=== PATIENT | female | born 1980 | race Caucasian/White ===

== ENCOUNTER 2016-11-20 08:11 | Emergency (ER) | payer SELFPAY ==
[2016-11-20 08:18] VITALS: BP 128/91
--- NOTE | 2016-11-20 09:10 | RAD ---
CLINICAL HISTORY: Flank pain COMPARISON: None TECHNIQUE: Multiple contiguous axial CT scans were obtained of the abdomen and pelvis, without intravenous contrast enhancement. Coronal and sagittal multiplanar reformations are submitted for review. Oral contrast was not administered. FINDINGS: The study is limited by the lack of intravenous contrast. This limits evaluation of the solid organs and vasculature. LUNG BASES: The lung bases are clear. LIVER: The liver is diffusely low in attenuation compared to the spleen. There are no focal hepatic parenchymal masses. The liver measures 21 cm in long axis. BILE DUCTS: There is no intrahepatic or extrahepatic biliary dilatation. GALLBLADDER: The gallbladder is normal, without pericholecystic inflammatory change. PANCREAS: The pancreas is normal, without mass or ductal dilatation. SPLEEN: Normal in size and appearance. UPPER GI TRACT: Evaluation of the gastrointestinal tract is limited by incomplete gastric distention. The upper GI tract is unremarkable. SMALL BOWEL AND MESENTERY: The small bowel is normal in contour, course, and caliber. There is no obstruction or dilatation. COLON: The colon is normal in contour, course, caliber. There is no pericolonic inflammatory change. There is a tubular, vermiform, hollow viscus that is blind ending, and originates from the cecum, consistent with a normal appendix. There is no periappendiceal inflammatory change. This is best seen on axial images 110 through 123. ADRENALS: Normal bilaterally. KIDNEYS: The kidneys are normal in shape, size, contour, and axis. There is no hydronephrosis or nephrolithiasis. BLADDER: The bladder is incompletely distended but is grossly normal. PELVIC ORGANS: The uterus and adnexa are grossly normal for technique. AORTA: The aorta is normal. IVC: Unremarkable LYMPH NODES: There is no lymphadenopathy by size criteria. ABDOMINAL WALL: There is no evidence for abdominal wall hernia. BONES AND SOFT TISSUES: Mild degenerative changes are noted OTHER: None IMPRESSION: 1. NO HYDRONEPHROSIS OR NEPHROLITHIASIS. 2. HEPATOMEGALY WITH FATTY INFILTRATION OF THE LIVER
--- NOTE | 2016-11-20 10:22 | UC ---
Amauri Page Angela, scribed for Kevin Ugarte MD on 11/20/16 at 0833 . Complaint Female HPI - HPI Summary HPI Summary: This pt is a 36 y/o female presenting to [facility] c/o bilateral flank pain with urinary frequency and mild dysuria. Pt reports her pain radiates from her back to her abdomen. Pt notes her pain is aggravated by urinating, touch and breathing. Pt states she had chills yesterday and had nausea. She denies fever, sore throat, rhinorrhea. Pt notes regular menstrual cycles. No hx of kidney stones. - History Of Current Complaint Chief Complaint: UCGU Stated Complaint: LOWER BACK PAIN Time Seen by Provider: 11/20/16 08:24 Hx Obtained From: Patient Hx Last Menstrual Period: 11/18/16 Onset/Duration: Gradual Onset Timing: Constant Pain Intensity: 4 Pain Scale Used: 0-10 Numeric Aggravating Factor(s): Urination Alleviating Factor(s): Nothing Associated Signs And Symptoms: Positive: Back Pain - flank pain, Nausea. Negative: Fever - Allergies/Home Medications Allergies/Adverse Reactions: Allergies Allergy/AdvReac Type Severity Reaction Status Date / Time No Known Allergies Allergy Verified 03/02/16 13:53 PMH/Surg Hx/FS Hx/Imm Hx Endocrine History: Diabetes - Type 2 Cardiovascular History: Hypertension - Surgical History Surgical History: Yes Surgery Procedure, Year, and Place: Csection,left foot surgery x 2. Leep procedure. cervical tear repair - Family History Known Family History: Positive: None Negative: Cardiac Disease, Hypertension, Diabetes Family History: R & n/C - Social History Alcohol Use: None Substance Use Type: None Smoking Status (MU): Current Every Day Smoker Type: Cigarettes Amount Used/How Often: 1/2 pdd Length of Time of Smoking/Using Tobacco: 15+ years Have You Smoked in the Last Year: Yes Household Exposure Type: Cigarettes - Immunization History Most Recent Influenza Vaccination: unsure Most Recent Tetanus Shot: unsure Most Recent Pneumonia Vaccination: none Review of Systems Constitutional: Negative, Chills Skin: Negative Eyes: Negative ENT: Negative Respiratory: Negative Cardiovascular: Negative Gastrointestinal: Abdominal Pain Genitourinary: Dysuria, Frequency, Urgency, Other - flank pain Musculoskeletal: Negative Neurological: Negative Psychological: Negative All Other Systems Reviewed And Are Negative: Yes Physical Exam Triage Information Reviewed: Yes Vital Signs: Initial Vital Signs Temp 97.8 F 11/20/16 08:14 Pulse 104 11/20/16 08:14 Resp 20 11/20/16 08:14 BP 128/91 11/20/16 08:14 Pulse Ox 100 11/20/16 08:14 Vital Signs Reviewed: Yes - Additional Comments The patient is well-nourished in no acute distress. The skin is warm and skin color reflects adequate perfusion. Pt is a little diaphoretic. HEENT: The head is normocephalic and atraumatic. The pupils are equal and reactive. The conjunctivae are clear and without drainage. Nares are patent and without drainage. Neck is supple with full range of motion and non-tender. Respiratory: Chest is non-tender. Lungs are clear to auscultation and breath sounds are symmetrical and equal. Cardiovascular: Hear is regular rate and rhythm. There is no murmur or rub auscultated. There is no peripheral edema and pulses are symmetrical and equal. Abdomen: The abdomen is soft and non-tender. No reproducible pain in RUQ. There are normal bowel sounds heard in all four quadrants and there is no organomegaly palpated. Musculoskeletal: There is no back pain noted. Extremities are non-tender with full range of motion. There is good capillary refill. There is bilateral CVA tenderness. Neurological: Patient is alert and oriented to person, place and time. The patient has symmetrical motor strength in all four extremities. Psychiatric: The patient has an appropriate affect and does not exhibit any anxiety or depression. Diagnostics - Radiology CT Abdomen/Pelvis Xray Interpretation: No Acute Changes - IMPRESSION: 1. No hydronephrosis or nephrolithiasis. 2. Hepatomegaly with fatty infiltration of the liver. Radiology Interpretation Completed By: Radiologist Complaint Female Dx - Course Course Of Treatment: I discussed all the results with the pt. Pt will be discharged with ibuprofen and is advised to follow up. We did a culture and if positive, we will call her back. - Differential Dx/Diagnosis Differential Diagnosis/HQI/PQRI: Renal Colic, Ureteral Stone, Urinary Tract Infection Provider Diagnoses: Flank pain. Discharge - Discharge Plan Condition: Stable Disposition: HOME Patient Education Materials: Flank Pain (ED) Referrals: Sai Patricio MD [Primary Care Provider] - Additional Instructions: Your high blood pressure was elevated at this visit. Please follow up with your primary care provider for a blood pressure reading and to assure your symptoms are improving. Take ibuprofen as instructed to alleviate your pain. The documentation as recorded by the Amauri stark Angela accurately reflects the service I personally performed and the decisions made by me, Kevin Ugarte MD.
== END 2016-11-20 10:12 | disposition home or self-care (01) ==
LOC: UCEAST 08:11
DX: N21.1 Calculus in urethra (principal); N39.0 Urinary tract infection, site not specified; F17.210 Nicotine dependence, cigarettes, uncomplicated; I10 Essential (primary) hypertension
CPT/HCPCS: 74176; 81003; 84702; 87086; 99211; G0463

== ENCOUNTER 2016-12-22 08:03 | Emergency (ER) | payer SELFPAY | END 2016-12-22 09:10 | disposition left against medical advice (07) | LOC: UCEAST 08:03 | DX: M79.9 Soft tissue disorder, unspecified (principal); Z53.21 Procedure and treatment not carried out due to patient leaving prior to being seen by health care provider ==

== ENCOUNTER 2017-05-09 01:45 | Emergency (ER) | payer SELFPAY ==
[2017-05-09] MEDS ORDERED: Ibuprofen TAB* 400 MG PO ONE (03:59)
[2017-05-09 04:56] VITALS: BP 144/85
--- NOTE | 2017-05-09 15:38 | RAD ---
INDICATION: Right shoulder pain COMPARISON: With recent comparison chest x-ray August 01, 2015 TECHNIQUE: Single AP view of the chest was obtained. FINDINGS: The heart and mediastinum exhibit normal size and contour. The lungs are grossly clear. There is no evidence of a large pleural effusion. Visualized bones are normal for the patient's age. IMPRESSION: No radiographic evidence for acute cardiopulmonary abnormality on this single AP view chest x-ray.
--- NOTE | 2017-05-09 15:39 | RAD ---
INDICATION: Right shoulder and upper arm vein COMPARISON: None. TECHNIQUE: 4 views of the right shoulder, 3 views of the right humerus and 2 views of the right elbow were obtained. FINDINGS: The adequately corticated bones are in normal alignment. Joint spaces appear maintained. No fracture, dislocation or focal bony abnormality is seen. IMPRESSION: NORMAL RADIOGRAPHIC SERIES OF THE RIGHT SHOULDER, HUMERUS AND ELBOW If the patient's symptoms persist, follow-up imaging is recommended.
--- NOTE | 2017-05-13 21:06 | ED ---
Lenny Page Tecjoon, scribed for Geovani Em MD on 05/09/17 at 0216 . Upper Extremity Pain - HPI Summary HPI Summary: This patient is a 37 year old female presenting to [facility] accompanied by son with a chief complaint of right upper extremity pain since approx.. 1 hour ago. Patient states that she rolled in bed, heard crunching, and has extreme pain from her right shoulder to her elbow. The pain is rated 9/10 in severity. Symptoms aggravated by movement, palpation. Symptoms alleviated by nothing. 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 - History of Current Complaint Chief Complaint: EDShouldJoe Stated Complaint: SHOULDER INJURY Hx Obtained From: Patient Hx Last Menstrual Period: 11/18/16 Mechanism Of Injury: Other - "rolled in bed" Onset/Duration: Started Hours Ago - 1, Still Present Timing: Constant Severity Initially: Severe Severity Currently: Severe Pain Location: Shoulder, Elbow, Wrist Aggravating Factor(s): Movement Alleviating Factor(s): Nothing Associated Signs & Symptoms: Negative: Swelling, Redness - Allergies/Home Medications Allergies/Adverse Reactions: Allergies Allergy/AdvReac Type Severity Reaction Status Date / Time No Known Allergies Allergy Verified 03/02/16 13:53 PMH/Surg Hx/FS Hx/Imm Hx Previously Healthy: No Endocrine/Hematology History: Reports: Hx Diabetes, Hx Anemia Denies: Hx Thyroid Disease Cardiovascular History: Reports: Hx Hypertension Respiratory History: Denies: Hx Asthma, Hx Chronic Obstructive Pulmonary Disease (COPD) GI History: Denies: Hx Ulcer Sensory History: Reports: Hx Contacts or Glasses - reading once in a while Opthamlomology History: Reports: Hx Contacts or Glasses - reading once in a while - Surgical History Surgery Procedure, Year, and Place: Csection,left foot surgery x 2. Leep procedure. cervical tear repair Hx Anesthesia Reactions: No - Immunization History Date of Tetanus Vaccine: unk Date of Influenza Vaccine: unk Infectious Disease History: No Infectious Disease History: Reports: Hx of Known/Suspected MRSA Denies: Hx Clostridium Difficile, Hx Hepatitis, Hx Human Immunodeficiency Virus (HIV), Hx Shingles, Hx Tuberculosis, Hx Known/Suspected VRE, Hx Known/ Suspected VRSA, History Other Infectious Disease, Traveled Outside the [place] in Last 30 Days - Family History Known Family History: Negative: Cardiac Disease, Hypertension, Diabetes - Social History Alcohol Use: None Hx Substance Use: No Substance Use Type: Reports: None Hx Tobacco Use: Yes Smoking Status (MU): Current Every Day Smoker Type: Cigarettes Amount Used/How Often: 1/2 pdd Length of Time of Smoking/Using Tobacco: 15+ years Have You Smoked in the Last Year: Yes Review of Systems Negative: Fever Positive: Other - right shoulder to right wrist pain All Other Systems Reviewed And Are Negative: Yes Physical Exam - Summary Physical Exam Summary: Appearance: Well-appearing, Well-nourished, in pain distress Skin: Warm Eyes: Normal Cardiovascular: Normal S1, S2. No murmurs. Normal distal pulses in tibial and radial bilaterally. Musculoskeletal: Tenderness throughout right shoulder to right wrist. Intact sensation, intact function of right hand. No swelling. Abd/Chest: Chest wall, no tenderness to palp to clavicle Neurological: Normal, A&Ox3 Psychiatric: Normal Triage Information Reviewed: Yes Vital Signs On Initial Exam: Initial Vitals Temp Pulse Resp BP Pulse Ox 97.4 F 117 22 141/84 98 05/09/17 01:50 05/09/17 01:50 05/09/17 01:50 05/09/17 01:50 05/09/17 01:50 Vital Signs Reviewed: Yes Diagnostics - Vital Signs Vital Signs Temp Pulse Resp BP Pulse Ox 05/09/17 01:50 97.4 F 117 22 141/84 98 - Laboratory Lab Statement: Any lab studies that have been ordered have been reviewed, and results considered in the medical decision making process. Course/Dx - Course Assessment/Plan: no acute fractures or dislocations on xr, distal nv intact, pt instructed to [facility] orthopedist. given sling for comfort, agrees to and understnads dc instructinos - Diagnoses Provider Diagnoses: Rotator cuff injury Discharge - Discharge Plan Condition: Stable Disposition: HOME Prescriptions: oxyCODONE/Acetamin 5/325 MG* [Percocet 5/325 TAB*] 1 tab PO Q6H PRN #10 tab MDD 4 tabs PRN Reason: Pain - Moderate To Severe Patient Education Materials: Rotator Cuff Injury (ED) Referrals: Mark Meyer MD [Medical Doctor] - Sai Patricio MD [Primary Care Provider] - Additional Instructions: PLEASE MAKE AN APPOINTMENT FIRST THING IN THE MORNING TO BE SEEN BY AN ORTHOPEDIST WITHIN 1 [address] NOT DRIVE WHILE TAKING PERCOCET PLEASE RETURN IMMEDIATELY TO THE ER IF YOU HAVE ANY WORSENING OR CONCERNING SYMPTOMS PLEASE MAKE AN APPOINTMENT TO BE SEEN BY YOUR PRIMARY CARE DOCTOR WITHIN 1 WEEK The documentation as recorded by the Lenny stark Tecjoon accurately reflects the service I personally performed and the decisions made by me, Geovani Em MD.
== END 2017-05-09 04:10 | disposition home or self-care (01) ==
LOC: ED 01:45
DX: S46.009A Unspecified injury of muscle(s) and tendon(s) of the rotator cuff of unspecified shoulder, initial encounter (principal); M25.531 Pain in right wrist; X50.9XXA Other and unspecified overexertion or strenuous movements or postures, initial encounter; Y92.9 Unspecified place or not applicable; F17.210 Nicotine dependence, cigarettes, uncomplicated
CPT/HCPCS: 71045; 99282; A9270-GY

== ENCOUNTER 2018-04-14 11:36 | Emergency (ER) | payer OTHER ==
[2018-04-14] MEDS ORDERED: NS 0.9% 1000 ML* 1,000 ML IV ONE ×2 (11:43→12:48)
[2018-04-14] MEDS ORDERED: Famotidine IV* 10 MG/ML 2 ML (20 mg) IV ONE (11:43)
--- NOTE | 2018-04-14 11:50 | ED ---
HPI Diabetic - HPI Summary HPI Summary: The patient is a 38 y/o F presenting to [facility] arriving by ambulance with a chief complaint of sudden onset nausea and vomiting since 0600 this morning. She felt normal last night and into this morning until after she ate a banana and coffee for breakfast, which is when her symptoms began. She has vomited multiple times, which has not been resolved; she is unable to tolerate medication PO due to current condition. The vomiting has additionally led to a burning sensation in her throat and epigastric abd pain. She has hx of Type II DM and HTN, which are usually controlled. In the ambulance, her blood sugar was greater than 300. She denies hx of GERD. Current heavy everyday smoker, occasional marijuana, and EtOH. No FHx. - History Of Current Complaint Hx Obtained From: Patient, EMS Hx Last Menstrual Period: 03/19/18 Onset/Duration: Sudden Onset, Lasting Hours - since 0600 this morning, Still Present Timing: Hours Severity Initially: Moderate Severity Currently: Moderate Character: Alert Aggravating: Nothing Alleviating: Other - unable to tolerate oral meds at this time Associated Signs & Symptoms: Abdominal Pain - epigastric secondary to vomiting, Nausea, Vomiting Related History: DM II - Allergies/Home Medications Allergies/Adverse Reactions: Allergies Allergy/AdvReac Type Severity Reaction Status Date / Time No Known Allergies Allergy Verified 12/13/17 13:07 PMH/Surg Hx/FS Hx/Imm Hx Endocrine/Hematology History: Reports: Hx Diabetes - type 2 dm, Hx Anemia Denies: Hx Thyroid Disease Cardiovascular History: Reports: Hx Hypertension Denies: Hx Hypercholesterolemia, Hx Pacemaker/ICD Respiratory History: Denies: Hx Asthma, Hx Chronic Obstructive Pulmonary Disease (COPD) GI History: Denies: Hx Gastroesophageal Reflux Disease, Hx Ulcer History: Denies: Hx Renal Disease Sensory History: Reports: Hx Contacts or Glasses - reading once in a while Denies: Hx Hearing Aid Opthamlomology History: Reports: Hx Contacts or Glasses - reading once in a while Psychiatric History: Denies: Hx Panic Disorder - Surgical History Surgery Procedure, Year, and Place: Csection Xs 2. left foot surgery x 2 - [place] [facility] [place]-TWICE. Leep procedure. Cervix tear repair Hx Anesthesia Reactions: No - Immunization History Date of Tetanus Vaccine: unk Date of Influenza Vaccine: unk Infectious Disease History: Reports: Hx of Known/Suspected MRSA Denies: Hx Clostridium Difficile, Hx Hepatitis, Hx Human Immunodeficiency Virus (HIV), Hx Shingles, Hx Tuberculosis, Hx Known/Suspected VRE, Hx Known/ Suspected VRSA, History Other Infectious Disease - Family History Known Family History: Negative: Cardiac Disease, Hypertension, Diabetes Family History: R & n/C - Social History Alcohol Use: Rare Hx Substance Use: No Substance Use Type: Reports: Marijuana Substance Use Comment - Amount & Last Used: weekly Hx Tobacco Use: Yes Smoking Status (MU): Heavy Every Day Tobacco Smoker Type: Cigarettes Amount Used/How Often: 1/2 pdd Length of Time of Smoking/Using Tobacco: 15+ years Have You Smoked in the Last Year: Yes Review of Systems Positive: Other - burning in throat secondary to vomiting Positive: Abdominal Pain - epigastric secondary to vomiting, Vomiting, Nausea All Other Systems Reviewed And Are Negative: Yes Physical Exam - Summary Physical Exam Summary: VITAL SIGNS: Reviewed. GENERAL: Patient is a well-developed and nourished female who is lying comfortable in the stretcher. Patient is not in any acute respiratory distress. HEAD AND FACE: No signs of trauma. No ecchymosis, hematomas or skull depressions. No sinus tenderness. EYES: PERRLA, EOMI x 2, No injected conjunctiva, no nystagmus. EARS: Hearing grossly intact. Ear canals and tympanic membranes are within normal limits. MOUTH: Oropharynx within normal limits. Dry oral mucosa. NECK: Supple, trachea is midline, no adenopathy, no JVD, no carotid bruit, no c- spine tenderness, neck with full ROM. CHEST: Symmetric, no tenderness at palpation LUNGS: Clear to auscultation bilaterally. No wheezing or crackles. CVS: Regular rate and rhythm, S1 and S2 present, no murmurs or gallops appreciated. ABDOMEN: Soft, mild epigastric tenderness. No signs of distention. No rebound no guarding, and no masses palpated. Bowel sounds are normal. No abdominal bruit or pulsations. EXTREMITIES: FROM in all major joints, no edema, no cyanosis or clubbing. NEURO: Alert and oriented x 3. No acute neurological deficits. Speech is normal and follows commands. SKIN: Dry and warm Triage Information Reviewed: Yes Vital Signs Reviewed: Yes Diagnostics - Laboratory Result Diagrams: 04/14/18 11:10 04/14/18 11:10 Lab Statement: Any lab studies that have been ordered have been reviewed, and results considered in the medical decision making process. - Radiology Abd XR Radiology Interpretation Completed By: Radiologist Summary of Radiographic Findings: No acute abdominal pelvic pathologic process evident. ED physician has reviewed this report. - CT Abd CT CT Interpretation Completed By: Radiologist Summary of CT Findings: Normal appendix. No other masses or fluid collections are noted although the study is limited due to lack of oral contrast. Hepatic steatosis is noted. ED physician has reviewed this report. - EKG 12:13 Cardiac Rate: Bradycardia - 50 BPM EKG Rhythm: Sinus Bradycardia Summary of EKG Findings: No ST elevations. Re-Evaluation - Re-Evaluation First Eval Re-Evaluation Time: 16:35 Change: Improved Comment: Patient states she is feeling better. We discussed results and discharge home. Diabetic Course/Dx - Course Course Of Treatment: The patient was found to have increased BP in the ED. The patient will follow up with PCP for better control of BP. Assessment/Plan: The patient is a 38 y/o F presenting to [facility] arriving by ambulance with a chief complaint of sudden onset nausea and vomiting since 0600 this morning. She felt normal last night and into this morning until after she ate a banana and coffee for breakfast, which is when her symptoms began. She has vomited multiple times, which has not been resolved; she is unable to tolerate medication PO due to current condition. The vomiting has additionally led to a burning sensation in her throat and epigastric abd pain. She has hx of Type II DM and HTN, which are usually controlled. In the ambulance, her blood sugar was greater than 300. She denies hx of GERD. Current heavy everyday smoker , occasional marijuana, and EtOH. No FHx. Blood work without any significant abnormality except for WBCs of 14.3, hemoglobin 17.7 hematocrit 52, anion gap is 14, glucose is 404, calcium is 10.6, lactic acid 3.2, an beta hCG is negative. In the ED course the patient was given IV fluids and Zofran for nausea and vomiting. She continued to have nausea therefore the patient was given Reglan. Abdominopelvic CT impression: normal appendix, no other mass or fluid collections are noted although the study is limited due to lack of oral contrast. In the ED course the patient is given another dose of Compazine and the symptoms have resolved. Patient also was given insulin for hyperglycemia and now the fingerstick is 240. Since the patient is feeling better and the patient will be discharged home with follow-up with PCP. I discussed all the findings and test results with the patient. Patient was instructed to return to the emergency room immediately if any of the symptoms return or worsens. Plan of care was discussed with the patient and understands and agrees. All questions were answered at patient satisfaction. There were no further complaints or concerns. Lung exam before discharge: CTA B/L. Good air exchange. No wheezing or crackles heard. CVS: S1 and S2 present. No murmurs appreciated. Patient is alert and oriented x 3. Patient is hemodynamically stable. Patient will be discharged home with follow up PCP in the next 2-3 days - Diagnoses Differential Dx: Gestational Diabetes, Hyperglycemia, Hypoglycemia Provider Diagnoses: Nausea and vomiting, Gastroparesis Discharge - Sign-Out/Discharge Documenting (check all that apply): Patient Departure - Patient will be discharged home. - Discharge Plan Condition: Stable Disposition: HOME Prescriptions: Metoclopramide TAB* [Reglan TAB*] 10 mg PO Q8H PRN #10 tab PRN Reason: Nausea/Vomiting Patient Education Materials: Acute Nausea and Vomiting (ED) Referrals: Abhishek Martin MD [Primary Care Provider] - 3 Days Additional Instructions: Please take medication as prescribed. FOLLOW UP WITH YOUR PRIMARY CARE PROVIDER WITHIN ONE WEEK FOR HIGH BLOOD PRESSURE NOTED TODAY. RETURN TO THE ED FOR ANY WORSENING OR NEW SYMPTOMS. - Billing Disposition and Condition Condition: STABLE Disposition: Home - Attestation Statements Document Initiated by Luther: Yes Documenting Scribe: Linn Jacob Provider For Whom Luther is Documenting (Include Credential): Dr. Abhishek Mireles MD Scribe Attestation: Linn Page scribed for Dr. Abhishek Mireles MD on 04/14/18 at 2147. Scribe Documentation Reviewed: Yes Provider Attestation: The documentation as recorded by the Linn stark accurately reflects the service I personally performed and the decisions made by me, Dr. Abhishek Mireles MD Status of Scribe Document: Viewed
[2018-04-14] MEDS: Ondansetron INJ* 2 MG/ML VIAL IV ONE ×2 (12:16)
[2018-04-14 12:20] LABS: Hematocrit 52 % (35-47); Hemoglobin 17.7 g/dl (12.0-16.0); Mean Corpuscular HGB Conc 34 g/dl (31-36); Mean Corpuscular Hemoglobin 30 pg (27-31); Mean Corpuscular Volume 87 fL (80-97); Mean Platelet Volume 9.9 fL (7.4-10.4); Platelet Count 235 10^3/ul (150-450); Red Blood Count 5.99 10^6/ul (4.00-5.40); Red Cell Distribution Width 14 % (10.5-15); White Blood Count 14.3 10^3/ul (3.5-10.8)
[2018-04-14 12:38] LABS: ALT 29 U/L (7-52); AST 31 U/L (13-39); Albumin 5.5 g/dL (3.2-5.2); Albumin/Globulin Ratio 1.8 (1-3); Alkaline Phosphatase 62 U/L (34-104); Anion Gap 14 mmol/L (2-11); BUN/Creatinine Ratio 11.8 (8-20); Blood Urea Nitrogen 11 mg/dL (6-24); C Reactive Protein 3.78 mg/L (<8.01); CO2 Carbon Dioxide 23 mmol/L (22-32); Calcium 10.6 mg/dL (8.6-10.3); Chloride 100 mmol/L (101-111); Creatine Kinase 44 U/L (10-223); EGFR Non-African American 67.5 (>60); Glucose 404 mg/dL (70-100); Potassium 4.3 mmol/L (3.5-5.0); Sodium 137 mmol/L (135-145); Total Protein 8.5 g/dL (6.4-8.9)
[2018-04-14 12:44] LABS: ABS Basophils 0.1 10^3/ul (0-0.2); ABS Eosinophils 0.1 10^3/ul (0-0.6); ABS Lymphocytes 2.3 10^3/ul (1.0-4.8); ABS Monocytes 0.4 10^3/ul (0-0.8); ABS Neutrophils 11.5 10^3/ul (1.5-7.7); ABS Nucleated RBC 0 10^3/ul; Eosinophil % 0.4 %; HCG Pregnancy < 0.60 mIU/mL; Nucleated Red Blood Cells % 0.1
[2018-04-14] MEDS ORDERED: Metoclopramide IV* 5 MG/ML 2 ML VIAL ONE (13:32)
[2018-04-14] MEDS ORDERED: Metoclopramide IV* 5 MG/ML 2 ML VIAL IV ONE (13:42)
[2018-04-14] MEDS ORDERED: Iodixanol* (CONTRAST) 320 MG/ML 100 ML SDV IV ONE (13:50)
[2018-04-14] MEDS ORDERED: Insulin REGULAR(*) 1 UNITS UNIT SUBCUT ONE (15:16)
[2018-04-14 15:47] LABS: Urine Appearance Clear; Urine Bilirubin Negative (Negative); Urine Blood Negative (Negative); Urine Color Yellow; Urine Glucose 3+(>=500 mg/dL) (Negative); Urine Ketones 2+ (Negative); Urine Nitrite Negative (Negative); Urine Protein Negative (Negative); Urine Specific Gravity 1.024 (1.010-1.030); Urine Urobilinogen Negative (Negative)
[2018-04-14] MEDS ORDERED: PROCHLORPERAZINE INJ 5 MG/ML 2 ML VIAL IV ONE (16:04)
[2018-04-14] MEDS ORDERED: Insulin REGULAR(*) 1 UNITS UNIT IV PUSH ONE (17:06)
[2018-04-14 20:10] VITALS: BP 165/72
== END 2018-04-14 20:07 | disposition home or self-care (01) ==
LOC: ED 11:36
DX: R11.2 Nausea with vomiting, unspecified (principal); K31.84 Gastroparesis; I10 Essential (primary) hypertension; F17.210 Nicotine dependence, cigarettes, uncomplicated; E11.9 Type 2 diabetes mellitus without complications
CPT/HCPCS: 36415; 74019; 74177; 80053; 81003; 82550; 83605; 83690; 83735; 83880; 84484; 84702; 85025; 86140; 93005; 96361; 96374; 96375; 99283; J0780; J2405; J2765; Q9967

== ENCOUNTER 2018-04-15 19:57 | Emergency (ER) | payer OTHER ==
[2018-04-15] MEDS ORDERED: NS 0.9% 1000 ML** 1,000 ML IV ONE ×2 (20:07→21:36)
[2018-04-15] MEDS ORDERED: PROCHLORPERAZINE INJ 5 MG/ML 2 ML VIAL IV ONE (20:07)
[2018-04-15 20:25] LABS: Hematocrit 50 % (35-47); Mean Corpuscular HGB Conc 34 g/dl (31-36); Mean Corpuscular Hemoglobin 30 pg (27-31); Mean Corpuscular Volume 86 fL (80-97); Mean Platelet Volume 9.6 fL (7.4-10.4); Platelet Count 254 10^3/ul (150-450); Red Blood Count 5.76 10^6/ul (4.00-5.40); Red Cell Distribution Width 15 % (10.5-15)
[2018-04-15] MEDS ORDERED: Pantoprazole IV* 40 MG IV ONE (20:25)
--- NOTE | 2018-04-15 20:28 | ED ---
GI/ HPI - HPI Summary HPI Summary: 38-year-old female presents with continuation nausea vomiting for the past 2 days. She was seen yesterday and diagnosed with gastroenteritis. She continued to vomit after she went home. She is not able to keep anything down. She only felt better with Compazine that was given here. States she tried Reglan home but it did not work. She denies any fevers. She admits to a dry throat. Occasional cough due to the vomiting. No diarrhea. She only has belly pain when she was vomiting. She states she has a headache when she vomits but no headache currently. She denies eating anything different. No one else is sick. She has not smoked any marijuana recently. This has never happened before. She is diabetic controlled by diet but lately her sugars have been elevated with this illness. - History of Current Complaint Chief Complaint: EDNauseaVomitDiarrh Time Seen by Provider: 04/15/18 20:01 Stated Complaint: NAUSEA Hx Last Menstrual Period: 03/19/18 Pain Intensity: 0 - Additional Pertinent History Primary Care Physician: RACHEL - Allergy/Home Medications Allergies/Adverse Reactions: Allergies Allergy/AdvReac Type Severity Reaction Status Date / Time No Known Allergies Allergy Verified 12/13/17 13:07 PMH/Surg Hx/FS Hx/Imm Hx Endocrine/Hematology History: Reports: Hx Diabetes - type 2 dm, Hx Anemia Denies: Hx Thyroid Disease Cardiovascular History: Reports: Hx Hypertension Denies: Hx Hypercholesterolemia, Hx Pacemaker/ICD Respiratory History: Denies: Hx Asthma, Hx Chronic Obstructive Pulmonary Disease (COPD) GI History: Denies: Hx Gastroesophageal Reflux Disease, Hx Ulcer History: Denies: Hx Renal Disease Sensory History: Reports: Hx Contacts or Glasses - reading once in a while Denies: Hx Hearing Aid Opthamlomology History: Reports: Hx Contacts or Glasses - reading once in a while Psychiatric History: Denies: Hx Panic Disorder - Surgical History Surgery Procedure, Year, and Place: Csection Xs 2. left foot surgery x 2 - I & D-TWICE. Leep procedure. Cervix tear repair Hx Anesthesia Reactions: No - Immunization History Date of Tetanus Vaccine: unk Date of Influenza Vaccine: unk Infectious Disease History: Yes Infectious Disease History: Reports: Hx of Known/Suspected MRSA Denies: Hx Clostridium Difficile, Hx Hepatitis, Hx Human Immunodeficiency Virus (HIV), Hx Shingles, Hx Tuberculosis, Hx Known/Suspected VRE, Hx Known/ Suspected VRSA, History Other Infectious Disease, Traveled Outside the [place] in Last 30 Days - Family History Known Family History: Negative: Cardiac Disease, Hypertension, Diabetes Family History: R & n/C - Social History Alcohol Use: Rare Hx Substance Use: No Substance Use Type: Reports: Marijuana Substance Use Comment - Amount & Last Used: weekly Hx Tobacco Use: Yes Smoking Status (MU): Heavy Every Day Tobacco Smoker Type: Cigarettes Amount Used/How Often: 1/2 pdd Length of Time of Smoking/Using Tobacco: 15+ years Have You Smoked in the Last Year: Yes Review of Systems Negative: Fever Negative: Chest Pain Negative: Shortness Of Breath Positive: Abdominal Pain, Vomiting, Nausea. Negative: Diarrhea All Other Systems Reviewed And Are Negative: Yes Physical Exam Triage Information Reviewed: Yes Vital Signs On Initial Exam: Initial Vitals Temp Pulse Resp BP Pulse Ox 98.4 F 100 16 146/97 100 04/15/18 19:58 04/15/18 19:58 04/15/18 19:58 04/15/18 19:58 04/15/18 19:58 Vital Signs Reviewed: Yes Appearance: Positive: Well-Appearing Skin: Positive: Warm, Dry Head/Face: Positive: Normal Head/Face Inspection Eyes: Positive: Normal, Conjunctiva Clear ENT: Positive: Pharynx normal Respiratory/Lung Sounds: Positive: Clear to Auscultation, Breath Sounds Present Cardiovascular: Positive: Normal, RRR Abdomen Description: Positive: Nontender, Soft Bowel Sounds: Positive: Present Musculoskeletal: Positive: Normal Neurological: Positive: Normal Psychiatric: Positive: Normal Diagnostics - Vital Signs Vital Signs Temp Pulse Resp BP Pulse Ox 04/15/18 19:58 98.4 F 100 16 146/97 100 - Laboratory Lab Results: Lab Results 04/15/18 Range/Units 20:16 WBC 25.0 H (3.5-10.8) 10^3/ul RBC 5.76 H (4.00-5.40) 10^6/ul Hgb 17.0 H (12.0-16.0) g/dl Hct 50 H (35-47) % MCV 86 (80-97) fL MCH 30 (27-31) pg MCHC 34 (31-36) g/dl RDW 15 (10.5-15) % Plt Count 254 (150-450) 10^3/ul MPV 9.6 (7.4-10.4) fL Neut % (Auto) Pending Lymph % (Auto) Pending Kendall % (Auto) Pending Eos % (Auto) Pending Baso % (Auto) Pending Absolute Neuts (auto) Pending Absolute Lymphs (auto) Pending Absolute Monos (auto) Pending Absolute Eos (auto) Pending Absolute Basos (auto) Pending Absolute Nucleated RBC Pending Nucleated RBC % Pending Result Diagrams: 04/15/18 20:16 04/15/18 20:16 Lab Statement: Any lab studies that have been ordered have been reviewed, and results considered in the medical decision making process. Re-Evaluation - Re-Evaluation First Eval Re-Evaluation Time: 20:49 Change: Improved Comment: less nauesous Second Eval Re-Evaluation Time: 21:49 Comment: no symptoms anymore, wants to try crackers Third Eval Re-Evaluation Time: 22:23 Change: Improved Comment: tolerated crackers and gingerale GIGU Course/Dx - Course Course Of Treatment: 38-year-old female presents with continuation nausea vomiting for the past 2 days. She was seen yesterday and diagnosed with gastroenteritis. She continued to vomit after she went home. She is not able to keep anything down. She only felt better with Compazine that was given here. States she tried Reglan home but it did not work. She denies any fevers. She admits to a dry throat. Occasional cough due to the vomiting. No diarrhea. She only has belly pain when she was vomiting. She states she has a headache when she vomits but no headache currently. She denies eating anything different. No one else is sick. She has not smoked any marijuana recently. This has never happened before. She is diabetic controlled by diet but lately her sugars have been elevated with this illness. On exam abdomen soft nontender. Lungs clear to auscultation. White blood cell count elevated at 25 but patient has a history of chronically elevated white blood cell count. Hemoglobin and hematocrit are elevated unclear reason at the moment. Lactic is elevated but patient has been vomiting. Has an anion gap but is likely due to vomiting. CRP is normal. had normal CT yesterday. gave compazine and fluids and feeling better. tolerated crackers in ED. will discharge with compazine. patient understand and agrees with plan. - Diagnoses Differential Diagnoses - Female: Gastroenteritis (Viral), Gastroenteritis ( Bacterial), Urinary Tract Infection Provider Diagnoses: Vomiting Discharge - Sign-Out/Discharge Documenting (check all that apply): Patient Departure - Discharge Plan Condition: Good Disposition: HOME Prescriptions: Prochlorperazine TAB* [Compazine Tab*] 5 mg PO Q6H PRN #16 tab PRN Reason: Nausea Patient Education Materials: Acute Nausea and Vomiting (ED) Referrals: Abhishek Martin MD [Primary Care Provider] - Additional Instructions: stop Reglan Take compazine every 6 hours as needed for nausea Drink small amounts of fluid as tolerated When able to eat follow BRAT diet: Bananas, rice, applesauce, toast Take ibuprofen or Tylenol for pain as needed every 6 hours Follow up with primary within 5 days Return to ED if develop any new or worsening symptoms - Billing Disposition and Condition Condition: GOOD Disposition: Home
[2018-04-15 20:44] LABS: ALT 19 U/L (7-52); AST 16 U/L (13-39); Albumin 5.3 g/dL (3.2-5.2); Albumin/Globulin Ratio 1.9 (1-3); Alkaline Phosphatase 52 U/L (34-104); Anion Gap 21 mmol/L (2-11); BUN/Creatinine Ratio 18.5 (8-20); Blood Urea Nitrogen 17 mg/dL (6-24); C Reactive Protein 7.09 mg/L (<8.01); CO2 Carbon Dioxide 22 mmol/L (22-32); Calcium 10.5 mg/dL (8.6-10.3); Chloride 93 mmol/L (101-111); EGFR African American 82.7 (>60); EGFR Non-African American 68.3 (>60); Globulin 2.8 g/dL (2-4); Glucose 323 mg/dL (70-100); Magnesium 1.9 mg/dL (1.9-2.7); Potassium 3.6 mmol/L (3.5-5.0); Sodium 136 mmol/L (135-145); Total Protein 8.1 g/dL (6.4-8.9)
[2018-04-15] MEDS ORDERED: Lidocaine 2% VISCOUS* 15 ML UDC PO ONE (20:49)
[2018-04-15] MEDS ORDERED: Al Hydrox/Mg Hydrox/Simet LIQ* 30 ML UDC PO ONE (20:49)
[2018-04-15 20:50] LABS: HCG Pregnancy < 0.60 mIU/mL
[2018-04-15] MEDS ORDERED: Insulin REGULAR(*) 1 UNITS UNIT SUBCUT ONE (20:50)
[2018-04-15 21:08] LABS: ABS Basophils 0.1 10^3/ul (0-0.2); ABS Eosinophils 0 10^3/ul (0-0.6); ABS Lymphocytes 3.3 10^3/ul (1.0-4.8); ABS Neutrophils 20.6 10^3/ul (1.5-7.7); ABS Nucleated RBC 0 10^3/ul; Eosinophil % 0 %; Lymphocyte % 13.3 %; Nucleated Red Blood Cells % 0.1
[2018-04-15 23:20] VITALS: BP 134/73
== END 2018-04-15 23:20 | disposition home or self-care (01) ==
LOC: ED 19:57 → MED 04-19 14:01 → UNDOADMOB 04-19 14:01
DX: R11.2 Nausea with vomiting, unspecified (principal); E11.9 Type 2 diabetes mellitus without complications; F17.210 Nicotine dependence, cigarettes, uncomplicated
CPT/HCPCS: 36415; 80053; 83605; 83690; 83735; 84702; 85025; 86140; 96361; 96372; 96374; 96375; 99283; A9270-GY; J0780

== ENCOUNTER 2018-04-19 09:51 | Observation (INO) | payer OTHER ==
[2018-04-19] MEDS ORDERED: Omeprazole CAP (NF) 20 MG CAP.DR PO ONE (10:08)
[2018-04-19] MEDS ORDERED: Ondansetron ODT TAB* 4 MG PO ONE (10:08)
[2018-04-19] MEDS ORDERED: NS 0.9% 1000 ML* 2,000 ML IV ONE (10:08)
[2018-04-19] MEDS ORDERED: diPHENhydraMINE PO* 50 MG PO ONE (10:11)
--- NOTE | 2018-04-19 10:20 | ED ---
GI/ HPI - HPI Summary HPI Summary: This patient is a 38 year old F brought in by EMS to [facility] c/o intermittent n/v for the last week. Today she began vomiting at 0600am and has 4 times since then. This is the patients third visit for this issue in the last week and states the medications given have not been helping her. The patient rates the pain 3/10 in severity. Patient reports constipation but is passing gas. She also c/o ABD cramping preceding vomiting. The patient has not had a colonoscopy or endoscopy in the past. She did not have any sx yesterday and she uses marijuana daily. - History of Current Complaint Chief Complaint: EDNauseaVomitDiarrh Time Seen by Provider: 04/19/18 09:56 Stated Complaint: GENERAL ILLNESS Hx Obtained From: Patient Hx Last Menstrual Period: 03/19/18 Onset/Duration: Still Present Timing: Intermittent Severity: Moderate Current Severity: Moderate Pain Intensity: 3 Location of Pain: Diffuse Pain Characteristics: Cramping Associated Signs and Symptoms: Positive: Other: - n/v - Additional Pertinent History Primary Care Physician: RACHEL - Allergy/Home Medications Allergies/Adverse Reactions: Allergies Allergy/AdvReac Type Severity Reaction Status Date / Time No Known Allergies Allergy Verified 12/13/17 13:07 Home Medications: Home Medications NK [No Home Medications Reported] 04/19/18 [History Confirmed 04/19/18] PMH/Surg Hx/FS Hx/Imm Hx Endocrine/Hematology History: Reports: Hx Diabetes - type 2 dm, Hx Anemia Denies: Hx Thyroid Disease Cardiovascular History: Reports: Hx Hypertension Denies: Hx Hypercholesterolemia, Hx Pacemaker/ICD, Hx Rheumatic Fever Respiratory History: Denies: Hx Asthma, Hx Chronic Obstructive Pulmonary Disease (COPD) GI History: Denies: Hx Gastroesophageal Reflux Disease, Hx Ulcer History: Denies: Hx Renal Disease Sensory History: Reports: Hx Contacts or Glasses - reading once in a while Denies: Hx Hearing Aid Opthamlomology History: Reports: Hx Contacts or Glasses - reading once in a while Psychiatric History: Denies: Hx Panic Disorder - Surgical History Surgery Procedure, Year, and Place: Csection Xs 2. left foot surgery x 2 - I & D-TWICE. Leep procedure. Cervix tear repair Hx Anesthesia Reactions: No - Immunization History Date of Tetanus Vaccine: unk Date of Influenza Vaccine: unk Infectious Disease History: No Infectious Disease History: Reports: Hx of Known/Suspected MRSA Denies: Hx Clostridium Difficile, Hx Hepatitis, Hx Human Immunodeficiency Virus (HIV), Hx Shingles, Hx Tuberculosis, Hx Known/Suspected VRE, Hx Known/ Suspected VRSA, History Other Infectious Disease, Traveled Outside the [place] in Last 30 Days - Family History Known Family History: Negative: Cardiac Disease, Hypertension, Diabetes - Social History Alcohol Use: Rare Hx Substance Use: Yes Substance Use Type: Reports: Marijuana Substance Use Comment - Amount & Last Used: weekly Hx Tobacco Use: Yes Smoking Status (MU): Heavy Every Day Tobacco Smoker Type: Cigarettes Amount Used/How Often: 1/2 pdd Length of Time of Smoking/Using Tobacco: 15+ years Have You Smoked in the Last Year: Yes Review of Systems Negative: Fever Gastrointestinal: Other - constipation Positive: Abdominal Pain - cramping , Vomiting, Nausea Negative: Slurred Speech All Other Systems Reviewed And Are Negative: Yes Physical Exam - Summary Physical Exam Summary: VITAL SIGNS: Reviewed. GENERAL: Patient is a well-developed and nourished female who is lying comfortable in the stretcher. Patient is not in any acute respiratory distress. HEAD AND FACE: No signs of trauma. No ecchymosis, hematomas or skull depressions. No sinus tenderness. EYES: PERRLA, EOMI x 2, No injected conjunctiva, no nystagmus. EARS: Hearing grossly intact. Ear canals and tympanic membranes are within normal limits. MOUTH: mucus membranes are dry NECK: Supple, trachea is midline, no adenopathy, no JVD, no carotid bruit, no c- spine tenderness, neck with full ROM. CHEST: Symmetric, no tenderness at palpation LUNGS: Clear to auscultation bilaterally. No wheezing or crackles. CVS: Regular rate and rhythm, S1 and S2 present, no murmurs or gallops appreciated. ABDOMEN: Soft, non-tender. No signs of distention. No rebound no guarding, and no masses palpated. Bowel sounds are normal. EXTREMITIES: FROM in all major joints, no edema, no cyanosis or clubbing. NEURO: Alert and oriented x 3. No acute neurological deficits. Speech is normal and follows commands. SKIN: Dry and warm Triage Information Reviewed: Yes Vital Signs On Initial Exam: Initial Vitals Temp Pulse Resp BP Pulse Ox 98.0 F 118 20 174/103 100 04/19/18 09:55 04/19/18 09:55 04/19/18 09:55 04/19/18 09:55 04/19/18 09:55 Vital Signs Reviewed: Yes Diagnostics - Vital Signs Vital Signs Temp Pulse Resp BP Pulse Ox 04/19/18 09:55 98.0 F 118 20 174/103 100 - Laboratory Result Diagrams: 04/19/18 10:24 04/19/18 10:22 Lab Statement: Any lab studies that have been ordered have been reviewed, and results considered in the medical decision making process. - Radiology abd xray Radiology Interpretation Completed By: Radiologist Summary of Radiographic Findings: NO EVIDENCE FOR OBSTRUCTION. ED physician has reviewed this radiology report. - EKG 1024 Cardiac Rate: NL EKG Rhythm: Sinus Rhythm - at 65 BPM EKG Comparison: Other - Different from 04-14-18 Summary of EKG Findings: P wave inversion. GIGU Course/Dx - Course Assessment/Plan: This patient is a 35 year old F brought in by EMS to [facility] c/o intermittent n/v for the last week. Today she began vomiting at 0600am and has 4 times since then. This is the patients third visit for this issue in the last week and states the medications given have not been helping her. The patient rates the pain 3/10 in severity. Patient reports constipation but is passing gas. She also c/o ABD cramping preceding vomiting. The patient has not had a colonoscopy or endoscopy in the past. She did not have any sx yesterday and she uses marijuana daily. Past medical history significant for diabetes type 2, hypertension. Test result shows a what was a count of 13, sodium 133, potassium 3.2, and carbon dioxide is 21, anion gap is 16, glucose is 417, lactic acid is 3. Troponin is 0.00. Abdomen x-ray Impression: No acute pathology. In the ED course the patient was given approximately 2 L of IV fluids, the patient seems to have a decreased carbon dioxide an increased anion gap Possibly secondary to DKA. Therefore the patient was placed in an insulin drip. Patient also was given potassium chloride for the hypokalemia. Magnesium level is 1.9. At this time I discussed my physical exam, findings and test results with Dr. Rojas from the hospital services was accepted the patient for admission. The patient is hemodynamically stable alert and oriented 3. - Diagnoses Provider Diagnoses: DKA (diabetic ketoacidoses), Intractable nausea and vomiting, Hypokalemia - Physician Notifications Discussed Care Of Patient With: Emelyn Rojas Time Discussed With Above Provider: 12:39 Instructed by Provider To: Admit As Inpatient - Critical Care Time Critical Care Time: 30-74 min Discharge - Sign-Out/Discharge Documenting (check all that apply): Patient Departure - admitted - Discharge Plan Condition: Fair Disposition: ADMITTED TO [facility] - Billing Disposition and Condition Condition: FAIR Disposition: Admitted to [facility] - Attestation Statements Document Initiated by Jesusibe: Yes Documenting Scribe: Deion Saunders Provider For Whom Scribe is Documenting (Include Credential): Abhishek Mireles MD Scribe Attestation: Deion Page scribed for Abhishek Mireles MD on 04/19/18 at 1809. Scribe Documentation Reviewed: Yes Provider Attestation: The documentation as recorded by the Deion stark accurately reflects the service I personally performed and the decisions made by Abhishek guzman MD Status of Scribe Document: Viewed
[2018-04-19 10:36] LABS: ABS Basophils 0.1 10^3/ul (0-0.2); ABS Eosinophils 0 10^3/ul (0-0.6); ABS Lymphocytes 2.5 10^3/ul (1.0-4.8); ABS Monocytes 0.5 10^3/ul (0-0.8); ABS Neutrophils 9.8 10^3/ul (1.5-7.7); ABS Nucleated RBC 0 10^3/ul; Eosinophil % 0.4 %; Hematocrit 45 % (35-47); Hemoglobin 15.9 g/dl (12.0-16.0); Lymphocyte % 19.3 %; Mean Corpuscular HGB Conc 35 g/dl (31-36); Mean Corpuscular Hemoglobin 30 pg (27-31); Mean Corpuscular Volume 85 fL (80-97); Mean Platelet Volume 9.2 fL (7.4-10.4); Nucleated Red Blood Cells % 0.1; Platelet Count 232 10^3/ul (150-450); Red Blood Count 5.33 10^6/ul (4.00-5.40); Red Cell Distribution Width 14 % (10.5-15)
[2018-04-19 10:58] LABS: ALT 22 U/L (7-52); AST 22 U/L (13-39); Albumin 4.1 g/dL (3.2-5.2); Albumin/Globulin Ratio 1.5 (1-3); Alkaline Phosphatase 45 U/L (34-104); Anion Gap 16 mmol/L (2-11); BUN/Creatinine Ratio 14.9 (8-20); Blood Urea Nitrogen 11 mg/dL (6-24); C Reactive Protein 4.27 mg/L (<8.01); CO2 Carbon Dioxide 21 mmol/L (22-32); Calcium 9.4 mg/dL (8.6-10.3); Chloride 96 mmol/L (101-111); Creatine Kinase 39 U/L (10-223); EGFR Non-African American 87.8 (>60); Globulin 2.7 g/dL (2-4); Glucose 417 mg/dL (70-100); Magnesium 1.9 mg/dL (1.9-2.7); Potassium 3.2 mmol/L (3.5-5.0); Sodium 133 mmol/L (135-145); Total Protein 6.8 g/dL (6.4-8.9)
[2018-04-19] MEDS ORDERED: Metoclopramide IV* 5 MG/ML 2 ML VIAL IV SLOW PU ONE (11:09)
[2018-04-19] MEDS: KCL 10 MEQ/50 ML IVPREMIX* 10 MEQ/50 ML BAG IV SCH ×2 (11:49→13:42)
[2018-04-19] MEDS ORDERED: PROCHLORPERAZINE INJ 5 MG/ML 2 ML VIAL IV PRN ×2 (12:29→14:15)
[2018-04-19] MEDS ORDERED: Insulin IVPB 100 units/100 ml 100 UNITS/100 ML UNIT IVPB ONE (12:36)
[2018-04-19] MEDS ORDERED: Insulin LISPRO* 1 UNITS UNIT SUBCUT ONE (12:42)
[2018-04-19] MEDS ORDERED: Dextrose 50% Syringe 50 ML* 25 GM/50 ML SYRINGE IV PUSH PRN ×2 (12:42→14:19)
[2018-04-19 13:02] LABS: Urine Appearance Cloudy; Urine Bacteria Absent (Absent); Urine Bilirubin Negative (Negative); Urine Blood 3+ (Negative); Urine Glucose 3+(>=500 mg/dL) (Negative); Urine Ketones 1+ (Negative); Urine Nitrite Negative (Negative); Urine Protein 1+(30 mg/dL) (Negative); Urine Red Blood Cell 2+(6-10/hpf) (Absent); Urine Specific Gravity 1.026 (1.010-1.030); Urine Urobilinogen Negative (Negative); Urine White Blood Cell 2+(11-20/hpf) (Absent)
[2018-04-19 13:03] LABS: Urine Color Amber
[2018-04-19] MEDS ORDERED: NS 0.9% 1000 ML* 1,000 ML IV SCH (14:15)
[2018-04-19] MEDS ORDERED: diPHENhydraMINE IV* 50 MG/ML 1 ml VIAL (BENADRYL) IV PRN (14:28)
[2018-04-19] MEDS ORDERED: Capsaicin 0.025% CREAM* 60 GM TOPICAL SCH (14:30)
[2018-04-19 14:40] LABS: HCG Pregnancy < 0.60 mIU/mL
[2018-04-19] MEDS ORDERED: KCL 20 MEQ/100 ML IVPREMIX* 20 MEQ/100 ML BAG IV ONE (15:00)
[2018-04-19] MEDS ORDERED: Insulin GLARGINE(*) 1 UNITS UNIT SUBCUT SCH ×2 (15:00→21:00)
--- NOTE | 2018-04-19 16:35 | HP ---
CC: Dr. Abhishek Martin * ADMISSION HISTORY AND PHYSICAL: DATE OF ADMISSION: 04/19/18 PRIMARY CARE PROVIDER: Dr. Abhishek Martin. ATTENDING PHYSICIAN: Dr. Emelyn Rojas * (dictated by WENDY Pagan). CHIEF COMPLAINT: Vomiting. HISTORY OF PRESENT ILLNESS: Ms. Bennett is a 38-year-old female with a past medical history of type 2 diabetes and hypertension, who presented to the ED today with complaints of vomiting intermittently since 04/14/18. She has been to the ER twice for this complaint for which she was sent home on Compazine. The patient states that the Compazine helped, but if she did not take it every 6 hours she started vomiting again. On Thursday, she states she vomited 6 to 7 times, and received Compazine from the ER. This happened again on . She states that the vomiting occurs early in the morning, sometimes in the afternoon, and is worsened with movement. This morning, she states she took Compazine 5 a.m., and at 6 she started vomiting. She states she vomited approximately 7 times and then came ER. She believes that she started vomiting , because she hadn't taken her medication every 6 hours. She admits that hot showers tend to help relieve the vomiting. She denies abdominal pain, but states that she has abdominal cramping only with vomiting. She has decreased intake of food and has been following the BRAT diet. She states that she has lost 15 pounds since Thursday when all this began. She admits to daily marijuana use. The patient has a past medical history of DMII and hypertension. She states that she has not seen her primary care physician or been treated for either condition for approximately 1 1/2 years. She was previously treated with metformin for diabetes. The patient is currently on her menses. She admits to daily marijuana usage. Pertinent positives are nausea, intermittent cough, chills, cold sweats, dysphagia, pain with swallowing that "feels like there is a lump in my throat," which she attributes to frequent vomiting. Pertinent negatives are abdominal pain, diarrhea, headache, chest pain, shortness of breath, hematuria, hematochezia, melena, fever. The patient was given 2 L of IV fluids. She was placed on an insulin drip due to increased anion gap and elevated blood sugar. It was found that the patient was not acidotic according to pH of ABG and she was removed from the insulin drip. The patient was shown to be hypokalemic for which she will receive 80 mEq of potassium chloride and then BMP will be rechecked. The hospitalist group was asked to evaluate for admission. PAST MEDICAL HISTORY: 1. Diabetes mellitus type 2. 2. Hypertension. PAST SURGICAL HISTORY: section x2, left foot surgery x2, I and D x2, LEEP procedure, cervical tear repair. HOME MEDICATIONS: None. ALLERGIES: NKDA. FAMILY HISTORY: The patient states her mother and father are healthy. Maternal grandmother had congenital heart failure. No family history of diabetes. SOCIAL HISTORY: The patient states she smokes half-a-pack per day. The patient rarely drinks, stating she drinks approximately once every couple of months. Recreational drugs include daily marijuana use with no other recreational drug use. 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 She is not . She lives with her 11-year-old son. Her daughter in February of 2006. In the event that the patient is unable to make her own medical decisions, she appoints Edie Bennett, her mother to make decisions for her. REVIEW OF SYSTEMS: A 10-point review of systems was performed and all the pertinent positives and negatives are in the HPI. All other systems are negative. PHYSICAL EXAMINATION GENERAL: Ms. Bennett is a well-developed, well-nourished woman, who is sitting up in bed, in no acute distress. She appears her stated age. VITAL SIGNS: Temperature 98.0, pulse rate 90, oxygen saturation 98% on room air , blood pressure is 134/99, respiratory rate is 20. HEENT: Visual martin grossly intact. Pupils are equally round and reactive to light and accommodation. Extraocular movements intact. Sclerae without icterus. Hearing grossly intact. External auditory canals patent, free of cerumen. TMs intact with visible landmarks. Nares patent. Oral mucous membranes moist. Pharynx clear. NECK: Full range of motion. Thyroid is nonpalpable. Trachea is at midline. No lymphadenopathy. RESPIRATORY: Symmetrical chest expansion with no use of accessory muscles. Lungs clear to auscultation bilaterally. No rhonchi, wheeze, or rales. CARDIOVASCULAR: Regular rate and rhythm. S1, S2 present. No murmurs, rubs, clicks, or gallops. ABDOMEN: Soft and nontender to palpation. Bowel sounds are hypoactive throughout. No bruits. No hepatosplenomegaly. EXTREMITIES: Skin is warm and smooth bilaterally. No edema. No clubbing or cyanosis. Pedal pulses 2+ bilaterally. NEURO: Alert and oriented x3. No acute neurological deficits. Moves all extremities. DIAGNOSTIC STUDIES/LAB DATA: WBC 13.0. ABGs were within normal limits. Sodium of 133, potassium 3.2, chloride 96, carbon dioxide 21, anion gap 16, glucose 417, lactic acid 3.0 which was redrawn 3 hours later and has come down to 1.2. Urinalysis showed 1+ protein, 1+ ketones, 3+ urine blood, 2+ urine white blood cells, 2+ urine red blood cells, urine squamous epithelial cells, and 3+ urine glucose. Abdominal x-ray, impression: No evidence for obstruction. ASSESSMENT AND PLAN: Ms. Bennett is a 38-year-old female with a past medical history of type 2 diabetes and hypertension, who presented to the ER today due to vomiting. She was found to have hypokalemia, lactic acidosis, vomiting, diabetes, and hypertension. The patient will be admitted observation for: 1. Vomiting. Start the patient on clear liquids, advance as tolerated. The patient states that the vomiting is relieved with hot showers, so there is evidence that this might be cyclic vomiting syndrome induced by marijuana use. Benadryl and capsaicin cream were ordered. Compazine was also ordered p.r.n. nausea and vomiting. 2. Hypokalemia. The patient will receive 80 mEq of potassium throughout the day. BMP will be rechecked this evening around 6 p.m. and also in the morning. 3. Diabetes. The patient was previously on metformin, but has not seen her primary care physician in approximately a year and a half and has not taken any medications in that time either. Order hemoglobin A1c. Ordered Lantus 10 units at night and sliding scale insulin before meals. Continue to monitor the patient's anion gap throughout the day. 4. Lactic acidosis. Initial labs revealed a lactic acid of 3.0. When rechecked, lactic acid was 1.2. 5. Abnormal urinalysis. Blood and urine red blood cells were present in urinalysis, although the patient is on her menses at the current time, 3+ urine glucose is explained by untreated diabetes for approximately a year and a half. Recheck UA. 6. FEN: Diet is clear liquids, advance as tolerated. 7. Code status: Full code. 8. DVT prophylaxis: ANABELL stockings and ambulate ad david. 9. Disposition: Observation. TIME SPENT: Time for this admission was 60 minutes and 35 minutes was spent with the patient discussing medications, past medical history, events leading up to her arrival today, and performing a physical exam. The case has been reviewed with the attending, Dr. Rojas, who agrees with the plan of care. WENDY BENTON [id number]/[facility] #: [id number] SHANTA
[2018-04-19] MEDS: Insulin LISPRO* 1 UNITS UNIT SUBCUT SCH (17:08)
[2018-04-19 18:24] LABS: BUN/Creatinine Ratio 14.3 (8-20); Calcium 8.3 mg/dL (8.6-10.3); EGFR Non-African American 93.6 (>60); Potassium 3.3 mmol/L (3.5-5.0)
[2018-04-19] MEDS ORDERED: Nicotine Inhaler* 10 MG AMP INH PRN (20:00)
[2018-04-19] MEDS ORDERED: KCL 20 MEQ/100 ML IVPREMIX* 20 MEQ/100 ML BAG IV SCH (20:00)
[2018-04-19] MEDS ORDERED: Mouth Piece, Nicotine* 1 EACH CARTRIDGE INH ONE (21:00)
[2018-04-20] MEDS ORDERED: Lisinopril TAB* 5 MG PO ONE (00:20)
[2018-04-20 05:55] LABS: ABS Basophils 0 10^3/ul (0-0.2); ABS Eosinophils 0.1 10^3/ul (0-0.6); ABS Lymphocytes 3.2 10^3/ul (1.0-4.8); ABS Monocytes 0.6 10^3/ul (0-0.8); ABS Neutrophils 6.8 10^3/ul (1.5-7.7); ABS Nucleated RBC 0 10^3/ul; Eosinophil % 0.9 %; Hematocrit 41 % (35-47); Hemoglobin 13.9 g/dl (12.0-16.0); Mean Corpuscular HGB Conc 34 g/dl (31-36); Mean Corpuscular Hemoglobin 30 pg (27-31); Mean Corpuscular Volume 86 fL (80-97); Mean Platelet Volume 9.6 fL (7.4-10.4); Nucleated Red Blood Cells % 0; Platelet Count 206 10^3/ul (150-450); Red Blood Count 4.71 10^6/ul (4.00-5.40); Red Cell Distribution Width 14 % (10.5-15); White Blood Count 10.7 10^3/ul (3.5-10.8)
[2018-04-20 06:12] LABS: BUN/Creatinine Ratio 9.2 (8-20); Calcium 8.8 mg/dL (8.6-10.3); Potassium 3.6 mmol/L (3.5-5.0)
[2018-04-20] MEDS ORDERED: Capsaicin 0.025% CREAM* 60 GM TOPICAL SCH ×2 (09:00)
[2018-04-20] MEDS: Insulin LISPRO* 1 UNITS UNIT SUBCUT SCH (09:04)
--- NOTE | 2018-04-20 09:45 | PN ---
Subjective Date of Service: 04/20/18 Interval History: HD #2 38 yo F with PMH NIDDM who was loss to follow up with care with PCP, daily MJ use and GERD who presented with intractable N/V. In ED AGMA and mild elevated lactate, hyperglycemia, admitted on obs. Overnight no acute events. Nausea resolved, pt toerted clear liquid diet. T Max: 98.7 HR 57-78 has been HTN BP 153-184/66-74 satting 100% on RA This morning pt reports feeling better and is eager to go home. Making good UOP , remains hyperglycemic despite initiating low dose Lantus. Otherwise labs largely improved. Objective Active Medications: Capsaicin (Zostrix 0.025% Cream*) 1 applic TOPICAL DAILY [facility] Last Admin: 04/20/18 09:05 Dose: 1 applic Dextrose (D50w Syringe 50 Ml*) 12.5 gm IV PUSH .FOR FS < 60 - SS PRN PRN Reason: FS < 60 Diphenhydramine HCl (Benadryl Iv*) 25 mg IV Q6H PRN PRN Reason: nausea/vomiting Last Admin: 04/19/18 23:25 Dose: 25 mg Insulin Glargine (Lantus(*)) 10 units SUBCUT Q24H [facility] Last Admin: 04/19/18 20:55 Dose: 10 unit Insulin Human Lispro (Humalog*) 0 - 5 units SUBCUT AC [facility]; Protocol Last Admin: 04/20/18 09:04 Dose: 4 units Nicotine (Nicotine Inhaler*) 10 mg INH Q2H PRN PRN Reason: CRAVING Last Admin: 04/19/18 20:18 Dose: 10 mg Prochlorperazine Edisylate (Compazine Inj*) 10 mg IV Q6H PRN PRN Reason: NAUSEA/VOMITING Last Admin: 04/20/18 03:04 Dose: 10 mg Vital Signs - 8 hr 04/20/18 03:46 Temperature 97.4 F Pulse Rate 57 Respiratory 18 Rate Blood Pressure 153/66 (mmHg) O2 Sat by Pulse 99 Oximetry Oxygen Devices in Use Now: None Appearance: Well appearing woman in NAD Eyes: No Scleral Icterus, PERRLA Ears/Nose/Mouth/Throat: NL Teeth, Lips, Gums, Mucous Membranes Moist Neck: NL Appearance and Movements; NL JVP Respiratory: Symmetrical Chest Expansion and Respiratory Effort, Clear to Auscultation Cardiovascular: NL Sounds; No Murmurs; No JVD, RRR Abdominal: NL Sounds; No Tenderness; No Distention Lymphatic: No Cervical Adenopathy Extremities: No Edema Skin: No Rash or Ulcers Neurological: Alert and Oriented x 3 Result Diagrams: 04/20/18 05:19 04/20/18 05:19 Additional Lab and Data: A1C: 11.2 Assess/Plan/Problems-Billing Assessment: 38 yo F with PMH NIDDM who was loss to follow up with care with PCP, daily MJ use and GERD who presented with intractable N/V. In ED AGMA and mild elevated lactate, hyperglycemia, admitted on obs. Most likely 2/2 to hyperemesis in setting of MJ use and also with symptomatic hyperglycemia w/ out e/o DKA or HHS. Hospital stay c/b HTN which is likely chronic problem - Patient Problems (1) Nausea & vomiting Current Visit: Yes Status: Acute Code(s): R11.2 - NAUSEA WITH VOMITING, UNSPECIFIED SNOMED Code(s): 65272036 Comment: As per above, most likely 2/2 to hyperemsis in setting of MJ use, no e/o DKA, UTI, no e/o obstruction on KUB -Has improved with 2LIVF -Compazine, Metoclopromide, Benadryl given -Capcasin cream to chest -May be stable for d/c if she is amenable to follow with PCP (2) Diabetes Current Visit: No Status: Chronic Code(s): E11.9 - TYPE 2 DIABETES MELLITUS WITHOUT COMPLICATIONS SNOMED Code(s): 62813127 Comment: She will need to be d/c on medications, A1C is 11.2, long discussion with patient today -Metformin 500 BID, Glipizde, needs FU with PCP for titration. I have offered for her to see me as a PCP but she is not sure she wants to drive to [place] (3) Hypertension Current Visit: No Status: Acute Code(s): I10 - ESSENTIAL (PRIMARY) HYPERTENSION SNOMED Code(s): 93318508 Comment: She reports nausea with Lisinopril in the past will Start Losartan 25mg PO q day on d/c, she has tolerated well in the past (4) DVT prophylaxis Current Visit: No Status: Acute Code(s): [id number] - SNOMED Code(s): 924564751 Comment: Ambulatory Status and Disposition: Will d/c to home
--- NOTE | 2018-04-20 10:28 | DCNOTE ---
Subjective Date of Service: 04/20/18 Interval History: Discharge Summary: Hospitalization Summary: 38 yo F with PMH NIDDM who was loss to follow up with care with PCP after loss of her child, daily MJ use for anxiety, HTN and GERD who presented with intractable N/V. In ED AGMA and mild elevated lactate, hyperglycemia to 400 without e/o DKA or HHS, KUB unremarkable. She was admitted to the medicine service on observation for one night after IVF resuscitation of 2L, compazine, metoclopramide and capcascin cream. Her sx improved drastically overnight. Her diet was advanced from clear liquid to regular. Her hospital stay was c/b HTN and she will be d/c on Losartan which she has tolerated in the past. Her sugar remained poorly controlled and A1C was found to 11.2. She is very resistant to insulin but has tolerated Metformin and Glipizide in the past and amenable for d /c on these agents while she pursues engaging in primary care. Objective Active Medications: Capsaicin (Zostrix 0.025% Cream*) 1 applic TOPICAL DAILY [facility] Last Admin: 04/20/18 09:05 Dose: 1 applic Dextrose (D50w Syringe 50 Ml*) 12.5 gm IV PUSH .FOR FS < 60 - SS PRN PRN Reason: FS < 60 Diphenhydramine HCl (Benadryl Iv*) 25 mg IV Q6H PRN PRN Reason: nausea/vomiting Last Admin: 04/19/18 23:25 Dose: 25 mg Insulin Glargine (Lantus(*)) 10 units SUBCUT Q24H [facility] Last Admin: 04/19/18 20:55 Dose: 10 unit Insulin Human Lispro (Humalog*) 0 - 5 units SUBCUT AC [facility]; Protocol Last Admin: 04/20/18 09:04 Dose: 4 units Nicotine (Nicotine Inhaler*) 10 mg INH Q2H PRN PRN Reason: CRAVING Last Admin: 04/19/18 20:18 Dose: 10 mg Prochlorperazine Edisylate (Compazine Inj*) 10 mg IV Q6H PRN PRN Reason: NAUSEA/VOMITING Last Admin: 04/20/18 03:04 Dose: 10 mg Vital Signs - 8 hr 04/20/18 03:46 Temperature 97.4 F Pulse Rate 57 Respiratory 18 Rate Blood Pressure 153/66 (mmHg) O2 Sat by Pulse 99 Oximetry Oxygen Devices in Use Now: None Appearance: Pleasant woman in NAD Eyes: No Scleral Icterus, PERRLA Ears/Nose/Mouth/Throat: NL Teeth, Lips, Gums Neck: NL Appearance and Movements; NL JVP Respiratory: Symmetrical Chest Expansion and Respiratory Effort, Clear to Auscultation Cardiovascular: NL Sounds; No Murmurs; No JVD, RRR Abdominal: NL Sounds; No Tenderness; No Distention Lymphatic: No Cervical Adenopathy Extremities: No Edema Skin: No Rash or Ulcers Neurological: Alert and Oriented x 3 Result Diagrams: 04/20/18 05:19 04/20/18 05:19 Additional Lab and Data: A1C: 11.2 Assess/Plan/Problems-Billing Assessment: 38 yo F with PMH NIDDM who was loss to follow up with care with PCP, daily MJ use and GERD who presented with intractable N/V. In ED AGMA and mild elevated lactate, hyperglycemia, admitted on obs. Most likely 2/2 to hyperemesis in setting of MJ use and also with symptomatic hyperglycemia w/ out e/o DKA or HHS. Hospital stay c/b HTN which is likely chronic problem, she will be d/c to home with instructions for PCP followup - Patient Problems (1) Nausea & vomiting Current Visit: Yes Status: Acute Code(s): R11.2 - NAUSEA WITH VOMITING, UNSPECIFIED SNOMED Code(s): [id number] Comment: As per above, most likely 2/2 to hyperemsis in setting of MJ use, no e/o DKA, UTI, no e/o obstruction on KUB -Has improved with 2LIVF -Compazine, Metoclopromide, Benadryl given -Capcasin cream to chest -Will d/c with limited supply of compazine PO -May be stable for d/c if she is amenable to follow with PCP (2) Diabetes Current Visit: Yes Status: Chronic Code(s): E11.9 - TYPE 2 DIABETES MELLITUS WITHOUT COMPLICATIONS SNOMED Code(s): 80831602 Comment: She will need to be d/c on medications, A1C is 11.2, long discussion with patient today -Metformin 500 BID, will need to advance to max dose, Glipizde 10mg ER q AM, needs FU with PCP for titration. I have offered for her to see me as a PCP but she is not sure she wants to drive to [place] (3) Hypertension Current Visit: Yes Status: Acute Code(s): I10 - ESSENTIAL (PRIMARY) HYPERTENSION SNOMED Code(s): 45547939 Comment: She reports nausea with Lisinopril in the past will Start Losartan 25mg PO q day on d/c, she has tolerated well in the past (4) DVT prophylaxis Current Visit: No Status: Acute Code(s): EPK2600 - SNOMED Code(s): 906832076 Comment: Ambulatory Status and Disposition: Will d/c to home
[2018-04-20 11:09] VITALS: BP 150/74
== END 2018-04-20 12:05 | disposition home or self-care (01) ==
LOC: ED 09:51 → MED 14:01
PROVIDERS: ADMIT Internal Medicine; ATTEND Internal Medicine
DX: E11.9 Type 2 diabetes mellitus without complications (principal); I10 Essential (primary) hypertension; E87.6 Hypokalemia; R11.2 Nausea with vomiting, unspecified; F17.210 Nicotine dependence, cigarettes, uncomplicated
CPT/HCPCS: 36415; 74019; 80048; 80053; 81003; 81015; 82140; 82550; 82803; 83036; 83605; 83690; 83735; 83880; 84484; 84702; 85025; 86140; 87086; 93005; 96361; 96372; 96374; 96375; 99284; A9270-GY; G0378; J0780; J1200; J1815; J2765; J3480

== ENCOUNTER 2018-05-20 08:01 | Emergency (ER) | payer OTHER ==
[2018-05-20] MEDS ORDERED: PROCHLORPERAZINE INJ 5 MG/ML 2 ML VIAL IV ONE (08:05)
--- OUTSIDE RECORDS SUMMARY | 2018-05-20 08:24 | XMS REPORT | Continuity of Care Document ---
:1980 External Reference #:[id number] Author Name Ivette Chand Care Team Providers Name Role Phone Abhishek Martin III, MD Primary Care Physician Unavailable Payers Type Date Identification Numbers Payment Provider Subscriber Policy Number: [id number] Karl Patricio PayID: [id number] [address] [place] [phone] Effective: 2017 Policy Number: [id number] Medicaid Dora Patricio Expires: 2017 Group Name: 1 1 [address] PayID: [id number] [place] [address] Expires: 2017 PayID: [id number] Karl Patricio [address] [place] [phone] Advance Directives Description No Information Available Problems Date Description Provider Status Onset: 06/20/2011 Tobacco user Priya Lora M.D. Active Onset: 06/20/2011 Hirsutism Priya Lora M.D. Active Onset: 04/11/2013 Diabetes mellitus Priya Lora M.D. Active Onset: 05/25/2015 Essential hypertension Sai Patricio M.D. Active Onset: 05/14/2017 Injury of shoulder region Kit Gutierrez MD Active Onset: 05/14/2017 Strain of muscle(s) and tendon(s) of Kit Gutierrez MD Active the rotator cuff of right shoulder, subsequent encounter Onset: 05/28/2017 Sprain of shoulder and upper arm Kit Gutierrez MD Active Onset: 06/04/2017 Closed fracture proximal humerus, Kit Gutierrez MD Active greater tuberosity Onset: 11/05/2017 Disorder of shoulder Kit Gutierrez MD Active Onset: 06/20/2011 Type II diabetes mellitus Priya Lora M.D. Resolved uncontrolled Resolved: 04/11/2013 Family History Description No Information Available Social History Type Date Description Comments Sex Unknown Lives With boyfriend and son Occupation [employer] 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 smoker, smokes every Been smoking for 12 day yrs. Tobacco Use Start: Unknown End: Patient is a former Pt quit 5 weeks Unknown smoker ago. Smoking Status Reviewed: 05/03/18 Patient is a former Pt quit 5 weeks smoker ago. Exercise Type/Frequency Exercises regularly Allergies, Adverse Reactions, Alerts Description No Known Drug Allergies Medications Medication Date Status Form Strength Qnty SIG Indications Ordering Provider Metformin HCL 05/03 Active Tablets 500mg 90tab take 1 E11.9 s tablet by MD Boni mouth three times a day Prochlorperazine 04/22 Active Suppository 25mg 12uni use one R11.2 ts suppositor MD Boni y every 6-8 hours as needed Lifestyle Lite 04/22 Active 100un 3 times E11.69 [facility] Lancets its daily or MD Boni as needed dx e11.65 Lifestyle Lite 04/22 Active 100un for use [facility] Test Strips its with MD Boni glucometer . test 3 times a day initially. Prochlorperazine 04/21 Active Suppository 25mg 3unit Use one R11.2 s suppositor MD Boni y every 6-8 hours as needed Blood Glucose 04/21 Active Kit W/Device 1unit use as E11.69 [facility] Monitoring System s directed MD Boni Glipizide Active Tablets 10mg 1 by mouth Unknown /0000 every day Losartan 00 Active Tablets 25mg 1 by mouth Unknown Potassium /0000 every day Prochlorperazine Active Tablets 10mg 3 times Unknown Maleate /0000 daily for nausea Sulfamethoxazole/ 04/22 Hx Tablets 800-160mg 20tab take one R11.2 [facility] Trimethoprim s tablet MD Boni - every 12 No Active 06/04 Hx Unknown Medications /2017 - 04/21 Bactrim DS 05/26 Hx Tablets 800-160mg 14tab take 1 by s mouth Matt, - twice MD 06/02 daily x days Percocet 05/14 Hx Tablets 5-325mg 14tab take 1 S46.011D s tabs as Matt, - needed for MD 04/06 pain every 12 hours. do not combine with tylenol Cephalexin 10/28 Hx Capsules 500mg 42cap take one M86.172 s capsule by D. - mouth Joycelyn, 04/06 three M.D. times a day Cephalexin 10/10 Hx Capsules 500mg 42cap take one M86.172 s capsule by D. - mouth Joycelyn, 10/25 three M.D. times a day Oxycodone HCL 08/30 Hx Capsules 5mg 40cap 1-2 tabs s by mouth Mikhail, - every 4-6 M.D. 09/19 hours needed pain Pen [place] 06/19" 08/19 Hx Misc 31G X 5 100un use with mm its lantus [place], subq M.D. everyday Lantus Solostar 07/29 Hx Solution 100Unit/M 30ml 25 units Pen-Inject L subcutaneo [place], usly daily M.D. Clindamycin HCL 07/25 Hx Capsules 300mg 21cap 1 tabs by L03.116 s mouth 3 D. - times a Joycelyn, 08/06 day M.D. Keflex 07/17 Hx Capsules 500mg 28cap 1 tab by S91.332A s mouth montserrat Elizondo, - times a M.D. Onetouch Ultra 05/30 Hx Kit W/Device 1unit use daily Maia System s to test Shailesh, - glucose M.D. 04/06 Onetouch 05/30 Hx Misc 100un use daily E11.65 Maia Ultrasoft Lanc its or as Shailesh, - directed M.D. 04/06 Onetouch Ultra 05/30 Hx Strips 100un test daily E11.65 Maia its or as Cash, - needed M.D. 04/06 E11.9 Ferrous Gluconate 05/29 Hx Tablets 324(38Fe) 60tab 1 tab by mg s mouth [place], - twice a M.D. Glyburide 05/25 Hx Tablets 5mg 1 tab oral daily [place], - M.D. 05/25 Losartan 05/25 Hx Tablets 25mg 30tab 1 tab oral Maia s daily Cash, - M.D. 08/06 Glyburide 05/25 Hx Tablets 5mg 60tab 1 tab by E11.9 Maia s mouth Shailesh, - twice a M.D. Rogaine 08/02 Hx Solution 2% 60ml Apply 1 ml 704.9 topically Guido, - to M.D. 06/03 affected area 2 times per day for loss of scalp hair Chantix Starting 04/11 Hx Tablets 0.5mg X QS take as 305.1 Priya 11 & 1 mg directed Guido, - X 42 M.D. 05/12 Bupropion HCL SR 12/31 Hx Tablets ER 150mg 60tab take one 305.1 12HR s tablet by Guido, - mouth M.D. 04/11 daily 3 days, then increase to 2 tablets daily Metronidazole 07/07 Hx Gel 0.75% 45gm apply 695.3 twice Guido, - daily M.D. 08/02 Glipizide XL 03/22 Hx Tablets ER 5mg 90tab Take 1 250.02 24HR s tablet Guido, - daily M.D. 08/02 Jessica Contour Usb 03/22 Hx Kit w/Device 1unit Please Priya Blood Glucose s check Guido, Monitoring System - fasting M.D. 05/30 blood sugar daily Nicotine 09/09 Hx Gum 2mg 100un chew 1 305.1 Priya Polacrilex its piece by Guido, - mouth for M.D. 09/09 30 minute /2011 as needed for smoking cessation Glipizide XL 08/07 Hx Tablets ER 10mg 90tab Take 1 250.02 24HR s tablet Guido, - daily M.D. 12/21 Metformin HCL 07/07 Hx Tablets 1000mg 60tab take one 250.02 Maia /2012 s tablet by Shailesh, - mouth M.D. 08/06 twice a day needs to be seen Metformin HCL ER 07/03 Hx Tablets ER 1000mg 60tab Take 2 250.02 24HR (Osm) s tablets by Guido, - every day M.D. 07/07 Glipizide XL 07/03 Hx Tablets ER 5mg 30tab Take 1 250.02 24HR s tablet Guido, - daily M.D. 08/07 Jessica Contour 06/19 Hx Strips 100un use one E11.65 Sai Blood Glucose its strip as Sheng Test Strips - needed for M.D. 05/30 testing Jessica Microlet 06/19 Hx Misc 100un please E11.65 Maia Lancets its check Shailesh, - blood M.D. 05/30 sugar fasting daily Losartan 06/19 Hx Tablets 25mg 30tab 1 by mouth 401.9 Maia s every day Shailesh, - needs to M.D. 05/25 be seen for furthur refills Blood Pressure 06/19 Hx Kit 1unit I10 Priya Kit s Guido - M.D. 05/25 Lisinopril 06/05 Hx Tablets 5mg 30tab take 1 401.9 s tablet Guido, - orally M.D. 06/19 once a day Metformin HCL 06/05 Hx Tablets 1000mg 180ta 1 po bid 250.02 bs Kathrine Lora M.DTamika 07/03 Aspirin Ec 06/[address] 81mg 90tab 1 by mouth s every day Sheng - M.D. 08/07 Cephalexin Hx Capsules 500mg 21cap take one Unknown /0000 s capsule a - day four 08/07 times a day Ibuprofen Hx Tablets 800mg 90tab po tid prn Unknown /0000 s - 08/07 Sulfamethoxazole/ 00/00 Hx Tablets 800-160mg 20tab 1 po bid Unknown Trimethoprim DS /0000 s - 08/07 Amoxicillin/Potas 00/00 Hx Tablets 875-125mg 20tab 1 po every Unknown sium Clavulanate /0000 s 12hrs - 12/21 Glimepiride 00 Hx Tablets 5mg 1 by mouth Unknown /0000 every day - 05/25 Clindamycin HCL Hx Capsules 150mg 1 capsule Unknown / by mouth - four times 07/25 a day x' 15 days Cephalexin Hx Capsules 500mg 1 po qid Unknown / - 08/14 Labetalol HCL Hx Tablets 100mg 60tab 1 tab Sai s twice [place], daily M.D. Vol-Plus Hx Tablets 27-1mg Unknown / - 04/06 Humalog Kwikpen Hx Solution 100Unit/M sliding Unknown Pen-Inject L scale Cefazolin Sodium Hx Solution 1gm 2 gm iv Unknown Rec every 8 - hours 10/09 through [facility] infusion Idosorb Hx apply to wound once per day Metformin HCL Hx Tablets 500mg 1 by mouth Unknown twice a - day 05/03 Medications Administered in Office Medication Date Status Form Strength Qnty SIG Indications Ordering Provider Triamcinolone 11/05/ Administered Injection Zaneb (Kenalog) 2017 MD Matt Immunizations Description No Information Available Vital Signs Date Vital Result Comment 05/03/2018 10:20am Height 67 inches 5'7" Weight 156.00 lb Heart Rate 100 /min BP Systolic Sitting 128 mmHg BP Diastolic Sitting 85 mmHg Body Temperature 96.8 F O2 % BldC Oximetry 98 % BMI (Body Mass Index) 24.4 kg/m2 04/22/2018 10:15am Height 67 inches 5'7" Heart Rate 128 /min BP Systolic Sitting 102 mmHg reg adult cuff left arm BP Diastolic Sitting 84 mmHg reg adult cuff left arm Respiratory Rate 20 /min O2 % BldC Oximetry 97 % at rest on room air 04/21/2018 2:36pm Height 67 inches 5'7" Weight 151.00 lb Heart Rate 114 /min BP Systolic Sitting 153 mmHg BP Diastolic Sitting 91 mmHg O2 % BldC Oximetry 99 % BMI (Body Mass Index) 23.6 kg/m2 11/05/2017 2:20pm Height 67 inches 5'7" Weight 178.00 lb BP Systolic 140 mmHg BP Diastolic 88 mmHg Respiratory Rate 18 /min Pain Level 7 BMI (Body Mass Index) 27.9 kg/m2 07/16/2017 11:37am Height 67 inches 5'7" Weight 178.00 lb BP Systolic 132 mmHg BP Diastolic 80 mmHg Respiratory Rate 18 /min Pain Level 1 BMI (Body Mass Index) 27.9 kg/m2 06/04/2017 1:36pm Height 67 inches 5'7" Weight 178.00 lb per pt Heart Rate 86 /min reg BP Systolic Sitting 150 mmHg Lue BP Diastolic Sitting 90 mmHg Lue Respiratory Rate 16 /min Pain Level 4 Rue BMI (Body Mass Index) 27.9 kg/m2 05/28/2017 11:00am Height 67 inches 5'7" Heart Rate 104 /min BP Systolic 138 mmHg BP Diastolic 90 mmHg Respiratory Rate 16 /min Body Temperature 99.0 F Pain Level 2 05/26/2017 10:56am Height 67 inches 5'7" Weight 178.00 lb BP Systolic 126 mmHg BP Diastolic 68 mmHg Respiratory Rate 20 /min Body Temperature 98.1 F Pain Level 6 BMI (Body Mass Index) 27.9 kg/m2 05/14/2017 10:41am Height 67 inches 5'7" Heart Rate 62 /min BP Systolic 142 mmHg BP Diastolic 72 mmHg Respiratory Rate 18 /min Body Temperature 98.4 F Pain Level 9 11/02/2015 3:26pm Height 67 inches 5'7" Weight 178.00 lb Heart Rate 60 /min Respiratory Rate 16 /min Pain Level 0 BMI (Body Mass Index) 27.9 kg/m2 10/29/2015 3:00pm Height 67 inches 5'7" Weight 182.00 lb Heart Rate 84 /min BP Systolic Sitting 136 mmHg BP Diastolic Sitting 80 mmHg Respiratory Rate 14 /min Body Temperature 98.7 F BMI (Body Mass Index) 28.5 kg/m2 10/19/2015 4:08pm Height 67 inches 5'7" Weight 185.00 lb Heart Rate 60 /min Respiratory Rate 16 /min Pain Level 0 BMI (Body Mass Index) 29.0 kg/m2 10/11/2015 4:09pm Height 67 inches 5'7" Weight 184.12 lb Heart Rate 88 /min BP Systolic Sitting 130 mmHg BP Diastolic Sitting 78 mmHg Respiratory Rate 14 /min Body Temperature 98.5 F BMI (Body Mass Index) 28.8 kg/m2 10/05/2015 11:49am Height 67 inches 5'7" Weight 180.00 lb Respiratory Rate 16 /min Pain Level 2 at the worst BMI (Body Mass Index) 28.2 kg/m2 09/20/2015 4:03pm Height 67 inches 5'7" Weight 180.25 lb Heart Rate 100 /min BP Systolic Sitting 164 mmHg BP Diastolic Sitting 100 mmHg Respiratory Rate 14 /min Body Temperature 98.5 F Pain Level 0 BMI (Body Mass Index) 28.2 kg/m2 09/18/2015 3:39pm Height 67 inches 5'7" Weight 175.00 lb Body Temperature 98.0 F Pain Level 1 BMI (Body Mass Index) 27.4 kg/m2 09/11/2015 4:49pm Height 67 inches 5'7" Weight 175.00 lb Body Temperature 98.1 F Pain Level 1 BMI (Body Mass Index) 27.4 kg/m2 09/06/2015 1:35pm Height 67 inches 5'7" Weight 175.00 lb Heart Rate 64 /min Respiratory Rate 16 /min Pain Level 3 BMI (Body Mass Index) 27.4 kg/m2 08/28/2015 3:05pm Height 67 inches 5'7" Weight 172.00 lb Body Temperature 98.3 F BMI (Body Mass Index) 26.9 kg/m2 08/16/2015 8:58am Height 67 inches 5'7" Weight 172.00 lb Pain Level 0 BMI (Body Mass Index) 26.9 kg/m2 08/09/2015 10:29am Height 67 inches 5'7" Weight 172.00 lb Heart Rate 88 /min BP Systolic 126 mmHg BP Diastolic 78 mmHg BMI (Body Mass Index) 26.9 kg/m2 08/08/2015 4:30pm Height 66.5 inches 5'6.50" Weight 172.00 lb Heart Rate 96 /min BP Systolic Sitting 124 mmHg BP Diastolic Sitting 80 mmHg Respiratory Rate 14 /min Body Temperature 98.7 F BMI (Body Mass Index) 27.3 kg/m2 07/27/2015 12:00pm Height 66.5 inches 5'6.50" Weight 172.00 lb BMI (Body Mass Index) 27.3 kg/m2 07/26/2015 1:23pm Height 66.5 inches 5'6.50" Weight 172.00 lb Heart Rate 100 /min BP Systolic Sitting 154 mmHg BP Diastolic Sitting 84 mmHg Respiratory Rate 16 /min Body Temperature 99.4 F BMI (Body Mass Index) 27.3 kg/m2 07/25/2015 3:00pm Height 66.5 inches 5'6.50" Weight 172.00 lb BMI (Body Mass Index) 27.3 kg/m2 07/18/2015 1:46pm Height 66.5 inches 5'6.50" Weight 172.00 lb Heart Rate 101 /min BP Systolic 153 mmHg BP Diastolic 97 mmHg BMI (Body Mass Index) 27.3 kg/m2 05/25/2015 8:06am Height 66.5 inches 5'6.50" Weight 175.50 lb Heart Rate 115 /min BP Systolic Sitting 142 mmHg BP Diastolic Sitting 91 mmHg Body Temperature 98.8 F O2 % BldC Oximetry 97 % BMI (Body Mass Index) 27.9 kg/m2 08/02/2013 8:34am Height 67 inches 5'7" Weight 189.00 lb Heart Rate 72 /min BP Systolic Sitting 128 mmHg BP Diastolic Sitting 82 mmHg Body Temperature 98.0 F BMI (Body Mass Index) 29.6 kg/m2 04/11/2013 8:41am Height 67 inches 5'7" Weight 191.00 lb Heart Rate 84 /min BP Systolic Sitting 132 mmHg BP Diastolic Sitting 80 mmHg BMI (Body Mass Index) 29.9 kg/m2 12/31/2012 8:42am Weight 185.00 lb Heart Rate 82 /min BP Systolic Sitting 122 mmHg BP Diastolic Sitting 80 mmHg 07/07/2012 9:47am Weight 194.00 lb Heart Rate 84 /min BP Systolic Sitting 120 mmHg BP Diastolic Sitting 80 mmHg 03/22/2012 8:47am Height 67 inches 5'7" Weight 195.00 lb Heart Rate 84 /min BP Systolic Sitting 126 mmHg BP Diastolic Sitting 78 mmHg BMI (Body Mass Index) 30.5 kg/m2 12/22/2011 10:53am Height 67 inches 5'7" Weight 193.00 lb Heart Rate 88 /min BP Systolic Sitting 124 mmHg BP Diastolic Sitting 72 mmHg BMI (Body Mass Index) 30.2 kg/m2 09/26/2011 10:47am Height 67 inches 5'7" Weight 190.75 lb Heart Rate 78 /min BP Systolic Sitting 120 mmHg BP Diastolic Sitting 70 mmHg Body Temperature 97.8 F BMI (Body Mass Index) 29.9 kg/m2 09/19/2011 1:40pm Height 67 inches 5'7" Weight 190.00 lb Heart Rate 120 /min BP Systolic Sitting 122 mmHg BP Diastolic Sitting 80 mmHg BMI (Body Mass Index) 29.8 kg/m2 09/17/2011 1:48pm Height 67 inches 5'7" Weight 191.00 lb Heart Rate 78 /min BP Systolic Sitting 128 mmHg BP Diastolic Sitting 76 mmHg BMI (Body Mass Index) 29.9 kg/m2 09/10/2011 11:51am Height 67 inches 5'7" Weight 192.00 lb Heart Rate 78 /min BP Systolic Sitting 128 mmHg BP Diastolic Sitting 78 mmHg BMI (Body Mass Index) 30.1 kg/m2 08/08/2011 11:02am Height 67 inches 5'7" Weight 189.50 lb Heart Rate 80 /min BP Systolic Sitting 120 mmHg BP Diastolic Sitting 70 mmHg BMI (Body Mass Index) 29.7 kg/m2 07/21/2011 10:10am Height 67 inches 5'7" Weight 191.00 lb Heart Rate 68 /min BP Systolic Sitting 112 mmHg BP Diastolic Sitting 72 mmHg Body Temperature 99.0 F BMI (Body Mass Index) 29.9 kg/m2 07/04/2011 11:28am Height 67 inches 5'7" Weight 190.00 lb Heart Rate 70 /min BP Systolic Sitting 124 mmHg BP Diastolic Sitting 76 mmHg BMI (Body Mass Index) 29.8 kg/m2 06/20/2011 10:58am Height 67 inches 5'7" Weight 193.00 lb Heart Rate 72 /min BP Systolic Sitting 124 mmHg BP Diastolic Sitting 78 mmHg BMI (Body Mass Index) 30.2 kg/m2 06/06/2011 2:34pm Height 67 inches 5'7" Weight 194.00 lb Heart Rate 72 /min BP Systolic Sitting 140 mmHg BP Diastolic Sitting 76 mmHg BMI (Body Mass Index) 30.4 kg/m2 Results Test Date Facility Test Result H/L Range Note Laboratory test 04/22/2018 [facility] Glucose 311 finding Serum Urine Culture And 04/22/2018 [facility] Urine SEE RESULT 1 , [address] [place] [address] [phone] CBC Auto Diff 04/21/2018 [facility] White Blood 15.4 High 3.5- 10.[address] Count 10^3/[place] [address] [phone] Red Blood Count 5.64 10^6/uL High 4.00-5.40 Hemoglobin 16.8 g/dL High 12.0-16.0 Hematocrit 48 % High 35-47 Mean Corpuscular Volume 86 fL N 80-97 Mean Corpuscular Hemoglobin 30 pg N 27-31 Mean Corpuscular HGB Conc 35 g/dL N 31-36 Red Cell Distribution Width 14 % N 10.5-15 Platelet Count 299 10^3/uL N 150-450 Mean Platelet Volume 9.4 fL N 7.4-10.4 Abs Neutrophils 9.5 10^3/uL High 1.5-7.7 Abs Lymphocytes 5.1 10^3/uL High 1.0-4.8 Abs Monocytes 0.7 10^3/uL N 0-0.8 Abs Eosinophils 0 10^3/uL N 0-0.6 Abs Basophils 0.1 10^3/uL N 0-0.2 Abs Nucleated RBC 0.1 10^3/uL Granulocyte % 61.8 % Lymphocyte % 33.1 % Monocyte % 4.5 % Eosinophil % 0.3 % Basophil % 0.3 % Nucleated Red Blood Cells % 0.6 Comp Metabolic Panel 04/21/2018 [facility] Sodium 137 mmol/L N 135-[address] [place] [address] [phone] Potassium 3.9 mmol/L N 3.5-5.0 Chloride 94 mmol/L Low 101-111 Co2 Carbon Dioxide 30 mmol/L N 22-32 Anion Gap 13 mmol/L High 2-11 Glucose 285 mg/dL High 70-100 Blood Urea Nitrogen 11 mg/dL N 6-24 Creatinine 0.90 mg/dL N 0.51-0.95 BUN/Creatinine Ratio 12.2 N 8-20 Calcium 10.8 mg/dL High 8.6-10.3 Total Protein 7.3 g/dL N 6.4-8.9 Albumin 5.1 g/dL N 3.2-5.2 Globulin 2.2 g/dL N 2-4 Albumin/Globulin Ratio 2.3 N 1-3 Total Bilirubin 0.80 mg/dL N 0.2-1.0 Alkaline Phosphatase 47 U/L N 34-104 Alt 27 U/L N 7-52 Ast 14 U/L N 13-39 Egfr Non- 70.1 >60 Egfr 84.8 >60 3 Laboratory test 04/21/2018 [facility] TSH (Thyroid 1.17 mcIU/mL N 0.34-5.[address] Stim Horm) [place] [address] [phone] Pathologist Review (SEE NOTE) 4 Laboratory test 04/19/2018 [facility] Point of Care 229 mg/dL High 70-100 [address] [place] [address] [phone] Laboratory test 04/19/2018 [facility] Lactic Acid 1.2 mmol/L N 0.5-2.0 [address] [place] [address] [phone] Laboratory test 04/19/2018 [facility] Point of Care 356 mg/dL High 70-100 [address] [place] [address] [phone] Urine Culture And 04/19/2018 [facility] Urine Culture SEE RESULT [address] [place] [address] [phone] Laboratory test 04/19/2018 [facility] HCG < 0.60 [address] mIU/[place] [address] [phone] Hemoglobin A1c (Glyco HGB) 11.2 % High 4.0-5.6 10 Arterial Blood Gas 04/19/2018 [facility] PH Arterial 7.45 N 7.35-7.[address] [place] [address] [phone] Pco2 Arterial 36 mmHg N 35-45 Po2 Arterial 90 mmHg N 80-100 O2 Saturation Arterial 98.8 % High 94.0-98.0 Base Excess Arterial 1.3 mmol/L N -2.0-2.0 11 Hco3 Arterial 25.9 mmol/L N 19-31 CBC Auto 04/19/2018 [facility] White Blood 13.0 10^3/uL High 3.5-10.[address] [place] [address] [phone] Red Blood Count 5.33 10^6/uL N 4.00-5.40 Hemoglobin 15.9 g/dL N 12.0-16.0 Hematocrit 45 % N 35-47 Mean Corpuscular Volume 85 fL N 80-97 Mean Corpuscular Hemoglobin 30 pg N 27-31 Mean Corpuscular HGB Conc 35 g/dL N 31-36 Red Cell Distribution Width 14 % N 10.5-15 Platelet Count 232 10^3/uL N 150-450 Mean Platelet Volume 9.2 fL N 7.4-10.4 Abs Neutrophils 9.8 10^3/uL High 1.5-7.7 Abs Lymphocytes 2.5 10^3/uL N 1.0-4.8 Abs Monocytes 0.5 10^3/uL N 0-0.8 Abs Eosinophils 0 10^3/uL N 0-0.6 Abs Basophils 0.1 10^3/uL N 0-0.2 Abs Nucleated RBC 0 10^3/uL Granulocyte % 75.7 % Lymphocyte % 19.3 % Monocyte % 4.1 % Eosinophil % 0.4 % Basophil % 0.5 % Nucleated Red Blood Cells % 0.1 Laboratory test 04/19/2018 [facility] Troponin-I 0.00 ng/mL < 0.[address] (TnI) [place] [address] [phone] Comp Metabolic 04/19/2018 [facility] Sodium 133 mmol/L Low 135 -[address] [place] [address] [phone] Potassium 3.2 mmol/L Low 3.5-5.0 Chloride 96 mmol/L Low 101-111 Co2 Carbon Dioxide 21 mmol/L Low 22-32 Anion Gap 16 mmol/L High 2-11 Glucose 417 mg/dL High 70-100 Blood Urea Nitrogen 11 mg/dL N 6-24 Creatinine 0.74 mg/dL N 0.51-0.95 BUN/Creatinine Ratio 14.9 N 8-20 Calcium 9.4 mg/dL N 8.6-10.3 Total Protein 6.8 g/dL N 6.4-8.9 Albumin 4.1 g/dL N 3.2-5.2 Globulin 2.7 g/dL N 2-4 Albumin/Globulin Ratio 1.5 N 1-3 Total Bilirubin 0.90 mg/dL N 0.2-1.0 Alkaline Phosphatase 45 U/L N 34-104 Alt 22 U/L N 7-52 Ast 22 U/L N 13-39 Egfr Non- 87.8 >60 Egfr 106.3 >60 13 Urinalysis Profile 04/19/2018 [facility] Urine Appearance Cloudy [address] [place] [address] [phone] Urine Specific Jackson 1.026 N 1.010-1.030 Urine pH 9.0 N 5-9 Urine Urobilinogen Negative Negative Urine Ketones 1+ Abnormal Negative Urine Protein 1+(30 mg/dL) Abnormal Negative Urine Leukocytes Negative Negative Urine Blood 3+ Abnormal Negative Urine Nitrite Negative Negative Urine Bilirubin Negative Negative Urine Glucose 3+(>=500 mg/dL) Abnormal Negative Urine White Blood Cell 2+(11-20/hpf) Abnormal Absent Urine Red Blood Cell 2+(6-10/hpf) Abnormal Absent Urine Bacteria Absent Absent Urine Squamous Epithelial Cell Present Abnormal Absent Urine Color Cara Laboratory test 04/19/2018 [facility] Magnesium 1.9 mg/dL N 1.9-2.7 finding [address] [place] [address] [phone] Lipase 42 U/L N 11.0-82.0 Creatine Kinase(CK) 39 U/L N 10-223 C Reactive Protein 4.27 mg/L N <8.01 Lactic Acid 3.0 mmol/L High 0.5-2.0 14 Ammonia 47 mcmol/L N 16-53 B-Type Natriuretic Peptide BNP 14 pg/mL <=100 Laboratory test 04/15/2018 [facility] Lactic Acid 0.4 mmol/L Low 0.5-2.[address] [place] [address] [phone] Laboratory test 04/15/2018 [facility] Lactic Acid 4.0 mmol/L High 0.5-2.[address] [place] [address] [phone] CBC Auto Diff 04/15/2018 [facility] White Blood 25.0 High 3.5- 10.[address] Count 10^3/[place] [address] [phone] Red Blood Count 5.76 10^6/uL High 4.00-5.40 Hemoglobin 17.0 g/dL High 12.0-16.0 Hematocrit 50 % High 35-47 Mean Corpuscular Volume 86 fL N 80-97 Mean Corpuscular Hemoglobin 30 pg N 27-31 Mean Corpuscular HGB Conc 34 g/dL N 31-36 Red Cell Distribution Width 15 % N 10.5-15 Platelet Count 254 10^3/uL N 150-450 Mean Platelet Volume 9.6 fL N 7.4-10.4 Abs Neutrophils 20.6 10^3/uL High 1.5-7.7 Abs Lymphocytes 3.3 10^3/uL N 1.0-4.8 Abs Monocytes 1.0 10^3/uL High 0-0.8 Abs Eosinophils 0 10^3/uL N 0-0.6 Abs Basophils 0.1 10^3/uL N 0-0.2 Abs Nucleated RBC 0 10^3/uL Granulocyte % 82.1 % Lymphocyte % 13.3 % Monocyte % 4.1 % Eosinophil % 0 % Basophil % 0.5 % Nucleated Red Blood Cells % 0.1 Laboratory test 04/15/2018 [facility] Magnesium 1.9 mg/dL N 1.9-2.7 finding [address] [place] [address] [phone] Lipase 42 U/L N 11.0-82.0 C Reactive Protein 7.09 mg/L N <8.01 HCG < 0.60 mIU/mL 17 Comp Metabolic Panel 04/15/2018 [facility] Sodium 136 mmol/L N 135-145 [address] [place] [address] [phone] Potassium 3.6 mmol/L N 3.5-5.0 Chloride 93 mmol/L Low 101-111 Co2 Carbon Dioxide 22 mmol/L N 22-32 Anion Gap 21 mmol/L High 2-11 Glucose 323 mg/dL High 70-100 Blood Urea Nitrogen 17 mg/dL N 6-24 Creatinine 0.92 mg/dL N 0.51-0.95 BUN/Creatinine Ratio 18.5 N 8-20 Calcium 10.5 mg/dL High 8.6-10.3 Total Protein 8.1 g/dL N 6.4-8.9 Albumin 5.3 g/dL High 3.2-5.2 Globulin 2.8 g/dL N 2-4 Albumin/Globulin Ratio 1.9 N 1-3 Total Bilirubin 1.40 mg/dL High 0.2-1.0 Alkaline Phosphatase 52 U/L N 34-104 Alt 19 U/L N 7-52 Ast 16 U/L N 13-39 Egfr Non- 68.3 >60 Egfr 82.7 >60 18 Laboratory test 04/14/2018 [facility] Point of 344 mg/dL High 70-100 [address] [place] [address] [phone] Laboratory test 04/14/2018 [facility] Point of 373 mg/dL High 70-100 [address] [place] [address] [phone] CBC Auto Diff 04/14/2018 [facility] White Blood 14.3 High 3.5- 10.[address] Count 10^3/[place] [address] [phone] Red Blood Count 5.99 10^6/uL High 4.00-5.40 Hemoglobin 17.7 g/dL High 12.0-16.0 Hematocrit 52 % High 35-47 Mean Corpuscular Volume 87 fL N 80-97 Mean Corpuscular Hemoglobin 30 pg N 27-31 Mean Corpuscular HGB Conc 34 g/dL N 31-36 Red Cell Distribution Width 14 % N 10.5-15 Platelet Count 235 10^3/uL N 150-450 Mean Platelet Volume 9.9 fL N 7.4-10.4 Abs Neutrophils 11.5 10^3/uL High 1.5-7.7 Abs Lymphocytes 2.3 10^3/uL N 1.0-4.8 Abs Monocytes 0.4 10^3/uL N 0-0.8 Abs Eosinophils 0.1 10^3/uL N 0-0.6 Abs Basophils 0.1 10^3/uL N 0-0.2 Abs Nucleated RBC 0 10^3/uL Granulocyte % 80.2 % Lymphocyte % 16.0 % Monocyte % 3.0 % Eosinophil % 0.4 % Basophil % 0.4 % Nucleated Red Blood Cells % 0.1 Laboratory test 04/14/2018 [facility] B-Type 39 pg/mL <=[address] [place] [address] Peptide BNP [phone] Troponin-I (TnI) 0.00 ng/mL <0.04 21 Comp Metabolic Panel 04/14/2018 [facility] Sodium 137 mmol/L N 135-[address] [place] [address] [phone] Potassium 4.3 mmol/L N 3.5-5.0 Chloride 100 mmol/L Low 101-111 Co2 Carbon Dioxide 23 mmol/L N 22-32 Anion Gap 14 mmol/L High 2-11 Glucose 404 mg/dL High 70-100 Blood Urea Nitrogen 11 mg/dL N 6-24 Creatinine 0.93 mg/dL N 0.51-0.95 BUN/Creatinine Ratio 11.8 N 8-20 Calcium 10.6 mg/dL High 8.6-10.3 Total Protein 8.5 g/dL N 6.4-8.9 Albumin 5.5 g/dL High 3.2-5.2 Globulin 3.0 g/dL N 2-4 Albumin/Globulin Ratio 1.8 N 1-3 Total Bilirubin 0.90 mg/dL N 0.2-1.0 Alkaline Phosphatase 62 U/L N 34-104 Alt 29 U/L N 7-52 Ast 31 U/L N 13-39 Egfr Non- 67.5 >60 Egfr 81.6 >60 22 Laboratory test 04/14/2018 [facility] Magnesium 2.0 mg/dL N 1.9-2.7 finding [address] [place] [address] [phone] Lipase 35 U/L N 11.0-82.0 Creatine Kinase(CK) 44 U/L N 10-223 C Reactive Protein 3.78 mg/L N <8.01 HCG < 0.60 mIU/mL 23 Lactic Acid 3.2 mmol/L High 0.5-2.0 24 Urinalysis Profile 04/14/2018 [facility] Urine Color Yellow [address] [place] [address] [phone] Urine Appearance Clear Urine Specific Jackson 1.024 N 1.010-1.030 Urine pH 7.0 N 5-9 Urine Urobilinogen Negative Negative Urine Ketones 2+ Abnormal Negative Urine Protein Negative Negative Urine Leukocytes Negative Negative Urine Blood Negative Negative Urine Nitrite Negative Negative Urine Bilirubin Negative Negative Urine Glucose 3+(>=500 mg/dL) Abnormal Negative Laboratory test 04/14/2018 [facility] Point of 240 mg/dL High 70-100 [address] [place] [address] [phone] Laboratory test 12/15/2017 [facility] Cytology SEE RESULT [address] [place] [address] [phone] Laboratory test 12/13/2017 [facility] Poc Negative Negative [address] , [place] [address] Urine [phone] Wound 03/02/2016 [facility] Wound/Misc SEE RESULT 28 Culture/Sensi [address] [place] [address] Stain [phone] Laboratory test 03/02/2016 [facility] MRSA/S. SEE RESULT [address] [place] [address] PCR [phone] CBC Auto Diff 03/02/2016 [facility] White Blood 15.2 10^3/uL High 3.5-10.[address] Count [place], [place] [id number] [phone] Red Blood Count 4.26 10^6/uL N 4.0-5.4 Hemoglobin 13.1 g/dL N 12.0-16.0 Hematocrit 39 % N 35-47 Mean Corpuscular Volume 92 fL N 80-97 Mean Corpuscular Hemoglobin 31 pg N 27-31 Mean Corpuscular HGB Conc 33 g/dL N 31-36 Red Cell Distribution Width 14 % N 10.5-15 Platelet Count 257 10^3/uL N 150-450 Mean Platelet Volume 8 um3 N 7.4-10.4 Abs Neutrophils 11.0 10^3/uL High 1.5-7.7 Abs Lymphocytes 3.2 10^3/uL N 1.0-4.8 Abs Monocytes 0.6 10^3/uL N 0-0.8 Abs Eosinophils 0.2 10^3/uL N 0-0.6 Abs Basophils 0.1 10^3/uL N 0-0.2 Abs Nucleated RBC 0.01 10^3/uL N Granulocyte % 72.4 % N 38-83 Lymphocyte % 21.4 % Low 25-47 Monocyte % 3.7 % N 1-9 Eosinophil % 1.6 % N 0-6 Basophil % 0.9 % N 0-2 Nucleated Red Blood Cells % 0.1 N Comp Metabolic Panel 03/02/2016 [facility] Sodium 138 mmol/L N 133-[address] [place] [address] [phone] Potassium 4.0 mmol/L N 3.5-5.0 Chloride 105 mmol/L N 101-111 Co2 Carbon Dioxide 26 mmol/L N 22-32 Anion Gap 7 mmol/L N 2-11 Glucose 101 mg/dL High 70-100 Blood Urea Nitrogen 8 mg/dL N 6-24 Creatinine 0.60 mg/dL N 0.51-0.95 BUN/Creatinine Ratio 13.3 N 8-20 Calcium 8.9 mg/dL N 8.6-10.3 Total Protein 6.2 g/dL Low 6.4-8.9 Albumin 3.0 g/dL Low 3.2-5.2 Globulin 3.2 g/dL N 2-4 Albumin/Globulin Ratio 0.9 Low 1-3 Total Bilirubin 0.20 mg/dL N 0.2-1.0 Alkaline Phosphatase 61 U/L N 34-104 Alt 8 U/L N 7-52 Ast 10 U/L Low 13-39 Egfr Non- 113.8 N >60 Egfr 146.3 N >60 30 Laboratory test 03/02/2016 [facility] C Reactive 65.08 mg/L High < 5.[address] [place] [address] [phone] Lactic Acid 1.3 mmol/L N 0.5-2.0 32 Laboratory test 10/25/2015 [facility] C Reactive 7.72 mg/L High < 5.[address] [place] [address] [phone] Comp Metabolic 10/25/2015 [facility] Sodium 134 N 133-[address] mmol/[place] [address] [phone] Potassium 4.2 mmol/L N 3.5-5.0 Chloride 103 mmol/L N 101-111 Co2 Carbon Dioxide 23 mmol/L N 22-32 Anion Gap 8 mmol/L N 2-11 Glucose 225 mg/dL High 70-100 Blood Urea Nitrogen 6 mg/dL N 6-24 Creatinine 0.61 mg/dL N 0.51-0.95 BUN/Creatinine Ratio 9.8 N 8-20 Calcium 9.2 mg/dL N 8.6-10.3 Total Protein 6.4 g/dL N 6.4-8.9 Albumin 3.7 g/dL N 3.2-5.2 Globulin 2.7 g/dL N 2-4 Albumin/Globulin Ratio 1.4 N 1-3 Total Bilirubin 0.20 mg/dL N 0.2-1.0 Alkaline Phosphatase 40 U/L N 34-104 Alt 9 U/L N 7-52 Ast 13 U/L N 13-39 Egfr Non- 111.6 N >60 Egfr 143.5 N >60 34 CBC Auto 10/25/2015 [facility] White Blood 17.0 10^3/uL High 3.5-10.[address] [place] [address] [phone] Red Blood Count 4.45 10^6/uL N 4.0-5.4 Hemoglobin 12.9 g/dL N 12.0-16.0 Hematocrit 39 % N 35-47 Mean Corpuscular Volume 88 fL N 80-97 Mean Corpuscular Hemoglobin 29 pg N 27-31 Mean Corpuscular HGB Conc 33 g/dL N 31-36 Red Cell Distribution Width 18 % High 10.5-15 Platelet Count 185 10^3/uL N 150-450 Mean Platelet Volume 10 um3 N 7.4-10.4 Abs Neutrophils 12.7 10^3/uL High 1.5-7.7 Abs Lymphocytes 3.3 10^3/uL N 1.0-4.8 Abs Monocytes 0.6 10^3/uL N 0-0.8 Abs Eosinophils 0.2 10^3/uL N 0-0.6 Abs Basophils 0.2 10^3/uL N 0-0.2 Abs Nucleated RBC 0 10^3/uL N Granulocyte % 74.9 % N 38-83 Lymphocyte % 19.5 % Low 25-47 Monocyte % 3.6 % N 1-9 Eosinophil % 1.1 % N 0-6 Basophil % 0.9 % N 0-2 Nucleated Red Blood Cells % 0 N Comp Metabolic Panel 10/10/2015 [facility] Sodium 131 mmol/L Low 133-[address] [place] [address] [phone] Potassium 3.9 mmol/L N 3.5-5.0 Chloride 100 mmol/L Low 101-111 Co2 Carbon Dioxide 23 mmol/L N 22-32 Anion Gap 8 mmol/L N 2-11 Glucose 270 mg/dL High 70-100 Blood Urea Nitrogen 10 mg/dL N 6-24 Creatinine 0.58 mg/dL N 0.51-0.95 BUN/Creatinine Ratio 17.2 N 8-20 Calcium 9.1 mg/dL N 8.6-10.3 Total Protein 6.3 g/dL Low 6.4-8.9 Albumin 3.6 g/dL N 3.2-5.2 Globulin 2.7 g/dL N 2-4 Albumin/Globulin Ratio 1.3 N 1-3 Total Bilirubin 0.30 mg/dL N 0.2-1.0 Alkaline Phosphatase 40 U/L N 34-104 Alt 7 U/L N 7-52 Ast 14 U/L N 13-39 Egfr Non- 118.3 N >60 Egfr 152.1 N >60 35 Laboratory test 10/10/2015 [facility] C Reactive 9.07 mg/L High < 5.00 [address] [place] [address] [phone] CBC Auto Diff 10/10/2015 [facility] White Blood 16.8 High 3.5- 10.[address] Count 10^3/[place] [address] [phone] Red Blood Count 4.24 10^6/uL N 4.0-5.4 Hemoglobin 12.2 g/dL N 12.0-16.0 Hematocrit 36 % N 35-47 Mean Corpuscular Volume 85 fL N 80-97 Mean Corpuscular Hemoglobin 29 pg N 27-31 Mean Corpuscular HGB Conc 34 g/dL N 31-36 Red Cell Distribution Width 20 % High 10.5-15 Platelet Count 171 10^3/uL N 150-450 Mean Platelet Volume 9 um3 N 7.4-10.4 Abs Neutrophils 13.4 10^3/uL High 1.5-7.7 Abs Lymphocytes 2.7 10^3/uL N 1.0-4.8 Abs Monocytes 0.5 10^3/uL N 0-0.8 Abs Eosinophils 0.1 10^3/uL N 0-0.6 Abs Basophils 0.1 10^3/uL N 0-0.2 Abs Nucleated RBC 0 10^3/uL N Granulocyte % 79.4 % N 38-83 Lymphocyte % 16.3 % Low 25-47 Monocyte % 2.9 % N 1-9 Eosinophil % 0.9 % N 0-6 Basophil % 0.5 % N 0-2 Nucleated Red Blood Cells % 0 N CBC Auto 10/03/2015 [facility] White Blood 16.3 10^3/uL High 3.5-10.[address] [place] [address] [phone] Red Blood Count 4.44 10^6/uL N 4.0-5.4 Hemoglobin 12.3 g/dL N 12.0-16.0 Hematocrit 38 % N 35-47 Mean Corpuscular Volume 84 fL N 80-97 Mean Corpuscular Hemoglobin 28 pg N 27-31 Mean Corpuscular HGB Conc 33 g/dL N 31-36 Red Cell Distribution Width 20 % High 10.5-15 Platelet Count 174 10^3/uL N 150-450 Mean Platelet Volume 9 um3 N 7.4-10.4 Abs Neutrophils 11.9 10^3/uL High 1.5-7.7 Abs Lymphocytes 3.7 10^3/uL N 1.0-4.8 Abs Monocytes 0.5 10^3/uL N 0-0.8 Abs Eosinophils 0.2 10^3/uL N 0-0.6 Abs Basophils 0.1 10^3/uL N 0-0.2 Abs Nucleated RBC 0 10^3/uL N Granulocyte % 72.9 % N 38-83 Lymphocyte % 22.8 % Low 25-47 Monocyte % 2.9 % N 1-9 Eosinophil % 1.0 % N 0-6 Basophil % 0.4 % N 0-2 Nucleated Red Blood Cells % 0 N Comp Metabolic Panel 10/03/2015 [facility] Sodium 134 mmol/L N 133-[address] [place] [address] [phone] Potassium 3.9 mmol/L N 3.5-5.0 Chloride 103 mmol/L N 101-111 Co2 Carbon Dioxide 23 mmol/L N 22-32 Anion Gap 8 mmol/L N 2-11 Glucose 200 mg/dL High 70-100 Blood Urea Nitrogen 7 mg/dL N 6-24 Creatinine 0.56 mg/dL N 0.51-0.95 BUN/Creatinine Ratio 12.5 N 8-20 Calcium 9.3 mg/dL N 8.6-10.3 Total Protein 6.5 g/dL N 6.4-8.9 Albumin 3.9 g/dL N 3.2-5.2 Globulin 2.6 g/dL N 2-4 Albumin/Globulin Ratio 1.5 N 1-3 Total Bilirubin 0.30 mg/dL N 0.2-1.0 Alkaline Phosphatase 41 U/L N 34-104 Alt 6 U/L Low 7-52 Ast 12 U/L Low 13-39 Egfr Non- 123.2 N >60 Egfr 158.4 N >60 37 Laboratory test 10/03/2015 [facility] C Reactive 9.21 mg/L High < 5.00 [address] [place] [address] [phone] Comp Metabolic 09/26/2015 [facility] Sodium 133 N 133-[address] mmol/[place] [address] [phone] Potassium 4.1 mmol/L N 3.5-5.0 Chloride 103 mmol/L N 101-111 Co2 Carbon Dioxide 23 mmol/L N 22-32 Anion Gap 7 mmol/L N 2-11 Glucose 206 mg/dL High 70-100 Blood Urea Nitrogen 7 mg/dL N 6-24 Creatinine 0.52 mg/dL N 0.51-0.95 BUN/Creatinine Ratio 13.5 N 8-20 Calcium 8.9 mg/dL N 8.6-10.3 Total Protein 6.5 g/dL N 6.4-8.9 Albumin 4.0 g/dL N 3.2-5.2 Globulin 2.5 g/dL N 2-4 Albumin/Globulin Ratio 1.6 N 1-3 Total Bilirubin 0.30 mg/dL N 0.2-1.0 Alkaline Phosphatase 44 U/L N 34-104 Alt 6 U/L Low 7-52 Ast 11 U/L Low 13-39 Egfr Non- 134.2 N >60 Egfr 172.6 N >60 39 Laboratory test 09/26/2015 [facility] C Reactive 7.36 mg/L High < 5.00 [address] [place] [address] [phone] CBC Auto Diff 09/26/2015 [facility] White Blood 18.2 High 3.5- 10.[address] Count 10^3/[place] [address] [phone] Red Blood Count 4.50 10^6/uL N 4.0-5.4 Hemoglobin 12.4 g/dL N 12.0-16.0 Hematocrit 38 % N 35-47 Mean Corpuscular Volume 83 fL N 80-97 Mean Corpuscular Hemoglobin 28 pg N 27-31 Mean Corpuscular HGB Conc 33 g/dL N 31-36 Red Cell Distribution Width 20 % High 10.5-15 Platelet Count 175 10^3/uL N 150-450 Mean Platelet Volume 9 um3 N 7.4-10.4 Abs Neutrophils 14.1 10^3/uL High 1.5-7.7 Abs Lymphocytes 3.3 10^3/uL N 1.0-4.8 Abs Monocytes 0.6 10^3/uL N 0-0.8 Abs Eosinophils 0.1 10^3/uL N 0-0.6 Abs Basophils 0.1 10^3/uL N 0-0.2 Abs Nucleated RBC 0.01 10^3/uL N Granulocyte % 77.5 % N 38-83 Lymphocyte % 17.9 % Low 25-47 Monocyte % 3.4 % N 1-9 Eosinophil % 0.8 % N 0-6 Basophil % 0.4 % N 0-2 Nucleated Red Blood Cells % 0.1 N Comp Metabolic Panel 09/19/2015 [facility] Sodium 133 mmol/L N 133-[address] [place] [address] [phone] Potassium 4.2 mmol/L N 3.5-5.0 Chloride 102 mmol/L N 101-111 Co2 Carbon Dioxide 23 mmol/L N 22-32 Anion Gap 8 mmol/L N 2-11 Glucose 183 mg/dL High 70-100 Blood Urea Nitrogen 8 mg/dL N 6-24 Creatinine 0.49 mg/dL Low 0.51-0.95 BUN/Creatinine Ratio 16.3 N 8-20 Calcium 9.5 mg/dL N 8.6-10.3 Total Protein 6.8 g/dL N 6.4-8.9 Albumin 4.1 g/dL N 3.2-5.2 Globulin 2.7 g/dL N 2-4 Albumin/Globulin Ratio 1.5 N 1-3 Total Bilirubin 0.50 mg/dL N 0.2-1.0 Alkaline Phosphatase 42 U/L N 34-104 Alt 8 U/L N 7-52 Ast 12 U/L Low 13-39 Egfr Non- 143.7 N >60 Egfr 184.8 N >60 41 Laboratory test 09/19/2015 [facility] C Reactive 10.04 mg/L High < 5.00 [address] [place] [address] [phone] CBC Auto Diff 09/19/2015 [facility] White Blood 18.2 High 3.5- 10.[address] Count 10^3/[place] [address] [phone] Red Blood Count 4.96 10^6/uL N 4.0-5.4 Hemoglobin 13.2 g/dL N 12.0-16.0 Hematocrit 41 % N 35-47 Mean Corpuscular Volume 82 fL N 80-97 Mean Corpuscular Hemoglobin 27 pg N 27-31 Mean Corpuscular HGB Conc 33 g/dL N 31-36 Red Cell Distribution Width 20 % High 10.5-15 Platelet Count 198 10^3/uL N 150-450 Mean Platelet Volume 9 um3 N 7.4-10.4 Abs Neutrophils 13.0 10^3/uL High 1.5-7.7 Abs Lymphocytes 4.2 10^3/uL N 1.0-4.8 Abs Monocytes 0.8 10^3/uL N 0-0.8 Abs Eosinophils 0.1 10^3/uL N 0-0.6 Abs Basophils 0.1 10^3/uL N 0-0.2 Abs Nucleated RBC 0.01 10^3/uL N Granulocyte % 71.6 % N 38-83 Lymphocyte % 23.1 % Low 25-47 Monocyte % 4.1 % N 1-9 Eosinophil % 0.8 % N 0-6 Basophil % 0.4 % N 0-2 Nucleated Red Blood Cells % 0 N CBC Auto 09/12/2015 [facility] White Blood 15.9 10^3/uL High 3.5-10.[address] [place] [address] [phone] Red Blood Count 4.71 10^6/uL N 4.0-5.4 Hemoglobin 12.6 g/dL N 12.0-16.0 Hematocrit 38 % N 35-47 Mean Corpuscular Volume 82 fL N 80-97 Mean Corpuscular Hemoglobin 27 pg N 27-31 Mean Corpuscular HGB Conc 33 g/dL N 31-36 Red Cell Distribution Width 20 % High 10.5-15 Platelet Count 216 10^3/uL N 150-450 Mean Platelet Volume 9 um3 N 7.4-10.4 Abs Neutrophils 11.3 10^3/uL High 1.5-7.7 Abs Lymphocytes 3.8 10^3/uL N 1.0-4.8 Abs Monocytes 0.5 10^3/uL N 0-0.8 Abs Eosinophils 0.2 10^3/uL N 0-0.6 Abs Basophils 0.1 10^3/uL N 0-0.2 Abs Nucleated RBC 0.02 10^3/uL N Granulocyte % 71.1 % N 38-83 Lymphocyte % 24.2 % Low 25-47 Monocyte % 3.1 % N 1-9 Eosinophil % 1.1 % N 0-6 Basophil % 0.5 % N 0-2 Nucleated Red Blood Cells % 0.1 N Comp Metabolic Panel 09/12/2015 [facility] Sodium 132 mmol/L Low 133-[address] [place] [address] [phone] Potassium 4.3 mmol/L N 3.5-5.0 Chloride 102 mmol/L N 101-111 Co2 Carbon Dioxide 23 mmol/L N 22-32 Anion Gap 7 mmol/L N 2-11 Glucose 255 mg/dL High 70-100 Blood Urea Nitrogen 6 mg/dL N 6-24 Creatinine 0.63 mg/dL N 0.51-0.95 BUN/Creatinine Ratio 9.5 N 8-20 Calcium 9.3 mg/dL N 8.6-10.3 Total Protein 6.6 g/dL N 6.4-8.9 Albumin 4.0 g/dL N 3.2-5.2 Globulin 2.6 g/dL N 2-4 Albumin/Globulin Ratio 1.5 N 1-3 Total Bilirubin 0.20 mg/dL N 0.2-1.0 Alkaline Phosphatase 46 U/L N 34-104 Alt 8 U/L N 7-52 Ast 13 U/L N 13-39 Egfr Non- 107.5 N >60 Egfr 138.3 N >60 43 Laboratory test 09/12/2015 [facility] C Reactive 6.19 mg/L High < 5.00 [address] [place] [address] [phone] Comp Metabolic 09/04/2015 [facility] Sodium 134 N 133-[address] mmol/[place] [address] [phone] Potassium 4.0 mmol/L N 3.5-5.0 Chloride 100 mmol/L Low 101-111 Co2 Carbon Dioxide 26 mmol/L N 22-32 Anion Gap 8 mmol/L N 2-11 Glucose 224 mg/dL High 70-100 Blood Urea Nitrogen 8 mg/dL N 6-24 Creatinine 0.72 mg/dL N 0.51-0.95 BUN/Creatinine Ratio 11.1 N 8-20 Calcium 9.3 mg/dL N 8.6-10.3 Total Protein 6.6 g/dL N 6.4-8.9 Albumin 3.9 g/dL N 3.2-5.2 Globulin 2.7 g/dL N 2-4 Albumin/Globulin Ratio 1.4 N 1-3 Total Bilirubin 0.20 mg/dL N 0.2-1.0 Alkaline Phosphatase 47 U/L N 34-104 Alt 11 U/L N 7-52 Ast 14 U/L N 13-39 Egfr Non- 92.2 N >60 Egfr 118.5 N >60 45 Laboratory test 09/04/2015 [facility] C Reactive 17.03 mg/L High < 5.00 [address] [place] [address] [phone] CBC Auto Diff 09/04/2015 [facility] White Blood 13.5 High 3.5- 10.[address] Count 10^3/[place] [address] [phone] Red Blood Count 4.63 10^6/uL N 4.0-5.4 Hemoglobin 12.4 g/dL N 12.0-16.0 Hematocrit 38 % N 35-47 Mean Corpuscular Volume 82 fL N 80-97 Mean Corpuscular Hemoglobin 27 pg N 27-31 Mean Corpuscular HGB Conc 33 g/dL N 31-36 Red Cell Distribution Width 19 % High 10.5-15 Platelet Count 214 10^3/uL N 150-450 Mean Platelet Volume 9 um3 N 7.4-10.4 Abs Neutrophils 9.1 10^3/uL High 1.5-7.7 Abs Lymphocytes 3.5 10^3/uL N 1.0-4.8 Abs Monocytes 0.6 10^3/uL N 0-0.8 Abs Eosinophils 0.2 10^3/uL N 0-0.6 Abs Basophils 0.1 10^3/uL N 0-0.2 Abs Nucleated RBC 0.01 10^3/uL N Granulocyte % 67.4 % N 38-83 Lymphocyte % 26.2 % N 25-47 Monocyte % 4.7 % N 1-9 Eosinophil % 1.3 % N 0-6 Basophil % 0.4 % N 0-2 Nucleated Red Blood Cells % 0.1 N Laboratory test 08/29/2015 [facility] Point of 219 mg/dL High 74-106 47 finding [address] [facility] [place] [address] [phone] Laboratory test 08/29/2015 [facility] Point of 276 mg/dL High 74-106 48 finding 101 [facility] [place] [address] [phone] Basic Metabolic 08/28/2015 [facility] Sodium 133 mmol/L N 133- 145 Panel [address] [place] [address] [phone] Potassium 3.6 mmol/L N 3.5-5.0 Chloride 103 mmol/L N 101-111 Co2 Carbon Dioxide 22 mmol/L N 22-32 Anion Gap 8 mmol/L N 2-11 Glucose 197 mg/dL High 70-100 Blood Urea Nitrogen 7 mg/dL N 6-24 Creatinine 0.65 mg/dL N 0.51-0.95 BUN/Creatinine Ratio 10.8 N 8-20 Calcium 9.3 mg/dL N 8.6-10.3 Egfr Non- 103.7 N >60 Egfr 133.4 N >60 49 Laboratory test 08/28/2015 [facility] HCG 75907.00 N [address] mIU/[place] [address] [phone] CBC Auto Diff 08/28/2015 [facility] White Blood 17.9 10^3/uL High 3.5-[address] Count 0.8 [place] [address] [phone] Red Blood Count 5.11 10^6/uL N 4.0-5.4 Hemoglobin 13.5 g/dL N 12.0-16.0 Hematocrit 43 % N 35-47 Mean Corpuscular Volume 83 fL N 80-97 Mean Corpuscular Hemoglobin 27 pg N 27-31 Mean Corpuscular HGB Conc 32 g/dL N 31-36 Red Cell Distribution Width 19 % High 10.5-15 Platelet Count 175 10^3/uL N 150-450 Mean Platelet Volume 9 um3 N 7.4-10.4 Abs Neutrophils 12.8 10^3/uL High 1.5-7.7 Abs Lymphocytes 3.9 10^3/uL N 1.0-4.8 Abs Monocytes 0.8 10^3/uL N 0-0.8 Abs Eosinophils 0.3 10^3/uL N 0-0.6 Abs Basophils 0.1 10^3/uL N 0-0.2 Abs Nucleated RBC 0.01 10^3/uL N Granulocyte % 71.6 % N 38-83 Lymphocyte % 21.9 % Low 25-47 Monocyte % 4.7 % N 1-9 Eosinophil % 1.4 % N 0-6 Basophil % 0.4 % N 0-2 Nucleated Red Blood Cells % 0 N Wound 08/27/2015 [facility] Wound/Misc SEE 51, 52 Culture/Sensi [address] [place] [address] Stain BELOW [phone] CBC Auto Diff 08/01/2015 [facility] White Blood 11.5 High 3.[address] Count 10^3/uL -10 [place] [address] .8 [phone] Red Blood Count 5.01 10^6/uL N 4.0-5.4 Hemoglobin 13.2 g/dL N 12.0-16.0 Hematocrit 41 % N 35-47 Mean Corpuscular Volume 81 fL N 80-97 Mean Corpuscular Hemoglobin 26 pg Low 27-31 Mean Corpuscular HGB Conc 33 g/dL N 31-36 Red Cell Distribution Width 16 % High 10.5-15 Platelet Count 263 10^3/uL N 150-450 Mean Platelet Volume 9 um3 N 7.4-10.4 Abs Neutrophils 6.7 10^3/uL N 1.5-7.7 Abs Lymphocytes 3.8 10^3/uL N 1.0-4.8 Abs Monocytes 0.7 10^3/uL N 0-0.8 Abs Eosinophils 0.2 10^3/uL N 0-0.6 Abs Basophils 0.1 10^3/uL N 0-0.2 Abs Nucleated RBC 0 10^3/uL N Granulocyte % 58.1 % N 38-83 Lymphocyte % 33.3 % N 25-47 Monocyte % 5.8 % N 1-9 Eosinophil % 2.0 % N 0-6 Basophil % 0.8 % N 0-2 Nucleated Red Blood Cells % 0 N Comp Metabolic Panel 08/01/2015 [facility] Sodium 134 mmol/L N 133-[address] [place] [address] [phone] Potassium 4.0 mmol/L N 3.5-5.0 Chloride 99 mmol/L Low 101-111 Co2 Carbon Dioxide 27 mmol/L N 22-32 Anion Gap 8 mmol/L N 2-11 Glucose 254 mg/dL High 70-100 Blood Urea Nitrogen 11 mg/dL N 6-24 Creatinine 0.80 mg/dL N 0.51-0.95 BUN/Creatinine Ratio 13.8 N 8-20 Calcium 10.0 mg/dL N 8.6-10.3 Total Protein 7.8 g/dL N 6.4-8.9 Albumin 4.3 g/dL N 3.2-5.2 Globulin 3.5 g/dL N 2-4 Albumin/Globulin Ratio 1.2 N 1-3 Total Bilirubin 0.20 mg/dL N 0.2-1.0 Alkaline Phosphatase 44 U/L N 34-104 Alt 15 U/L N 7-52 Ast 14 U/L N 13-39 Egfr Non- 81.6 N >60 Egfr 105.0 N >60 53 Laboratory test finding 08/01/2015 [facility] Lipase 48 U/L N 11.0-82.[address] [place] [address] [phone] C Reactive Protein 9.42 mg/L High < 5.00 54 Partial Thrombo Time PTT 32.5 seconds N 26.0-36.3 Lactic Acid 0.9 mmol/L N 0.5-2.0 55 HCG 22846.00 mIU/mL N 56 Urinalysis Profile 08/01/2015 [facility] Urine Color Straw N [address] [place] [address] [phone] Urine Appearance Clear N Urine Specific Jackson 1.006 Low 1.010-1.030 Urine pH 6.0 N 5-9 Urine Urobilinogen Negative N Negative Urine Ketones Negative N Negative Urine Protein Negative N Negative Urine Leukocytes Negative N Negative Urine Blood Negative N Negative Urine Nitrite Negative N Negative Urine Bilirubin Negative N Negative Urine Glucose 2+(150 mg/dL) Abnormal Negative CBC Auto 05/28/2015 [facility] White Blood 14.2 10^3/uL High 3.5-10.[address] [place] [address] [phone] Red Blood Count 3.32 10^6/uL Low 4.0-5.4 Hemoglobin 9.9 g/dL Low 12.0-16.0 Hematocrit 30 % Low 35-47 Mean Corpuscular Volume 91 fL N 80-97 Mean Corpuscular Hemoglobin 30 pg N 27-31 Mean Corpuscular HGB Conc 33 g/dL N 31-36 Red Cell Distribution Width 14 % N 10.5-15 Platelet Count 357 10^3/uL N 150-450 Mean Platelet Volume 9 um3 N 7.4-10.4 Abs Neutrophils 9.4 10^3/uL High 1.5-7.7 57 Abs Lymphocytes 3.9 10^3/uL N 1.0-4.8 Abs Monocytes 0.6 10^3/uL N 0-0.8 Abs Eosinophils 0.2 10^3/uL N 0-0.6 Abs Basophils 0.1 10^3/uL N 0-0.2 Abs Nucleated RBC 0.02 10^3/uL N Granulocyte % 66.3 % N 38-83 Lymphocyte % 27.5 % N 25-47 Monocyte % 3.9 % N 1-9 Eosinophil % 1.7 % N 0-6 Basophil % 0.6 % N 0-2 Nucleated Red Blood Cells % 0.2 N Iron & Iron Binding 05/28/2015 [facility] Iron 24 g/dL Low 50-212 [address] [place] [address] [phone] Unsaturated Iron Binding 347 g/dL N Total Iron Binding Capacity 371 g/dL N 250-450 % Iron Saturation 6 % Low 15-55 Laboratory test 05/28/2015 [facility] Ferritin 21.1 ng/mL N 11 -307 finding [address] [place] [address] [phone] Retic Count 05/28/2015 [facility] Retic Count 6.5 % High 0.5- 1.5 [address] [place] [address] [phone] Corrected Retic Count 4.3 % High 0.5-1.5 Maturation Factor Retic 1.5 N Retic Index 2.90 N Mean Retic Volume 108.4 N Immature Retic Fraction 0.52 N RBC Retic Count 3.32 10^6/uL Low 4.6-6.2 Hematocrit for Retic CNT 30 % Low 35-47 Basic Metabolic Panel 05/25/2015 [facility] Sodium 138 mmol/L N 133-145 [address] [place] [address] [phone] Potassium 3.9 mmol/L N 3.5-5.0 Chloride 103 mmol/L N 101-111 Co2 Carbon Dioxide 30 mmol/L N 22-32 Anion Gap 5 mmol/L N 2-11 Glucose 183 mg/dL High 70-100 Blood Urea Nitrogen 8 mg/dL N 6-24 Creatinine 0.67 mg/dL N 0.51-0.95 BUN/Creatinine Ratio 11.9 N 8-20 Calcium 9.1 mg/dL N 8.6-10.3 Egfr Non- 100.2 N >60 Egfr 128.8 N >60 58 CBC Auto 05/25/2015 [facility] White Blood 13.7 10^3/uL High 3.5-10.[address] [place] [address] [phone] Red Blood Count 3.20 10^6/uL Low 4.0-5.4 Hemoglobin 9.5 g/dL Low 12.0-16.0 Hematocrit 29 % Low 35-47 Mean Corpuscular Volume 89 fL N 80-97 Mean Corpuscular Hemoglobin 30 pg N 27-31 Mean Corpuscular HGB Conc 34 g/dL N 31-36 Red Cell Distribution Width 13 % N 10.5-15 Platelet Count 294 10^3/uL N 150-450 Mean Platelet Volume 9 um3 N 7.4-10.4 Abs Neutrophils 8.8 10^3/uL High 1.5-7.7 Abs Lymphocytes 4.1 10^3/uL N 1.0-4.8 Abs Monocytes 0.6 10^3/uL N 0-0.8 Abs Eosinophils 0.2 10^3/uL N 0-0.6 Abs Basophils 0.1 10^3/uL N 0-0.2 Abs Nucleated RBC 0.01 10^3/uL N Granulocyte % 64.2 % N 38-83 Lymphocyte % 29.5 % N 25-47 Monocyte % 4.0 % N 1-9 Eosinophil % 1.4 % N 0-6 Basophil % 0.9 % N 0-2 Nucleated Red Blood Cells % 0.1 N Urine Microalbumin 05/25/2015 [facility] Ur Microalbumin 14.0 mg /L N Random [address] (mg/L) [place] [address] [phone] Urine Creatinine 359.60 mg/dL N Urine Microalbumin/Creatinine 3.8 ug/mg N <31 Laboratory test 05/25/2015 [facility] Hemoglobin A1c 10.4 High 5-7 finding Laboratory test 08/02/2013 [facility] Hemoglobin A1c 6.5 5-7 finding Urine Microalbumin 08/02/2013 [facility] Ur Microalbumin 5.0 mg/ dL N <30 [address] (mg/L) [place], [place] [id number] [phone] Urine Creatinine 99.55 mg/dL N Urine Microalbumin/Creatinine 5.0 N Less Than 31 Laboratory test 04/11/2013 [facility] Cytology RUN DATE: [address] 04/11/ <[place] [address] NOTE> [phone] GC/Chlamydia 04/11/2013 [facility] GC/Chlamydia Rna (SEE NOTE) 61 Amplified Rna [address] [place], [place] [id number] [phone] Human Papilloma 04/11/2013 [facility] Human See Comment [address] [place] [address] Source [phone] Human Papillomavirus High Risk Negative Negative 63 Laboratory test 04/11/2013 [facility] Hemoglobin A1c 7.0 5-7 finding Laboratory test 12/31/2012 [facility] Hemoglobin A1c 6.7 5-7 finding Laboratory test 07/06/2012 [facility] Hemoglobin A1c 7.8 % High Less than [address] 6[address]0 [place] [address] [phone] Glucose 204 mg/dL High 70-100 65 Lipid Profile 07/06/2012 [facility] Triglycerides 108 mg/dL 40-200 (Trig/Chol/HDL) [address] [place] [address] [phone] Cholesterol 76 mg/dL Low Less than 200 HDL Cholesterol 29 mg/dL Low 40-60 66 Cholesterol/HDL Ratio 2.6 Average 1-4.44 LDL Cholesterol 25.4 mg/dL Less Than 100 67 Urine Microalbumin 07/06/2012 [facility] Ur Microalbumin 4.0 mg/ L [address] (Mg/L) [place] [address] [phone] Urine Creatinine 107.0 mg/dL Urine Microalbumin/Creatinine 3.7 ug/mg Less Than 31 Laboratory test 03/22/2012 [facility] Hemoglobin A1c 8.4 High 5-7 finding Laboratory test 12/22/2011 [facility] Hemoglobin A1c 6.8 5-7 finding Laboratory test 09/14/2011 [facility] Lactic Acid 1.1 mmol/L 0.5-1.[address] [place], [place] [id number] [phone] Laboratory test 09/14/2011 [facility] (HCG) NEGATIVE Negative [address] [place] [address] [phone] Comp Metabolic 09/14/2011 [facility] Sodium 132 mmol/L Low 135 -[address] [place] [address] [phone] Potassium 4.1 mmol/L 3.5-5.0 Chloride 102 mmol/L 101-111 Co2 (Carbon Dioxide) 22.0 mmol/L 22-32 Anion Gap 8.0 mmol/L 2-11 70 Glucose 190 mg/dL High 70-100 BUN 10 mg/dL 6-24 Creatinine 0.9 mg/dL 0.50-1.40 One Over Creatinine 1.11 BUN/Creatinine Ratio 11.1 8-20 Calcium 9.1 mg/dL 8.1-9.9 Total Protein 6.7 GM/DL 6.2-8.1 Albumin 3.8 GM/DL 3.6-5.4 Globulin 2.9 GM/DL 2-4 Albumin/Globulin Ratio 1.3 1-3 Bilirubin Total 0.6 mg/dL 0.4-1.5 71 Alkaline Phosphatase 34 U/L 30-110 Alt (SGPT) 21 U/L 14-54 Ast (Sgot) 20 U/L 12-42 eGFR Non- 73.0 > 60 eGFR 93.9 > 60 72 Blood Culture 09/14/2011 [facility] M [address] <SEE NOTE> [place] [address] [phone] Manual 09/14/2011 [facility] Polysegmented 72 % [address] Neutrophil -8 [place] [address] 3 [phone] Band Neutrophil 3 % 0-8 Lymphocyte 17 % Low 25-47 Monocyte 6 % 0-13 Eosinophil 2 % 0-6 RBC Morphology NORMAL CBC Auto Diff 09/14/2011 [facility] White Blood 15.1 CUMM High 4.8-10.[address] [place] [address] [phone] Red Cell Count 4.42 CUMM 4.2-5.4 Hemoglobin 13.7 g/dL 12.0-16.0 Hematocrit 40 % 35-47 Mean Corpuscular Volume 91 um3 79-97 Mean Corpuscular Hemoglob 31 pg 27-31 Mean Corpuscular HGB Cone 34 g/dL 32-36 Redcell Distribution WDTH 13 % 10.5-15 Platelet Count 182 CUMM 150-450 Mean Platelet Volume 10.0 um3 7.4-10.4 Absolute Neutrophil Count 10.3 High 1.5-7.7 74 Laboratory test 09/10/2011 [facility] Hemoglobin A1c 7.5 High 5-7 finding Testosterone Free 06/10/2011 [facility] Free Testosterone 0.4 ng /dL 0.3-1.9 75 & Total [address] [place] [address] [phone] Total Testosterone 13 ng/dL 8-60 76 Laboratory test 06/10/2011 [facility] Dhea Sulfate 136 g/dL 31-228 77 finding 101 [place] [address] [phone] Urine 06/10/2011 [facility] Microalbumin 10.0 mg/L Microalbumin [address] (MG/L) [place] [address] [phone] Urine Creatinine 135.7 mg/dL Raheem Alb/Creatinine Ratio 7.4 UG/MG Less Than 30 78 Lipid Profile 06/10/2011 [facility] Triglyceride 103 mg/dL 40 -200 (Trig/Chol/HDL) [address] [place] [address] [phone] Cholesterol 69 mg/dL Low Less Than 200 79 High Density Lipoprotein 25 mg/dL Low 40-60 80 Cholesterol/HDL Ratio 2.76 AVERAGE 1-4.44 Low Density Lipoprotein 23 mg/dL Less Than 100 81 Comp Metabolic Panel 06/10/2011 [facility] Sodium 135 mmol/L 135-145 [address] [place] [address] [phone] Potassium 4.4 mmol/L 3.5-5.0 Chloride 101 mmol/L 101-111 Co2 (Carbon Dioxide) 24.0 mmol/L 22-32 Anion Gap 10.0 mmol/L 2-11 82 Glucose 201 mg/dL High 70-100 BUN 11 mg/dL 6-24 Creatinine 0.9 mg/dL 0.50-1.40 One Over Creatinine 1.11 BUN/Creatinine Ratio 12.2 8-20 Calcium 9.6 mg/dL 8.1-9.9 Total Protein 7.5 GM/DL 6.2-8.1 Albumin 4.5 GM/DL 3.6-5.4 Globulin 3.0 GM/DL 2-4 Albumin/Globulin Ratio 1.5 1-3 Bilirubin Total 0.8 mg/dL 0.4-1.5 83 Alkaline Phosphatase 48 U/L 30-110 Alt (SGPT) 33 U/L 14-54 Ast (Sgot) 26 U/L 12-42 eGFR Non- 73.0 > 60 eGFR 93.9 > 60 84 Lipid Panel - [facility] 06/10/2011 [facility] CPK (Creatine 54 U/L 0-[address] Kinase) [place] [address] [phone] Laboratory test 06/06/2011 [facility] Hemoglobin A1c 10.7 High 5-7 finding 1 [id number] 2 SEE RESULT BELOW Name: DORA PATRICIO : [address]: Clementine Plata MD Acct: [id number] Unit: [id number] AGE: 38 Location: [facility] Re04/22/18 SEX: F Status: REG REF SPEC: [id number] FALGUNI: 04/22/18-1154 [facility] [address]: Clementine Plata MD REQ: [id number] RECD: 04/22/18 STATUS: COMP _ SOURCE: URINE [facility]: ORDERED: Urine Culture COMMENTS: [id number] Urine Source: Random Procedure Result Reported Site Urine Culture Final 04/23/18- 1609 ML No Growth (<1,000 CFU/mL) * ML - Main Lab . END OF REPORT DEPARTMENT OF PATHOLOGY, [address] [place] [address] Palmer Victoria M.D. Director [facility] # [id number] 3 Because ethnic data is not always readily available, this report includes an eGFR for both -Americans and non- Americans. The National Kidney Disease Education Program (NKDEP) does not endorse the use of the MDRD equation for patients that are not between the ages of 18 and 70, are , have extremes of body size, muscle mass, or nutritional status, or are non- or non-. According to the National Kidney Foundation, irrespective of diagnosis, the stage of the disease is based on the level of kidney function: Stage Description GFR(mL/min/1.73 m(2)) 1 Kidney damage with normal or decreased GFR 90 2 Kidney damage with mild decrease in GFR 60-89 3 Moderate decrease in GFR 30-59 4 Severe decrease in GFR 15-29 5 Kidney failure <15 (or dialysis) 4 Absolute neutrophilia and lymphocytosis, favor reactive. Reviewed by Jessica Null MD 5 Business Process Analyst: [id number] 6 [place] Severe Sepsis and Septic Shock Management Bundle Measure requires all lactic acids initially measuring >2.0 mmol/L be repeated. 7 Business Process Analyst: [id number] 8 SEE RESULT BELOW Name: DORA PATRICIO : [address]: Edie Jameson MD Acct: [id number] Unit: [id number] AGE: 38 Location: [place] [address] Re04/19/18 Dis: 04/20/18 SEX: F Status: DIS Adiel SPEC: [id number] FALGUNI: 04/19/18-1239 [facility] [address]: Abhishek Mireles MD REQ: [id number] RECD: 04/19/18 STATUS: QUENTIN GIANG DR: Abhishek Martin III, MD _ SOURCE: URINE SPDESC: ORDERED: Urine Culture Procedure Result Reported Site Urine Culture Final 04/20/18- 1249 ML No growth of clinically significant organisms * ML - Main Lab . END OF REPORT DEPARTMENT OF PATHOLOGY, [address] [place] [address] Palmer Victoria M.D. Director [facility] # [id number] 9 <5.0 Negative 5.0 - 25.0 Indeterminate (Repeat testing recommended after 72 hours) >25.0 Positive Perimenopausal women can display HCG levels of up to 20 mIU/mL 10 Therapeutic target for the treatment of diabetes mellitus patients is <7% HBA1C, and in selective patients <6.0%. Please refer to [place] [employer] diabetic care guidelines for further information. 11 Reference ranges based on room air. 12 Troponin-I testing on Plasma Separator Tubes (PST) has a known false positive rate of 0.20-0.40%. All positive troponins reflex immediate secondary confirmatory testing. 13 Because ethnic data is not always readily available, this report includes an eGFR for both -Americans and non- Americans. The National Kidney Disease Education Program (NKDEP) does not endorse the use of the MDRD equation for patients that are not between the ages of 18 and 70, are , have extremes of body size, muscle mass, or nutritional status, or are non- or non-. According to the National Kidney Foundation, irrespective of diagnosis, the stage of the disease is based on the level of kidney function: Stage Description GFR(mL/min/1.73 m(2)) 1 Kidney damage with normal or decreased GFR 90 2 Kidney damage with mild decrease in GFR 60-89 3 Moderate decrease in GFR 30-59 4 Severe decrease in GFR 15-29 5 Kidney failure <15 (or dialysis) 14 Critical Result LACT:3.0 Called to [id number] at: 10:56:58 by:[id number] Read back by:[id number] [facility] Severe Sepsis and Septic Shock Management Bundle Measure requires all lactic acids initially measuring >2.0 mmol/L be repeated. 15 [facility] Severe Sepsis and Septic Shock Management Bundle Measure requires all lactic acids initially measuring >2.0 mmol/L be repeated. 16 Critical Result LACT:4.0 Called to [id number] at: 20:41:22 by:[id number] Read back by:[id number] [facility] Severe Sepsis and Septic Shock Management Bundle Measure requires all lactic acids initially measuring >2.0 mmol/L be repeated. 17 <5.0 Negative 5.0 - 25.0 Indeterminate (Repeat testing recommended after 72 hours) >25.0 Positive Perimenopausal women can display HCG levels of up to 20 mIU/mL 18 Because ethnic data is not always readily available, this report includes an eGFR for both -Americans and non- Americans. The National Kidney Disease Education Program (NKDEP) does not endorse the use of the MDRD equation for patients that are not between the ages of 18 and 70, are , have extremes of body size, muscle mass, or nutritional status, or are non- or non-. According to the National Kidney Foundation, irrespective of diagnosis, the stage of the disease is based on the level of kidney function: Stage Description GFR(mL/min/1.73 m(2)) 1 Kidney damage with normal or decreased GFR 90 2 Kidney damage with mild decrease in GFR 60-89 3 Moderate decrease in GFR 30-59 4 Severe decrease in GFR 15-29 5 Kidney failure <15 (or dialysis) 19 Business Process Analyst: [id number] 20 Business Process Analyst: [id number] 21 Troponin-I testing on Plasma Separator Tubes (PST) has a known false positive rate of 0.20-0.40%. All positive troponins reflex immediate secondary confirmatory testing. 22 Because ethnic data is not always readily available, this report includes an eGFR for both -Americans and non- Americans. The National Kidney Disease Education Program (NKDEP) does not endorse the use of the MDRD equation for patients that are not between the ages of 18 and 70, are , have extremes of body size, muscle mass, or nutritional status, or are non- or non-. According to the National Kidney Foundation, irrespective of diagnosis, the stage of the disease is based on the level of kidney function: Stage Description GFR(mL/min/1.73 m(2)) 1 Kidney damage with normal or decreased GFR 90 2 Kidney damage with mild decrease in GFR 60-89 3 Moderate decrease in GFR 30-59 4 Severe decrease in GFR 15-29 5 Kidney failure <15 (or dialysis) 23 <5.0 Negative 5.0 - 25.0 Indeterminate (Repeat testing recommended after 72 hours) >25.0 Positive Perimenopausal women can display HCG levels of up to 20 mIU/mL 24 Critical Result LACT:3.2 Called to [id number] at: 12:34:53 by:[id number] Read back by:[id number] Severe Sepsis and Septic Shock Management Bundle Measure requires all lactic acids initially measuring >2.0 mmol/L be repeated. 25 Business Process Analyst: [id number] 26 SEE RESULT BELOW Name: DORA PATRICIO : [address]: Alba Sesay Acct: [id number] Unit: [id number] AGE: 37 Location: [facility] Re12/15/17 SEX: F Status: REG REF SPEC: [id number] FALGUNI: 12/15/[address]: Alba Sesay REQ: [id number] RECD: 12/16/17 STATUS: CARMELO GIANG DR: Abhishek Martin III, MD _ ORDERED: TP IMAGE ANALYS, GRANTS [employer] CONTRACTS ASSISTANT PHYS INTERP, HPV/Thin Prep COMMENTS: [id number] EPITHELIAL CELL ABNORMALITIES Low grade squamous intraepithelial lesion (LSIL) Date Time Test Result Flag (u) Normal Range 12/15/171440 @ HPV RNA POSITIVE An Negative @ @ The high-risk HPV types detected by the assay include: 16, @ 18, 31, 33, 35, 39, 45, 51, 52, 56, 58, 59, 66, and 68. A. Ectocervical/Endocervical Specimen Adequacy: Satisfactory of evaluation Transformation zone component identified Patient Information: HPV: High risk HPV RNA testing regardless of pap results. Actual Specimen Date: 12/15/17 Last Menstrual Date: 11/25/17 Date of Last Specimen: 08/15/15 Signed by and Reported on: Jessica Null MD 12/18/17 1707 This Pap test was evaluated with the assistance of the ThinPrep Test Imaging System. Due to cytologic findings at the hand brush filler microscope, comprehensive manual rescreening by a Shop Tailor may be required. The Pap Smear is a screening test designed to aid in the detection of premalignant and malignant conditions of the uterine cervix. It is not a diagnostic procedure and should not be used as the sole means of detecting cervical cancer. Both false- positive and false- negative reports do occur. Depending on your risk status, a Pap smear should be obtained and evaluated every 1-3 years. END OF REPORT DEPARTMENT OF PATHOLOGY, [address] [place] [address] Palmer Victoria M.D. Director [facility] # [id number] 27 Business Process Analyst: [id number] If is still suspected, please repeat test after 48 to 72 hours. 28 SEE RESULT BELOW Name: DORA PATRICIO : [address]: Lincoln Mariano MD Acct: [id number] Unit: [id number] AGE: 35 Location: ED Re03/02/16 SEX: F Status: REG ER SPEC: [id number] FALGUNI: 03/02/16 [facility] [address]: Lincoln Mariano MD REQ: [id number] RECD: 03/02/16 STATUS: RES [facility] DR: Sai Patricio MD _ SOURCE: ABDOMEN SPDESC: ORDERED: Culture Stain Procedure Result Reported Site Wound/Misc Gram Stain Final 03/02/16- 1701 ML 2+ Epithelial Cells 4+ Neutrophils 4+ Gram Positive Bacilli 3+ Gram Positive Cocci Wound/Misc Culture PENDING * ML - MAIN LAB ([facility]) . END OF REPORT * ML=Testing performed at Main Lab DEPARTMENT OF PATHOLOGY, [address] [place] [address] Palmer Victoria M.D. Director [facility] # [id number] 29 SEE RESULT BELOW Name: DORA PATRICIO : [address]: Lincoln Mariano MD Acct: [id number] Unit: [id number] AGE: 35 Location: ED Re03/02/16 SEX: F Status: DEP ER SPEC: [id number] FALGUNI: 03/02/[address]: Lincoln Mariano MD REQ: [id number] RECD: 03/02/16 STATUS: QUENTIN GIANG DR: Sai Patricio MD _ SOURCE: ABDOMEN [facility]: ORDERED: MRSA/SA SSTI, Culture Stain Procedure Result Reported Site MRSA/S. aureus SSTI PCR Final 03/02/16- 1815 ML Organism 1 MRSA NEGATIVE Organism 2 S.AUREUS NEGATIVE Wound/Misc Gram Stain Final 03/02/16- 1701 ML 2+ Epithelial Cells 4+ Neutrophils 4+ Gram Positive Bacilli 3+ Gram Positive Cocci Wound/Misc Culture Final 03/05/16- 922 ML Organism 1 ENTEROCOCCUS FAECALIS Quantity 2+ Organism 2 NORMAL TAHIR Quantity 2+ 1. ENTEROCOCCUS FAECALIS M.I.C. RX --------- ------ Ampicillin <=2 S Penicillin 2 S Ciprofloxacin <=0.5 S Erythromycin >=8 R Gentamicin High Level S Levofloxacin 1 S Linezolid 1 S Nitrofurantoin <=16 S * Quinupristin/Dalfopristin 4 R CONTINUED ON NEXT PAGE * ML=Testing performed at Main Lab DEPARTMENT OF PATHOLOGY, [address] [place] [address] Palmer Victoria M.D. Director [facility] # [id number] Patient: DORA PATRICIO [id number] (Continued) Specimen: [id number] Collected: 03/02/16 Received: 03/02/16 (Continued) Procedure Result Reported Site Wound/Misc Culture Final (continued) 03/05/16922 1. ENTEROCOCCUS FAECALIS (continued) M.I.C. RX --------- ------ * Streptomycin High Level S Tetracycline >=16 R Tigecycline <=0.12 S Vancomycin 1 S Imipenem-Deduced S * Ampicillin/Sulbactam-Deduced S * These antibiotics are not available in the [facility] Formulary Contact the Microbiology Department for any additional antibiotic reporting. * ML - MAIN LAB ([facility]) . END OF REPORT * ML=Testing performed at Main Lab DEPARTMENT OF PATHOLOGY, [address] [place] [address] Palmer Victoria M.D. Director [facility] # [id number] 30 Because ethnic data is not always readily available, this report includes an eGFR for both -Americans and non- Americans. The National Kidney Disease Education Program (NKDEP) does not endorse the use of the MDRD equation for patients that are not between the ages of 18 and 70, are , have extremes of body size, muscle mass, or nutritional status, or are non- or non-. According to the National Kidney Foundation, irrespective of diagnosis, the stage of the disease is based on the level of kidney function: Stage Description GFR(mL/min/1.73 m(2)) 1 Kidney damage with normal or decreased GFR 90 2 Kidney damage with mild decrease in GFR 60-89 3 Moderate decrease in GFR 30-59 4 Severe decrease in GFR 15-29 5 Kidney failure <15 (or dialysis) 31 Acute inflammation: >10.00 32 [facility] Severe Sepsis and Septic Shock Management Bundle Measure requires all lactic acids initially measuring >2.0 mmol/L be repeated. 33 Acute inflammation: >10.00 34 Because ethnic data is not always readily available, this report includes an eGFR for both -Americans and non- Americans. The National Kidney Disease Education Program (NKDEP) does not endorse the use of the MDRD equation for patients that are not between the ages of 18 and 70, are , have extremes of body size, muscle mass, or nutritional status, or are non- or non-. According to the National Kidney Foundation, irrespective of diagnosis, the stage of the disease is based on the level of kidney function: Stage Description GFR(mL/min/1.73 m(2)) 1 Kidney damage with normal or decreased GFR 90 2 Kidney damage with mild decrease in GFR 60-89 3 Moderate decrease in GFR 30-59 4 Severe decrease in GFR 15-29 5 Kidney failure <15 (or dialysis) 35 Because ethnic data is not always readily available, this report includes an eGFR for both -Americans and non- Americans. The National Kidney Disease Education Program (NKDEP) does not endorse the use of the MDRD equation for patients that are not between the ages of 18 and 70, are , have extremes of body size, muscle mass, or nutritional status, or are non- or non-. According to the National Kidney Foundation, irrespective of diagnosis, the stage of the disease is based on the level of kidney function: Stage Description GFR(mL/min/1.73 m(2)) 1 Kidney damage with normal or decreased GFR 90 2 Kidney damage with mild decrease in GFR 60-89 3 Moderate decrease in GFR 30-59 4 Severe decrease in GFR 15-29 5 Kidney failure <15 (or dialysis) 36 Acute inflammation: >10.00 37 Because ethnic data is not always readily available, this report includes an eGFR for both -Americans and non- Americans. The National Kidney Disease Education Program (NKDEP) does not endorse the use of the MDRD equation for patients that are not between the ages of 18 and 70, are , have extremes of body size, muscle mass, or nutritional status, or are non- or non-. According to the National Kidney Foundation, irrespective of diagnosis, the stage of the disease is based on the level of kidney function: Stage Description GFR(mL/min/1.73 m(2)) 1 Kidney damage with normal or decreased GFR 90 2 Kidney damage with mild decrease in GFR 60-89 3 Moderate decrease in GFR 30-59 4 Severe decrease in GFR 15-29 5 Kidney failure <15 (or dialysis) 38 Acute inflammation: >10.00 39 Because ethnic data is not always readily available, this report includes an eGFR for both -Americans and non- Americans. The National Kidney Disease Education Program (NKDEP) does not endorse the use of the MDRD equation for patients that are not between the ages of 18 and 70, are , have extremes of body size, muscle mass, or nutritional status, or are non- or non-. According to the National Kidney Foundation, irrespective of diagnosis, the stage of the disease is based on the level of kidney function: Stage Description GFR(mL/min/1.73 m(2)) 1 Kidney damage with normal or decreased GFR 90 2 Kidney damage with mild decrease in GFR 60-89 3 Moderate decrease in GFR 30-59 4 Severe decrease in GFR 15-29 5 Kidney failure <15 (or dialysis) 40 Acute inflammation: >10.00 41 Because ethnic data is not always readily available, this report includes an eGFR for both -Americans and non- Americans. The National Kidney Disease Education Program (NKDEP) does not endorse the use of the MDRD equation for patients that are not between the ages of 18 and 70, are , have extremes of body size, muscle mass, or nutritional status, or are non- or non-. According to the National Kidney Foundation, irrespective of diagnosis, the stage of the disease is based on the level of kidney function: Stage Description GFR(mL/min/1.73 m(2)) 1 Kidney damage with normal or decreased GFR 90 2 Kidney damage with mild decrease in GFR 60-89 3 Moderate decrease in GFR 30-59 4 Severe decrease in GFR 15-29 5 Kidney failure <15 (or dialysis) 42 Acute inflammation: >10.00 43 Because ethnic data is not always readily available, this report includes an eGFR for both -Americans and non- Americans. The National Kidney Disease Education Program (NKDEP) does not endorse the use of the MDRD equation for patients that are not between the ages of 18 and 70, are , have extremes of body size, muscle mass, or nutritional status, or are non- or non-. According to the National Kidney Foundation, irrespective of diagnosis, the stage of the disease is based on the level of kidney function: Stage Description GFR(mL/min/1.73 m(2)) 1 Kidney damage with normal or decreased GFR 90 2 Kidney damage with mild decrease in GFR 60-89 3 Moderate decrease in GFR 30-59 4 Severe decrease in GFR 15-29 5 Kidney failure <15 (or dialysis) 44 Acute inflammation: >10.00 45 Because ethnic data is not always readily available, this report includes an eGFR for both -Americans and non- Americans. The National Kidney Disease Education Program (NKDEP) does not endorse the use of the MDRD equation for patients that are not between the ages of 18 and 70, are , have extremes of body size, muscle mass, or nutritional status, or are non- or non-. According to the National Kidney Foundation, irrespective of diagnosis, the stage of the disease is based on the level of kidney function: Stage Description GFR(mL/min/1.73 m(2)) 1 Kidney damage with normal or decreased GFR 90 2 Kidney damage with mild decrease in GFR 60-89 3 Moderate decrease in GFR 30-59 4 Severe decrease in GFR 15-29 5 Kidney failure <15 (or dialysis) 46 Acute inflammation: >10.00 47 Business Process Analyst: [id number] ELI [id number] 48 Business Process Analyst: [id number] Jessica Because ethnic data is not always readily available, this report includes an eGFR for both -Americans and non- Americans. The National Kidney Disease Education Program (NKDEP) does not endorse the use of the MDRD equation for patients that are not between the ages of 18 and 70, are , have extremes of body size, muscle mass, or nutritional status, or are non- or non-. According to the National Kidney Foundation, irrespective of diagnosis, the stage of the disease is based on the level of kidney function: Stage Description GFR(mL/min/1.73 m(2)) 1 Kidney damage with normal or decreased GFR 90 2 Kidney damage with mild decrease in GFR 60-89 3 Moderate decrease in GFR 30-59 4 Severe decrease in GFR 15-29 5 Kidney failure <15 (or dialysis) 50 <5.0 Negative 5.0 - 25.0 Indeterminate (Repeat testing recommended after 72 hours) >25.0 Positive Perimenopausal women can display HCG levels of up to 20 mIU/mL 51 LEFT FOOT 52 SEE RESULT BELOW Name: DORA PATRICIO : [address]: Reina NGUYEN Acct: [id number] Unit: [id number] AGE: 35 Location: [facility] Re08/28/15 SEX: F Status: REG REF SPEC: [id number] FALGUNI: 08/27/15-[address]: Reina NGUYEN REQ: [id number] RECD: 08/28/15 STATUS: COMP _ SOURCE: MISC SOURC SPDESC: ORDERED: Culture Stain COMMENTS: LEFT FOOT Procedure Result Reported Site Wound/Misc Gram Stain Final 08/29/15- 0752 ML 2+ Neutrophils 4+ Gram Positive Cocci Wound/Misc Culture Final 08/31/15- 0918 ML Organism 1 STREP AGALACTIAE - (GROUP B) Quantity 2+ Organism 2 STAPHYLOCOCCUS AUREUS Quantity 3+ Beta Lactamase Negative 1. STREP AGALACTIAE - (GROUP B) M.I.C. RX --------- ------ Ampicillin <=0.25 S Penicillin <=0.12 S Clindamycin >=8 R Levofloxacin 1 S Linezolid 2 S * Moxifloxacin <=0.25 S * Quinupristin/Dalfopristin <=0.25 S Tetracycline >=16 R Tigecycline <=0.12 S Vancomycin <=0.5 S Imipenem-Deduced S * Ampicillin/Sulbactam-Deduced S CONTINUED ON NEXT PAGE * ML=Testing performed at Main Lab DEPARTMENT OF PATHOLOGY, [address] [place] [address] Palmer Victoria M.D. Director [facility] # [id number] Patient: DORA PATRICIO [id number] (Continued) Specimen: [id number] Collected: 08/27/15 Received: 08/28/15 (Continued) Procedure Result Reported Site Wound/Misc Culture Final (continued) 08/31/15917 1. STREP AGALACTIAE - (GROUP B) (continued) M.I.C. RX --------- ------ Cefazolin-Deduced S 2. STAPHYLOCOCCUS AUREUS M.I.C. RX --------- ------ Penicillin 0.06 S Clindamycin <=0.25 S Erythromycin <=0.25 S Gentamicin <=0.5 S Linezolid 2 S Nitrofurantoin <=16 S Oxacillin <=0.25 S * Quinupristin/Dalfopristin <=0.25 S Rifampin <=0.5 S Tetracycline <=1 S Doxycycline - Deduced S * Minocycline - Deduced S Trimethoprim/Sulfamethoxazole <=10 S Vancomycin <=0.5 S Imipenem-Deduced S * Ampicillin/Sulbactam-Deduced S Cefazolin-Deduced S * These antibiotics are not available in the [facility] Formulary Contact the Microbiology Department for any additional antibiotic reporting. * ML - MAIN LAB ([facility]) . END OF REPORT * ML=Testing performed at Main Lab DEPARTMENT OF PATHOLOGY, [address] [place] [address] Palmer Victoria M.D. Director [facility] # [id number] 53 Because ethnic data is not always readily available, this report includes an eGFR for both -Americans and non- Americans. The National Kidney Disease Education Program (NKDEP) does not endorse the use of the MDRD equation for patients that are not between the ages of 18 and 70, are , have extremes of body size, muscle mass, or nutritional status, or are non- or non-. According to the National Kidney Foundation, irrespective of diagnosis, the stage of the disease is based on the level of kidney function: Stage Description GFR(mL/min/1.73 m(2)) 1 Kidney damage with normal or decreased GFR 90 2 Kidney damage with mild decrease in GFR 60-89 3 Moderate decrease in GFR 30-59 4 Severe decrease in GFR 15-29 5 Kidney failure <15 (or dialysis) 54 Acute inflammation: >10.00 55 [facility] Severe Sepsis and Septic Shock Management Bundle Measure requires all lactic acids initially measuring >2.0 mmol/L be repeated. 56 <5.0 Negative 5.0 - 25.0 Indeterminate (Repeat testing recommended after 72 hours) >25.0 Positive Perimenopausal women can display HCG levels of up to 20 mIU/mL 57 Consistent with previous results on 05/25/15. 58 Because ethnic data is not always readily available, this report includes an eGFR for both -Americans and non- Americans. The National Kidney Disease Education Program (NKDEP) does not endorse the use of the MDRD equation for patients that are not between the ages of 18 and 70, are , have extremes of body size, muscle mass, or nutritional status, or are non- or non-. According to the National Kidney Foundation, irrespective of diagnosis, the stage of the disease is based on the level of kidney function: Stage Description GFR(mL/min/1.73 m(2)) 1 Kidney damage with normal or decreased GFR 90 2 Kidney damage with mild decrease in GFR 60-89 3 Moderate decrease in GFR 30-59 4 Severe decrease in GFR 15-29 5 Kidney failure <15 (or dialysis) 59 Microalbuminuria in a random sample is defined as: Microalbumin/Creatinine ratio of 30-299 ug/mg. 60 RUN DATE: 04/11/13 [facility] LAB LIVE PAGE 1 RUN TIME: [address] [place] [address] Specimen Inquiry Name: DORA PATRICIO : [address]: Priya Lora MD Acct: [id number] Unit: [id number] AGE: 33 Location: [facility] Re04/11/13 SEX: F Status: REG REF SPEC: [id number] FALGUNI: 04/11/13-0941 [facility] [address]: Priya Lora MD REQ: [id number] RECD: 04/11/13 STATUS: SOUT _ ORDERED: IMAGE ANALYSIS, HPV/Thin Prep, HPV 16/18 GENE FINAL DIAGNOSIS Negative for Intraepithelial lesion or Malignancy COMMENTS: Specimen sent to [facility] [employer] in [place], [place] on 04/11/13 by [id number] at 1509. Results will be reported separately. A. Ectocervical/Endocervical Specimen Adequacy: Satisfactory of evaluation Transformation zone component identified Patient Information: HPV: High risk HPV DNA testing regardless of pap results. HPV 16/18 Genotype for NILM/HPV pos Actual Specimen Date: 04/10/13 Last Menstrual Date: 03/20/13 Previous Abnormal Pap Smears?:Y If Yes, enter Diagnosis: Loop electrosurgical excision procedure. 6 yrs ago Signed (signature on file) KALPANA Kirkpatrick (ASCP) 04/11 1518 This Pap test was evaluated with the assistance of the JobvitePrep Test Imaging System. Due to cytologic findings at the hand brush filler microscope, comprehensive manual rescreening by a Shop Tailor may be required. The Pap Smear is a screening test designed to aid in the detection of premalignant and malignant conditions of the uterine cervix. It is not a diagnostic procedure and should not be used as the sole means of detecting cervical cancer. Both false- positive and false- negative reports do occur. Depending on your risk status, a Pap smear shoudl be obtained and evaluated every 1-3 years. END OF REPORT * ML=Testing performed at Main Lab DEPARTMENT OF PATHOLOGY, [facility] [employer] [place], [place] [address] Palmer Victoria M.D. Director [facility] Permit #[id number] RUN DATE: 04/12/13 [facility] LAB LIVE PAGE 1 RUN TIME: 1343 [facility] [employer] [place], [place] [address] Specimen Inquiry Name: DORA PATRICIO : [address]: Priya Lora MD Acct: [id number] Unit: [id number] AGE: 33 Location: [facility] Re04/11/13 SEX: F Status: REG REF SPEC: [id number] FALGUNI: 04/11/13 [facility] [address]: Priya Lora MD REQ: [id number] RECD: 04/11/13 STATUS: COMP _ SOURCE: THIN SPDESC: ORDERED: GC/Chlam RNA QUERIES: Medent Number [id number] Procedure Result Verified Site Chlamydia Trachomatis RNA Final 04/12/13- 1337 ML NEGATIVE for Chlamydia trachomatis rRNA GC (N. gonorrhoeae) RNA Final 04/12/13- 1343 ML NEGATIVE for Neisseria gonorrhoeae rRNA A negative result does not preclude the presence of a C. trachomatis or N. gonorrhoeae infection because results are dependent on adequate specimen collection, absence of inhibitors, and sufficient rRNA to be detected. Test results may be affected by improper specimen collection, improper storage, technical error, or specimen mixup. Limitations of the Procedure: The Aptima Combo 2 Assay is not intended for the evaluation of suspected sexual abuse or for other medico-legal indications. For those patients for whom a false positive result may have adverse psychosocial impact, the [facility] recommends retesting by a method using an alternate technology. Therapeutic failure or success cannot be determined with the Aptima Combo 2 Assay since nucleic acid may persist following appropriate antimicrobial therapy. Results from the Aptima Combo 2 Assay should be interpreted in conjunction with other laboratory and clinical data available to the clinican. CONTINUED ON NEXT PAGE * ML=Testing performed at Main Lab DEPARTMENT OF PATHOLOGY, [address] [place] [address] Palmer Victoria M.D. Director [facility] Permit #[id number] RUN DATE: 04/12/13 [facility] LAB LIVE PAGE 2 RUN TIME: [address] [place] [address] Specimen Inquiry Patient: DORA PATRICIO [id number] (Continued) Specimen: [id number] Collected: 04/11/13 Received: 04/11/13 (Continued) Procedure Result Verified Site GC (N. gonorrhoeae) RNA Final (continued) 04/12/13- 1342 Performance characteristics for detecting C. trachomatis and N. gonorrhoeae are derived from high prevalence populations. Positive results in low prevalence populations should be interpreted carefully with the understanding that the likelihood of a false positive may be higher than a true positive. END OF REPORT * ML=Testing performed at Main Lab DEPARTMENT OF PATHOLOGY, [address] [place] [address] Palmer Victoria M.D. Director [facility] Permit #[id number] RESULT: Ectocervical/Endocervical 63 For types 16, 18, 31, 33, 35, 39, 45, 51, 52, 56, 58, 59 and 68. Test Performed by: [place] [address] Marine Equipment Test Engineer: Ramon Campos III, M.D. 64 Therapeutic target for the treatment of diabetes Mellitus patients is <7% HBA1C, and in selective patients <6.0%.Please refer to [place] [employer] Diabetic care guidelines for further information. 65 PT IS FASTING 66 HDL Interpretation: Undesirable: High Risk: Less than 40 MG/DL Desirable: Low Risk: Greater than 60 MG/DL 67 LDL Interpretation: Low Risk Optimal Level: LDL Less than 100 MG/DL Near or Above Optimal: LDL 100-129 MG/DL Borderline High Risk: LDL 130-159 MG/DL High Risk: LDL 160-189 MG/DL Very High Risk: LDL Greater than 189 MG/DL 68 Microalbuminuria in a random sample is defined as: Microalbumin/Creatinine ratio of 30-299 ug/mg. 69 If is still suspected, please repeat test after 48 to 72 hours. . This test detects intact HCG only and is indicated for the early detection of . 70 Anion gap measurement may be of limited value in the presence of any alkalosis, especially in a combined acid base disorder. . 71 A metabolite of Naproxen, O-desmethylnaproxen, has been shown to interfere with the Jendrassik-Osceola method for measuring total bilirubin. Samples from patients who have taken Naproxen have shown spurious elevation in total bilirubin levels. 72 Because ethnic data is not always readily available, this report includes an eGFR for both -Americans and non- Americans. The National Kidney Disease Education Program (NKDEP) does not endorse the use of the MDRD equation for patients that are not between the ages of 18 and 70, are , have extremes of body size, muscle mass, or nutritional status, or are non- or non-. According to the National Kidney Foundation, irrespective of diagnosis, the stage of the disease is based on the level of kidney function: Stage Description GFR(mL/min/1.73 m(2)) 1 Kidney damage with normal or decreased GFR 90 2 Kidney damage with mild decrease in GFR 60-89 3 Moderate decrease in GFR 30-59 4 Severe decrease in GFR 15-29 5 Kidney failure <15 (or dialysis) 73 RUN DATE: 09/19/11 [facility] NMI LIVE PAGE 1 RUN TIME: 1835 Specimen Inquiry RUN USER: INTERFACE Name: SINTIACRISTIANEDORA M Status: DIS IN Re09/14/11 Age/Sex: 31/F Unit#: [id number] Location: [facility] : [birth year] SPEC #: [id number] FALGUNI: 09/14/11 STATUS: COMP REQ #: [id number] RECD: 09/14/[address]: Raquel MORTON, Citlalli Holcomb SOURCE: BLOOD ENTR: 09/14/11 [facility] DR: Guido MORTON,Priya [facility]: BLOOD,VENO ORDERED: BLOOD CULTURE ACT WKST: 09/15/11 #1 Procedure Result Verified Site > AEROBIC CULTURE BOTTLE Final 09/19/11- 5 ML NO GROWTH AFTER 5 DAYS > ANAEROBIC CULTURE BOTTLE Final 09/19/11- 1834 ML NO GROWTH AFTER 5 DAYS - [facility] Permit #[id number] [address] [facility] [address] DEPARTMENT OF PATHOLOGY, [address] [place] [address] [facility] Permit #[id number] Palmer Victoria M.D. Director Vicki Brown M.D. Liquor Commissioner [address] 1 75 Test Performed by: [facility] Dpt of Lab Med and Pathology [address] [place] [address] Marine Equipment Test Engineer: Ramon Campos III, M.D. 76 Test Performed by: [facility] D[facility] of [facility] Med and Pathology [address] [place] [address] Marine Equipment Test Engineer: Ramon Campos III, M.D. 77 Test Performed by: [facility] Dpt of Lab Med and Pathology [address] [place] [address] Marine Equipment Test Engineer: Ramon Campos III, M.D. 78 MICROALBUMINURIA IN A RANDOM SAMPLE IS DEFINED : MICROALBUMIN/CREATININE RATIO OF 30-299 ug/mg. . 79 CHOLESTEROL INTERPRETATION: Desirable: Less than 200 MG/DL Borderline-High Risk: 200-239 MG/DL High-Risk: 240 MG/DL and over 80 HDL INTERPRETATION: Undesirable: High Risk: Less than 40 MG/DL Desirable: Low Risk: Greater than 60 MG/DL 81 LDL INTERPRETATION: Low Risk Optimal Level: LDL Less than 100 MG/DL Near or Above Optimal: LDL 100-129 MG/DL Borderline High Risk: LDL 130-159 MG/DL High Risk: LDL 160-189 MG/DL Very High Risk: LDL Greater than 189 MG/DL 82 Anion gap measurement may be of limited value in the presence of any alkalosis, especially in a combined acid base disorder. . 83 A metabolite of Naproxen, O-desmethylnaproxen, has been shown to interfere with the Jendrassik-Osceola method for measuring total bilirubin. Samples from patients who have taken Naproxen have shown spurious elevation in total bilirubin levels. 84 Because ethnic data is not always readily available, this report includes an eGFR for both -Americans and non- Americans. The National Kidney Disease Education Program (NKDEP) does not endorse the use of the MDRD equation for patients that are not between the ages of 18 and 70, are , have extremes of body size, muscle mass, or nutritional status, or are non- or non-. According to the National Kidney Foundation, irrespective of diagnosis, the stage of the disease is based on the level of kidney function: Stage Description GFR(mL/min/1.73 m(2)) 1 Kidney damage with normal or decreased GFR 90 2 Kidney damage with mild decrease in GFR 60-89 3 Moderate decrease in GFR 30-59 4 Severe decrease in GFR 15-29 5 Kidney failure <15 (or dialysis) Procedures Date Code Description Status 03/31/2018 239594931 Diabetic Retinal Eye Exam Completed 11/05/2017 44887 Inject/Drain Joint/Bursa Major W/O US Completed 12/04/2015 68469 Debridement Skin,& sq Tissue Completed 11/13/2015 29918 Debridement Skin,& sq Tissue Completed 11/06/2015 21453 Debridement Skin,& sq Tissue Completed 10/30/2015 60703 Debridement Skin,& sq Tissue Completed 10/23/2015 95866 Debridement Skin,& sq Tissue Completed 08/29/2015 66105 Arthrotomy Metatarsophalangeal JT Completed 08/29/2015 70588 Arthrotomy Metatarsophalangeal JT Completed 07/27/2015 26130 Arthrotomy Metatarsophalangeal JT Completed 08/13/2012 509201642 Diabetic Retinal Eye Exam Completed 07/28/2011 [id number] Diabetic Foot Exam Completed 06/27/2011 [id number] Diabetic Retinal Eye Exam Completed Encounters Type Date Location Provider Dx Diagnosis Office Visit 04/22/2018 [facility] Internal Clementine Plata MD R11.2 Nausea with 10:20a Medicine - vomiting, [place] unspecified E11.9 Type 2 diabetes mellitus without complications Office Visit 04/21/2018 2:40p [facility] Internal Clementine Plata, I10 Essential ( primary) Medicine - hypertension [place] E11.65 Type 2 diabetes mellitus with hyperglycemia R11.2 Nausea with vomiting, unspecified Office Visit 11/05/2017 2:15p Orthopedic Kit Gutierrez, S42.254D Nondisp fx of Services Of MD miguel Sesay.M.A. tuberosity of r humer, 7thD M75.41 Impingement syndrome of right shoulder Office Visit 07/16/2017 11:30a Orthopedic Kit Gutierrez, S42.254D Nondisp fx of Services Of MD miguel Sesay.M.A. tuberosity of r delroy, 7thD Office Visit 06/04/2017 1:30p Orthopedic Kit Gutierrez, S42.254A Nondisp fx of Services Of MD miguel Sesay.M.A. tuberosity of right humerus, init Office Visit 05/28/2017 11:00a Orthopedic Kit Gutierrez, S46.011A Strain of Services Of MD latif/jacek the C.M.A. rotator cuff of right shoulder, init M25.521 Pain in right elbow S46.101A Unsp injury of bhavya/fasc/tend long hd bicep, right arm, init Office Visit 05/26/2017 10:45a Orthopedic Kit Gutierrez, S46.011D Strain of Services Of MD latif/jacek the C.M.A. rotator cuff of right shoulder, subs M25.521 Pain in right elbow Office Visit 05/14/2017 10:30a Orthopedic Kit Gutierrez S46.011D Strain of Services Of MD latif/jacek the C.M.A. rotator cuff of right shoulder, subs S46.101A Unsp injury of bhavya/fasc/tend long hd bicep, right arm, init S46.111A Strain of musc/fasc/tend long hd bicep, right arm, init Office Visit 02/24/2016 [facility] E11.9 Type 2 diabetes 3:54p Assoczoltan M.D. mellitus without Hospitalists complications Z79.4 long term care pharmacist (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 Office Visit 02/05/2016 8:29a Wound Care Edson Garcia M86.172 Other acute Center AT [facility] Sheri Fulton osteomyelitis, left ankle and foot E11.621 Type 2 diabetes mellitus with foot ulcer Office Visit 01/17/2016 2:21p Wound Care Edson Garcia E11.62Bala Type 2 diabetes Center AT [facility] Sheri Fulton mellitus with foot ulcer M86.172 Other acute osteomyelitis, left ankle and foot L97.521 Non-prs chronic ulcer oth prt l foot limited to brkdwn skin Office Visit 01/08/2016 11:22a Wound Care Edson Garcia [id number] Type 2 diabetes Center AT [facility] Sheri Fulton mellitus with foot ulcer M86.172 Other acute osteomyelitis, left ankle and foot L97.521 Non-prs chronic ulcer oth prt l foot limited to brkdwn skin Office Visit 12/27/2015 1:01p Wound Care Edson Garcia E11Bassem Type 2 diabetes Center AT ALEX Fulton M.D. mellitus with foot ulcer M86.172 Other acute osteomyelitis, left ankle and foot L97.521 Non-prs chronic ulcer oth prt l foot limited to brkdwn skin Office Visit 12/13/2015 9:22a Wound Care Edson Garcia E11Tomas1 Type 2 diabetes Center AT [facility] Fulton M.D. mellitus with foot ulcer M86.172 Other acute osteomyelitis, left ankle and foot Office Visit 11/29/2015 10:31a Wound Care Edson Garcia E11Bassem Type 2 diabetes Center AT [facility] Sheri Fulton mellitus with foot ulcer M86.172 Other acute osteomyelitis, left ankle and foot L97.521 Non-prs chronic ulcer oth prt l foot limited to brkdwn skin Office Visit 11/20/2015 4:44p Wound Care Edson Garcia L97.521 Non-prs chronic Center AT [facility] Fulton M.D. ulcer oth prt l foot limited to brkdwn skin E11.621 Type 2 diabetes mellitus with foot ulcer M86.172 Other acute osteomyelitis, left ankle and foot Office Visit 10/29/2015 [facility] Jani Galindo M86.172 Other acute 3:00p For Infectious Makenna Hirsch. osteomyelitis, left Diseases ankle and foot E11.621 Type 2 diabetes mellitus with foot ulcer B95.61 Methicillin suscep staph infct causing dis classd elswhr Z33.1 state, incidental Office Visit 10/23/2015 1:03p Wound Care Edson Garcia M86.172 Other acute Center AT [facility] Sheri Fulton osteomyelitis, left ankle and foot E11.621 Type 2 diabetes mellitus with foot ulcer Office Visit 10/11/2015 [facility] Jani Galindo M86.172 Other acute 4:00p For Infectious Sheri Hirsch osteomyelitis, left Diseases ankle and foot B95.1 Streptococcus, group B, causing diseases classd elswhr B95.61 Methicillin suscep staph infct causing dis classd elswhr Z33.1 state, incidental Office Visit 09/20/2015 [facility] Jani Galindo M86.172 Other acute 4:00p For Infectious Makenna Hirsch. osteomyelitis, left Diseases ankle and foot E11.621 Type 2 diabetes mellitus with foot ulcer B95.1 Streptococcus, group B, causing diseases classd elswhr B95.61 Methicillin suscep staph infct causing dis classd elswhr Z33.1 state, incidental Office Visit 08/31/2015 3:25p [facility] Emelyn Rojas, E11.621 Type 2 Asszoltan claudio M.D. diabetes Hospitalists mellitus with foot ulcer I10 Essential (primary) hypertension E11.65 Type 2 diabetes mellitus with hyperglycemia L02.612 Cutaneous abscess of left foot Office Visit 08/30/2015 [facility] Jani Galindo E11.69 Type 2 diabetes 12:04p For Infectious Sheri Hirsch mellitus with Diseases other specified complication E11.65 Type 2 diabetes mellitus with hyperglycemia E11.628 Type 2 diabetes mellitus with other skin complications I10 Essential (primary) hypertension L02.612 Cutaneous abscess of left foot L03.116 Cellulitis of left lower limb M86.172 Other acute osteomyelitis, left ankle and foot B95.1 Streptococcus, group B, causing diseases classd elswhr Z33.1 state, incidental Office Visit 08/30/2015 3:25p [facility] Sai E11.621 Type 2 Assoczoltan M.D. diabetes Hospitalists mellitus with foot ulcer I10 Essential (primary) hypertension E11.65 Type 2 diabetes mellitus with hyperglycemia L02.612 Cutaneous abscess of left foot Office Visit 08/29/2015 3:23p [place] sIadora Gibbs I10 Essential Assoczoltan M.D. (primary) Hospitalists hypertension E11.621 Type 2 diabetes mellitus with foot ulcer E11.65 Type 2 diabetes mellitus with hyperglycemia L02.612 Cutaneous abscess of left foot Office Visit 08/08/2015 4:20p [facility] Augusto Galindo L02.612 Cutaneous Infectious Macqueen M.D. abscess of left Diseases foot Z33.1 state, incidental B95.61 Methicillin suscep staph infct causing dis classd elswhr Office Visit 07/30/2015 9:25a [facility] Augusto Galindo L02.612 Cutaneous Infectious Macqueen M.D. abscess of left Diseases foot E11.40 Type 2 diabetes mellitus with diabetic neuropathy, unsp Z33.1 state, incidental B95.61 Methicillin suscep staph infct causing dis classd elswhr Office Visit 07/29/2015 1:09p [facility] Sai E11.621 Type 2 Asszoltan claudio M.D. diabetes Hospitalists mellitus with foot ulcer Z3A.01 Less than 8 weeks gestation of I10 Essential (primary) hypertension Z72.0 Tobacco use Office Visit 07/28/2015 1:09p [facility] Sai E11.621 Type 2 Assoczoltan M.D. diabetes Hospitalists mellitus with foot ulcer Z3A.01 Less than 8 weeks gestation of I10 Essential (primary) hypertension Z72.0 Tobacco use Office Visit 07/27/2015 11:20a Orthopedic Sai L03.116 Cellulitis of Services Of Sheri Elizondo left lower limb C.M.A. S91.332A Puncture wound without foreign body, left foot, init encntr Office Visit 07/27/2015 12:47p [place] Isadora Hopson E11.621 Type 2 Assoczoltan N.P. diabetes Hospitalists mellitus with foot ulcer I10 Essential (primary) hypertension Z3A.01 Less than 8 weeks gestation of Office Visit 07/26/2015 1:20p [facility] Jani Galindo L03.116 Cellulitis of For Mark Hirsch M.D. left lower limb Diseases G62.9 Polyneuropathy, unspecified S91.332A Puncture wound without foreign body, left foot, init encntr Z33.1 state, incidental Office Visit 07/25/2015 Orthopedic Sai S91.332D Puncture wound 2:50p Services Of Sheri Elizondo without foreign C.M.A. body, left foot, subs encntr Office Visit 07/18/2015 Orthopedic Sai S91.332A Puncture wound 1:35p Services Of Sheri Elizondo without foreign C.M.A. body, left foot, init encntr Office Visit 05/25/2015 [facility] Internal Sai E11.9 Type 2 diabetes 8:00a Yahaira Patricio M.D. mellitus without [place] complications I10 Essential (primary) hypertension D64.9 Anemia, unspecified F17.200 Nicotine dependence, unspecified, uncomplicated Office Visit 05/20/2015 [facility] Sai R73.9 Hyperglycemia, 10:41a Assoc,zoltan Patricio M.D. unspecified Hospitalists I10 Essential (primary) hypertension E11.9 Type 2 diabetes mellitus without complications Office Visit 08/02/2013 8:40a [facility] Priya Lora, 250.90 Diabetes W / Medicine - M.DTamika Unspec Compl Type [place] II Or Unspec Controlled 305.1 Tobacco Use Disorder 401.9 Hypertension Unspec 704.9 Hair & Hair Follicle Diseases Unspec Office Visit 04/11/2013 8:40a [facility] Priya Lora, 250.90 Diabetes W / Medicine - M.D. Unspec Compl Type [place] II Or Unspec Controlled 401.9 Hypertension Unspec 305.1 Tobacco Use Disorder V72.31 Routine Surveillance Director Examination V74.5 Screening Examination Venereal Disease V76.2 Screening Malignant Neoplasm Cervix 250.02 Diabetes Mellitus W/O Compl Type II Or Unspec Type Uncontrol Office Visit 12/31/2012 8:40a [facility] Priya Lora, 250.02 Diabetes Medicine - M.DTamika Mellitus W/O [place] Compl Type II Or Unspec Type Uncontrol 305.1 Tobacco Use Disorder Office Visit 07/07/2012 9:40a [facility] Priya Lora, 250.02 Diabetes Medicine - M.D. Mellitus W/O [place] Compl Type II Or Unspec Type Uncontrol 695.3 Rosacea 305.1 Tobacco Use Disorder Office Visit 03/22/2012 8:40a [facility] Priya Lora, 250.02 Diabetes Medicine - M.D. Mellitus W/O [place] Compl Type II Or Unspec Type Uncontrol 305.1 Tobacco Use Disorder Office Visit 12/22/2011 10:40a [facility] Priya Lora, 250.02 Diabetes Mellitus Medicine - M.D. W/O Compl Type II [place] Or Unspec Type Uncontrol Office Visit 10/03/2011 10:40a [facility] Nurse Visit A 682.6 Cellulitis & Medicine - Abscess Leg [place] Except Foot 686.8 Local Infection Skin & Subcutaneous Tissue Other Spec Office Visit 09/29/2011 10:40a [facility] Nurse Visit A 682.6 Cellulitis & Medicine - Abscess Leg Except [place] Foot 686.8 Local Infection Skin & Subcutaneous Tissue Other Spec Office Visit 09/26/2011 10:40a [facility] Priya Lora, 682.6 Cellulitis & Medicine - M.D. Abscess Leg [place] Except Foot Office Visit 09/24/2011 10:40a [facility] Nurse Visit A 682.6 Cellulitis & Medicine - Abscess Leg [place] Except Foot 686.8 Local Infection Skin & Subcutaneous Tissue Other Spec Office Visit 09/22/2011 10:40a [facility] Nurse Visit A 682.6 Cellulitis & Medicine - Abscess Leg Except [place] Foot 686.8 Local Infection Skin & Subcutaneous Tissue Other Spec Office Visit 09/19/2011 1:40p [facility] Priya Lora, 682.6 Cellulitis & Medicine - M.D. Abscess Leg [place] Except Foot 686.8 Local Infection Skin & Subcutaneous Tissue Other Spec 250.90 Diabetes W/ Unspec Compl Type II Or Unspec Controlled Office Visit 09/17/2011 1:40p [facility] Nai Thompson, 686.8 Local Infection Medicine - N.P. Skin & [place] Subcutaneous Tissue Other Spec Office Visit 09/10/2011 11:40a [facility] Priya Lora, 250.02 Diabetes Mellitus Medicine - M.D. W/O Compl Type II [place] Or Unspec Type Uncontrol 305.1 Tobacco Use Disorder Office Visit 08/08/2011 10:40a [facility] Priya Lora, 250.02 Diabetes Medicine - M.D. Mellitus W/O [place] Compl Type II Or Unspec Type Uncontrol 305.1 Tobacco Use Disorder Office Visit 07/21/2011 10:00a [facility] Nai Thompson, 566 Abscess Of Anal Medicine - N.P. & Rectal Regions [place] Office Visit 07/04/2011 11:20a [facility] Priya Lora, Belkis.02 Diabetes Medicine - M.Lillie. Mellitus W/O [place] Compl Type II Or Unspec Type Uncontrol 305.1 Tobacco Use Disorder Office Visit 06/20/2011 11:00a [facility] Belkis Nesbitt.02 Diabetes Medicine - M.Lillie. Mellitus W/O [place] Compl Type II Or Unspec Type Uncontrol 401.9 Hypertension Unspec 305.1 Tobacco Use Disorder Office Visit 06/06/2011 2:20p [facility] Priya Lora, Belkis.02 Diabetes Medicine - M.Lillie. Mellitus W/O [place] Compl Type II Or Unspec Type Uncontrol 401.9 Hypertension Unspec 704.1 Hirsutism 305.1 Tobacco Use Disorder Plan of Treatment Future Appointment(s):08/02/2018 9:40 am - Clementine Plata MD at [facility]05/03/2018 - Clementine Plata MDI10 Essential (primary) hypertensionComments:Controlled; continue same [id number] Type 2 diabetes mellitus without complicationsNew Medication:Metformin HCL 500 mg - take 1 tablet by mouth three times a dayFollow up:F/U 3 hfgttcD77.829 Elevated white blood cell count, [id number] Nonscarring hair loss, unspecifiedFollow up: Your Thyroid test was normal Ok to take vitamins Please try to take biotin supplement ( over the counter)
--- OUTSIDE RECORDS SUMMARY | 2018-05-20 08:25 | XMS REPORT | Continuity of Care Document ---
:1980 External Reference #:[id number] Author Name Clementine Cyr Care Team Providers Name Role Phone Abhishek Martin III, MD Primary Care Physician Unavailable Payers Type Date Identification Numbers Payment Provider Subscriber Policy Number: [id number] Karl Patricio PayID: [id number] [address] [place] [phone] Effective: 2017 Policy Number: [id number] Medicaid Dora Patricio Expires: 2017 Group Name: 1 1 [address] PayID: [id number] [place] [address] Expires: 2017 PayID: [id number] Karl Patricio [address] [place] [phone] Advance Directives Description No Information Available Problems Date Description Provider Status Onset: 06/20/2011 Tobacco user Priya Lora M.D. Active Onset: 06/20/2011 Hirsutism Priya Lora M.D. Active Onset: 04/11/2013 Diabetes mellitus Priya Lora M.D. Active Onset: 05/25/2015 Essential hypertension Sai Patricio M.D. Active Onset: 11/05/2017 Disorder of shoulder Kit Gutierrez MD Active Onset: 06/04/2017 Closed fracture proximal humerus, Kit Gutierrez MD Active greater tuberosity Onset: 05/28/2017 Sprain of shoulder and upper arm Kit Gutierrez MD Active Onset: 05/14/2017 Strain of muscle(s) and tendon(s) of Kit Gutierrez MD Active the rotator cuff of right shoulder, subsequent encounter Onset: 05/14/2017 Injury of shoulder region Kit Gutierrez MD Active Onset: 06/20/2011 Type II diabetes mellitus Priya Lora M.D. 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 smoker, smokes every Been smoking for 12 day yrs. Tobacco Use Start: Unknown End: Patient is a former Pt quit 5 weeks Unknown smoker ago. Smoking Status Reviewed: 04/22/18 Patient is a former Pt quit 5 weeks smoker ago. Exercise Type/Frequency Exercises regularly Allergies, Adverse Reactions, Alerts Description No Known Drug Allergies Medications Medication Date Status Form Strength Qnty SIG Indications Ordering Provider Prochlorperazine 04/22 Active Suppository 25mg 12uni use one R11.2 Clementine ts suppositor MD Boni y every 6-8 hours as needed Sulfamethoxazole/ 04/22 Active Tablets 800-160mg 20tab take one R11.2 [facility] Trimethoprim DS s tablet MD Boni every 12 hours Lifestyle Lite 04/22 Active 100un 3 times [facility] Lancets its daily or MD Boni as needed dx e11.65 Lifestyle Lite 04/22 Active 100un for use [facility] Test Strips its with MD Boni glucometer . test 3 times a day initially. Prochlorperazine 04/21 Active Suppository 25mg 3unit Use one R11.2 Clementine s suppositor MD Boni y every 6-8 hours as needed Blood Glucose 04/21 Active Kit W/Device 1unit use as E11.69 [facility] Monitoring System /2018 s directed MD Boni Glipizide Active Tablets 10mg 1 by mouth Unknown /0000 every day Losartan 00 Active Tablets 25mg 1 by mouth Unknown Potassium /0000 every day Metformin HCL Active Tablets 500mg 1 by mouth Unknown /0000 twice a day Prochlorperazine Active Tablets 10mg 3 times Unknown Maleate /0000 daily for nausea No Active 06/04 Hx Unknown Medications /2017 - 04/21 Bactrim DS 05/26 Hx Tablets 800-160mg 14tab take 1 by s mouth Matt, - twice 06/02 daily x 7 days Percocet 05/14 Hx Tablets 5-325mg 14tab take 1 S46.011D s tabs as Matt, - needed for 04/06 pain every 12 hours. do not [...] 4-6 M.D. 09/19 hours needed pain Pen [place] 06/19" 08/19 Hx Misc 31G X 5 100un use with mm its lantus [place], subq M.D. everyday Lantus Solostar 07/29 Hx Solution 100Unit/M 30ml 25 units Pen-Inject L subcrehana Kelly daily M.D. Clindamycin HCL 07/25 Hx Capsules [...] Hx Strips 100un test daily E11.65 Maia Blue its or as Shailesh, - needed M.D. 04/06 E11. Ferrous Gluconate 05/29 Hx Tablets 324(38Fe) 60tab 1 tab by mg s mouth [place], - twice a M.D. Glyburide 05/25 Hx Tablets 5mg 1 tab oral Sai daily [place], - M.D. 05/25 Losartan 05/25 Hx Tablets 25mg 30tab 1 tab oral Maia s daily Cash, - M.D. 08/06 Glyburide 05/25 Hx Tablets 5mg 60tab 1 tab by E11.9 Maia s mouth Cash, - twice a M.D. Rogaine 08/02 Hx [...] Tablets 1000mg 60tab take one 250.02 Maia s tablet by Shailesh - mouth M.D. 08/06 twice a day [...] 100un please E11.65 Maia Lancets its check Shailesh - blood M.D. 05/30 sugar fasting daily [...] 1000mg 180ta 1 po bid 250.02 bs Guido - M.D. 07/03 Aspirin Ec 06/[address] 81mg 90tab 1 by mouth s every day Kathrine Patricio M.D. 08/07 Cephalexin Hx Capsules 500mg 21cap take one Unknown /0000 s capsule a - day four 08/07 times a day Ibuprofen Hx Tablets 800mg 90tab po tid prn Unknown / s - 08/07 Sulfamethoxazole/ Hx Tablets 800-160mg 20tab 1 po bid Unknown Trimethoprim DS / s - 08/07 Amoxicillin/Potas Hx Tablets 875-125mg 20tab 1 po every Unknown sium Clavulanate /0000 s 12hrs - 12/21 Glimepiride 00 Hx Tablets 5mg 1 by mouth Unknown / every day - 05/25 Clindamycin HCL Hx Capsules 150mg 1 capsule Unknown by mouth - four times 07/25 a day 15 days Cephalexin Hx Capsules 500mg 1 po qid - 08/14 Labetalol HCL Hx Tablets 100mg 60tab 1 tab Sai s twice [place], daily M.D. Vol-Plus Hx Tablets 27-1mg - 04/06 Humalog Kwikpen Hx Solution 100Unit/M sliding Unknown Pen-Inject L scale Cefazolin Sodium Hx Solution 1gm 2 gm iv Unknown Rec every 8 - hours 10/09 through advanced residential infusion Idosorb Hx apply to Unknown wound once per day Medications Administered in Office Medication Date Status Form Strength Qnty SIG Indications Ordering Provider Triamcinolone 11/05/ Administered Injection Zaneb (Kenalog) 2017 MD Matt Immunizations Description No Information Available Vital Signs Date Vital Result Comment 04/22/2018 10:15am Height 67 inches 5'7" Heart [...] Date Facility Test Result H/L Range Note Comp Metabolic Panel 04/21/2018 [facility] Sodium 137 mmol/L N 135-145 [address] [place] [address] [phone] Potassium 3.9 mmol/L N 3.5-5.0 Chloride 94 [...] Egfr Non- 70.1 >60 Egfr 84.8 >60 1 Laboratory test 04/21/2018 [facility] TSH (Thyroid 1.17 N 0.34 -5.[address] Stim Horm) mcIU/[place] [address] [phone] Urine Culture And 04/19/2018 [facility] Urine Culture SEE RESULT [address] [place] [address] [phone] Laboratory test 04/19/2018 [facility] HCG < 0.60 [address] mIU/[place] [address] [phone] Hemoglobin A1c (Glyco HGB) 11.2 % High 4.0-5.6 4 Urinalysis Profile 04/19/2018 [facility] Urine Appearance Cloudy [address] [place] [address] [phone] Urine Specific [place] 1.026 N 1.010-1.030 Urine pH 9.0 N [...] Absent Urine Color Cara Laboratory test 04/19/2018 [facility] Magnesium 1.9 mg/dL N 1.9-2.[address] [place] [address] [phone] Lipase 42 U/L N 11.0-82.0 Creatine Kinase(CK) 39 U/L N 10-223 C Reactive Protein 4.27 mg/L N <8.01 Lactic Acid 3.0 mmol/L High 0.5-2.0 5 Ammonia 47 mcmol/L N 16-53 B-Type Natriuretic Peptide BNP 14 pg/mL <=100 Comp Metabolic Panel 04/19/2018 [facility] Sodium 133 mmol/L Low 135-[address] [place] [address] [phone] Potassium 3.2 mmol/L Low 3.5-5.0 Chloride 96 [...] Egfr Non- 87.8 >60 Egfr 106.3 >60 6 Laboratory test 04/19/2018 [facility] Troponin-I 0.00 <0.04 [address] (TnI) ng/[place] [address] [phone] CBC Auto Diff 04/19/2018 [facility] White Blood 13.0 High 3.5- 10.[address] Count 10^3/[place] [address] [phone] Red Blood Count 5.33 10^6/uL N 4.00-5.40 [...] % Nucleated Red Blood Cells % 0.1 Arterial Blood Gas 04/19/2018 [facility] PH Arterial 7.45 N 7.35-7.45 [address] [place] [address] [phone] Pco2 Arterial 36 mmHg N 35-45 Po2 Arterial 90 mmHg N 80-100 O2 Saturation Arterial 98.8 % High 94.0-98.0 Base Excess Arterial 1.3 mmol/L N -2.0-2.0 8 Hco3 Arterial 25.9 mmol/L N 19-31 Laboratory test 04/19/2018 [facility] Point of 356 mg/dL High 70-100 9 finding 101 [facility] [place] [address] [phone] Laboratory test 04/19/2018 [facility] Lactic Acid 1.2 mmol/L N 0.5-2.0 10 finding [address] [place] [address] [phone] Laboratory test 04/19/2018 [facility] Point of 229 mg/dL High 70-100 11 finding [address] [place] [address] [phone] CBC Auto Diff 04/15/2018 [facility] White Blood 25.0 High 3.5- 10.[address] Count 10^3/[place] [address] [phone] Red Blood Count 5.76 10^6/uL High 4.00-5.40 [...] Blood Cells % 0.1 Laboratory test 04/15/2018 [facility] Magnesium 1.9 mg/dL N 1.9-2.7 finding [address] [place] [address] [phone] Lipase 42 U/L N 11.0-82.0 C Reactive Protein 7.09 mg/L N <8.01 HCG < 0.60 mIU/mL 12 Comp Metabolic Panel 04/15/2018 [facility] Sodium 136 mmol/L N 135-145 [address] [place] [address] [phone] Potassium 3.6 mmol/L N 3.5-5.0 Chloride 93 [...] Egfr Non- 68.3 >60 Egfr 82.7 >60 13 Laboratory test 04/15/2018 [facility] Lactic Acid 4.0 mmol/L High 0.5-2.0 14 finding [address] [place] [address] [phone] Laboratory test 04/15/2018 [facility] Lactic Acid 0.4 mmol/L Low 0.5-2.0 15 finding [address] [place] [address] [phone] Laboratory test 04/14/2018 [facility] Point of 240 mg/dL High 70-100 16 finding 101 [facility] [place] [address] [phone] Laboratory test 04/14/2018 [facility] Point of 344 mg/dL High 70-100 17 finding 101 [facility] [place] [address] [phone] Laboratory test 04/14/2018 [facility] Point of 373 mg/dL High 70-100 18 finding 101 [facility] [place] [address] [phone] CBC Auto Diff 04/14/2018 [facility] White Blood 14.3 High 3.5- 10.[address] Count 10^3/[place] [address] [phone] Red Blood Count 5.99 10^6/uL High 4.00-5.40 [...] Blood Cells % 0.1 Laboratory test 04/14/2018 [facility] B-Type 39 pg/mL <=[address] [place] [address] Peptide BNP [phone] Troponin-I (TnI) 0.00 ng/mL <0.04 19 Comp Metabolic Panel 04/14/2018 [facility] Sodium 137 mmol/L N 135-[address] [place] [address] [phone] Potassium 4.3 mmol/L N 3.5-5.0 Chloride 100 [...] Egfr Non- 67.5 >60 Egfr 81.6 >60 20 Laboratory test 04/14/2018 [facility] Magnesium 2.0 mg/dL N 1.9-2.[address] [place] [address] [phone] Lipase 35 U/L N 11.0-82.0 Creatine Kinase(CK) 44 U/L N 10-223 C Reactive Protein 3.78 mg/L N <8.01 HCG < 0.60 mIU/mL 21 Lactic Acid 3.2 mmol/L High 0.5-2.0 22 Urinalysis Profile 04/14/2018 [facility] Urine Color Yellow [address] [place] [address] [phone] Urine Appearance Clear Urine Specific [place] 1.024 N 1.010-1.030 Urine pH 7.0 N 5-9 Urine Urobilinogen Negative Negative Urine Ketones 2+ Abnormal Negative Urine Protein Negative Negative Urine Leukocytes Negative Negative Urine Blood Negative Negative Urine Nitrite Negative Negative Urine Bilirubin Negative Negative Urine Glucose 3+(>=500 mg/dL) Abnormal Negative Laboratory test 12/15/2017 [facility] Cytology SEE RESULT [address] [place] [address] [phone] Laboratory test 12/13/2017 [facility] Poc Negative Negative [address] , [place] [address] Urine [phone] Wound 03/02/2016 [facility] Wound/Misc SEE RESULT 25 Culture/Sensi [address] [place] [address] Stain [phone] Laboratory test 03/02/2016 [facility] MRSA/S. SEE RESULT [address] [place] [address] PCR [phone] CBC Auto Diff 03/02/2016 [facility] White Blood 15.2 10^3/uL High 3.5-10.[address] [place] [address] [phone] Red Blood Count 4.26 10^6/uL N 4.0-5.4 [...] % 0.1 N Comp Metabolic Panel 03/02/2016 [facility] Sodium 138 mmol/L N 133-[address] [place] [address] [phone] Potassium 4.0 mmol/L N 3.5-5.0 Chloride 105 [...] 113.8 N >60 Egfr 146.3 N >60 27 Laboratory test 03/02/2016 [facility] C Reactive 65.08 mg/L High < 5.00 [address] [place] [address] [phone] Lactic Acid 1.3 mmol/L N 0.5-2.0 29 Laboratory test 10/25/2015 [facility] C Reactive 7.72 mg/L High < 5.00 [address] [place] [address] [phone] Comp Metabolic 10/25/2015 [facility] Sodium 134 N 133-[address] mmol/[place] [address] [phone] Potassium 4.2 mmol/L N 3.5-5.0 Chloride 103 [...] 111.6 N >60 Egfr 143.5 N >60 31 CBC Auto 10/25/2015 [facility] White Blood 17.0 10^3/uL High 3.5-10.[address] [place] [address] [phone] Red Blood Count 4.45 10^6/uL N 4.0-5.4 [...] % 0 N Comp Metabolic Panel 10/10/2015 [facility] Sodium 131 mmol/L Low 133-[address] [place] [address] [phone] Potassium 3.9 mmol/L N 3.5-5.0 Chloride 100 [...] 118.3 N >60 Egfr 152.1 N >60 32 Laboratory test 10/10/2015 [facility] C Reactive 9.07 mg/L High < 5.00 [address] [place] [address] [phone] CBC Auto Diff 10/10/2015 [facility] White Blood 16.8 High 3.5- 10.[address] Count 10^3/[place] [address] [phone] Red Blood Count 4.24 10^6/uL N 4.0-5.4 [...] Cells % 0 N CBC Auto 10/03/2015 [facility] White Blood 16.3 10^3/uL High 3.5-10.[address] [place] [address] [phone] Red Blood Count 4.44 10^6/uL N 4.0-5.4 [...] % 0 N Comp Metabolic Panel 10/03/2015 [facility] Sodium 134 mmol/L N 133-[address] [place] [address] [phone] Potassium 3.9 mmol/L N 3.5-5.0 Chloride 103 [...] 123.2 N >60 Egfr 158.4 N >60 34 Laboratory test 10/03/2015 [facility] C Reactive 9.21 mg/L High < 5.00 [address] [place] [address] [phone] Comp Metabolic 09/26/2015 [facility] Sodium 133 N 133-[address] mmol/[place] [address] [phone] Potassium 4.1 mmol/L N 3.5-5.0 Chloride 103 [...] 134.2 N >60 Egfr 172.6 N >60 36 Laboratory test 09/26/2015 [facility] C Reactive 7.36 mg/L High < 5.00 [address] [place] [address] [phone] CBC Auto Diff 09/26/2015 [facility] White Blood 18.2 High 3.5- 10.[address] Count 10^3/[place] [address] [phone] Red Blood Count 4.50 10^6/uL N 4.0-5.4 [...] % 0.1 N Comp Metabolic Panel 09/19/2015 [facility] Sodium 133 mmol/L N 133-[address] [place] [address] [phone] Potassium 4.2 mmol/L N 3.5-5.0 Chloride 102 [...] 143.7 N >60 Egfr 184.8 N >60 38 Laboratory test 09/19/2015 [facility] C Reactive 10.04 mg/L High < 5.00 [address] [place] [address] [phone] CBC Auto Diff 09/19/2015 [facility] White Blood 18.2 High 3.5- 10.[address] Count 10^3/[place] [address] [phone] Red Blood Count 4.96 10^6/uL N 4.0-5.4 [...] Cells % 0 N CBC Auto 09/12/2015 [facility] White Blood 15.9 10^3/uL High 3.5-10.[address] [place] [address] [phone] Red Blood Count 4.71 10^6/uL N 4.0-5.4 [...] % 0.1 N Comp Metabolic Panel 09/12/2015 [facility] Sodium 132 mmol/L Low 133-[address] [place] [address] [phone] Potassium 4.3 mmol/L N 3.5-5.0 Chloride 102 [...] 107.5 N >60 Egfr 138.3 N >60 40 Laboratory test 09/12/2015 [facility] C Reactive 6.19 mg/L High < 5.00 [address] [place] [address] [phone] Comp Metabolic 09/04/2015 [facility] Sodium 134 N 133-[address] mmol/[place] [address] [phone] Potassium 4.0 mmol/L N 3.5-5.0 Chloride 100 [...] 92.2 N >60 Egfr 118.5 N >60 42 Laboratory test 09/04/2015 [facility] C Reactive 17.03 mg/L High < 5.00 [address] [place] [address] [phone] CBC Auto Diff 09/04/2015 [facility] White Blood 13.5 High 3.5- 10.[address] Count 10^3/[place] [address] [phone] Red Blood Count 4.63 10^6/uL N 4.0-5.4 [...] Cells % 0.1 N Laboratory test 08/29/2015 [facility] Point of 219 mg/dL High 74-106 [address] [place] [address] [phone] Laboratory test 08/29/2015 [facility] Point of 276 mg/dL High 74-106 [address] [place] [address] [phone] Basic Metabolic 08/28/2015 [facility] Sodium 133 mmol/L N 133- 145 Panel [address] [place] [address] [phone] Potassium 3.6 mmol/L N 3.5-5.0 Chloride 103 mmol/L N 101-111 Co2 Carbon Dioxide 22 mmol/L N 22-32 Anion Gap 8 mmol/L N 2-11 Glucose 197 mg/dL High 70-100 Blood Urea Nitrogen 7 mg/dL N 6-24 Creatinine 0.65 mg/dL N 0.51-0.95 BUN/Creatinine Ratio 10.8 N 8-20 Calcium 9.3 mg/dL N 8.6-10.3 Egfr Non- 103.7 N >60 Egfr 133.4 N >60 46 Laboratory test 08/28/2015 [facility] HCG 01104.00 N [address] mIU/[place] [address] [phone] CBC Auto Diff 08/28/2015 [facility] White Blood 17.9 10^3/uL High 3.5-[address] Count 0.8 [place] [address] [phone] Red Blood Count 5.11 10^6/uL N 4.0-5.4 [...] Blood Cells % 0 N Wound 08/27/2015 [facility] Wound/Misc SEE 48, 49 Culture/Sensi [address] [place] [address] Stain BELOW [phone] CBC Auto Diff 08/01/2015 [facility] White Blood 11.5 High 3.[address] Count 10^3/uL -10 [place] [address] .8 [phone] Red Blood Count 5.01 10^6/uL N 4.0-5.4 [...] % 0 N Comp Metabolic Panel 08/01/2015 [facility] Sodium 134 mmol/L N 133-[address] [place] [address] [phone] Potassium 4.0 mmol/L N 3.5-5.0 Chloride 99 [...] 81.6 N >60 Egfr 105.0 N >60 50 Laboratory test finding 08/01/2015 [facility] Lipase 48 U/L N 11.0-82.[address] [place] [address] [phone] C Reactive Protein 9.42 mg/L High < 5.00 51 Partial Thrombo Time PTT 32.5 seconds N 26.0-36.3 Lactic Acid 0.9 mmol/L N 0.5-2.0 52 HCG 71942.00 mIU/mL N 53 Urinalysis Profile 08/01/2015 [facility] Urine Color Straw N [address] [place] [address] [phone] Urine Appearance Clear N Urine Specific [place] 1.006 Low 1.010-1.030 Urine pH 6.0 N 5-9 Urine Urobilinogen Negative N Negative Urine Ketones Negative N Negative Urine Protein Negative N Negative Urine Leukocytes Negative N Negative Urine Blood Negative N Negative Urine Nitrite Negative N Negative Urine Bilirubin Negative N Negative Urine Glucose 2+(150 mg/dL) Abnormal Negative CBC Auto 05/28/2015 [facility] White Blood 14.2 10^3/uL High 3.5-10.[address] [place] [address] [phone] Red Blood Count 3.32 10^6/uL Low 4.0-5.4 [...] 7.4-10.4 Abs Neutrophils 9.4 10^3/uL High 1.5-7.7 54 Abs Lymphocytes 3.9 10^3/uL N 1.0-4.8 Abs [...] 0.2 N Iron & Iron Binding 05/28/2015 [facility] Iron 24 g/dL Low 50-212 [address]acity [address] [place] [address] [phone] Unsaturated Iron Binding 347 g/dL N Total Iron Binding Capacity 371 g/dL N 250-450 % Iron Saturation 6 % Low 15-55 Laboratory test 05/28/2015 [facility] Ferritin 21.1 ng/mL N 11 -307 finding [address] [place] [address] [phone] Retic Count 05/28/2015 [facility] Retic Count 6.5 % High 0.5- 1.5 [address] [place] [address] [phone] Corrected Retic Count 4.3 % High 0.5-1.5 Maturation Factor Retic 1.5 N Retic Index 2.90 N Mean Retic Volume 108.4 N Immature Retic Fraction 0.52 N RBC Retic Count 3.32 10^6/uL Low 4.6-6.2 Hematocrit for Retic CNT 30 % Low 35-47 Basic Metabolic Panel 05/25/2015 [facility] Sodium 138 mmol/L N 133-145 [address] [place] [address] [phone] Potassium 3.9 mmol/L N 3.5-5.0 Chloride 103 mmol/L N 101-111 Co2 Carbon Dioxide 30 mmol/L N 22-32 Anion Gap 5 mmol/L N 2-11 Glucose 183 mg/dL High 70-100 Blood Urea Nitrogen 8 mg/dL N 6-24 Creatinine 0.67 mg/dL N 0.51-0.95 BUN/Creatinine Ratio 11.9 N 8-20 Calcium 9.1 mg/dL N 8.6-10.3 Egfr Non- 100.2 N >60 Egfr 128.8 N >60 55 Laboratory test 05/25/2015 [facility] Hemoglobin A1c 10.4 High 5-7 finding Urine Microalbumin 05/25/2015 [facility] Ur Microalbumin 14.0 mg /L N Random [address] (mg/L) [place] [address] [phone] Urine Creatinine 359.60 mg/dL N Urine Microalbumin/Creatinine 3.8 ug/mg N <31 CBC Auto 05/25/2015 [facility] White Blood 13.7 10^3/uL High 3.5-10.[address] [place] [address] [phone] Red Blood Count 3.20 10^6/uL Low 4.0-5.4 [...] Blood Cells % 0.1 N Laboratory test 08/02/2013 [facility] Hemoglobin A1c 6.5 5-7 finding Urine Microalbumin 08/02/2013 [facility] Ur Microalbumin 5.0 mg/ dL N <30 [address] (mg/L) [place] [address] [phone] Urine Creatinine 99.55 mg/dL N Urine Microalbumin/Creatinine 5.0 N Less Than 31 Human Papilloma 04/11/2013 [facility] Human Papillomavirus See Comment [address] [place] [address] [phone] Human Papillomavirus High Risk Negative Negative 58 Laboratory test 04/11/2013 [facility] Cytology RUN DATE: [address] <[place] [address] NOTE> [phone] Laboratory test 04/11/2013 [facility] Hemoglobin A1c 7.0 5-7 finding GC/Chlamydia 04/11/2013 [facility] GC/Chlamydia Rna (SEE NOTE) 60 Amplified Rna [address] [place] [address] [phone] Laboratory test 12/31/2012 [facility] Hemoglobin A1c 6.7 5-7 finding Urine Microalbumin 07/06/2012 [facility] Ur Microalbumin 4.0 mg/ L [address] (Mg/L) [place] [address] [phone] Urine Creatinine 107.0 mg/dL Urine Microalbumin/Creatinine 3.7 ug/mg Less Than 31 Lipid Profile 07/06/2012 [facility] Triglycerides 108 mg/dL 40-200 (Trig/Chol/HDL) [address] [place] [address] [phone] Cholesterol 76 mg/dL Low Less than 200 HDL Cholesterol 29 mg/dL Low 40-60 62 Cholesterol/HDL Ratio 2.6 Average 1-4.44 LDL Cholesterol 25.4 mg/dL Less Than 100 63 Laboratory test 07/06/2012 [facility] Hemoglobin A1c 7.8 % High Less than [address] 6.0 [place] [address] [phone] Glucose 204 mg/dL High 70-100 65 Laboratory test 03/22/2012 [facility] Hemoglobin A1c 8.4 High 5-7 finding Laboratory test 12/22/2011 [facility] Hemoglobin A1c 6.8 5-7 finding Manual Differential 09/14/2011 [facility] Polysegmented 72 % 38-[address] [place] [address] [phone] Band Neutrophil 3 % 0-8 Lymphocyte 17 % Low 25-47 Monocyte 6 % 0-13 Eosinophil 2 % 0-6 RBC Morphology NORMAL Blood Culture 09/14/2011 [facility] M [address] <SEE NOTE> [facility] [place] [id number] [phone] Laboratory 09/14/2011 [facility] Lactic Acid 1.1 mmol/L 0.5- 1.[address] [place] [address] [phone] Laboratory 09/14/2011 [facility] NEGATIVE Negative 67 test finding (HCG) [place] [address] [phone] Comp 09/14/2011 [facility] Sodium 132 mmol/L Low 135-[address] [place] [address] [phone] Potassium 4.1 mmol/L 3.5-5.0 Chloride 102 mmol/L 101-111 Co2 (Carbon Dioxide) 22.0 mmol/L 22-32 Anion Gap 8.0 mmol/L 2-11 68 Glucose 190 mg/dL High 70-100 BUN 10 mg/dL 6-24 Creatinine 0.9 mg/dL 0.50-1.40 One Over Creatinine 1.11 BUN/Creatinine Ratio 11.1 8-20 Calcium 9.1 mg/dL 8.1-9.9 Total Protein 6.7 GM/DL 6.2-8.1 Albumin 3.8 GM/DL 3.6-5.4 Globulin 2.9 GM/DL 2-4 Albumin/Globulin Ratio 1.3 1-3 Bilirubin Total 0.6 mg/dL 0.4-1.5 69 Alkaline Phosphatase 34 U/L 30-110 Alt (SGPT) 21 U/L 14-54 Ast (Sgot) 20 U/L 12-42 eGFR Non- 73.0 > 60 eGFR 93.9 > 60 70 CBC Auto Diff 09/14/2011 [facility] White Blood 15.1 CUMM High 4.8-10.[address] [place] [address] [phone] Red Cell Count 4.42 CUMM 4.2-5.4 Hemoglobin 13.7 g/dL 12.0-16.0 Hematocrit 40 % 35-47 Mean Corpuscular Volume 91 um3 79-97 Mean Corpuscular Hemoglob 31 pg 27-31 Mean Corpuscular HGB Cone 34 g/dL 32-36 Redcell Distribution WDTH 13 % 10.5-15 Platelet Count 182 CUMM 150-450 Mean Platelet Volume 10.0 um3 7.4-10.4 Absolute Neutrophil Count 10.3 High 1.5-7.7 71 Laboratory test 09/10/2011 [facility] Hemoglobin A1c 7.5 High 5-7 finding Lipid Panel - JFM 06/10/2011 [facility] CPK (Creatine 54 U/L 0-[address] Kinase) [place] [address] [phone] Comp Metabolic 06/10/2011 [facility] Sodium 135 mmol/L 135- [address] [place] [address] [phone] Potassium 4.4 mmol/L 3.5-5.0 Chloride 101 mmol/L 101-111 Co2 (Carbon Dioxide) 24.0 mmol/L 22-32 Anion Gap 10.0 mmol/L 2-11 72 Glucose 201 mg/dL High 70-100 BUN 11 mg/dL 6-24 Creatinine 0.9 mg/dL 0.50-1.40 One Over Creatinine 1.11 BUN/Creatinine Ratio 12.2 8-20 Calcium 9.6 mg/dL 8.1-9.9 Total Protein 7.5 GM/DL 6.2-8.1 Albumin 4.5 GM/DL 3.6-5.4 Globulin 3.0 GM/DL 2-4 Albumin/Globulin Ratio 1.5 1-3 Bilirubin Total 0.8 mg/dL 0.4-1.5 73 Alkaline Phosphatase 48 U/L 30-110 Alt (SGPT) 33 U/L 14-54 Ast (Sgot) 26 U/L 12-42 eGFR Non- 73.0 > 60 eGFR 93.9 > 60 74 Lipid Profile 06/10/2011 [facility] Triglyceride 103 mg/dL 40 -200 (Trig/Chol/HDL) [address] [place] [address] [phone] Cholesterol 69 mg/dL Low Less Than 200 75 High Density Lipoprotein 25 mg/dL Low 40-60 76 Cholesterol/HDL Ratio 2.76 AVERAGE 1-4.44 Low Density Lipoprotein 23 mg/dL Less Than 100 77 Urine Microalbumin 06/10/2011 [facility] Microalbumin 10.0 mg/L Random [address] (MG/L) [place] [address] [phone] Urine Creatinine 135.7 mg/dL Raheem Alb/Creatinine Ratio 7.4 UG/MG Less Than 30 78 Laboratory test 06/10/2011 [facility] Dhea Sulfate 136 g/dL 31-228 [address] [place] [address] [phone] Testosterone Free 06/10/2011 [facility] Free 0.4 ng/dL 0.3- 1.9 80 & Total [address] [place] [address] [phone] Total Testosterone 13 ng/dL 8-60 81 Laboratory test finding 06/06/2011 [facility] In House Hemoglobin A1c 10.7 High 5-7 1 Because ethnic data is not always readily [...] 15-29 5 Kidney failure <15 (or dialysis) 2 SEE RESULT BELOW Name: DORA PATRICIO : [address]: Edie Jameson MD Acct: [id number] Unit: [id number] AGE: 38 Location: [place] [address] Re04/19/18 Dis: 04/20/18 SEX: F Status: DIS Adiel SPEC: [id number] FALGUNI: 04/19/18 [facility] DR: Abhishek Mireles MD REQ: [id number] RECD: 04/19/18 STATUS: QUENTIN GIANG DR: Abhishek Martin III, MD _ SOURCE: URINE SPDESC: ORDERED: Urine Culture Procedure Result Reported Site Urine Culture Final 04/20/18- 0178 ML No growth of clinically significant organisms * ML - Main Lab . END OF REPORT DEPARTMENT OF PATHOLOGY, [address] [place] [address] Palmer Victoria M.D. Director [facility] # [id number] 3 <5.0 Negative 5.0 - 25.0 Indeterminate (Repeat testing recommended after 72 hours) >25.0 Positive Perimenopausal women can display HCG levels of up to 20 mIU/mL 4 Therapeutic target for the treatment of diabetes mellitus patients is <7% HBA1C, and in selective patients <6.0%. Please refer to [place] [employer] diabetic care guidelines for further information. 5 Critical Result LACT:3.0 Called to [id number] at: 10:56:58 by:[id number] Read back by:[id number] [facility] Severe Sepsis and Septic Shock Management Bundle Measure requires all lactic acids initially measuring >2.0 mmol/L be repeated. 6 Because ethnic data is not always readily [...] 15-29 5 Kidney failure <15 (or dialysis) 7 Troponin-I testing on Plasma Separator Tubes (PST) has a known false positive rate of 0.20-0.40%. All positive troponins reflex immediate secondary confirmatory testing. 8 Reference ranges based on room air. 9 Munitions Handler: [id number] 10 [facility] Severe Sepsis and Septic Shock Management Bundle Measure requires all lactic acids initially measuring >2.0 mmol/L be repeated. 11 Munitions Handler: [id number] 12 <5.0 Negative 5.0 - 25.0 Indeterminate (Repeat testing recommended after 72 hours) >25.0 Positive Perimenopausal women can display HCG levels of up to 20 mIU/mL 13 Because ethnic data is not always [...] failure <15 (or dialysis) 14 Critical Result LACT:4.0 Called to [id number] at: 20:41:22 by:[id number] Read back by:[id number] [facility] Severe Sepsis and Septic Shock Management Bundle Measure requires all lactic acids initially measuring >2.0 mmol/L be repeated. 15 [facility] Severe Sepsis and Septic Shock Management Bundle Measure requires all lactic acids initially measuring >2.0 mmol/L be repeated. 16 Munitions Handler: [id number] 17 Munitions Handler: [id number] 18 Munitions Handler: [id number] 19 Troponin-I testing on Plasma Separator Tubes (PST) has a known false positive rate of 0.20-0.40%. All positive troponins reflex immediate secondary confirmatory testing. 20 Because ethnic data is not always readily [...] 15-29 5 Kidney failure <15 (or dialysis) 21 <5.0 Negative 5.0 - 25.0 Indeterminate (Repeat testing recommended after 72 hours) >25.0 Positive Perimenopausal women can display HCG levels of up to 20 mIU/mL 22 Critical Result LACT:3.2 Called to [id number] at: 12:34:53 by:[id number] Read back by:[id number] [facility] Severe Sepsis and Septic Shock Management Bundle Measure requires all lactic acids initially measuring >2.0 mmol/L be repeated. 23 SEE RESULT BELOW Name: DORA PATRICIO : [address]: Alba DUNN C Acct: [id number] Unit: [id number] AGE: 37 Location: [facility] Re12/15/17 SEX: F Status: REG REF SPEC: [id number] FALGUNI: 12/15/17-[address]: Alba DUNN C REQ: [id number] RECD: 12/16/17-1215 STATUS: CARMELO GIANG DR: Abhishek Martin III, MD _ ORDERED: TP IMAGE ANALYS, SEALER DRY CELL PHYS INTERP, HPV/Thin Prep COMMENTS: [id number] EPITHELIAL CELL ABNORMALITIES Low grade squamous intraepithelial lesion (LSIL) Date Time Test Result Flag (u) Normal Range 12/15/17 1441 @ HPV RNA POSITIVE An Negative @ [...] and Reported on: Jessica Null MD 12/18/17 8947 This Pap test was evaluated with the assistance of the CalciMedicaPrep Test Imaging System. Due to cytologic findings at the thread cutter microscope, comprehensive manual rescreening by a Game Manager may be required. The Pap Smear is [...] years. END OF REPORT DEPARTMENT OF PATHOLOGY, [address] [place] [address] Palmer Victoria M.D. Director [facility] # [id number] 24 Munitions Handler: [id number] If is still suspected, please repeat test after 48 to 72 hours. 25 SEE RESULT BELOW Name: DORA PATRICIO : [address]: Lincoln Mariano MD Acct: [id number] Unit: [id number] AGE: 35 Location: ED Re03/02/16 SEX: F Status: REG ER SPEC: [id number] FALGUNI: 03/02/16-1614 [facility] DR: Lincoln Mariano MD REQ: [id number] RECD: 03/02/16 STATUS: RES RAHAT DR: Sai Patricio MD _ SOURCE: ABDOMEN SPDESC: ORDERED: Culture Stain Procedure Result Reported Site Wound/Misc Gram Stain Final 03/02/16- 1701 ML 2+ Epithelial Cells 4+ Neutrophils 4+ Gram Positive Bacilli 3+ Gram Positive Cocci Wound/Misc Culture PENDING * ML - MAIN LAB ([facility]) . END OF REPORT * ML=Testing performed at Main Lab DEPARTMENT OF PATHOLOGY, [address] [place] [address] Palmer Victoria M.D. Director [facility] # [id number] 26 SEE RESULT BELOW Name: DORA PATRICIO : [address]: Lincoln Mariano MD Acct: [id number] Unit: [id number] AGE: 35 Location: ED Re03/02/16 SEX: F Status: DEP ER SPEC: [id number] FALGUNI: 03/02/16 [facility] DR: Lincoln Mariano MD REQ: [id number] RECD: 03/02/16 STATUS: QUENTIN GIANG DR: Sai Patricio MD _ SOURCE: ABDOMEN SPDESC: ORDERED: MRSA/SA SSTI, Culture Stain Procedure Result Reported Site MRSA/S. aureus SSTI PCR Final 03/02/16- 1815 ML Organism 1 MRSA NEGATIVE Organism 2 S.AUREUS NEGATIVE Wound/Misc Gram Stain Final 03/02/16- 1701 ML 2+ Epithelial Cells 4+ Neutrophils 4+ Gram Positive Bacilli 3+ Gram Positive Cocci Wound/Misc Culture Final 03/05/16- 0923 ML Organism 1 ENTEROCOCCUS FAECALIS Quantity 2+ Organism 2 NORMAL TAHIR Quantity 2+ 1. ENTEROCOCCUS FAECALIS M.I.C. RX --------- ------ Ampicillin <=2 S Penicillin 2 S Ciprofloxacin <=0.5 S Erythromycin >=8 R Gentamicin High Level S Levofloxacin 1 S Linezolid 1 S Nitrofurantoin <=16 S * Quinupristin/Dalfopristin 4 R CONTINUED ON NEXT PAGE * ML=Testing performed at Main Lab DEPARTMENT OF PATHOLOGY, [address] [place] [address] Palmer Victoria M.D. Director [facility] # [id number] Patient: DORA PATRICIO [id number] (Continued) Specimen: [id number] Collected: 03/02/16 Received: 03/02/16 (Continued) Procedure Result Reported Site Wound/Misc Culture Final (continued) 03/05/16922 1. ENTEROCOCCUS FAECALIS (continued) M.I.CTamika RX --------- ------ * Streptomycin High Level S Tetracycline >=16 R Tigecycline <=0.12 S Vancomycin 1 S Imipenem-Deduced S * Ampicillin/Sulbactam-Deduced S * These antibiotics are not available in the [facility] Formulary Contact the Microbiology Department for any additional antibiotic reporting. * ML - MAIN LAB ([facility]) . END OF REPORT * ML=Testing performed at Main Lab DEPARTMENT OF PATHOLOGY, [address] [place] [address] Palmer Victoria M.D. Director [facility] # [id number] 27 Because ethnic data is not always readily [...] 15-29 5 Kidney failure <15 (or dialysis) 28 Acute inflammation: >10.00 29 [facility] Severe Sepsis and Septic Shock Management Bundle Measure requires all lactic acids initially measuring >2.0 mmol/L be repeated. 30 Acute inflammation: >10.00 31 Because ethnic data is not always readily [...] 15-29 5 Kidney failure <15 (or dialysis) 32 Because ethnic data is not always readily [...] 15-29 5 Kidney failure <15 (or dialysis) 33 Acute inflammation: >10.00 34 Because ethnic [...] 5 Kidney failure <15 (or dialysis) 35 Acute inflammation: >10.00 36 Because ethnic data is not always readily [...] 15-29 5 Kidney failure <15 (or dialysis) 37 Acute inflammation: >10.00 38 Because ethnic data is not always readily [...] 15-29 5 Kidney failure <15 (or dialysis) 39 Acute inflammation: >10.00 40 Because ethnic data is not always readily [...] 15-29 5 Kidney failure <15 (or dialysis) 41 Acute inflammation: >10.00 42 Because ethnic data is not always readily [...] 15-29 5 Kidney failure <15 (or dialysis) 43 Acute inflammation: >10.00 44 Munitions Handler: [id number] ELI COSTA 45 Munitions Handler: [id number] FAZAL MILLAN 46 Because ethnic data is not always readily [...] 15-29 5 Kidney failure <15 (or dialysis) 47 <5.0 Negative 5.0 - 25.0 Indeterminate (Repeat testing recommended after 72 hours) >25.0 Positive Perimenopausal women can display HCG levels of up to 20 mIU/mL 48 LEFT FOOT 49 SEE RESULT BELOW Name: DORA PATRICIO : [address]: Reina NGUYEN Acct: [id number] Unit: [id number] AGE: 35 Location: [facility] Re08/28/15 SEX: F Status: REG REF SPEC: [id number] FALGUNI: 08/27/15-[address]: Reina NGUYEN REQ: [id number] RECD: 08/28/15 STATUS: COMP _ SOURCE: MISC [...] performed at Main Lab DEPARTMENT OF PATHOLOGY, [address] [place] [address] Palmer Victoria M.D. Director [facility] # [id number] Patient: DORA PATRICIO [id number] (Continued) Specimen: [id number] Collected: 08/27/15 Received: 08/28/15 (Continued) Procedure Result [...] These antibiotics are not available in the [facility] Formulary Contact the Microbiology Department for any additional antibiotic reporting. * ML - MAIN LAB ([facility]) . END OF REPORT * ML=Testing performed at Main Lab DEPARTMENT OF PATHOLOGY, [address] [place] [address] Palmer Victoria M.D. Director [facility] # [id number] 50 Because ethnic data is not always readily [...] 15-29 5 Kidney failure <15 (or dialysis) 51 Acute inflammation: >10.00 52 [facility] Severe Sepsis and Septic Shock Management Bundle Measure requires all lactic acids initially measuring >2.0 mmol/L be repeated. 53 <5.0 Negative 5.0 - 25.0 Indeterminate (Repeat testing recommended after 72 hours) >25.0 Positive Perimenopausal women can display HCG levels of up to 20 mIU/mL 54 Consistent with previous results on 05/25/15. 55 Because ethnic data is not always readily [...] 15-29 5 Kidney failure <15 (or dialysis) 56 Microalbuminuria in a random sample is defined as: Microalbumin/Creatinine ratio of 30-299 ug/mg. 57 RESULT: Ectocervical/Endocervical 58 For types 16, 18, 31, 33, 35, 39, 45, 51, 52, 56, 58, 59 and 68. Test Performed by: [address] [address] Senior Materials Scientist: Ramon Campos III, M.D. 59 RUN DATE: 04/11/13 [facility] LAB LIVE PAGE 1 RUN TIME: [address] [place] [address] Specimen Inquiry Name: DORA PATRICIO : [address]: Priya Lora MD Acct: [id number] Unit: [id number] AGE: 33 Location: [facility] Re04/11/13 SEX: F Status: REG REF SPEC: [id number] FALGUNI: 04/11/13-0941 [facility] DR: Priya Lora MD REQ: [id number] RECD: 04/11/130 STATUS: SOUT _ ORDERED: IMAGE ANALYSIS, HPV/Thin Prep, HPV 16/18 GENE FINAL DIAGNOSIS Negative for Intraepithelial lesion or Malignancy COMMENTS: Specimen sent to [place] [employer] in [place], [place] on 04/11/13 by [id number] at 1509. Results will be reported separately. [...] was evaluated with the assistance of the Mobiquityp Test Imaging System. Due to cytologic findings at the thread cutter microscope, comprehensive manual rescreening by a Game Manager may be required. The Pap Smear is [...] performed at Main Lab DEPARTMENT OF PATHOLOGY, [address] [place] [address] Palmer Victoria M.D. Director [facility] Permit #[id number] RUN DATE: 04/12/13 [facility] LAB LIVE PAGE 1 RUN TIME: 0558 [address] [facility], [place], [place] [address] Specimen Inquiry Name: DORA PATRICIO : [address]: Priya Lora MD Acct: [id number] Unit: [id number] AGE: 33 Location: [facility] Re04/11/13 SEX: F Status: REG REF SPEC: [id number] FALGUNI: 04/11/13 [facility] DR: Priya Lora MD REQ: [id number] RECD: 04/11/13 STATUS: COMP _ SOURCE: THIN SPDESC: ORDERED: DAVIDSON/Cheryl RNA QUERIES: Medent Number [id number] Procedure Result Verified Site Chlamydia Trachomatis RNA [...] result may have adverse psychosocial impact, the [facility] recommends retesting by a method using an [...] performed at Main Lab DEPARTMENT OF PATHOLOGY, [facility] [employer] [place], [place] [address] Palmer Victoria M.D. Director [facility] Permit #[id number] RUN DATE: 04/12/13 [facility] LAB LIVE PAGE 2 RUN TIME: 1343 [facility] [employer] [place], [place] [address] Specimen Inquiry Patient: DORA PATRICIO [id number] (Continued) Specimen: [id number] Collected: 04/11/13 Received: 04/11/13 (Continued) Procedure Result Verified Site GC (N. gonorrhoeae) RNA Final (continued) 04/12/13- 1341 Performance characteristics for detecting C. trachomatis and N. gonorrhoeae are derived from high prevalence populations. Positive results in low prevalence populations should be interpreted carefully with the understanding that the likelihood of a false positive may be higher than a true positive. END OF REPORT * ML=Testing performed at Main Lab DEPARTMENT OF PATHOLOGY, [address] [place] [address] Palmer Victoria M.D. Director [facility] Permit #[id number] 61 Microalbuminuria in a random sample is defined as: Microalbumin/Creatinine ratio of 30-299 ug/mg. 62 HDL Interpretation: Undesirable: High Risk: Less than 40 MG/DL Desirable: Low Risk: Greater than 60 MG/DL 63 LDL Interpretation: Low Risk Optimal Level: LDL Less than 100 MG/DL Near or Above Optimal: LDL 100-129 MG/DL Borderline High Risk: LDL 130-159 MG/DL High Risk: LDL 160-189 MG/DL Very High Risk: LDL Greater than 189 MG/DL 64 Therapeutic target for the treatment of diabetes Mellitus patients is <7% HBA1C, and in selective patients <6.0%.Please refer to [place] [employer] Diabetic care guidelines for further information. 65 PT IS FASTING 66 RUN DATE: 09/19/11 [facility] NMI LIVE PAGE 1 RUN TIME: 1835 Specimen Inquiry RUN USER: INTERFACE Name: DORA PTARICIO Status: DIS IN Re09/14/11 Age/Sex: 31/F Unit#: [id number] Location: 4N : [birth year] SPEC #: [id number] FALGUNI: 09/14/11 STATUS: QUENTIN REQ #: [id number] RECD: 09/14/[address]: Raquel MORTON, Citlalli Holcomb SOURCE: BLOOD ENTR: 09/14/[address] [facility] [address]: Guido MORTON,Priya [facility]: BLOOD,VENO ORDERED: BLOOD CULTURE ACT WKST: 09/15/11 #1 Procedure Result Verified Site > AEROBIC CULTURE BOTTLE Final 09/19/11- 5 ML NO GROWTH AFTER 5 DAYS > ANAEROBIC CULTURE BOTTLE Final 09/19/11- 1834 ML NO GROWTH AFTER 5 DAYS - [facility] Permit #[id number] [facility] [address] DEPARTMENT OF PATHOLOGY, [facility] DATES [place], [place] [address] [facility] Permit #[id number] Palmer Victoria M.D. Director Vicki Brown M.D. Chemistry Manager 67 If is still suspected, please repeat test after 48 to 72 hours. . This test detects intact HCG only and is indicated for the early detection of . 68 Anion gap measurement may be of limited value in the presence of any alkalosis, especially in a combined acid base disorder. . 69 A metabolite of Naproxen, O-desmethylnaproxen, has been shown to interfere with the [place] method for measuring total bilirubin. Samples from patients who have taken Naproxen have shown spurious elevation in total bilirubin levels. 70 Because ethnic data is not always readily [...] 15-29 5 Kidney failure <15 (or dialysis) 71 Imm. NE 1 72 Anion gap measurement may be of limited value in the presence of any alkalosis, especially in a combined acid base disorder. . 73 A metabolite of Naproxen, O-desmethylnaproxen, has been shown to interfere with the Jendrassik-[place] method for measuring total bilirubin. Samples from patients who have taken Naproxen have shown spurious elevation in total bilirubin levels. 74 Because ethnic data is not always readily [...] 15-29 5 Kidney failure <15 (or dialysis) 75 CHOLESTEROL INTERPRETATION: Desirable: Less than 200 MG/DL Borderline-High Risk: 200-239 MG/DL High-Risk: 240 MG/DL and over 76 HDL INTERPRETATION: Undesirable: High Risk: Less than 40 MG/DL Desirable: Low Risk: Greater than 60 MG/DL 77 LDL INTERPRETATION: Low Risk Optimal Level: LDL Less than 100 MG/DL Near or Above Optimal: LDL 100-129 MG/DL Borderline High Risk: LDL 130-159 MG/DL High Risk: LDL 160-189 MG/DL Very High Risk: LDL Greater than 189 MG/DL 78 MICROALBUMINURIA IN A RANDOM SAMPLE IS DEFINED : MICROALBUMIN/CREATININE RATIO OF 30-299 ug/mg. . 79 Test Performed by: [facility] Dpt of Lab Med and Pathology [address] [place] [address] Senior Materials Scientist: Ramon Campos III, M.D. 80 Test Performed by: [facility] Dpt of Lab Med and Pathology [address] [place] [address] Senior Materials Scientist: Ramon Campos III, M.D. 81 Test Performed by: [facility] Dpt of Lab Med and Pathology [address] [place] [address] Senior Materials Scientist: Ramon Campos III, M.D. Procedures Date Code Description Status 03/31/2018 [id number] Diabetic Retinal Eye Exam Completed 11/05/2017 48198 Inject/Drain Joint/Bursa Major W/O US Completed 12/04/2015 18640 Debridement Skin,& sq Tissue Completed 11/13/2015 94897 Debridement Skin,& sq Tissue Completed 11/06/2015 61483 Debridement Skin,& sq Tissue Completed 10/30/2015 81251 Debridement Skin,& sq Tissue Completed 10/23/2015 62189 Debridement Skin,& sq Tissue Completed 08/29/2015 43418 Arthrotomy Metatarsophalangeal JT Completed 08/29/2015 73006 Arthrotomy Metatarsophalangeal JT Completed 07/27/2015 70616 Arthrotomy Metatarsophalangeal JT Completed 08/13/2012 [id number] Diabetic Retinal Eye Exam Completed 07/28/2011 564210321 Diabetic Foot Exam Completed 06/27/2011 [id number] Diabetic Retinal Eye Exam Completed Encounters Type Date Location Provider Dx Diagnosis Office Visit 11/05/2017 Orthopedic Kit Gutierrez MD S42.254D Nondisp fx of 2:15p Services [facility] [place] greater tuberosity of r humer, 7thD M75.41 Impingement syndrome of right shoulder Office Visit 07/16/2017 11:30a Orthopedic Pebbles Luis2.254D Nondisp fx of Services Of [facility] miguel Judd tuberosity of r humer, 7thD Office Visit 06/04/2017 1:30p Orthopedic Pebbles Luis2.254A Nondisp fx of Services Of [facility] greater C.M.A. tuberosity of right humerus, init Office Visit 05/28/2017 11:00a Orthopedic Kit Gutierrez, S46.011A Strain of Services Of MD latif/jacek the C.M.A. rotator cuff of right shoulder, init M25.521 Pain in right elbow S46.101A Unsp injury of musc/fasc/tend long hd bicep, right arm, init Office Visit 05/26/2017 10:45a Orthopedic Kit Gutierrez S46.011D Strain of Services [...] bicep, right arm, init Office Visit 02/24/2016 [facility] E11.9 Type 2 diabetes 3:54p Asszoltan claudio M.D. mellitus without Hospitalists complications Z79.4 [facility] (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 Office Visit 02/05/2016 8:29a Wound Care Edson Garcia M86.172 Other acute [facility] Sheri Fulton osteomyelitis, left ankle and foot E11.621 Type 2 diabetes mellitus with foot ulcer Office Visit 01/17/2016 2:21p Wound Care Edson Disla Type 2 diabetes Center AT [facility] Sheri Fulton mellitus with foot ulcer M86.172 Other acute osteomyelitis, left ankle and foot L97.521 Non-prs chronic ulcer oth prt l foot limited to brkdwn skin Office Visit 01/08/2016 11:22a Wound Care Edson Garcia E11Bassem Type 2 diabetes Center AT [facility] Sheri Fulton mellitus with foot ulcer M86.172 Other acute osteomyelitis, left ankle and foot L97.521 Non-prs chronic ulcer oth prt l foot limited to brkdwn skin Office Visit 12/27/2015 1:01p Wound Care Edson F. E11.621 Type 2 diabetes Center AT [facility] Sheri Fulton mellitus with foot ulcer M86.172 Other acute osteomyelitis, left ankle and foot L97.521 Non-prs chronic ulcer oth prt l foot limited to brkdwn skin Office Visit 12/13/2015 9:22a Wound Care Edson Garcia E11.621 Type 2 diabetes Center AT [facility] Sheri Fulton mellitus with foot ulcer M86.172 Other acute osteomyelitis, left ankle and foot Office Visit 11/29/2015 10:31a Wound Care Edson Garcia E11.621 Type 2 diabetes Center AT [facility] Sheri Fulton mellitus with foot ulcer M86.172 Other acute osteomyelitis, left ankle and foot L97.521 Non-prs chronic ulcer oth prt l foot limited to brkdwn skin Office Visit 11/20/2015 4:44p Wound Care Edson Garcia L97.521 Non-prs chronic Center AT [facility] Sheri Fulton ulcer oth prt l foot limited to brkdwn skin E11.621 Type 2 diabetes mellitus with foot ulcer M86.172 Other acute osteomyelitis, left ankle and foot Office Visit 10/29/2015 [facility] Jani Galindo M86.172 Other acute 3:00p For Infectious Wilfredo HirschD. osteomyelitis, left Diseases ankle and foot E11.621 Type 2 diabetes mellitus with foot ulcer B95.61 Methicillin suscep staph infct causing dis classd elswhr Z33.1 state, incidental Office Visit 10/23/2015 1:03p Wound Care Edson Garcia M86.172 Other acute Center AT [facility] Sheri Fulton osteomyelitis, left ankle and foot E11.621 Type 2 diabetes mellitus with foot ulcer Office Visit 10/11/2015 [facility] Jani Galindo M86.172 Other acute 4:00p For Infectious Wilfredo HirschD. osteomyelitis, left Diseases ankle and foot B95.1 Streptococcus, group B, causing diseases classd elswhr B95.61 Methicillin suscep staph infct causing dis classd elswhr Z33.1 state, incidental Office Visit 09/20/2015 [facility] Jani Galindo M86.172 Other acute 4:00p For Infectious Wilfredo HirschD. osteomyelitis, left Diseases ankle and foot E11.621 Type 2 diabetes mellitus with foot ulcer B95.1 Streptococcus, group B, causing diseases classd elswhr B95.61 Methicillin suscep staph infct causing dis classd elswhr Z33.1 state, incidental Office Visit 08/31/2015 3:25p [facility] Emelyn Rojas, E11.621 Type 2 Assoc,zoltan Wade diabetes Hospitalists mellitus with foot ulcer I10 Essential (primary) hypertension E11.65 Type 2 diabetes mellitus with hyperglycemia L02.612 Cutaneous abscess of left foot Office Visit 08/30/2015 [facility] Jani Galindo E11.69 Type 2 diabetes 12:04p [...] state, incidental Office Visit 08/30/2015 3:25p [facility] Sai E11.621 Type 2 Assoc,zoltan Patricio M.D. diabetes Hospitalists mellitus with foot ulcer I10 Essential (primary) hypertension E11.65 Type 2 diabetes mellitus with hyperglycemia L02.612 Cutaneous abscess of left foot Office Visit 08/29/2015 3:23p [facility] Sai I10 Essential Assoc,zoltan Patricio M.D. (primary) Hospitalists hypertension E11.621 Type 2 diabetes mellitus with foot ulcer E11.65 Type 2 diabetes mellitus with hyperglycemia L02.612 Cutaneous abscess of left foot Office Visit 08/08/2015 4:20p [facility] Augusto Galindo L02.612 Cutaneous Infectious Joycelyn MTamikaD. abscess of left Diseases foot Z33.1 state, incidental B95.61 Methicillin suscep staph infct causing dis classd elswhr Office Visit 07/30/2015 9:25a [facility] Augusto Galindo L02.612 Cutaneous Infectious Joycelyn MTamikaD. abscess of left Diseases foot E11.40 Type 2 diabetes mellitus with diabetic neuropathy, unsp Z33.1 state, incidental B95.61 Methicillin suscep staph infct causing dis classd elswhr Office Visit 07/29/2015 1:09p [facility] Sai E11.621 Type 2 Asszoltan claudio M.D. diabetes Hospitalists mellitus with foot ulcer Z3A.01 Less than 8 weeks gestation of I10 Essential (primary) hypertension Z72.0 Tobacco use Office Visit 07/28/2015 1:09p [facility] Sai E11.621 Type 2 Asszoltan claudio M.D. diabetes Hospitalists mellitus with foot ulcer Z3A.01 Less than 8 weeks gestation of I10 Essential (primary) hypertension Z72.0 Tobacco use Office Visit 07/27/2015 12:47p [facility] Mark Anthony E11.621 Type 2 Asszoltan claudio, N.PTamika diabetes Hospitalists mellitus with foot ulcer I10 Essential (primary) hypertension Z3A.01 Less than 8 weeks gestation of Office Visit 07/27/2015 11:20a Eliezer Gibbs L03.116 Cellulitis of Services Of Sheri Elizondo left lower limb C.M.A. S91.332A Puncture wound without foreign body, left foot, init encntr Office Visit 07/26/2015 1:20p [facility] Jani Galindo L03.116 Cellulitis of For Mark Hirsch M.D. left lower limb Diseases G62.9 Polyneuropathy, unspecified S91.332A Puncture wound without foreign body, left foot, init encntr Z33.1 state, incidental Office Visit 07/25/2015 Eliezer Gibbs S91.332D Puncture wound 2:50p [facility] without foreign C.M.A. body, left foot, subs encntr Office Visit 07/18/2015 Eliezer Gibbs S91.332A Puncture wound 1:35p [facility] without foreign C.M.A. body, left foot, init encntr Office Visit 05/25/2015 [facility] Internal Sai E11.9 Type 2 diabetes 8:00a Yahaira Patricio M.D. mellitus without [place] complications I10 Essential (primary) hypertension D64.9 Anemia, unspecified F17.200 Nicotine dependence, unspecified, uncomplicated Office Visit 05/20/2015 [facility] Sai R73.9 Hyperglycemia, 10:41a Assoc,zoltan [place], M.D. unspecified Hospitalists I10 Essential (primary) hypertension E11.9 Type 2 diabetes mellitus without complications Office Visit 08/02/2013 8:40a [facility] Internal Priya Lora, 250.90 Diabetes W / Medicine - M.D. 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 Mellitus W/O [place] Compl Type II Or Unspec Type Uncontrol 305.1 Tobacco Use Disorder Office Visit 07/07/2012 9:40a [facility] Samuel Lora, 250.02 Diabetes Medicine - M.D. Mellitus W/O [place] Compl Type II Or Unspec Type Uncontrol 695.3 Rosacea 305.1 Tobacco Use Disorder Office Visit 03/22/2012 8:40a [facility] Samuel Lora, 250.02 Diabetes Medicine - M.D. Mellitus W/O [place] Compl Type II Or Unspec Type Uncontrol 305.1 Tobacco Use Disorder Office Visit 12/22/2011 10:40a [facility] Samuel Lora, 250.02 Diabetes Mellitus Medicine - M.D. W/O Compl Type II [place] Or Unspec Type Uncontrol Office Visit 10/03/2011 10:40a [facility] Internal Nurse Visit A 682.6 Cellulitis & Medicine - Abscess Leg [place] Except Foot 686.8 Local Infection Skin & Subcutaneous Tissue Other Spec Office Visit 09/29/2011 10:40a [facility] Internal Nurse Visit A 682.6 Cellulitis & Medicine - Abscess Leg Except [place] Foot 686.8 Local Infection Skin & Subcutaneous Tissue Other Spec Office Visit 09/26/2011 10:40a [facility] Samuel Lora, 682.6 Cellulitis & Medicine - M.D. Abscess Leg [place] Except Foot Office Visit 09/24/2011 10:40a [facility] Internal Nurse Visit A 682.6 Cellulitis & Medicine - Abscess Leg [place] Except Foot 686.8 Local Infection Skin & Subcutaneous Tissue Other Spec Office Visit 09/22/2011 10:40a [facility] Internal Nurse Visit A 682.6 Cellulitis & Medicine - Abscess Leg Except [place] Foot 686.8 Local Infection Skin & Subcutaneous Tissue Other Spec Office Visit 09/19/2011 1:40p [facility] Internal Priya Lora, 682.6 Cellulitis & Medicine - M.D. Abscess Leg [place] Except Foot 686.8 Local Infection Skin & Subcutaneous Tissue Other Spec 250.90 Diabetes W/ Unspec Compl Type II Or Unspec Controlled Office Visit 09/17/2011 1:40p [facility] Internal Nai Thompson, 686.8 Local Infection Medicine - N.P. Skin & [place] Subcutaneous Tissue Other Spec Office Visit 09/10/2011 11:40a [facility] Internal Priya Lora, 250.02 Diabetes Mellitus Medicine - M.D. W/O Compl Type II [place] Or Unspec Type Uncontrol 305.1 Tobacco Use Disorder Office Visit 08/08/2011 10:40a [facility] Internal Priya Lora, 250.02 Diabetes Medicine - M.D. Mellitus W/O [place] Compl Type II Or Unspec Type Uncontrol 305.1 Tobacco Use Disorder Office Visit 07/21/2011 10:00a [facility] Internal Nai Thompson, 566 Abscess Of Anal Medicine - N.P. & Rectal Regions [place] Office Visit 07/04/2011 11:20a [facility] Internal Priya Lora, 250.02 Diabetes Medicine - M.D. Mellitus W/O [place] Compl Type II Or Unspec Type Uncontrol 305.1 Tobacco Use Disorder Office Visit 06/20/2011 11:00a [facility] Internal Priya Lora, 250.02 Diabetes Medicine - M.D. Mellitus W/O [place] Compl Type II Or Unspec Type Uncontrol 401.9 Hypertension Unspec 305.1 Tobacco Use Disorder Office Visit 06/06/2011 2:20p [facility] Internal Priya Lora, 250.02 Diabetes Medicine - M.D. Mellitus W/O [place] Compl Type II Or Unspec Type Uncontrol 401.9 Hypertension Unspec 704.1 Hirsutism 305.1 Tobacco Use Disorder Plan of Treatment Future Appointment(s):04/29/2018 9:40 am - Clementine Plata MD at [facility] Internal Medicine - [place]14/17/2019 - Clementine Plata, MDR11.2 Nausea with vomiting, unspecifiedNew Medication:Prochlorperazine 25 mg - use one suppository every 6- 8 hours as neededSulfamethoxazole/Trimethoprim DS 800-160 mg - take one tablet every 12 hoursComments:WBC count continues to be high. Concern for infection causing her symptoms. Most likely source is UTI. Will treat with bactrim that she has taken before without any side effects. She will continue to keep herself well hydrated . BP better today but continues to be tachycardic. Will refill the suppositories. She will be followed closely. Discussed ER precautionsFollow up:F/U next weekE11.69 Type 2 diabetes mellitus with other specified complicationNew Labs:Glucose, Ordered: 04/22/18
[2018-05-20 08:26] LABS: ABS Basophils 0.1 10^3/ul (0-0.2); ABS Eosinophils 0 10^3/ul (0-0.6); ABS Lymphocytes 2.5 10^3/ul (1.0-4.8); ABS Monocytes 0.7 10^3/ul (0-0.8); ABS Neutrophils 16.1 10^3/ul (1.5-7.7); ABS Nucleated RBC 0 10^3/ul; Eosinophil % 0.2 %; Hematocrit 47 % (35-47); Hemoglobin 15.8 g/dl (12.0-16.0); Mean Corpuscular HGB Conc 34 g/dl (31-36); Mean Corpuscular Hemoglobin 30 pg (27-31); Mean Corpuscular Volume 88 fL (80-97); Nucleated Red Blood Cells % 0.1; Platelet Count 270 10^3/ul (150-450); Red Blood Count 5.29 10^6/ul (4.00-5.40); Red Cell Distribution Width 15 % (10.5-15); White Blood Count 19.4 10^3/ul (3.5-10.8)
[2018-05-20] MEDS: NS 0.9% 1000 ML** 1,000 ML IV ONE ×2 (08:26→08:45)
--- OUTSIDE RECORDS SUMMARY | 2018-05-20 08:26 | XMS REPORT | Continuity of Care Document ---
:1980 External Reference #:[id number] Author Name Radha Castillo Care Team Providers Name Role Phone Abhishek Martin III, MD Primary Care Physician Unavailable Payers Type Date Identification Numbers Payment Provider Subscriber Policy Number: [id number] Karl Patricio PayID: [id number] [address] [place] [phone] Effective: 2017 Policy Number: [id number] Medicaid Dora Patricio Expires: 2017 Group Name: 1 1 [address] PayID: [id number] [place] [address] Expires: 2017 PayID: [id number] Karl Patricio [address] [place] [phone] Advance Directives Description No Information Available Problems [...] Unknown Lives With boyfriend and son Occupation [employer] 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 smoker, smokes every Been smoking for 12 day yrs. Tobacco Use Start: Unknown End: Patient is a former Pt quit 5 weeks Unknown smoker ago. Smoking Status Reviewed: 04/21/18 Patient is a former Pt quit 5 weeks smoker ago. Exercise Type/Frequency Exercises regularly Allergies, Adverse Reactions, Alerts Description No Known Drug Allergies Medications Medication Date Status Form Strength Qnty SIG Indications Ordering Provider Prochlorperazine 04/21 Active Suppository 25mg 3unit Use one R11.2 [facility] s suppositor MD Boni y every 6-8 hours as needed Blood Glucose 04/21 Active Kit W/Device 1unit use as E11.69 [employer] Monitoring System s directed MD Boni Glipizide [...] Hx Tablets 800-160mg 14tab take 1 by keila s mouth Matt, - twice 06/02 daily x days Percocet 05/14 Hx Tablets 5-325mg 14tab take 1 S46.011D s tabs as Matt, - needed for 04/06 pain every 12 hours. do not combine with tylenol Cephalexin 10/28 Hx Capsules 500mg 42cap take one M86.172 Jani s capsule by D. - mouth Macquehermilo, 04/06 three M.D. /2017 times a day Cephalexin 10/10 Hx Capsules 500mg 42cap take one M86.172 Jani s capsule by D. - mouth Macquehermilo, 10/25 three M.D. times a day Oxycodone HCL 08/30 Hx Capsules 5mg 40cap 1-2 tabs s by mouth Mikhail, - every 4-6 M.D. 09/19 hours needed pain Pen [place] 06/19" 08/19 Hx Misc 31G X 5 100un use with mm its lantus Sheng, subq M.D. everyday Lantus Solostar 07/29 Hx Solution 100Unit/M 30ml 25 units Pen-Inject L subcutaneo Sheng, usly daily M.D. Clindamycin HCL 07/25 Hx Capsules 300mg 21cap 1 tabs by L03.116 s mouth 3 D. - times a Macqueen, 08/06 day M.D. Keflex 07/17 Hx Capsules 500mg 28cap 1 tab by S91.332A s mouth four Mikhail, - times a M.D. Onetouch Ultra 05/30 Hx Kit W/Device 1unit use daily Maia System s to test Shailesh, - glucose M.D. 04/06 Onetouch 05/30 Hx Misc 100un use daily E11.65 Maia Ultrasoft Lanc its or as Cash, - directed M.D. 04/06 Onetouch Ultra 05/30 Hx Strips 100un test daily E11.65 Maia Blue its or as Cash, - needed M.D. 04/06 E11. Ferrous Gluconate 05/29 Hx Tablets 324(38Fe) 60tab 1 tab by mg s mouth Sheng, - twice a M.D. Glyburide 05/25 Hx Tablets 5mg 1 tab oral Sai daily Hope, - M.D. 05/25 Losartan 05/25 Hx Tablets 25mg 30tab 1 tab oral Maia Potassium s daily Shailesh, - M.D. 08/06 Glyburide 05/25 Hx Tablets 5mg 60tab 1 tab by E11.9 Maia s mouth Shailesh, - twice a M.D. 08/06 day /2016 Rogaine 08/02 Hx Solution 2% 60ml Apply 1 ml 704.9 topically Guido, - to M.D. 06/03 affected area 2 times per day for loss of scalp hair Chantix Starting 04/11 Hx Tablets 0.5mg X QS take as 305.1 Priya 11 & 1 mg directed Kathrine Lora X 42 M.D. 05/12 Bupropion HCL SR [...] 1unit Please Priya Blood Glucose s check uGido, Monitoring System - fasting M.D. 05/30 blood sugar daily Nicotine 09/09 Hx Gum 2mg 100un chew 1 305.1 Polacrilex its piece by Guido, - mouth for M.D. 09/09 30 minute as needed for smoking cessation Glipizide XL [...] E11.65 Sai Blood Glucose its strip as Hope Test Strips - needed for M.D. 05/30 testing Jessica Microlet 06/19 Hx Misc 100un please E11.65 Maia Lancets its check Shailesh - blood M.D. 05/30 sugar fasting daily Losartan 06/19 Hx Tablets 25mg 30tab 1 by mouth 401.9 Maia Potassium s every day Shailesh, - needs to M.D. 05/25 be seen /2015 for furthur refills Blood Pressure 06/19 Hx Kit 1unit I10 Priya Kit s Kathrine Lora M.D. 05/25 Lisinopril 06/05 Hx Tablets 5mg 30tab take 1 401.9 Priya s tablet Guido, - orally M.D. 06/19 once a day Metformin HCL 06/05 Hx Tablets 1000mg 180ta 1 po bid 250.02 bs Kathrine Lora M.DTamika 07/03 Aspirin Ec 06/[address] 81mg 90tab 1 by mouth s every day Sheng - M.DTamika 08/07 Cephalexin 00 Hx Capsules 500mg 21cap take one / s capsule a - day four 08/07 times day Ibuprofen Hx Tablets 800mg 90tab po tid prn Unknown / s - 08/07 Sulfamethoxazole/ Hx Tablets 800-160mg 20tab 1 po bid Unknown Trimethoprim DS /0000 s - 08/07 Amoxicillin/Potas 0000 Hx Tablets 875-125mg 20tab 1 po every Unknown sium Clavulanate /0000 s 12hrs - 12/21 Glimepiride 00/ Hx Tablets 5mg 1 by mouth Unknown /0000 every day - 05/25 Clindamycin HCL 00/00 Hx Capsules 150mg 1 capsule Unknown /0000 by mouth - four times 07/25 a day x's /2015 15 days Cephalexin 00/ Hx Capsules 500mg 1 po qid Unknown /0000 - 08/14 Labetalol HCL 00 Hx Tablets 100mg 60tab 1 tab Sai / s twice Hope, daily M.D. Vol-Plus Hx Tablets 27-1mg - 04/06 Humalog Kwikpen Hx Solution 100Unit/M sliding Pen-Inject L scale Cefazolin Sodium Hx Solution 1gm 2 gm iv Unknown Rec every 8 - hours 10/09 through advanced [facility] infusion Idosorb Hx apply to wound once per day Medications Administered in Office Medication Date Status Form Strength Qnty SIG Indications Ordering Provider Triamcinolone 11/05/ Administered Injection Zaneb (Kenalog) 2017 MD Matt Immunizations Description No Information Available Vital Signs Date Vital Result Comment 04/21/2018 2:36pm Height 67 inches 5'7" Weight [...] Date Facility Test Result H/L Range Note Urine Culture And 04/19/2018 [facility] Urine Culture SEE RESULT [address] [place] [address] [phone] Laboratory test 04/19/2018 [facility] HCG < 0.[address] mIU/[place] [address] [phone] Hemoglobin A1c (Glyco HGB) 11.2 % High 4.0-5.6 3 Urinalysis Profile 04/19/2018 [facility] Urine Appearance Cloudy [address] [place] [address] [phone] Urine Specific [place] 1.026 N 1.010-1.030 Urine pH 9.0 N [...] Absent Urine Color Cara Laboratory test 04/19/2018 [facility] Magnesium 1.9 mg/dL N 1.9-2.[address] [place] [address] [phone] Lipase 42 U/L N 11.0-82.0 Creatine Kinase(CK) 39 U/L N 10-223 C Reactive Protein 4.27 mg/L N <8.01 Lactic Acid 3.0 mmol/L High 0.5-2.0 4 Ammonia 47 mcmol/L N 16-53 B-Type Natriuretic Peptide BNP 14 pg/mL <=100 Laboratory test 04/19/2018 [facility] Point of Care 229 mg/dL High 70-100 5 finding [address] [place] [address] [phone] Laboratory test 04/19/2018 [facility] Lactic Acid 1.2 mmol/L N 0.5-2.[address] [place] [address] [phone] Laboratory test 04/19/2018 [facility] Point of Care 356 mg/dL High 70-[address] [place] [address] [phone] Comp Metabolic 04/19/2018 [facility] Sodium 133 mmol/L Low 135 -145 Panel [address] [place] [address] [phone] Potassium 3.2 mmol/L Low 3.5-5.0 Chloride 96 [...] Egfr Non- 87.8 >60 Egfr 106.3 >60 8 Laboratory test 04/19/2018 [facility] Troponin-I 0.00 ng/mL < 0.04 9 finding 101 (TnI) [place] [address] [phone] Arterial Blood 04/19/2018 [facility] PH Arterial 7.45 N 7.35- 7.45 Gas [address] [place] [address] [phone] Pco2 Arterial 36 mmHg N 35-45 Po2 Arterial 90 mmHg N 80-100 O2 Saturation Arterial 98.8 % High 94.0-98.0 Base Excess Arterial 1.3 mmol/L N -2.0-2.0 10 Hco3 Arterial 25.9 mmol/L N 19-31 CBC Auto 04/19/2018 [facility] White Blood 13.0 10^3/uL High 3.5-10.[address] [place] [address] [phone] Red Blood Count 5.33 10^6/uL N 4.00-5.40 [...] % Nucleated Red Blood Cells % 0.1 CBC Auto 04/15/2018 [facility] White Blood 25.0 10^3/uL High 3.5-10.[address] [place] [address] [phone] Red Blood Count 5.76 10^6/uL High 4.00-5.40 [...] Blood Cells % 0.1 Laboratory test 04/15/2018 [facility] Magnesium 1.9 mg/dL N 1.9-2.7 finding [address] [place] [address] [phone] Lipase 42 U/L N 11.0-82.0 C Reactive Protein 7.09 mg/L N <8.01 HCG < 0.60 mIU/mL 11 Comp Metabolic Panel 04/15/2018 [facility] Sodium 136 mmol/L N 135-145 [address] [place] [address] [phone] Potassium 3.6 mmol/L N 3.5-5.0 Chloride 93 [...] Egfr Non- 68.3 >60 Egfr 82.7 >60 12 Laboratory test 04/15/2018 [facility] Lactic Acid 4.0 mmol/L High 0.5-2.0 13 finding [address] [place] [address] [phone] Laboratory test 04/15/2018 [facility] Lactic Acid 0.4 mmol/L Low 0.5-2.0 [address] [place] [address] [phone] Laboratory test 04/14/2018 [facility] Point of 240 mg/dL High 70-100 15 finding 101 [facility] [place] [address] [phone] Laboratory test 04/14/2018 [facility] Point of 344 mg/dL High 70-100 [address] [place] [address] [place] [address] [phone] Laboratory test 04/14/2018 [facility] Point of 373 mg/dL High 70-100 [address] [place] [address] [place] [address] [phone] CBC Auto Diff 04/14/2018 [facility] White Blood 14.3 High 3.5- 10.8 [address] [facility] Count 10^3/[place] [address] [phone] Red Blood Count 5.99 10^6/uL High 4.00-5.40 [...] Blood Cells % 0.1 Laboratory test 04/14/2018 [facility] B-Type 39 pg/mL <=[address] [place] [address] Peptide BNP [phone] Troponin-I (TnI) 0.00 ng/mL <0.04 18 Comp Metabolic Panel 04/14/2018 [facility] Sodium 137 mmol/L N 135-[address] [place] [address] [phone] Potassium 4.3 mmol/L N 3.5-5.0 Chloride 100 [...] Egfr Non- 67.5 >60 Egfr 81.6 >60 19 Laboratory test 04/14/2018 [facility] Magnesium 2.0 mg/dL N 1.9-2.7 finding [address] [place] [address] [phone] Lipase 35 U/L N 11.0-82.0 Creatine Kinase(CK) 44 U/L N 10-223 C Reactive Protein 3.78 mg/L N <8.01 HCG < 0.60 mIU/mL 20 Lactic Acid 3.2 mmol/L High 0.5-2.0 21 Urinalysis Profile 04/14/2018 [facility] Urine Color Yellow [address] [place] [address] [phone] Urine Appearance Clear Urine Specific [place] 1.024 N 1.010-1.030 Urine pH 7.0 N 5-9 Urine Urobilinogen Negative Negative Urine Ketones 2+ Abnormal Negative Urine Protein Negative Negative Urine Leukocytes Negative Negative Urine Blood Negative Negative Urine Nitrite Negative Negative Urine Bilirubin Negative Negative Urine Glucose 3+(>=500 mg/dL) Abnormal Negative Laboratory test 12/15/2017 [facility] Cytology SEE RESULT [address] [place] [address] [phone] Laboratory test 12/13/2017 [facility] Poc Negative Negative [address] , [place] [address] Urine [phone] Wound 03/02/2016 [facility] Wound/Misc SEE RESULT 24 Culture/Sensi [address] [place] [address] Stain [phone] Laboratory test 03/02/2016 [facility] MRSA/S. SEE RESULT [address] [place] [address] PCR [phone] CBC Auto Diff 03/02/2016 [facility] White Blood 15.2 10^3/uL High 3.5-10.[address] [place] [address] [phone] Red Blood Count 4.26 10^6/uL N 4.0-5.4 [...] % 0.1 N Comp Metabolic Panel 03/02/2016 [facility] Sodium 138 mmol/L N 133-[address] [place] [address] [phone] Potassium 4.0 mmol/L N 3.5-5.0 Chloride 105 [...] 113.8 N >60 Egfr 146.3 N >60 26 Laboratory test 03/02/2016 [facility] C Reactive 65.08 mg/L High < 5.[address] [place] [address] [phone] Lactic Acid 1.3 mmol/L N 0.5-2.0 28 Laboratory test 10/25/2015 [facility] C Reactive 7.72 mg/L High < 5.[address] [place] [address] [phone] Comp Metabolic 10/25/2015 [facility] Sodium 134 N 133-[address] mmol/[place] [address] [phone] Potassium 4.2 mmol/L N 3.5-5.0 Chloride 103 [...] 111.6 N >60 Egfr 143.5 N >60 30 CBC Auto 10/25/2015 [facility] White Blood 17.0 10^3/uL High 3.5-10.[address] [place] [address] [phone] Red Blood Count 4.45 10^6/uL N 4.0-5.4 [...] % 0 N Comp Metabolic Panel 10/10/2015 [facility] Sodium 131 mmol/L Low 133-[address] [place] [address] [phone] Potassium 3.9 mmol/L N 3.5-5.0 Chloride 100 [...] 118.3 N >60 Egfr 152.1 N >60 31 Laboratory test 10/10/2015 [facility] C Reactive 9.07 mg/L High < 5.00 [address] [place] [address] [phone] CBC Auto Diff 10/10/2015 [facility] White Blood 16.8 High 3.5- 10.[address] Count 10^3/[place] [address] [phone] Red Blood Count 4.24 10^6/uL N 4.0-5.4 [...] Cells % 0 N CBC Auto 10/03/2015 [facility] White Blood 16.3 10^3/uL High 3.5-10.[address] [place] [address] [phone] Red Blood Count 4.44 10^6/uL N 4.0-5.4 [...] % 0 N Comp Metabolic Panel 10/03/2015 [facility] Sodium 134 mmol/L N 133-[address] [place] [address] [phone] Potassium 3.9 mmol/L N 3.5-5.0 Chloride 103 [...] 123.2 N >60 Egfr 158.4 N >60 33 Laboratory test 10/03/2015 [facility] C Reactive 9.21 mg/L High < 5.00 [address] [place] [address] [phone] Comp Metabolic 09/26/2015 [facility] Sodium 133 N 133-[address] mmol/[place] [address] [phone] Potassium 4.1 mmol/L N 3.5-5.0 Chloride 103 [...] 134.2 N >60 Egfr 172.6 N >60 35 Laboratory test 09/26/2015 [facility] C Reactive 7.36 mg/L High < 5.00 [address] [place] [address] [phone] CBC Auto Diff 09/26/2015 [facility] White Blood 18.2 High 3.5- 10.[address] Count 10^3/[place] [address] [phone] Red Blood Count 4.50 10^6/uL N 4.0-5.4 [...] % 0.1 N Comp Metabolic Panel 09/19/2015 [facility] Sodium 133 mmol/L N 133-[address] [place] [address] [phone] Potassium 4.2 mmol/L N 3.5-5.0 Chloride 102 [...] 143.7 N >60 Egfr 184.8 N >60 37 Laboratory test 09/19/2015 [facility] C Reactive 10.04 mg/L High < 5.00 [address] [place] [address] [phone] CBC Auto Diff 09/19/2015 [facility] White Blood 18.2 High 3.5- 10.[address] Count 10^3/[place] [address] [phone] Red Blood Count 4.96 10^6/uL N 4.0-5.4 [...] Cells % 0 N CBC Auto 09/12/2015 [facility] White Blood 15.9 10^3/uL High 3.5-10.[address] [place] [address] [phone] Red Blood Count 4.71 10^6/uL N 4.0-5.4 [...] % 0.1 N Comp Metabolic Panel 09/12/2015 [facility] Sodium 132 mmol/L Low 133-[address] [place] [address] [phone] Potassium 4.3 mmol/L N 3.5-5.0 Chloride 102 [...] 107.5 N >60 Egfr 138.3 N >60 39 Laboratory test 09/12/2015 [facility] C Reactive 6.19 mg/L High < 5.00 [address] [place] [address] [phone] Comp Metabolic 09/04/2015 [facility] Sodium 134 N 133-[address] mmol/[place] [address] [phone] Potassium 4.0 mmol/L N 3.5-5.0 Chloride 100 [...] 92.2 N >60 Egfr 118.5 N >60 41 Laboratory test 09/04/2015 [facility] C Reactive 17.03 mg/L High < 5.00 [address] [place] [address] [phone] CBC Auto Diff 09/04/2015 [facility] White Blood 13.5 High 3.5- 10.[address] Count 10^3/uL [place], [place] [address] [phone] Red Blood Count 4.63 10^6/uL N 4.0-5.4 [...] Cells % 0.1 N Laboratory test 08/29/2015 [facility] Point of 219 mg/dL High 74-106 43 finding [address] [facility] [place] [address] [phone] Laboratory test 08/29/2015 [facility] Point of 276 mg/dL High 74-106 44 finding [address] [facility] [place] [address] [phone] Basic Metabolic 08/28/2015 [facility] Sodium 133 mmol/L N 133- 145 Panel [address] [place] [address] [phone] Potassium 3.6 mmol/L N 3.5-5.0 Chloride 103 mmol/L N 101-111 Co2 Carbon Dioxide 22 mmol/L N 22-32 Anion Gap 8 mmol/L N 2-11 Glucose 197 mg/dL High 70-100 Blood Urea Nitrogen 7 mg/dL N 6-24 Creatinine 0.65 mg/dL N 0.51-0.95 BUN/Creatinine Ratio 10.8 N 8-20 Calcium 9.3 mg/dL N 8.6-10.3 Egfr Non- 103.7 N >60 Egfr 133.4 N >60 45 Laboratory test 08/28/2015 [facility] HCG 19071.00 N [address] mIU/[place] [address] [phone] CBC Auto Diff 08/28/2015 [facility] White Blood 17.9 10^3/uL High 3.5-[address] Count 0.8 [place] [address] [phone] Red Blood Count 5.11 10^6/uL N 4.0-5.4 [...] Blood Cells % 0 N Wound 08/27/2015 [facility] Wound/Misc SEE 47, 48 Culture/Sensi [address] [place] [address] Stain BELOW [phone] CBC Auto Diff 08/01/2015 [facility] White Blood 11.5 High 3.[address] Count 10^3/uL -10 [place] [address] .8 [phone] Red Blood Count 5.01 10^6/uL N 4.0-5.4 [...] % 0 N Comp Metabolic Panel 08/01/2015 [facility] Sodium 134 mmol/L N 133-[address] [place] [address] [phone] Potassium 4.0 mmol/L N 3.5-5.0 Chloride 99 [...] 81.6 N >60 Egfr 105.0 N >60 49 Laboratory test finding 08/01/2015 [facility] Lipase 48 U/L N 11.0-82.[address] [place] [address] [phone] C Reactive Protein 9.42 mg/L High < 5.00 50 Partial Thrombo Time PTT 32.5 seconds N 26.0-36.3 Lactic Acid 0.9 mmol/L N 0.5-2.0 51 HCG 92703.00 mIU/mL N 52 Urinalysis Profile 08/01/2015 [facility] Urine Color Straw N [address] [place] [address] [phone] Urine Appearance Clear N Urine Specific [place] 1.006 Low 1.010-1.030 Urine pH 6.0 N 5-9 Urine Urobilinogen Negative N Negative Urine Ketones Negative N Negative Urine Protein Negative N Negative Urine Leukocytes Negative N Negative Urine Blood Negative N Negative Urine Nitrite Negative N Negative Urine Bilirubin Negative N Negative Urine Glucose 2+(150 mg/dL) Abnormal Negative CBC Auto 05/28/2015 [facility] White Blood 14.2 10^3/uL High 3.5-10.[address] [place] [address] [phone] Red Blood Count 3.32 10^6/uL Low 4.0-5.4 [...] 7.4-10.4 Abs Neutrophils 9.4 10^3/uL High 1.5-7.7 53 Abs Lymphocytes 3.9 10^3/uL N 1.0-4.8 Abs [...] 0.2 N Iron & Iron Binding 05/28/2015 [facility] Iron 24 g/dL Low 50-212 Capacity [address] [place] [address] [phone] Unsaturated Iron Binding 347 g/dL N Total Iron Binding Capacity 371 g/dL N 250-450 % Iron Saturation 6 % Low 15-55 Laboratory test 05/28/2015 [facility] Ferritin 21.1 ng/mL N 11 -307 finding [address] [place] [address] [phone] Retic Count 05/28/2015 [facility] Retic Count 6.5 % High 0.5- 1.5 [address] [place] [address] [phone] Corrected Retic Count 4.3 % High 0.5-1.5 Maturation Factor Retic 1.5 N Retic Index 2.90 N Mean Retic Volume 108.4 N Immature Retic Fraction 0.52 N RBC Retic Count 3.32 10^6/uL Low 4.6-6.2 Hematocrit for Retic CNT 30 % Low 35-47 Basic Metabolic Panel 05/25/2015 [facility] Sodium 138 mmol/L N 133-145 [address] [place] [address] [phone] Potassium 3.9 mmol/L N 3.5-5.0 Chloride 103 mmol/L N 101-111 Co2 Carbon Dioxide 30 mmol/L N 22-32 Anion Gap 5 mmol/L N 2-11 Glucose 183 mg/dL High 70-100 Blood Urea Nitrogen 8 mg/dL N 6-24 Creatinine 0.67 mg/dL N 0.51-0.95 BUN/Creatinine Ratio 11.9 N 8-20 Calcium 9.1 mg/dL N 8.6-10.3 Egfr Non- 100.2 N >60 Egfr 128.8 N >60 54 CBC Auto 05/25/2015 [facility] White Blood 13.7 10^3/uL High 3.5-10.8 Diff [address] [facility] Count [place], [place] [address] [phone] Red Blood Count 3.20 10^6/uL Low 4.0-5.4 [...] Cells % 0.1 N Urine Microalbumin 05/25/2015 [facility] Ur Microalbumin 14.0 mg /L N Random [address] (mg/L) [place], [place] [address] [phone] Urine Creatinine 359.60 mg/dL N Urine Microalbumin/Creatinine 3.8 ug/mg N <31 Laboratory test 05/25/2015 [facility] Hemoglobin A1c 10.4 High 5-7 finding Laboratory test 08/02/2013 [facility] Hemoglobin A1c 6.5 5-7 finding Urine Microalbumin 08/02/2013 [facility] Ur Microalbumin 5.0 mg/ dL N <30 [address] (mg/L) [place] [address] [phone] Urine Creatinine 99.55 mg/dL N Urine Microalbumin/Creatinine 5.0 N Less Than 31 Laboratory test 04/11/2013 [facility] Cytology RUN DATE: [address] <[place] [address] NOTE> [phone] GC/Chlamydia 04/11/2013 [facility] GC/Chlamydia Rna (SEE NOTE) 57 Amplified Rna [address] [place], [place] [address] [phone] Human Papilloma 04/11/2013 [facility] Human See Comment [address] [place] [address] Source [phone] Human Papillomavirus High Risk Negative Negative 59 Laboratory test 04/11/2013 [facility] Hemoglobin A1c 7.0 5-7 finding Laboratory test 12/31/2012 [facility] Hemoglobin A1c 6.7 5-7 finding Laboratory test 07/06/2012 [facility] Hemoglobin A1c 7.8 % High Less than [address] 6.0 [place] [address] [phone] Glucose 204 mg/dL High 70-100 61 Lipid Profile 07/06/2012 [facility] Triglycerides 108 mg/dL 40-200 (Trig/Chol/HDL) [address] [place] [address] [phone] Cholesterol 76 mg/dL Low Less than 200 HDL Cholesterol 29 mg/dL Low 40-60 62 Cholesterol/HDL Ratio 2.6 Average 1-4.44 LDL Cholesterol 25.4 mg/dL Less Than 100 63 Urine Microalbumin 07/06/2012 [facility] Ur Microalbumin 4.0 mg/ L [address] (Mg/L) [place] [address] [phone] Urine Creatinine 107.0 mg/dL Urine Microalbumin/Creatinine 3.7 ug/mg Less Than 31 Laboratory test 03/22/2012 [facility] Hemoglobin A1c 8.4 High 5-7 finding Laboratory test 12/22/2011 [facility] Hemoglobin A1c 6.8 5-7 finding Blood Culture 09/14/2011 [facility] M --------- [address] ------- [place] [address] <SEE [phone] NOTE> Manual Differential 09/14/2011 [facility] Polysegmented 72 % 38-[address] [place] [address] [phone] Band Neutrophil 3 % 0-8 Lymphocyte 17 % Low 25-47 Monocyte 6 % 0-13 Eosinophil 2 % 0-6 RBC Morphology NORMAL CBC Auto Diff 09/14/2011 [facility] White Blood 15.1 CUMM High 4.8-10.[address] [place] [address] [phone] Red Cell Count 4.42 CUMM 4.2-5.4 Hemoglobin 13.7 g/dL 12.0-16.0 Hematocrit 40 % 35-47 Mean Corpuscular Volume 91 um3 79-97 Mean Corpuscular Hemoglob 31 pg 27-31 Mean Corpuscular HGB Cone 34 g/dL 32-36 Redcell Distribution WDTH 13 % 10.5-15 Platelet Count 182 CUMM 150-450 Mean Platelet Volume 10.0 um3 7.4-10.4 Absolute Neutrophil Count 10.3 High 1.5-7.7 66 Comp Metabolic Panel 09/14/2011 [facility] Sodium 132 mmol/L Low 135-[address] [place] [address] [phone] Potassium 4.1 mmol/L 3.5-5.0 Chloride 102 mmol/L 101-111 Co2 (Carbon Dioxide) 22.0 mmol/L 22-32 Anion Gap 8.0 mmol/L 2-11 67 Glucose 190 mg/dL High 70-100 BUN 10 mg/dL 6-24 Creatinine 0.9 mg/dL 0.50-1.40 One Over Creatinine 1.11 BUN/Creatinine Ratio 11.1 8-20 Calcium 9.1 mg/dL 8.1-9.9 Total Protein 6.7 GM/DL 6.2-8.1 Albumin 3.8 GM/DL 3.6-5.4 Globulin 2.9 GM/DL 2-4 Albumin/Globulin Ratio 1.3 1-3 Bilirubin Total 0.6 mg/dL 0.4-1.5 68 Alkaline Phosphatase 34 U/L 30-110 Alt (SGPT) 21 U/L 14-54 Ast (Sgot) 20 U/L 12-42 eGFR Non- 73.0 > 60 eGFR 93.9 > 60 69 Laboratory test 09/14/2011 [facility] (HCG) NEGATIVE Negative [address] [place] [address] [phone] Laboratory test 09/14/2011 [facility] Lactic Acid 1.1 mmol/L 0.5-1.[address] [place] [address] [phone] Laboratory test 09/10/2011 [facility] Hemoglobin A1c 7.5 High 5-7 finding Testosterone 06/10/2011 [facility] Free 0.4 ng/dL 0.3-1.9 71 Free & Total [address] [place] [address] [phone] Total Testosterone 13 ng/dL 8-60 72 Laboratory test 06/10/2011 [facility] Dhea Sulfate 136 g/dL 31-228 [address] [place] [address] [phone] Urine 06/10/2011 [facility] Microalbumin 10.0 mg/L Microalbumin 101 [facility] (MG/L) [place] [address] [phone] Urine Creatinine 135.7 mg/dL Raheem Alb/Creatinine Ratio 7.4 UG/MG Less Than 30 74 Lipid Profile 06/10/2011 [facility] Triglyceride 103 mg/dL 40 -200 (Trig/Chol/HDL) [address] [place] [address] [phone] Cholesterol 69 mg/dL Low Less Than 200 75 High Density Lipoprotein 25 mg/dL Low 40-60 76 Cholesterol/HDL Ratio 2.76 AVERAGE 1-4.44 Low Density Lipoprotein 23 mg/dL Less Than 100 77 Comp Metabolic Panel 06/10/2011 [facility] Sodium 135 mmol/L 135-145 [address] [place] [address] [phone] Potassium 4.4 mmol/L 3.5-5.0 Chloride 101 mmol/L 101-111 Co2 (Carbon Dioxide) 24.0 mmol/L 22-32 Anion Gap 10.0 mmol/L 2-11 78 Glucose 201 mg/dL High 70-100 BUN 11 mg/dL 6-24 Creatinine 0.9 mg/dL 0.50-1.40 One Over Creatinine 1.11 BUN/Creatinine Ratio 12.2 8-20 Calcium 9.6 mg/dL 8.1-9.9 Total Protein 7.5 GM/DL 6.2-8.1 Albumin 4.5 GM/DL 3.6-5.4 Globulin 3.0 GM/DL 2-4 Albumin/Globulin Ratio 1.5 1-3 Bilirubin Total 0.8 mg/dL 0.4-1.5 79 Alkaline Phosphatase 48 U/L 30-110 Alt (SGPT) 33 U/L 14-54 Ast (Sgot) 26 U/L 12-42 eGFR Non- 73.0 > 60 eGFR 93.9 > 60 80 Lipid Panel - JFM 06/10/2011 [facility] CPK (Creatine 54 U/L 0-[address] [employer]) [place] [address] [phone] Laboratory test 06/06/2011 [facility] In House Hemoglobin A1c 10.7 High 5-7 finding 1 SEE RESULT BELOW Name: DORA PATRICIO : [address]: Edie Jameson MD Acct: [id number] Unit: [id number] AGE: 38 Location: [place] [address]-02 Re04/19/18 Dis: 04/20/18 SEX: F Status: DIS Adiel SPEC: [id number] FALGUNI: 04/19/18-1240 [facility] DR: Abhishek Mireles MD REQ: [id number] RECD: 04/19/18-1249 STATUS: QUENTIN GIAGN DR: Abhishek Martin III, MD _ SOURCE: URINE SPDESC: ORDERED: Urine Culture Procedure Result Reported Site Urine Culture Final 04/20/18- 1249 ML No growth of clinically significant organisms * ML - Main Lab . END OF REPORT DEPARTMENT OF PATHOLOGY, [address] [place] [address] Palmer Victoria M.D. Director [facility] # [id number] 2 <5.0 Negative 5.0 - 25.0 Indeterminate (Repeat testing recommended after 72 hours) >25.0 Positive Perimenopausal women can display HCG levels of up to 20 mIU/mL 3 Therapeutic target for the treatment of diabetes mellitus patients is <7% HBA1C, and in selective patients <6.0%. Please refer to [place] [employer] diabetic care guidelines for further information. 4 Critical Result LACT:3.0 Called to [id number] at: 10:56:58 by:[id number] Read back by:RAMON [facility] Severe Sepsis and Septic Shock Management Bundle Measure requires all lactic acids initially measuring >2.0 mmol/L be repeated. 5 Answerer: [id number] 6 [place] Severe Sepsis and Septic Shock Management Bundle Measure requires all lactic acids initially measuring >2.0 mmol/L be repeated. 7 Answerer: [id number] 8 Because ethnic data is not always readily [...] 15-29 5 Kidney failure <15 (or dialysis) 9 Troponin-I testing on Plasma Separator Tubes (PST) has a known false positive rate of 0.20-0.40%. All positive troponins reflex immediate secondary confirmatory testing. 10 Reference ranges based on room air. 11 <5.0 Negative 5.0 - 25.0 Indeterminate (Repeat testing recommended after 72 hours) >25.0 Positive Perimenopausal women can display HCG levels of up to 20 mIU/mL 12 Because ethnic data is not always readily [...] 15-29 5 Kidney failure <15 (or dialysis) 13 Critical Result LACT:4.0 Called to [id number] at: 20:41:22 by:[id number] Read back by:RAMON [facility] Severe Sepsis and Septic Shock Management Bundle Measure requires all lactic acids initially measuring >2.0 mmol/L be repeated. 14 [facility] Severe Sepsis and Septic Shock Management Bundle Measure requires all lactic acids initially measuring >2.0 mmol/L be repeated. 15 Answerer: [id number] 16 Answerer: [id number] 17 Answerer: [id number] 18 Troponin-I testing on Plasma Separator Tubes (PST) has a known false positive rate of 0.20-0.40%. All positive troponins reflex immediate secondary confirmatory testing. 19 Because ethnic data is not always readily [...] 15-29 5 Kidney failure <15 (or dialysis) 20 <5.0 Negative 5.0 - 25.0 Indeterminate (Repeat testing recommended after 72 hours) >25.0 Positive Perimenopausal women can display HCG levels of up to 20 mIU/mL 21 Critical Result LACT:3.2 Called to [id number] at: 12:34:53 by:[id number] Read back by:[id number] [facility] Severe Sepsis and Septic Shock Management Bundle Measure requires all lactic acids initially measuring >2.0 mmol/L be repeated. 22 SEE RESULT BELOW Name: DORA PATRICIO : [address]: Alba DUNN C Acct: [id number] Unit: [id number] AGE: 37 Location: [facility] Re12/15/17 SEX: F Status: REG REF SPEC: [id number] FALGUNI: 12/15/[address]: Alba DUNN C REQ: [id number] RECD: 12/16/17-121 STATUS: CARMELO GIANG DR: Abhishek Martin III MD _ ORDERED: TP IMAGE ANALYS, ERADICATOR PHYS INTERP, HPV/Thin Prep COMMENTS: [id number] EPITHELIAL CELL ABNORMALITIES Low grade squamous intraepithelial [...] and Reported on: Jessica Null MD 12/18/17 1447 This Pap test was evaluated with the assistance of the [employer] System. Due to cytologic findings at the security guards dispatcher microscope, comprehensive manual rescreening by a Mechanical Cad Designer may be required. The Pap Smear is [...] years. END OF REPORT DEPARTMENT OF PATHOLOGY, [address] [place] [address] Palmer Victoria M.D. Director [facility] # [id number] 23 Answerer: [id number] If is still suspected, please repeat test after 48 to 72 hours. 24 SEE RESULT BELOW Name: DORA PATRICIO : [address]: Lincoln Mariano MD Acct: [id number] Unit: [id number] AGE: 35 Location: ED Re03/02/16 SEX: F Status: REG ER SPEC: [id number] FALGUNI: 03/02/16-[address]: Lincoln Mariano MD REQ: [id number] RECD: 03/02/16 STATUS: RES RAHAT DR: Sai Patricio MD _ SOURCE: ABDOMEN SPDESC: ORDERED: Culture Stain Procedure Result Reported Site Wound/Misc Gram Stain Final 03/02/16- 1701 ML 2+ Epithelial Cells 4+ Neutrophils 4+ Gram Positive Bacilli 3+ Gram Positive Cocci Wound/Misc Culture PENDING * ML - MAIN LAB (PSC1) . END OF REPORT * ML=Testing performed at Main Lab DEPARTMENT OF PATHOLOGY, [address] [place] [address] Palmer Victoria M.D. Director [facility] # [id number] 25 SEE RESULT BELOW Name: DORA PATRICIO Madiha : [address]: Lincoln Mariano MD Acct: [id number] Unit: [id number] AGE: 35 Location: ED Re03/02/16 SEX: F Status: DEP ER SPEC: [id number] FALGUNI: 03/02/16-1614 [facility] DR: Lincoln Mariano MD REQ: [id number] RECD: 03/02/16-1624 STATUS: QUENTIN GIANG DR: Sai Patricio MD [...] performed at Main Lab DEPARTMENT OF PATHOLOGY, [address] [place] [address] Palmer Victoria M.D. Director [facility] # [id number] Patient: DORA PATRICIO [id number] (Continued) Specimen: [id number] Collected: 03/02/16 Received: 03/02/16 (Continued) Procedure Result Reported Site Wound/Misc Culture Final (continued) 03/05/16922 1. ENTEROCOCCUS FAECALIS (continued) M.I.C. RX --------- ------ * Streptomycin High Level S Tetracycline >=16 R Tigecycline <=0.12 S Vancomycin 1 S Imipenem-Deduced S * Ampicillin/Sulbactam-Deduced S * These antibiotics are not available in the [facility] Formulary Contact the Microbiology Department for any additional antibiotic reporting. * ML - [facility] LAB [facility]) . END OF REPORT * ML=Testing performed at Main Lab DEPARTMENT OF PATHOLOGY, [address] [place] [address] Palmer Victoria M.D. Director [facility] # [id number] 26 Because ethnic data is not always readily [...] 15-29 5 Kidney failure <15 (or dialysis) 27 Acute inflammation: >10.00 28 [facility] Severe Sepsis and Septic Shock Management Bundle Measure requires all lactic acids initially measuring >2.0 mmol/L be repeated. 29 Acute inflammation: >10.00 30 Because ethnic data is not always [...] 5 Kidney failure <15 (or dialysis) 31 Because ethnic data is not always [...] 5 Kidney failure <15 (or dialysis) 32 Acute inflammation: >10.00 33 Because ethnic data is not always readily [...] 15-29 5 Kidney failure <15 (or dialysis) 34 Acute inflammation: >10.00 35 Because ethnic data is not always [...] (or dialysis) 42 Acute inflammation: >10.00 43 Answerer: [id number] ELI COSTA 44 Answerer: [id number] FAZAL MILLAN 45 Because ethnic data is not always [...] 5 Kidney failure <15 (or dialysis) 46 <5.0 Negative 5.0 - 25.0 Indeterminate (Repeat testing recommended after 72 hours) >25.0 Positive Perimenopausal women can display HCG levels of up to 20 mIU/mL 47 LEFT FOOT 48 SEE RESULT BELOW Name: DORA PATRICIO : [address]: Reina NGUYEN Acct: [id number] Unit: [id number] AGE: 35 Location: [facility] Re08/28/15 SEX: F Status: REG REF SPEC: [id number] FALGUNI: 08/27/15-[address]: Reina NGUYEN REQ: [id number] RECD: 08/28/15 STATUS: COMP _ SOURCE: MISC [...] performed at Main Lab DEPARTMENT OF PATHOLOGY, [address] [place] [address] Palmer Victoria M.D. Director [facility] # [id number] Patient: DORA PATRICIO [id number] (Continued) Specimen: [id number] Collected: 08/27/15 Received: 08/28/15 (Continued) Procedure Result Reported Site Wound/Misc Culture Final (continued) 08/31/15- 917 1. STREP AGALACTIAE - (GROUP B) (continued) [...] These antibiotics are not available in the [facility] Formulary Contact the Microbiology Department for any additional antibiotic reporting. * ML - [facility]IN LAB ([facility]) . END OF REPORT * ML=Testing performed at Main Lab DEPARTMENT OF PATHOLOGY, [address] [place] [address] Palmer Victoria M.D. Director [facility] # [id number] 49 Because ethnic data is not always readily [...] 5 Kidney failure <15 (or dialysis) 50 Acute inflammation: >10.00 51 [facility] Severe Sepsis and Septic Shock Management Bundle Measure requires all lactic acids initially measuring >2.0 mmol/L be repeated. 52 <5.0 Negative 5.0 - 25.0 Indeterminate (Repeat testing recommended after 72 hours) >25.0 Positive Perimenopausal women can display HCG levels of up to 20 mIU/mL 53 Consistent with previous results on 05/25/15. 54 Because ethnic data is not always readily [...] 15-29 5 Kidney failure <15 (or dialysis) 55 Microalbuminuria in a random sample is defined as: Microalbumin/Creatinine ratio of 30-299 ug/mg. 56 RUN DATE: 04/11/13 [facility] LAB LIVE PAGE 1 RUN TIME: [address] [place] [address] Specimen Inquiry Name: DORA PATRICIO : [address]: Priya Lora MD Acct: [id number] Unit: [id number] AGE: 33 Location: [facility] Re04/11/13 SEX: F Status: REG REF SPEC: [id number] FALGUNI: 04/11/13-0941 [facility] DR: Priya Lora MD REQ: [id number] RECD: 04/11/13 STATUS: SOUT _ ORDERED: IMAGE ANALYSIS, HPV/Thin Prep, HPV 16/18 GENE FINAL DIAGNOSIS Negative for Intraepithelial lesion or Malignancy COMMENTS: Specimen sent to [facility] in [place], [place] on 04/11/13 by [id number] at 1509. Results will be reported separately. [...] System. Due to cytologic findings at the security guards dispatcher microscope, comprehensive manual rescreening by a Mechanical Cad Designer may be required. The Pap Smear is [...] performed at Main Lab DEPARTMENT OF PATHOLOGY, [facility] [place], [place] [address] Palmer Victoria M.D. Director [facility] Permit #[id number] RUN DATE: 04/12/13 [facility] LAB LIVE PAGE 1 RUN TIME: 1343 [facility] [employer] [place], [place] [address] Specimen Inquiry Name: DORA PATRICIO : [address]: Priya Lora MD Acct: [id number] Unit: [id number] AGE: 33 Location: [facility] Re04/11/13 SEX: F Status: REG REF SPEC: [id number] FALGUNI: 04/11/[address]: Priya Lora MD REQ: [id number] RECD: 04/11/13 STATUS: COMP _ SOURCE: ARIE SPDESC: ORDERED: GC/Chlam RNA QUERIES: [employer] Number [id number] Procedure Result Verified Site Chlamydia Trachomatis RNA [...] result may have adverse psychosocial impact, the [facility] recommends retesting by a method using an [...] performed at Main Lab DEPARTMENT OF PATHOLOGY, [facility] [place], [place] [address] Palmer Victoria M.D. Director [facility] Permit #[id number] RUN DATE: 04/12/13 [facility] LAB LIVE PAGE 2 RUN TIME: 1348 [facility] [employer] [place], [place] [address] Specimen Inquiry Patient: DORA PATRICIO [id number] (Continued) Specimen: [id number] Collected: 04/11/13 Received: 04/11/13 (Continued) Procedure Result Verified Site GC (N. gonorrhoeae) RNA Final (continued) 04/12/13- 1343 Performance characteristics for detecting C. trachomatis and N. gonorrhoeae are derived from high prevalence populations. Positive results in low prevalence populations should be interpreted carefully with the understanding that the likelihood of a false positive may be higher than a true positive. END OF REPORT * ML=Testing performed at Main Lab DEPARTMENT OF PATHOLOGY, [address] [place] [address] Palmer Victoria M.D. Director [facility] Permit #[id number] RESULT: Ectocervical/Endocervical 59 For types 16, 18, 31, 33, 35, 39, 45, 51, 52, 56, 58, 59 and 68. Test Performed by: [address] [address] Environmental Field Professional: Ramon Campos III, M.D. 60 Therapeutic target for the treatment of diabetes Mellitus patients is <7% HBA1C, and in selective patients <6.0%.Please refer to [place] [employer] Diabetic care guidelines for further information. 61 PT IS FASTING 62 HDL Interpretation: Undesirable: High Risk: Less than 40 MG/DL Desirable: Low Risk: Greater than 60 MG/DL 63 LDL Interpretation: Low Risk Optimal Level: LDL Less than 100 MG/DL Near or Above Optimal: LDL 100-129 MG/DL Borderline High Risk: LDL 130-159 MG/DL High Risk: LDL 160-189 MG/DL Very High Risk: LDL Greater than 189 MG/DL 64 Microalbuminuria in a random sample is defined as: Microalbumin/Creatinine ratio of 30-299 ug/mg. 65 RUN DATE: 09/19/11 [facility] NMI LIVE PAGE 1 RUN TIME: 1834 Specimen Inquiry RUN USER: INTERFACE Name: DORA PATRICIO Status: DIS IN Re09/14/11 Age/Sex: 31/F Unit#: [id number] Location: [facility].B. : [birth year] SPEC #: [id number] FALGUNI: 09/14/11 STATUS: QUENTIN REQ #: [id number] RECD: 09/14/11-[address]: Raquel MORTON, Citlalli Holcomb SOURCE: BLOOD ENTR: 09/14/11-[address]: Priya Lora MD [facility]LOOD,VENO ORDERED: BLOOD CULTURE ACT WKST: 06/11/12 #1 Procedure Result Verified Site > AEROBIC CULTURE BOTTLE Final 09/19/11- 1835 ML NO GROWTH AFTER 5 DAYS > ANAEROBIC CULTURE BOTTLE Final 09/19/11- 1834 ML NO GROWTH AFTER 5 DAYS - [facility] Permit #[id number] [facility] [employer] [place] [address] DEPARTMENT OF PATHOLOGY, [facility] [place] [address] [facility] Permit #[id number] Palmer Victoria M.D. Director Vicki Brown M.D. Cut Off Saw Operator Metal 66 Imm. [address] 1 67 Anion gap measurement may be of limited value in the presence of any alkalosis, especially in a combined acid base disorder. . 68 A metabolite of Naproxen, O-desmethylnaproxen, has been shown to interfere with the Jendrassik-Willard method for measuring total bilirubin. Samples from patients who have taken Naproxen have shown spurious elevation in total bilirubin levels. 69 Because ethnic data is not always readily [...] 15-29 5 Kidney failure <15 (or dialysis) 70 If is still suspected, please repeat test after 48 to 72 hours. . This test detects intact HCG only and is indicated for the early detection of . 71 Test Performed by: [facility] Dpt of Lab Med and Pathology [address] [place] [address] Environmental Field Professional: Ramon Campos III, M.D. 72 Test Performed by: [facility] Dpt of Lab Med and Pathology [address] [place] [id number] Environmental Field Professional: Ramon Campos III, M.D. 73 Test Performed by: [facility] Dpt of Lab Med and Pathology [address] [place] [address] Environmental Field Professional: Ramon Campos III, M.D. 74 MICROALBUMINURIA IN A RANDOM SAMPLE IS DEFINED : MICROALBUMIN/CREATININE RATIO OF 30-299 ug/mg. . 75 CHOLESTEROL INTERPRETATION: Desirable: Less than 200 [...] Risk: LDL Greater than 189 MG/DL 78 Anion gap measurement may be of limited value in the presence of any alkalosis, especially in a combined acid base disorder. . 79 A metabolite of Naproxen, O-desmethylnaproxen, has been shown to interfere with the Jendrassik-Waverly method for measuring total bilirubin. Samples from patients who have taken Naproxen have shown spurious elevation in total bilirubin levels. 80 Because ethnic data is not always readily [...] dialysis) Procedures Date Code Description Status 03/31/2018 831383181 Diabetic Retinal Eye Exam Completed 11/05/2017 42219 Inject/Drain Joint/Bursa Major W/O US Completed 12/04/2015 14429 Debridement Skin,& sq Tissue Completed 11/13/2015 55769 Debridement Skin,& sq Tissue Completed 11/06/2015 89645 Debridement Skin,& sq Tissue Completed 10/30/2015 65750 Debridement Skin,& sq Tissue Completed 10/23/2015 65960 Debridement Skin,& sq Tissue Completed 08/29/2015 96432 Arthrotomy Metatarsophalangeal JT Completed 08/29/2015 37784 Arthrotomy Metatarsophalangeal JT Completed 07/27/2015 53905 Arthrotomy Metatarsophalangeal JT Completed 08/13/2012 [id number] Diabetic Retinal Eye Exam Completed 07/28/2011 126378267 Diabetic Foot Exam Completed 06/27/2011 139037531 Diabetic Retinal Eye Exam Completed Encounters Type Date Location Provider Dx Diagnosis Office Visit 11/05/2017 Orthopedic Kit Gutierrez MD S42.254D Nondisp fx of 2:15p [facility] greater tuberosity of r humer, 7thD M75.41 Impingement syndrome of right shoulder Office Visit 07/16/2017 11:30a Orthopedic Kit Gutierrez S42.254D Nondisp fx of Services Of MD [facility] tuberosity of r humer, 7thD Office Visit 06/04/2017 1:30p Eliezer Gutierrez S42.254A Nondisp fx of [facility] tuberosity of right humerus, init Office Visit 05/28/2017 11:00a Eliezer Gutierrez S46.011A Strain of Services Of MD latif/jacek the [facility] rotator cuff of right shoulder, init M25.521 Pain in right elbow S46.101A Unsp injury of bhavya/fasc/tend long hd bicep, right arm, init Office Visit 05/26/2017 10:45a Orthopedic Kit Gutierrez S46.011D Strain of Services Of MD latif/jacek the [facility] rotator cuff of right shoulder, subs M25.521 Pain in right elbow Office Visit 05/14/2017 10:30a Eliezer Gutierrez S46.011D Strain of Services Of MD latif/jacek the [facility] rotator cuff of right shoulder, subs S46.101A Unsp injury of bhavya/fasc/tend long hd bicep, right arm, init S46.111A Strain of musc/fasc/tend long hd bicep, right arm, init Office Visit 02/24/2016 [facility] E11.9 Type 2 diabetes 3:54p zoltan Escamilla M.D. 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 mellitus with foot ulcer M86.172 Other acute osteomyelitis, left ankle and foot L97.521 Non-prs chronic ulcer oth prt l foot limited to brkdwn skin Office Visit 01/08/2016 11:22a Wound Care Edson Disla Type 2 diabetes Center AT A[facility] Fulton M.D. mellitus with foot ulcer M86.172 Other acute osteomyelitis, left ankle and foot L97.521 Non-prs chronic ulcer oth prt l foot limited to brkdwn skin Office Visit 12/27/2015 1:01p Wound Onesimo Garcia E11Bassem Type 2 diabetes Center AT ALEX Fulton M.D. mellitus with foot ulcer M86.172 Other acute osteomyelitis, left ankle and foot L97.521 Non-prs chronic ulcer oth prt l foot limited to brkdwn skin Office Visit 12/13/2015 9:22a Wound Care Edson Garcia E11Bassem Type 2 diabetes Center AT ALEX Fult[place] M.D. mellitus with foot ulcer M86.172 Other acute osteomyelitis, left ankle and foot Office Visit 11/29/2015 10:31a Wound Care Edson Disla Type 2 diabetes Center AT A[place] Fult[place] M.D. mellitus with foot ulcer M86.172 Other acute osteomyelitis, left ankle and foot L97.521 Non-prs chronic ulcer oth prt l foot limited to brkdwn skin Office Visit 11/20/2015 4:44p Wound Care Edson Garcia L97.521 Non-prs chronic Center AT Madiha Sosa.D. ulcer oth prt l foot limited to brkdwn skin E11.621 Type 2 diabetes mellitus with foot ulcer M86.172 Other acute osteomyelitis, left ankle and foot Office Visit 10/29/2015 [facility] Jani Galindo M86.172 Other acute 3:00p For Infectious Makenna Hirsch. osteomyelitis, left Diseases ankle and foot E11.621 Type 2 diabetes mellitus with foot ulcer B95.61 Methicillin suscep staph infct causing dis classd elswhr Z33.1 state, incidental Office Visit 10/23/2015 1:03p Wound Care Edson Garcia M86.172 Other acute Center AT [facility] Sheri Fulton osteomyelitis, left ankle and foot E11.621 Type 2 diabetes mellitus with foot ulcer Office Visit 10/11/2015 [facility] Jani Galindo M86.172 Other acute 4:00p For Infectious Makenna Hirsch. osteomyelitis, left Diseases ankle and foot B95.1 Streptococcus, group B, causing diseases classd elswhr B95.61 Methicillin suscep staph infct causing dis classd elswhr Z33.1 state, incidental Office Visit 09/20/2015 [facility] Jani Galindo M86.172 Other acute 4:00p For Infectious Makenna Hirsch. osteomyelitis, left Diseases ankle and foot E11.621 Type 2 diabetes mellitus with foot ulcer B95.1 Streptococcus, group B, causing diseases classd elswhr B95.61 Methicillin suscep staph infct causing dis classd elswhr Z33.1 state, incidental Office Visit 08/31/2015 3:25p [facility] Emelyn Rojas, E11.621 Type 2 Asszoltan claudio M.D. diabetes Hospitalists mellitus with foot ulcer I10 Essential (primary) hypertension E11.65 Type 2 diabetes mellitus with hyperglycemia L02.612 Cutaneous abscess of left foot Office Visit 08/30/2015 [facility] Jani Galindo E11.69 Type 2 diabetes 12:04p [...] Z33.1 state, incidental Office Visit 08/30/2015 3:25p Violet Gibbs E11.621 Type 2 Assoczoltan M.D. diabetes Hospitalists mellitus with foot ulcer I10 Essential (primary) hypertension E11.65 Type 2 diabetes mellitus with hyperglycemia L02.612 Cutaneous abscess of left foot Office Visit 08/29/2015 3:23p Hopehossein Gibbs I10 Essential Assoczoltan M.D. (primary) Hospitalists hypertension E11.621 Type 2 diabetes mellitus with foot ulcer E11.65 Type 2 diabetes mellitus with hyperglycemia L02.612 Cutaneous abscess of left foot Office Visit 08/08/2015 4:20p [facility] Augusto Galindo L02.612 Cutaneous Infectious Macqueen, M.D. abscess of left Diseases foot Z33.1 state, incidental B95.61 Methicillin suscep staph infct causing dis classd elswhr Office Visit 07/30/2015 9:25a [facility] Augusto Galindo L02.612 Cutaneous Infectious Macqueen, M.D. abscess of left Diseases foot E11.40 Type 2 diabetes mellitus with diabetic neuropathy, unsp Z33.1 state, incidental B95.61 Methicillin suscep staph infct causing dis classd elswhr Office Visit 07/29/2015 1:09p Violet Gibbs E11.621 Type 2 Assoczoltan M.D. diabetes Hospitalists mellitus with foot ulcer Z3A.01 Less than 8 weeks gestation of I10 Essential (primary) hypertension Z72.0 Tobacco use Office Visit 07/28/2015 1:09p Violet Gibbs E11.621 Type 2 Assoczoltan M.D. diabetes Hospitalists mellitus with foot ulcer Z3A.01 Less than 8 weeks gestation of I10 Essential (primary) hypertension Z72.0 Tobacco use Office Visit 07/27/2015 12:47p Hope Isadora Dumasua E11.621 Type 2 Assoc,zoltan James, N.P. diabetes Hospitalists mellitus with foot ulcer I10 Essential (primary) hypertension Z3A.01 Less than 8 weeks gestation of Office Visit 07/27/2015 11:20a Orthopedic Sai L03.116 Cellulitis of Services Of Sheri Elizondo left lower limb C.M.A. S91.332A Puncture wound without foreign body, left foot, init encntr Office Visit 07/26/2015 1:20p [facility] Jani Mateo L03.116 Cellulitis of For Mark Hirsch M.D. [...] left foot, init encntr Office Visit 05/25/2015 [facility] Internal Sai E11.9 Type 2 diabetes 8:00a Yahaira Patricio M.D. mellitus without [place] complications I10 Essential (primary) hypertension D64.9 Anemia, unspecified F17.200 Nicotine dependence, unspecified, uncomplicated Office Visit 05/20/2015 [facility] Sai R73.9 Hyperglycemia, 10:41a Assoczoltan M.D. unspecified Hospitalists I10 Essential (primary) hypertension E11.9 Type 2 diabetes mellitus without complications Office Visit 08/02/2013 8:40a [facility] Internal Priya Lora, 250.90 Diabetes W / Medicine - M.DTamika Unspec Compl Type [place] II Or Unspec Controlled 305.1 Tobacco Use Disorder 401.9 Hypertension Unspec 704.9 Hair & Hair Follicle Diseases Unspec Office Visit 04/11/2013 8:40a [facility] Internal Priya Lora, 250.90 Diabetes W / Medicine - MTamikaDTamika Unspec Compl Type [place] II Or Unspec Controlled 401.9 Hypertension Unspec 305.1 Tobacco Use Disorder 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 Mellitus W/O [place] Compl Type II Or Unspec Type Uncontrol 305.1 Tobacco Use Disorder Office Visit 07/07/2012 9:40a [facility] Priya Lora, 250.02 Diabetes Medicine - M.D. Mellitus W/O [place] Compl Type II Or Unspec Type Uncontrol 695.3 Rosacea 305.1 Tobacco Use Disorder Office Visit 03/22/2012 8:40a [facility] Internal Priya Lora, 250.02 Diabetes Medicine - M.D. Mellitus W/O [place] Compl Type II Or Unspec Type Uncontrol 305.1 Tobacco Use Disorder Office Visit 12/22/2011 10:40a [facility] Internal Priya Lora, 250.02 Diabetes Mellitus Medicine - M.D. W/O Compl Type II [place] Or Unspec Type Uncontrol Office Visit 10/03/2011 10:40a [facility] Internal Nurse Visit A 682.6 Cellulitis & Medicine - Abscess Leg [place] Except Foot 686.8 Local Infection Skin & Subcutaneous Tissue Other Spec Office Visit 09/29/2011 10:40a [facility] Internal Nurse Visit A 682.6 Cellulitis & Medicine - Abscess Leg Except [place] Foot 686.8 Local Infection Skin & Subcutaneous Tissue Other Spec Office Visit 09/26/2011 10:40a [facility] Internal Priya Lora, 682.6 Cellulitis & Medicine - M.D. Abscess Leg [place] Except Foot Office Visit 09/24/2011 10:40a [facility] Internal Nurse Visit A 682.6 Cellulitis & Medicine - Abscess Leg [place] Except Foot 686.8 Local Infection Skin & Subcutaneous Tissue Other Spec Office Visit 09/22/2011 10:40a [facility] Internal Nurse Visit A 682.6 Cellulitis & Medicine - Abscess Leg Except [place] Foot 686.8 Local Infection Skin & Subcutaneous Tissue Other Spec Office Visit 09/19/2011 1:40p [facility] Priya Lora, 682.6 Cellulitis & Medicine - M.D. Abscess Leg [place] Except Foot 686.8 Local Infection Skin & Subcutaneous Tissue Other Spec 250.90 Diabetes W/ Unspec Compl Type II Or Unspec Controlled Office Visit 09/17/2011 1:40p [facility] Nai Thompson, 686.8 Local Infection Medicine - N.P. Skin & [place] Subcutaneous Tissue Other Spec Office Visit 09/10/2011 11:40a [facility] Priya Lora, 250.02 Diabetes Mellitus Medicine - M.D. W/O Compl Type II [place] Or Unspec Type Uncontrol 305.1 Tobacco Use Disorder Office Visit 08/08/2011 10:40a [facility] Priya Lora, 250.02 Diabetes Medicine - M.D. Mellitus W/O [place] Compl Type II Or Unspec Type Uncontrol 305.1 Tobacco Use Disorder Office Visit 07/21/2011 10:00a [facility] Nai Berriosoumar, 566 Abscess Of Anal Medicine - N.P. & Rectal Regions [place] Office Visit 07/04/2011 11:20a [facility] Priya Lora, 250.02 Diabetes Medicine - M.D. Mellitus W/O [place] Compl Type II Or Unspec Type Uncontrol 305.1 Tobacco Use Disorder Office Visit 06/20/2011 11:00a [facility] Samuel Lora, 250.02 Diabetes Medicine - M.D. Mellitus W/O [place] Compl Type II Or Unspec Type Uncontrol 401.9 Hypertension Unspec 305.1 Tobacco Use Disorder Office Visit 06/06/2011 2:20p [facility] Samuel Lora, 250.02 Diabetes Medicine - M.D. Mellitus W/O [place] Compl Type II Or Unspec Type Uncontrol 401.9 Hypertension Unspec 704.1 Hirsutism 305.1 Tobacco Use Disorder Plan of Treatment Future Appointment(s):04/22/2018 10:20 am - Clementine Plata MD at [facility] Internal Medicine Ofqpojisk27/16/2019 - Clementine Plata MDI10 Essential (primary) [id number] Type 2 diabetes mellitus with other specified complicationNew Medication:Blood Glucose Monitoring System W/Device - use as [id number] Nausea with vomiting, unspecifiedNew Medication:Prochlorperazine 25 mg - Use one suppository every 6-8 hours as neededFollow up:F/U tomorrow;
[2018-05-20 08:38] LABS: ALT 21 U/L (7-52); AST 22 U/L (13-39); Albumin 4.7 g/dL (3.2-5.2); Albumin/Globulin Ratio 1.6 (1-3); Alkaline Phosphatase 50 U/L (34-104); Anion Gap 21 mmol/L (2-11); BUN/Creatinine Ratio 17.5 (8-20); Blood Urea Nitrogen 14 mg/dL (6-24); C Reactive Protein 4.02 mg/L (<8.01); CO2 Carbon Dioxide 21 mmol/L (22-32); Calcium 10.4 mg/dL (8.6-10.3); Chloride 94 mmol/L (101-111); EGFR African American 97.1 (>60); EGFR Non-African American 80.3 (>60); Glucose 388 mg/dL (70-100); Magnesium 1.6 mg/dL (1.9-2.7); Potassium 3.1 mmol/L (3.5-5.0); Sodium 136 mmol/L (135-145); Total Protein 7.7 g/dL (6.4-8.9)
[2018-05-20 08:38] LABS: INR 0.99 (0.77-1.02)
[2018-05-20 08:44] LABS: HCG Pregnancy < 0.60 mIU/mL
[2018-05-20] MEDS ORDERED: NS 0.9% 1000 ML** 1,000 ML IV ONE (08:48)
[2018-05-20 08:49] LABS: Influenza A Molecular NEGATIVE (Negative); Influenza B Molecular NEGATIVE (Negative)
[2018-05-20] MEDS ORDERED: Insulin REGULAR(*) 1 UNITS UNIT IV PUSH ONE (08:54)
[2018-05-20] MEDS ORDERED: Famotidine IV* 10 MG/ML 2 ML (20 mg) IV SLOW PU ONE (08:55)
[2018-05-20] MEDS ORDERED: Potassium Chlor TAB* 20 MEQ TAB.ER PO ONE (09:13)
[2018-05-20] MEDS ORDERED: KCL 10 MEQ/50 ML IVPREMIX* 10 MEQ/50 ML BAG IV ONE (09:25)
[2018-05-20] MEDS ORDERED: Metoclopramide IV* 5 MG/ML 2 ML VIAL IV ONE (10:59)
[2018-05-20 11:12] LABS: Urine Appearance Cloudy; Urine Bilirubin Negative (Negative); Urine Blood Negative (Negative); Urine Color Yellow; Urine Glucose 3+(>=500 mg/dL) (Negative); Urine Ketones 2+ (Negative); Urine Nitrite Negative (Negative); Urine Protein Negative (Negative); Urine Specific Gravity 1.021 (1.010-1.030); Urine Urobilinogen Negative (Negative)
[2018-05-20 11:43] LABS: ABS Basophils 0.1 10^3/ul (0-0.2); ABS Eosinophils 0 10^3/ul (0-0.6); ABS Lymphocytes 2.2 10^3/ul (1.0-4.8); ABS Monocytes 0.5 10^3/ul (0-0.8); ABS Neutrophils 15.8 10^3/ul (1.5-7.7); ABS Nucleated RBC 0 10^3/ul; Eosinophil % 0 %; Hematocrit 43 % (35-47); Hemoglobin 14.4 g/dl (12.0-16.0); Lymphocyte % 11.7 %; Mean Corpuscular HGB Conc 34 g/dl (31-36); Mean Corpuscular Hemoglobin 30 pg (27-31); Mean Corpuscular Volume 88 fL (80-97); Mean Platelet Volume 8.7 fL (7.4-10.4); Nucleated Red Blood Cells % 0; Platelet Count 239 10^3/ul (150-450); Red Blood Count 4.86 10^6/ul (4.00-5.40); Red Cell Distribution Width 15 % (10.5-15); White Blood Count 18.6 10^3/ul (3.5-10.8)
[2018-05-20 13:19] VITALS: BP 124/68
--- NOTE | 2018-05-20 15:40 | ED ---
Nausea/Vomiting/Diarrhea HPI - HPI Summary HPI Summary: Patient is a 38-year-old female presenting to the ED with 3 days and worsening nausea, vomiting. She states shes had this before and was seen most recently last month in the ED. She has needed to be admitted for this in the past for intractable vomiting. She states in the past Compazine has helped her. She also states CT of the abdomen showed no acute findings however her lab work consistently shows elevated white counts. She had followed up with her PCP after last admission and was prescribed Bactrim. She states after she began the Bactrim, her symptoms resolved. However, there was no identifiable cause for her elevated white count or infection. She denies any fevers, sweats, chills. She states she has intermittent abdominal cramping; however this is just prior to vomiting. She has vomited 10+ times per day 3 days. She has Zofran at home which she has been using without relief. She has not had anything to eat or drink 2 days. She endorses similar symptoms to last time she was here, and continues to deny any new medications. She does admit to marijuana use, most recently a few days ago. She endorses alcohol use, however rarely. Denies any smoking. Denies any known malignancy. Patient does have diabetes, and states symptoms worsen when she is unable to keep her metformin down. She has not been taking her metformin 2 days. - History of Current Complaint Chief Complaint: EDFluSymptoms Stated Complaint: GENERAL ILLNESS Time Seen by Provider: 05/20/18 08:04 Hx Obtained From: Patient Hx Last Menstrual Period: 03/19/18 ?: No Onset/Duration: Sudden Onset Timing: Constant Severity Initially: Mild Severity Currently: Mild Pain Intensity: 0 Pain Scale Used: 0-10 Numeric Aggravating Factor(s): Nothing Alleviating Factor(s): Nothing Vomiting Frequency: Every 1-2 hours Nausea/Vomiting Duration: 24-36 hours Vomiting Characteristics: Retching Diarrhea Presence: No - Risk Factors Influenza Risk Factors: Negative - Allergies/Home Medications Allergies/Adverse Reactions: Allergies Allergy/AdvReac Type Severity Reaction Status Date / Time No Known Allergies Allergy Verified 12/13/17 13:07 Home Medications: Home Medications glipiZIDE [Glipizide ER] 10 mg PO QAM 05/20/18 [History Confirmed 05/20/18] metFORMIN* [Glucophage 500 MG TAB *] 500 mg PO BID 05/20/18 [History Confirmed 05/20/18] PMH/Surg Hx/FS Hx/Imm Hx Previously Healthy: Yes Endocrine/Hematology History: Reports: Hx Diabetes - type 2 dm, Hx Anemia Denies: Hx Thyroid Disease Cardiovascular History: Reports: Hx Hypertension Denies: Hx Hypercholesterolemia, Hx Pacemaker/ICD, Hx Rheumatic Fever Respiratory History: Denies: Hx Asthma, Hx Chronic Obstructive Pulmonary Disease (COPD) GI History: Denies: Hx Gastroesophageal Reflux Disease, Hx Ulcer History: Denies: Hx Renal Disease Sensory History: Reports: Hx Contacts or Glasses - reading once in a while Denies: Hx Hearing Aid Opthamlomology History: Reports: Hx Contacts or Glasses - reading once in a while Psychiatric History: Denies: Hx Panic Disorder - Surgical History Surgery Procedure, Year, and Place: Csection Xs 2. left foot surgery x 2 - I & D-TWICE. Leep procedure. Cervix tear repair Hx Anesthesia Reactions: No - Immunization History Date of Tetanus Vaccine: unk Date of Influenza Vaccine: unk Infectious Disease History: Yes Infectious Disease History: Reports: Hx of Known/Suspected MRSA Denies: Hx Clostridium Difficile, Hx Hepatitis, Hx Human Immunodeficiency Virus (HIV), Hx Shingles, Hx Tuberculosis, Hx Known/Suspected VRE, Hx Known/ Suspected VRSA, History Other Infectious Disease, Traveled Outside the [place] in Last 30 Days - Family History Known Family History: Negative: Cardiac Disease, Hypertension, Diabetes - Social History Occupation: Employed Full-time Lives: With Family Alcohol Use: Rare Hx Substance Use: Yes Substance Use Type: Reports: Marijuana Substance Use Comment - Amount & Last Used: weekly Hx Tobacco Use: Yes Smoking Status (MU): Heavy Every Day Tobacco Smoker Type: Cigarettes Amount Used/How Often: 1/2 pdd Length of Time of Smoking/Using Tobacco: 15+ years Have You Smoked in the Last Year: Yes Review of Systems Constitutional: Negative Negative: Fever, Chills, Fatigue, Skin Diaphoresis Negative: Palpitations, Chest Pain Negative: Shortness Of Breath, Cough Positive: Abdominal Pain, Vomiting, Nausea. Negative: Diarrhea Genitourinary: Negative Positive: no symptoms reported, see HPI Negative: Arthralgia, Myalgia Neurological: Negative All Other Systems Reviewed And Are Negative: Yes Physical Exam Triage Information Reviewed: Yes Vital Signs On Initial Exam: Initial Vitals Temp Pulse Resp BP Pulse Ox 97 F 83 18 153/90 100 05/20/18 08:09 05/20/18 08:09 05/20/18 08:09 05/20/18 08:09 05/20/18 08:09 Vital Signs Reviewed: Yes Appearance: Positive: Well-Appearing, Well-Nourished Skin: Positive: Warm, Skin Color Reflects Adequate Perfusion Head/Face: Positive: Normal Head/Face Inspection Eyes: Positive: EOMI, AZAEL, Conjunctiva Clear Neck: Positive: Supple, No Lymphadenopathy Respiratory/Lung Sounds: Positive: Clear to Auscultation, Breath Sounds Present Cardiovascular: Positive: RRR, Pulses are Symmetrical in both Upper and Lower Extremities Abdomen Description: Positive: Nontender, Soft Musculoskeletal: Positive: Normal, Strength/ROM Intact Neurological: Positive: Speech Normal Psychiatric: Positive: Normal, Affect/Mood Appropriate, Anxious AVPU Assessment: Alert Diagnostics - Vital Signs Vital Signs Temp Pulse Resp BP Pulse Ox 05/20/18 13:17 98.8 F 110 16 124/68 97 05/20/18 13:05 98 124/68 97 05/20/18 13:00 110 96 05/20/18 12:35 64 119/74 99 05/20/18 12:05 78 155/90 96 05/20/18 12:00 77 95 05/20/18 11:35 78 178/94 98 05/20/18 11:05 75 170/87 95 05/20/18 11:00 71 99 05/20/18 10:35 76 143/70 98 05/20/18 10:05 70 161/74 98 05/20/18 10:00 66 97 05/20/18 09:49 98 140/89 99 05/20/18 09:35 76 185/90 98 05/20/18 09:05 59 172/115 95 05/20/18 09:00 60 96 05/20/18 08:35 65 185/88 100 05/20/18 08:11 88 100 05/20/18 08:09 97 F 78 18 153/96 100 - Laboratory Lab Results: Lab Results 05/20/18 05/20/18 05/20/18 Range/Units 08:14 08:14 08:14 WBC 19.4 H (3.5-10.8) 10^3/ul RBC 5.29 (4.00-5.40) 10^6/ul Hgb 15.8 (12.0-16.0) g/dl Hct 47 (35-47) % MCV 88 (80-97) fL MCH 30 (27-31) pg MCHC 34 (31-36) g/dl RDW 15 (10.5-15) % Plt Count 270 (150-450) 10^3/ul MPV 9.0 (7.4-10.4) fL Neut % (Auto) 82.8 % Lymph % (Auto) 13.0 % Mora % (Auto) 3.5 % Eos % (Auto) 0.2 % Baso % (Auto) 0.5 % Absolute Neuts (auto) 16.1 H (1.5-7.7) 10^3/ul Absolute Lymphs (auto) 2.5 (1.0-4.8) 10^3/ul Absolute Monos (auto) 0.7 (0-0.8) 10^3/ul Absolute Eos (auto) 0 (0-0.6) 10^3/ul Absolute Basos (auto) 0.1 (0-0.2) 10^3/ul Absolute Nucleated RBC 0 10^3/ul Nucleated RBC % 0.1 INR (Anticoag Therapy) (0.77-1.02) Sodium 136 (135-145) mmol/L Potassium 3.1 L (3.5-5.0) mmol/L Chloride 94 L (101-111) mmol/L Carbon Dioxide 21 L (22-32) mmol/L Anion Gap 21 H (2-11) mmol/L BUN 14 (6-24) mg/dL Creatinine 0.80 (0.51-0.95) mg/dL Est GFR ( Amer) 97.1 (>60) Est GFR (Non-Af Amer) 80.3 (>60) BUN/Creatinine Ratio 17.5 (8-20) Glucose 388 H (70-100) mg/dL Lactic Acid 4.3 H* (0.5-2.0) mmol/L Calcium 10.4 H (8.6-10.3) mg/dL Magnesium 1.6 L (1.9-2.7) mg/dL Total Bilirubin 1.10 H (0.2-1.0) mg/dL AST 22 (13-39) U/L ALT 21 (7-52) U/L Alkaline Phosphatase 50 (34-104) U/L C-Reactive Protein 4.02 (<8.01) mg/L Total Protein 7.7 (6.4-8.9) g/dL Albumin 4.7 (3.2-5.2) g/dL Globulin 3.0 (2-4) g/dL Albumin/Globulin Ratio 1.6 (1-3) Lipase 47 (11.0-82.0) U/L Beta HCG, Quant < 0.60 mIU/mL Urine Color Urine Appearance Urine pH (5-9) Ur Specific Elizabeth (1.010-1.030) Urine Protein (Negative) Urine Ketones (Negative) Urine Blood (Negative) Urine Nitrate (Negative) Urine Bilirubin (Negative) Urine Urobilinogen (Negative) Ur Leukocyte Esterase (Negative) Urine Glucose (Negative) Influenza A (Rapid) (Negative) Influenza B (Rapid) (Negative) 05/20/18 05/20/18 05/20/18 Range/Units 08:18 08:36 10:55 WBC (3.5-10.8) 10^3/ul RBC (4.00-5.40) 10^6/ul Hgb (12.0-16.0) g/dl Hct (35-47) % MCV (80-97) fL MCH (27-31) pg MCHC (31-36) g/dl RDW (10.5-15) % Plt Count (150-450) 10^3/ul MPV (7.4-10.4) fL Neut % (Auto) % Lymph % (Auto) % Mora % (Auto) % Eos % (Auto) % Baso % (Auto) % Absolute Neuts (auto) (1.5-7.7) 10^3/ul Absolute Lymphs (auto) (1.0-4.8) 10^3/ul Absolute Monos (auto) (0-0.8) 10^3/ul Absolute Eos (auto) (0-0.6) 10^3/ul Absolute Basos (auto) (0-0.2) 10^3/ul Absolute Nucleated RBC 10^3/ul Nucleated RBC % INR (Anticoag Therapy) 0.99 (0.77-1.02) Sodium (135-145) mmol/L Potassium (3.5-5.0) mmol/L Chloride (101-111) mmol/L Carbon Dioxide (22-32) mmol/L Anion Gap (2-11) mmol/L BUN (6-24) mg/dL Creatinine (0.51-0.95) mg/dL Est GFR ( Amer) (>60) Est GFR (Non-Af Amer) (>60) BUN/Creatinine Ratio (8-20) Glucose (70-100) mg/dL Lactic Acid (0.5-2.0) mmol/L Calcium (8.6-10.3) mg/dL Magnesium (1.9-2.7) mg/dL Total Bilirubin (0.2-1.0) mg/dL AST (13-39) U/L ALT (7-52) U/L Alkaline Phosphatase (34-104) U/L C-Reactive Protein (<8.01) mg/L Total Protein (6.4-8.9) g/dL Albumin (3.2-5.2) g/dL Globulin (2-4) g/dL Albumin/Globulin Ratio (1-3) Lipase (11.0-82.0) U/L Beta HCG, Quant mIU/mL Urine Color Yellow Urine Appearance Cloudy Urine pH 8.0 (5-9) Ur Specific Elizabeth 1.021 (1.010-1.030) Urine Protein Negative (Negative) Urine Ketones 2+ A (Negative) Urine Blood Negative (Negative) Urine Nitrate Negative (Negative) Urine Bilirubin Negative (Negative) Urine Urobilinogen Negative (Negative) Ur Leukocyte Esterase Negative (Negative) Urine Glucose 3+(>=500 mg/dl) A (Negative) Influenza A (Rapid) Negative (Negative) Influenza B (Rapid) Negative (Negative) 05/20/18 05/20/18 Range/Units 11:33 11:33 WBC 18.6 H (3.5-10.8) 10^3/ul RBC 4.86 (4.00-5.40) 10^6/ul Hgb 14.4 (12.0-16.0) g/dl Hct 43 (35-47) % MCV 88 (80-97) fL MCH 30 (27-31) pg MCHC 34 (31-36) g/dl RDW 15 (10.5-15) % Plt Count 239 (150-450) 10^3/ul MPV 8.7 (7.4-10.4) fL Neut % (Auto) 84.9 % Lymph % (Auto) 11.7 % Mora % (Auto) 2.9 % Eos % (Auto) 0 % Baso % (Auto) 0.5 % Absolute Neuts (auto) 15.8 H (1.5-7.7) 10^3/ul Absolute Lymphs (auto) 2.2 (1.0-4.8) 10^3/ul Absolute Monos (auto) 0.5 (0-0.8) 10^3/ul Absolute Eos (auto) 0 (0-0.6) 10^3/ul Absolute Basos (auto) 0.1 (0-0.2) 10^3/ul Absolute Nucleated RBC 0 10^3/ul Nucleated RBC % 0 INR (Anticoag Therapy) (0.77-1.02) Sodium (135-145) mmol/L Potassium (3.5-5.0) mmol/L Chloride (101-111) mmol/L Carbon Dioxide (22-32) mmol/L Anion Gap (2-11) mmol/L BUN (6-24) mg/dL Creatinine (0.51-0.95) mg/dL Est GFR ( Amer) (>60) Est GFR (Non-Af Amer) (>60) BUN/Creatinine Ratio (8-20) Glucose (70-100) mg/dL Lactic Acid 1.6 (0.5-2.0) mmol/L Calcium (8.6-10.3) mg/dL Magnesium (1.9-2.7) mg/dL Total Bilirubin (0.2-1.0) mg/dL AST (13-39) U/L ALT (7-52) U/L Alkaline Phosphatase (34-104) U/L C-Reactive Protein (<8.01) mg/L Total Protein (6.4-8.9) g/dL Albumin (3.2-5.2) g/dL Globulin (2-4) g/dL Albumin/Globulin Ratio (1-3) Lipase (11.0-82.0) U/L Beta HCG, Quant mIU/mL Urine Color Urine Appearance Urine pH (5-9) Ur Specific Elizabeth (1.010-1.030) Urine Protein (Negative) Urine Ketones (Negative) Urine Blood (Negative) Urine Nitrate (Negative) Urine Bilirubin (Negative) Urine Urobilinogen (Negative) Ur Leukocyte Esterase (Negative) Urine Glucose (Negative) Influenza A (Rapid) (Negative) Influenza B (Rapid) (Negative) Result Diagrams: 05/20/18 11:33 05/20/18 08:14 Lab Statement: Any lab studies that have been ordered have been reviewed, and results considered in the medical decision making process. Naus/Vom/Diarrhea Course/Dx - Course Course Of Treatment: During the course of treatment, the patient is evaluated for nausea, vomiting. Labs obtained which show a leukocytosis at 19.4 with a left shift of 16.1. She slightly hypokalemic at 3.1. Lactic acidosis at 4.3 and glucose is found to be 388. Her magnesium is only slightly low at 1.6, likely due to renal losses. Beta hCG Quant negative. Urine negative for any nitrates, leuks, however positive for glucose 3+. Influenza negative. Patient denied any cough, congestion or chest pain. Lungs CTA, RRR. Chest x-ray not obtained. While in the ED, she is given Compazine 10 mg with good relief. She is given regular insulin 6 units as well as potassium chloride IV (patient unable to tolerate tabs.) She endorses improvement over approximately one hour and then subsequently developed more nausea without vomiting. She is given Reglan with good relief. During the course she is given 2 L fluids. Follow-up labs to assess for improvement of lactic acidosis obtained. Lactic acid decreased to 1.6. Patient is reevaluated states she feels well, denying any nausea or vomiting. Due to her high white count and previous outpatient treatment failures of by mouth nausea medications, I have offered her admission. She declines this and states she would like to attempt outpatient treatment. She states in the past Compazine suppositories have helped her the most. She also states after her last visit to the ED, her PCP placed her on Bactrim which improved her symptoms. For this reason she is given Compazine suppositories him a Bactrim as well as Zofran ODT. She understands precautions and is stable on discharge. Vital signs are stable. Patient appears well. - Differential Dx/Diagnosis Differential Diagnoses - Female: Dehydration, Other - Infection, nausea, vomiting, viral syndrome, cyclic vomiting syndrome Provider Diagnosis: Nausea & vomiting Condition At Discharge: Stable Discharge - Sign-Out/Discharge Documenting (check all that apply): Patient Departure Patient Received Moderate/Deep Sedation with Procedure: No - Discharge Plan Condition: Stable Disposition: HOME Prescriptions: Ondansetron ODT TAB* [Zofran 4 MG Odt TAB*] 4 mg PO Q6H PRN #12 tab.odt MDD 4 PRN Reason: Nausea Prochlorperazine SUPP* [Compazine Supp*] 25 mg ID Q12H PRN #20 supp PRN Reason: Nausea Sulfamethox/Trimethoprim DS* [Bactrim DS 800/160 TAB*] 1 tab PO BID #10 tab MDD 2 Patient Education Materials: Cyclic Vomiting Syndrome (ED) Referrals: Clementine Plata MD [Primary Care Provider] - Additional Instructions: As discussed, I am not diagnosing U with cyclic vomiting syndrome, however I wanted you to have information Take the Compazine suppositories every 12 hours for nausea and vomiting You may take the Zofran up to every 6 hours Drink plenty of fluids including Gatorade Continue with your diabetes medications It is very important if you're unable to keep these medications down, he need to return to the ED as this could exacerbate your vomiting symptoms Please follow-up with your PCP regarding further evaluation and medications Return to the ED if the medications given to you feel temperature symptoms Antibiotics are also given to as they have improved her symptoms the past, however there is no sign of infection otherwise and your vital signs were stable - Billing Disposition and Condition Condition: STABLE Disposition: Home
== END 2018-05-20 13:17 | disposition home or self-care (01) ==
LOC: ED 08:01
DX: R11.2 Nausea with vomiting, unspecified (principal); F17.200 Nicotine dependence, unspecified, uncomplicated; E11.8 Type 2 diabetes mellitus with unspecified complications; Z79.84 Long term (current) use of oral hypoglycemic drugs; I10 Essential (primary) hypertension
CPT/HCPCS: 36415; 80053; 81003; 83605; 83690; 83735; 84702; 85025; 85610; 86140; 96361; 96374; 99284; J0780; J2765; J3480

== ENCOUNTER 2018-05-23 10:57 | Emergency (ER) | payer OTHER ==
--- OUTSIDE RECORDS SUMMARY | 2018-05-23 11:18 | XMS REPORT | Continuity of Care Document ---
:1980 External Reference #:[id number] Author Name Fay Almazan Care Team Providers Name Role Phone Abhishek Martin III, MD Primary Care Physician Unavailable Payers Date Identification Numbers Payment Provider Subscriber Policy Number: [id number] Karl Patricio PayID: [id number] [address] [place] [phone] Effective: 2017 Policy Number: [id number] Medicaid Dora Patricio Expires: 2017 Group Name: 1 1 [address] PayID: [id number] [place] [address] Expires: 2017 PayID: [id number] Karl Patricio [address] [place] [phone] Advance Directives Description No Information Available Problems [...] Unknown 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 smoker, smokes every Been smoking for 12 day yrs. Tobacco Use Start: Unknown End: Patient is a former Pt quit 5 weeks Unknown smoker ago. Smoking Status Reviewed: 05/21/18 Patient is a former Pt quit 5 weeks smoker ago. Exercise Type/Frequency Exercises regularly Allergies, Adverse Reactions, Alerts Description No Known Drug Allergies Medications Medication Date Status Form Strength Qnty SIG Indications Ordering Provider Lantus Solostar 05/21/19 Active Solution 100Unit/M 3ml Take 14 U E11.9 Clementine 19 Pen-Inject L at night MD Boni Humulin R 05/21/19 Active Solution 100Unit/M 3ml Take 2 E11.9 Clementine 19 L units MD Boni before meals BD Pen 05/21/19 Active Misc 31G X 5 14uni use with E11.9 Clementine Needle/Mini/Ultr 19 mm ts the pen MD Boni a-Fine/31G X 5mm Metformin HCL 05/03/19 Active Tablets 500mg 90tab take 1 E11.9 Clementine 19 s tablet by MD Boni mouth three times a day Prochlorperazine 04/22/19 Active Suppositor 25mg 12uni use one R11.2 Clementine 19 y ts supposito MD Boni ry every 6-8 hours as needed Lifestyle Lite 04/22/19 Active 100un 3 times E11.69 Clementine Lancets 19 its daily or MD Boni as needed dx e11.65 Lifestyle Lite 04/22/19 Active 100un for use Clementine Test Strips 19 its with MD Boni glucomete r. test 3 times a day initially . Prochlorperazine 04/21/19 Active Suppositor 25mg 3unit Use one R11.2 Clementine 19 y s supposito MD Boni ry every 6-8 hours as needed Blood Glucose 04/21/19 Active Kit W/Device 1unit use as E11.69 Clementine Monitoring 19 s directed MD Boni System Glipizide Active Tablets 10mg 1 by Unknown 00 mouth every day Losartan Active Tablets 25mg 90tab 1 by Clementine Potassium 00 s mouth MD Boni every day Prochlorperazine Active Tablets 10mg 3 times Unknown Maleate 00 daily for nausea Zofran Active Tablets 4mg 1 every Unknown 00 12 hours as needed Bactrim DS Active Tablets 800-160mg 1 by Unknown 00 mouth twice a day for 5 days Sulfamethoxazole 04/22/19 Hx Tablets 800-160mg 20tab take one R11.2 Clemetnine /Trimethoprim DS 19 - s tablet MD Boni 05/02/19 every 12 19 hours No Active 06/05/19 Hx Unknown Medications 18 - 04/21/19 19 Bactrim DS 05/26/19 Hx Tablets 800-160mg 14tab take 1 by Kit 18 - s mouth Matt, 06/02/19 twice 18 daily x 7 days Percocet 05/14/19 Hx Tablets 5-325mg 14tab take 1 S46.011D Kit 18 - s tabs as Matt, 04/06/19 needed MD [place] for pain every 12 hours. do not combine with tylenol Cephalexin 10/29/19 Hx Capsules 500mg 42cap take one M86.172 Jani 16 - s capsule D. 04/06/19 by mouth Joycelyn, 18 three M.D. times a day Cephalexin 10/11/19 Hx Capsules 500mg 42cap take one M86.172 Jani 16 - s capsule D. 10/26/19 by mouth Joycelyn, 16 three M.D. times a day Oxycodone HCL 08/31/19 Hx Capsules 5mg 40cap 1-2 tabs Sai 16 - s by mouth Mikhail, 09/20/19 every 4-6 M.D. 16 hours as needed pain Pen Van 08/20/19 Hx Misc 31G X 5 100un use with Sai 06/19" 16 - mm its lantus [place], Unknown subq M.D. everyday Lantus Solostar 07/30/19 Hx Solution 100Unit/M 30ml 25 units Sai 16 - Pen-Inject L subcutane [place], Unknown ously M.D. daily Clindamycin HCL 07/26/19 Hx Capsules 300mg 21cap 1 tabs by L03.116 Jani 16 - s mouth 3 D. 08/07/19 times a [place], 16 day M.D. Keflex 07/18/19 Hx Capsules 500mg 28cap 1 tab by S91.332A Sai 16 - s mouth Mikhail, 07/20/19 four M.D. 16 times a day Onetouch Ultra 05/30/19 Hx Kit W/Device 1unit use daily Maia System 16 - s to test Shailesh, 04/06/19 glucose M.D. 18 Onetouch 05/30/19 Hx Misc 100un use daily E11.65 Maia Ultrasoft 16 - its or as Cookie Cash 04/06/19 directed M.D. 18 Onetouch Ultra 05/30/19 Hx Strips 100un test E11.65 Maia Blue 16 - its daily or Shailesh, 04/06/19 as needed M.D. 18 E11.9 Ferrous 05/29/19 Hx Tablets 324(38Fe) 60tab 1 tab by Sai Gluconate 16 - mg s mouth [place], 08/07/19 twice a M.D. 16 day Glyburide 05/25/19 Hx Tablets 5mg 1 tab Sai 16 - oral [place], 05/25/19 daily M.D. 16 Losartan 05/25/19 Hx Tablets 25mg 30tab 1 tab Maia Potassium 16 - s oral Cash, 08/07/19 daily M.D. 16 Glyburide 05/25/19 Hx Tablets 5mg 60tab 1 tab by E11.9 Maia 16 - s mouth Cash, 08/07/19 twice a M.D. 16 day Rogaine 08/03/19 Hx Solution 2% 60ml Apply 1 704.9 Priya 14 - ml Guido, 06/03/19 topically M.D. 14 to affected area 2 times per day for loss of scalp hair Chantix Starting 04/11/19 Hx Tablets 0.5mg X QS take as 305.1 Priya Villela David 14 - 11 & 1 mg directed Guido, 05/12/19 X 42 M.D. 14 Bupropion HCL SR 01/01/20 Hx Tablets ER 150mg 60tab take one 305.1 Priya 13 - 12HR s tablet by Guido, 04/11/19 mouth M.D. 14 daily for 3 days, then increase to 2 tablets daily Metronidazole 07/08/19 Hx Gel 0.75% 45gm apply 695.3 Priya 13 - twice Guido, 08/03/19 daily M.D. 14 Glipizide XL 03/22/20 Hx Tablets ER 5mg 90tab Take 1 250.02 Priya 12 - 24HR s tablet Guido, 08/03/19 daily M.D. 14 Jessica Contour 03/22/20 Hx Kit w/Device 1unit Please Priya Berkowitz Blood 12 - s check Guido, Glucose 05/30/19 fasting M.D. Monitoring 16 blood System sugar daily Nicotine 09/10/19 Hx Gum 2mg 100un chew 1 305.1 Priya Polacrilex 12 - its piece by Guido, 09/10/19 mouth for M.D. 12 30 minute as needed for smoking cessation Glipizide XL 08/08/19 Hx Tablets ER 10mg 90tab Take 1 250.02 Priya 12 - 24HR s tablet Guido, 12/22/19 daily M.D. 12 Metformin HCL 07/08/19 Hx Tablets 1000mg 60tab take one 250.02 Maia 12 - s tablet by Shailesh, 08/07/19 mouth M.D. 16 twice a day needs to be seen Metformin HCL ER 07/04/19 Hx Tablets ER 1000mg 60tab Take 2 250.02 Priya 12 - 24HR (Osm) s tablets Guido 07/08/19 by every M.D. 12 day Glipizide XL 07/04/19 Hx Tablets ER 5mg 30tab Take 1 250.02 Priya 12 - 24HR s tablet Guido 08/08/19 daily M.D. 12 Jessica Contour 06/20/19 Hx Strips 100un use one E11.65 Sai Blood Glucose 12 - its strip as [place], Test Strips 05/30/19 needed M.D. 16 for testing Jessica Microlet 06/20/19 Hx Misc 100un please E11.65 Maia Lancets 12 - its check Shailesh 05/30/19 blood M.D. 16 sugar fasting daily Losartan 03/16/20 Hx Tablets 25mg 30tab 1 by 401.9 Maia Potassium 12 - s mouth Cash, 05/25/19 every day M.D. 16 needs to be seen for furthur refills Blood Pressure 06/20/19 Hx Kit 1unit I10 Priya Kit Digital 12 - s Guido, 05/25/19 M.D. 16 Lisinopril 06/06/19 Hx Tablets 5mg 30tab take 1 401.9 Priya 12 - s tablet Lora, 06/20/19 orally M.D. 12 once a day Metformin HCL 06/06/19 Hx Tablets 1000mg 180ta 1 po bid 250.02 Priya 12 - bs Guido, 07/04/19 M.D. 12 Aspirin Ec 06/06/[address] 81mg 90tab 1 by Sai 12 - s mouth [place], 08/08/19 every day M.D. 16 Cephalexin Hx Capsules 500mg 21cap take one Unknown 00 - s capsule a 08/08/19 day four 12 times a day Ibuprofen Hx Tablets 800mg 90tab po tid Unknown 00 - s prn 08/08/19 12 Sulfamethoxazole Hx Tablets 800-160mg 20tab 1 po bid Unknown /Trimethoprim DS 00 - s 08/08/19 12 Amoxicillin/Pota Hx Tablets 875-125mg 20tab 1 po Unknown ssium 00 - s every Clavulanate 12/22/19 12hrs 12 Glimepiride Hx Tablets 5mg 1 by Unknown 00 - mouth 05/25/19 every day 16 Clindamycin HCL Hx Capsules 150mg 1 capsule Unknown 00 - by mouth 07/26/19 four 16 times a day x's 15 days Cephalexin Hx Capsules 500mg 1 po qid Unknown - 08/15/19 16 Labetalol HCL Hx Tablets 100mg 60tab 1 tab Sai 00 - s twice [place], Unknown daily M.D. Vol-Plus Hx Tablets 27-1mg Unknown 00 - 04/06/19 18 Humalog Kwikpen Hx Solution 100Unit/M sliding Unknown 00 - Pen-Inject L scale Unknown Cefazolin Sodium Hx Solution 1gm 2 gm iv Unknown 00 - Rec every 8 10/10/19 hours 16 through advanced snf infusion Idosorb Hx apply to Unknown 00 - wound Unknown once per day Metformin HCL Hx Tablets 500mg 1 by Unknown 00 - mouth 05/03/19 twice a 19 day Medications Administered in Office Medication Date Status Form Strength Qnty SIG Indications Ordering Provider Triamcinolone 11/05/ Administered Injection Zaneb (Kenalog) 2017 MD Matt Immunizations Description No Information Available Vital Signs Date Vital Result Comment 05/21/2018 2:18pm Height 67 inches 5'7" Weight 153.50 lb Heart Rate 96 /min BP Systolic 119 mmHg BP Diastolic 78 mmHg Body Temperature 98.9 F O2 % BldC Oximetry 95 % BMI (Body Mass Index) 24.0 kg/m2 05/03/2018 10:20am Height 67 inches 5'7" Weight [...] Date Facility Test Result H/L Range Note Urinalysis Profile 05/20/2018 [facility] Urine Color Yellow [address] [place] [address] [phone] Urine Appearance Cloudy Urine Specific [place] 1.021 N 1.010-1.030 Urine pH 8.0 N 5-9 Urine Urobilinogen Negative Negative Urine Ketones 2+ Abnormal Negative Urine Protein Negative Negative Urine Leukocytes Negative Negative Urine Blood Negative Negative Urine Nitrite Negative Negative Urine Bilirubin Negative Negative Urine Glucose 3+(>=500 mg/dL) Abnormal Negative CBC Auto 05/20/2018 [facility] White Blood 19.4 10^3/uL High 3.5-10.[address] [place] [address] [phone] Red Blood Count 5.29 10^6/uL N 4.00-5.40 Hemoglobin 15.8 g/dL N 12.0-16.0 Hematocrit 47 % N 35-47 Mean Corpuscular Volume 88 fL N 80-97 Mean Corpuscular Hemoglobin 30 pg N 27-31 Mean Corpuscular HGB Conc 34 g/dL N 31-36 Red Cell Distribution Width 15 % N 10.5-15 Platelet Count 270 10^3/uL N 150-450 Mean Platelet Volume 9.0 fL N 7.4-10.4 Abs Neutrophils 16.1 10^3/uL High 1.5-7.7 Abs Lymphocytes 2.5 10^3/uL N 1.0-4.8 Abs Monocytes 0.7 10^3/uL N 0-0.8 Abs Eosinophils 0 10^3/uL N 0-0.6 Abs Basophils 0.1 10^3/uL N 0-0.2 Abs Nucleated RBC 0 10^3/uL Granulocyte % 82.8 % Lymphocyte % 13.0 % Monocyte % 3.5 % Eosinophil % 0.2 % Basophil % 0.5 % Nucleated Red Blood Cells % 0.1 Laboratory test 05/20/2018 [facility] Lactic Acid 4.3 mmol/L High 0.5-2.0 1 finding [address] [place] [address] [phone] Inr/Protime 05/20/2018 [facility] Inr 0.99 N 0.77-1.02 [address] [place] [address] [phone] Laboratory test 05/20/2018 [facility] Magnesium 1.6 mg/dL Low 1.9-2.7 finding [address] [place] [address] [phone] Lipase 47 U/L N 11.0-82.0 C Reactive Protein 4.02 mg/L N <8.01 HCG < 0.60 mIU/mL 2 Comp Metabolic Panel 05/20/2018 [facility] Sodium 136 mmol/L N 135-145 [address] [place] [address] [phone] Potassium 3.1 mmol/L Low 3.5-5.0 Chloride 94 mmol/L Low 101-111 Co2 Carbon Dioxide 21 mmol/L Low 22-32 Anion Gap 21 mmol/L High 2-11 Glucose 388 mg/dL High 70-100 Blood Urea Nitrogen 14 mg/dL N 6-24 Creatinine 0.80 mg/dL N 0.51-0.95 BUN/Creatinine Ratio 17.5 N 8-20 Calcium 10.4 mg/dL High 8.6-10.3 Total Protein 7.7 g/dL N 6.4-8.9 Albumin 4.7 g/dL N 3.2-5.2 Globulin 3.0 g/dL N 2-4 Albumin/Globulin Ratio 1.6 N 1-3 Total Bilirubin 1.10 mg/dL High 0.2-1.0 Alkaline Phosphatase 50 U/L N 34-104 Alt 21 U/L N 7-52 Ast 22 U/L N 13-39 Egfr Non- 80.3 >60 Egfr 97.1 >60 3 Laboratory test 05/20/2018 [facility] Rapid SEE RESULT [address] [place] [address] Antigen [phone] Rapid Influenza 05/20/2018 [facility] Influenza A NEGATIVE Negative 5 A & B Molecular [address] [place] [address] [phone] Influenza B Molecular NEGATIVE Negative Laboratory test 05/20/2018 [facility] Lactic Acid 1.6 mmol/L N 0.5-2.0 [address] [place], [place] [id number] [phone] CBC Auto Diff 05/20/2018 [facility] White Blood 18.6 High 3.5- 10.[address] Count 10^3/[place] [address] [phone] Red Blood Count 4.86 10^6/uL N 4.00-5.40 Hemoglobin 14.4 g/dL N 12.0-16.0 Hematocrit 43 % N 35-47 Mean Corpuscular Volume 88 fL N 80-97 Mean Corpuscular Hemoglobin 30 pg N 27-31 Mean Corpuscular HGB Conc 34 g/dL N 31-36 Red Cell Distribution Width 15 % N 10.5-15 Platelet Count 239 10^3/uL N 150-450 Mean Platelet Volume 8.7 fL N 7.4-10.4 Abs Neutrophils 15.8 10^3/uL High 1.5-7.7 Abs Lymphocytes 2.2 10^3/uL N 1.0-4.8 Abs Monocytes 0.5 10^3/uL N 0-0.8 Abs Eosinophils 0 10^3/uL N 0-0.6 Abs Basophils 0.1 10^3/uL N 0-0.2 Abs Nucleated RBC 0 10^3/uL Granulocyte % 84.9 % Lymphocyte % 11.7 % Monocyte % 2.9 % Eosinophil % 0 % Basophil % 0.5 % Nucleated Red Blood Cells % 0 CBC Auto 05/07/2018 [facility] White Blood 13.2 10^3/uL High 3.5-10.[address] [place] [address] [phone] Red Blood Count 4.91 10^6/uL N 4.00-5.40 Hemoglobin 14.4 g/dL N 12.0-16.0 Hematocrit 44 % N 35-47 Mean Corpuscular Volume 90 fL N 80-97 Mean Corpuscular Hemoglobin 29 pg N 27-31 Mean Corpuscular HGB Conc 33 g/dL N 31-36 Red Cell Distribution Width 15 % N 10.5-15 Platelet Count 242 10^3/uL N 150-450 Mean Platelet Volume 9.0 fL N 7.4-10.4 Abs Neutrophils 8.0 10^3/uL High 1.5-7.7 Abs Lymphocytes 4.5 10^3/uL N 1.0-4.8 Abs Monocytes 0.6 10^3/uL N 0-0.8 Abs Eosinophils 0.1 10^3/uL N 0-0.6 Abs Basophils 0.1 10^3/uL N 0-0.2 Abs Nucleated RBC 0 10^3/uL Granulocyte % 60.4 % Lymphocyte % 33.8 % Monocyte % 4.5 % Eosinophil % 0.7 % Basophil % 0.6 % Nucleated Red Blood Cells % 0 Lipid Profile 05/07/2018 [facility] Triglycerides 56 mg/dL 7 (Trig/Chol/HDL) [address] [place] [address] [phone] Cholesterol 84 mg/dL 8 HDL Cholesterol 42.6 mg/dL 9 LDL Cholesterol 30 mg/dL 10 Urine Microalbumin 05/07/2018 [facility] Ur Microalbumin < 15.[address] (mg/L) [place] [address] [phone] Urine Creatinine 74.96 mg/dL Urine Microalbumin/Creatinine TNP <31 11 Comp Metabolic Panel 05/07/2018 [facility] Sodium 135 mmol/L N 135-[address] [place] [address] [phone] Potassium 4.2 mmol/L N 3.5-5.0 Chloride 100 mmol/L Low 101-111 Co2 Carbon Dioxide 29 mmol/L N 22-32 Anion Gap 6 mmol/L N 2-11 Glucose 258 mg/dL High 70-100 Blood Urea Nitrogen 6 mg/dL N 6-24 Creatinine 0.77 mg/dL N 0.51-0.95 BUN/Creatinine Ratio 7.8 Low 8-20 Calcium 9.7 mg/dL N 8.6-10.3 Total Protein 6.5 g/dL N 6.4-8.9 Albumin 4.4 g/dL N 3.2-5.2 Globulin 2.1 g/dL N 2-4 Albumin/Globulin Ratio 2.1 N 1-3 Total Bilirubin 0.40 mg/dL N 0.2-1.0 Alkaline Phosphatase 42 U/L N 34-104 Alt 29 U/L N 7-52 Ast 23 U/L N 13-39 Egfr Non- 83.9 >60 Egfr 101.5 >60 12 Laboratory test 04/22/2018 [facility] Glucose Serum 311 finding Urine Culture And 04/22/2018 [facility] Urine Culture SEE RESULT 13, [address] [place] [address] [phone] CBC Auto Diff 04/21/2018 [facility] White Blood 15.4 10^3/uL High 3.5-[address] Count 0.8 [place] [address] [phone] Red Blood Count 5.64 10^6/uL High 4.00-5.40 [...] Cells % 0.6 Comp Metabolic Panel 04/21/2018 [facility] Sodium 137 mmol/L N 135-[address] [place] [address] [phone] Potassium 3.9 mmol/L N 3.5-5.0 Chloride 94 [...] Egfr Non- 70.1 >60 Egfr 84.8 >60 15 Laboratory test 04/21/2018 [facility] TSH (Thyroid 1.17 mcIU/mL N 0.34-5.[address] Stim [place]) [place] [address] [phone] Pathologist Review (SEE NOTE) 16 Laboratory test 04/19/2018 [facility] Point of Care 229 mg/dL High 70-100 [address] [place] [address] [phone] Urine Culture And 04/19/2018 [facility] Urine Culture SEE RESULT [address] [place] [address] [phone] Laboratory test 04/19/2018 [facility] HCG < 0.60 [address] mIU/[place] [address] [phone] Hemoglobin A1c (Glyco HGB) 11.2 % High 4.0-5.6 20 Urinalysis Profile 04/19/2018 [facility] Urine Appearance Cloudy [address] [place] [address] [phone] Urine Specific [place] 1.026 N 1.010-1.030 Urine pH 9.0 N [...] Absent Urine Color Cara Laboratory test 04/19/2018 [facility] Lactic Acid 1.2 mmol/L N 0.5-2.0 [address] [place] [address] [phone] Laboratory test 04/19/2018 [facility] Point of 356 mg/dL High 70-100 [address] [place] [address] [phone] Arterial Blood 04/19/2018 [facility] PH Arterial 7.45 N 7.35- 7.[address] [place] [address] [phone] Pco2 Arterial 36 mmHg N 35-45 Po2 Arterial 90 mmHg N 80-100 O2 Saturation Arterial 98.8 % High 94.0-98.0 Base Excess Arterial 1.3 mmol/L N -2.0-2.0 23 Hco3 Arterial 25.9 mmol/L N 19-31 Laboratory test 04/19/2018 [facility] Magnesium 1.9 mg/dL N 1.9-2.7 finding [address] [place] [address] [phone] Lipase 42 U/L N 11.0-82.0 Creatine Kinase(CK) 39 U/L N 10-223 C Reactive Protein 4.27 mg/L N <8.01 Lactic Acid 3.0 mmol/L High 0.5-2.0 24 Ammonia 47 mcmol/L N 16-53 B-Type Natriuretic Peptide BNP 14 pg/mL <=100 Comp Metabolic Panel 04/19/2018 [facility] Sodium 133 mmol/L Low 135-[address] [place] [address] [phone] Potassium 3.2 mmol/L Low 3.5-5.0 Chloride 96 [...] Egfr Non- 87.8 >60 Egfr 106.3 >60 25 Laboratory test 04/19/2018 [facility] Troponin-I 0.00 <0.04 [address] (TnI) ng/[place] [address] [phone] CBC Auto Diff 04/19/2018 [facility] White Blood 13.0 High 3.5- 10.[address] Count 10^3/[place] [address] [phone] Red Blood Count 5.33 10^6/uL N 4.00-5.40 [...] Blood Cells % 0.1 Laboratory test 04/15/2018 [facility] Lactic Acid 0.4 mmol/L Low 0.5-2.0 [address] [place] [address] [phone] Laboratory test 04/15/2018 [facility] Lactic Acid 4.0 mmol/L High 0.5-2.0 [address] [place] [address] [phone] CBC Auto Diff 04/15/2018 [facility] White Blood 25.0 High 3.5- 10.[address] Count 10^3/[place] [address] [phone] Red Blood Count 5.76 10^6/uL High 4.00-5.40 [...] Blood Cells % 0.1 Laboratory test 04/15/2018 [facility] Magnesium 1.9 mg/dL N 1.9-2.7 finding [address] [place] [address] [phone] Lipase 42 U/L N 11.0-82.0 C Reactive Protein 7.09 mg/L N <8.01 HCG < 0.60 mIU/mL 29 Comp Metabolic Panel 04/15/2018 [facility] Sodium 136 mmol/L N 135-145 [address] [place] [address] [phone] Potassium 3.6 mmol/L N 3.5-5.0 Chloride 93 [...] Egfr Non- 68.3 >60 Egfr 82.7 >60 30 Laboratory test 04/14/2018 [facility] Point of 240 mg/dL High 70-100 31 finding 101 [facility] [place] [address] [phone] Laboratory test 04/14/2018 [facility] Point of 344 mg/dL High 70-100 32 finding [address] [facility] [place] [address] [phone] Laboratory test 04/14/2018 [facility] Point of 373 mg/dL High 70-100 [address] Care Glucose [place], [place] [address] [phone] CBC Auto Diff 04/14/2018 [facility] White Blood 14.3 High 3.5- 10.[address] Count 10^3/[place] [address] [phone] Red Blood Count 5.99 10^6/uL High 4.00-5.40 [...] Blood Cells % 0.1 Laboratory test 04/14/2018 [facility] B-Type 39 pg/mL <=[address] [place] [address] Peptide BNP [phone] Troponin-I (TnI) 0.00 ng/mL <0.04 34 Comp Metabolic Panel 04/14/2018 [facility] Sodium 137 mmol/L N 135-[address] [place] [address] [phone] Potassium 4.3 mmol/L N 3.5-5.0 Chloride 100 [...] Egfr Non- 67.5 >60 Egfr 81.6 >60 35 Laboratory test 04/14/2018 [facility] Magnesium 2.0 mg/dL N 1.9-2.[address] [place] [address] [phone] Lipase 35 U/L N 11.0-82.0 Creatine Kinase(CK) 44 U/L N 10-223 C Reactive Protein 3.78 mg/L N <8.01 HCG < 0.60 mIU/mL 36 Lactic Acid 3.2 mmol/L High 0.5-2.0 37 Urinalysis Profile 04/14/2018 [facility] Urine Color Yellow [address] [place] [address] [phone] Urine Appearance Clear Urine Specific [place] 1.024 N 1.010-1.030 Urine pH 7.0 N 5-9 Urine Urobilinogen Negative Negative Urine Ketones 2+ Abnormal Negative Urine Protein Negative Negative Urine Leukocytes Negative Negative Urine Blood Negative Negative Urine Nitrite Negative Negative Urine Bilirubin Negative Negative Urine Glucose 3+(>=500 mg/dL) Abnormal Negative Laboratory test 12/15/2017 [facility] Cytology SEE RESULT [address] [place] [address] [phone] Laboratory test 12/13/2017 [facility] Poc Negative Negative [address] , [place] [address] Urine [phone] Wound 03/02/2016 [facility] Wound/Misc SEE RESULT 40 Culture/Sensi [address] [place] [address] Stain [phone] Laboratory test 03/02/2016 [facility] MRSA/S. SEE RESULT [address] [place] [address] PCR [phone] CBC Auto Diff 03/02/2016 [facility] White Blood 15.2 10^3/uL High 3.5-10.[address] [place] [address] [phone] Red Blood Count 4.26 10^6/uL N 4.0-5.4 [...] % 0.1 N Comp Metabolic Panel 03/02/2016 [facility] Sodium 138 mmol/L N 133-[address] [place] [address] [phone] Potassium 4.0 mmol/L N 3.5-5.0 Chloride 105 [...] 113.8 N >60 Egfr 146.3 N >60 42 Laboratory test 03/02/2016 [facility] C Reactive 65.08 mg/L High < 5.00 [address] [place] [address] [phone] Lactic Acid 1.3 mmol/L N 0.5-2.0 44 Laboratory test 10/25/2015 [facility] C Reactive 7.72 mg/L High < 5.00 [address] [place] [address] [phone] Comp Metabolic 10/25/2015 [facility] Sodium 134 N 133-[address] mmol/[place] [address] [phone] Potassium 4.2 mmol/L N 3.5-5.0 Chloride 103 [...] 111.6 N >60 Egfr 143.5 N >60 46 CBC Auto 10/25/2015 [facility] White Blood 17.0 10^3/uL High 3.5-10.[address] [place] [address] [phone] Red Blood Count 4.45 10^6/uL N 4.0-5.4 [...] % 0 N Comp Metabolic Panel 10/10/2015 [facility] Sodium 131 mmol/L Low 133-[address] [place] [address] [phone] Potassium 3.9 mmol/L N 3.5-5.0 Chloride 100 [...] 118.3 N >60 Egfr 152.1 N >60 47 Laboratory test 10/10/2015 [facility] C Reactive 9.07 mg/L High < 5.00 [address] [place] [address] [phone] CBC Auto Diff 10/10/2015 [facility] White Blood 16.8 High 3.5- 10.[address] Count 10^3/[place] [address] [phone] Red Blood Count 4.24 10^6/uL N 4.0-5.4 [...] Cells % 0 N CBC Auto 10/03/2015 [facility] White Blood 16.3 10^3/uL High 3.5-10.[address] [place] [address] [phone] Red Blood Count 4.44 10^6/uL N 4.0-5.4 [...] % 0 N Comp Metabolic Panel 10/03/2015 [facility] Sodium 134 mmol/L N 133-145 [address] [place] [address] [phone] Potassium 3.9 mmol/L N 3.5-5.0 Chloride 103 [...] 123.2 N >60 Egfr 158.4 N >60 49 Laboratory test 10/03/2015 [facility] C Reactive 9.21 mg/L High < 5.[address] [place] [address] [phone] Comp Metabolic 09/26/2015 [facility] Sodium 133 N 133-[address] mmol/[place] [address] [phone] Potassium 4.1 mmol/L N 3.5-5.0 Chloride 103 [...] 134.2 N >60 Egfr 172.6 N >60 51 Laboratory test 09/26/2015 [facility] C Reactive 7.36 mg/L High < 5.00 [address] [place] [address] [phone] CBC Auto Diff 09/26/2015 [facility] White Blood 18.2 High 3.5- 10.[address] Count 10^3/[place] [address] [phone] Red Blood Count 4.50 10^6/uL N 4.0-5.4 [...] % 0.1 N Comp Metabolic Panel 09/19/2015 [facility] Sodium 133 mmol/L N 133-[address] [place] [address] [phone] Potassium 4.2 mmol/L N 3.5-5.0 Chloride 102 [...] 143.7 N >60 Egfr 184.8 N >60 53 Laboratory test 09/19/2015 [facility] C Reactive 10.04 mg/L High < 5.00 [address] [place] [address] [phone] CBC Auto Diff 09/19/2015 [facility] White Blood 18.2 High 3.5- 10.[address] Count 10^3/[place] [address] [phone] Red Blood Count 4.96 10^6/uL N 4.0-5.4 [...] Cells % 0 N CBC Auto 09/12/2015 [facility] White Blood 15.9 10^3/uL High 3.5-10.[address] [place] [address] [phone] Red Blood Count 4.71 10^6/uL N 4.0-5.4 [...] % 0.1 N Comp Metabolic Panel 09/12/2015 [facility] Sodium 132 mmol/L Low 133-[address] [place] [address] [phone] Potassium 4.3 mmol/L N 3.5-5.0 Chloride 102 [...] 107.5 N >60 Egfr 138.3 N >60 55 Laboratory test 09/12/2015 [facility] C Reactive 6.19 mg/L High < 5.00 [address] [place] [address] [phone] Comp Metabolic 09/04/2015 [facility] Sodium 134 N 133-[address] mmol/[place] [address] [phone] Potassium 4.0 mmol/L N 3.5-5.0 Chloride 100 [...] 92.2 N >60 Egfr 118.5 N >60 57 Laboratory test 09/04/2015 [facility] C Reactive 17.03 mg/L High < 5.00 [address] [place] [address] [phone] CBC Auto Diff 09/04/2015 [facility] White Blood 13.5 High 3.5- 10.[address] Count 10^3/[place] [address] [phone] Red Blood Count 4.63 10^6/uL N 4.0-5.4 [...] Cells % 0.1 N Laboratory test 08/29/2015 [facility] Point of 219 mg/dL High 74-106 [address] [place] [address] [phone] Laboratory test 08/29/2015 [facility] Point of 276 mg/dL High 74-106 [address] [place] [address] [phone] Basic Metabolic 08/28/2015 [facility] Sodium 133 mmol/L N 133- [address] [place] [address] [phone] Potassium 3.6 mmol/L N 3.5-5.0 Chloride 103 mmol/L N 101-111 Co2 Carbon Dioxide 22 mmol/L N 22-32 Anion Gap 8 mmol/L N 2-11 Glucose 197 mg/dL High 70-100 Blood Urea Nitrogen 7 mg/dL N 6-24 Creatinine 0.65 mg/dL N 0.51-0.95 BUN/Creatinine Ratio 10.8 N 8-20 Calcium 9.3 mg/dL N 8.6-10.3 Egfr Non- 103.7 N >60 Egfr 133.4 N >60 61 Laboratory test 08/28/2015 [facility] HCG 70864.00 N [address] mIU/[place] [address] [phone] CBC Auto Diff 08/28/2015 [facility] White Blood 17.9 10^3/uL High 3.5-[address] Count 0.8 [place] [address] [phone] Red Blood Count 5.11 10^6/uL N 4.0-5.4 [...] Blood Cells % 0 N Wound 08/27/2015 [facility] Wound/Misc SEE 63, 64 Culture/Sensi [address] [place] [address] Stain BELOW [phone] CBC Auto Diff 08/01/2015 [facility] White Blood 11.5 High 3.[address] Count 10^3/uL -10 [place] [address] .8 [phone] Red Blood Count 5.01 10^6/uL N 4.0-5.4 [...] % 0 N Comp Metabolic Panel 08/01/2015 [facility] Sodium 134 mmol/L N 133-145 [address] [place] [address] [phone] Potassium 4.0 mmol/L N 3.5-5.0 Chloride 99 [...] 81.6 N >60 Egfr 105.0 N >60 65 Laboratory test finding 08/01/2015 [facility] Lipase 48 U/L N 11.0-82.0 [address] [place] [address] [phone] C Reactive Protein 9.42 mg/L High < 5.00 66 Partial Thrombo Time PTT 32.5 seconds N 26.0-36.3 Lactic Acid 0.9 mmol/L N 0.5-2.0 67 HCG 45350.00 mIU/mL N 68 Urinalysis Profile 08/01/2015 [facility] Urine Color Straw N [address] [place] [address] [phone] Urine Appearance Clear N Urine Specific [place] 1.006 Low 1.010-1.030 Urine pH 6.0 N 5-9 Urine Urobilinogen Negative N Negative Urine Ketones Negative N Negative Urine Protein Negative N Negative Urine Leukocytes Negative N Negative Urine Blood Negative N Negative Urine Nitrite Negative N Negative Urine Bilirubin Negative N Negative Urine Glucose 2+(150 mg/dL) Abnormal Negative CBC Auto 05/28/2015 [facility] White Blood 14.2 10^3/uL High 3.5-10.[address] [place] [address] [phone] Red Blood Count 3.32 10^6/uL Low 4.0-5.4 [...] 7.4-10.4 Abs Neutrophils 9.4 10^3/uL High 1.5-7.7 69 Abs Lymphocytes 3.9 10^3/uL N 1.0-4.8 Abs [...] 0.2 N Iron & Iron Binding 05/28/2015 [facility] Iron 24 g/dL Low 50-[address] [place] [address] [phone] Unsaturated Iron Binding 347 g/dL N Total Iron Binding Capacity 371 g/dL N 250-450 % Iron Saturation 6 % Low 15-55 Laboratory test 05/28/2015 [facility] Ferritin 21.1 ng/mL N 11 -[address] [place] [address] [phone] Retic Count 05/28/2015 [facility] Retic Count 6.5 % High 0.5- 1.[address] [place] [address] [phone] Corrected Retic Count 4.3 % High 0.5-1.5 Maturation Factor Retic 1.5 N Retic Index 2.90 N Mean Retic Volume 108.4 N Immature Retic Fraction 0.52 N RBC Retic Count 3.32 10^6/uL Low 4.6-6.2 Hematocrit for Retic CNT 30 % Low 35-47 Basic Metabolic Panel 05/25/2015 [facility] Sodium 138 mmol/L N 133-[address] [place] [address] [phone] Potassium 3.9 mmol/L N 3.5-5.0 Chloride 103 mmol/L N 101-111 Co2 Carbon Dioxide 30 mmol/L N 22-32 Anion Gap 5 mmol/L N 2-11 Glucose 183 mg/dL High 70-100 Blood Urea Nitrogen 8 mg/dL N 6-24 Creatinine 0.67 mg/dL N 0.51-0.95 BUN/Creatinine Ratio 11.9 N 8-20 Calcium 9.1 mg/dL N 8.6-10.3 Egfr Non- 100.2 N >60 Egfr 128.8 N >60 70 CBC Auto 05/25/2015 [facility] White Blood 13.7 10^3/uL High 3.5-10.[address] [place] [address] [phone] Red Blood Count 3.20 10^6/uL Low 4.0-5.4 [...] Cells % 0.1 N Urine Microalbumin 05/25/2015 [facility] Ur Microalbumin 14.0 mg /L N Random [address] (mg/L) [place] [address] [phone] Urine Creatinine 359.60 mg/dL N Urine Microalbumin/Creatinine 3.8 ug/mg N <31 Laboratory test 05/25/2015 [facility] Hemoglobin A1c 10.4 High 5-7 finding Laboratory test 08/02/2013 [facility] Hemoglobin A1c 6.5 5-7 finding Urine Microalbumin 08/02/2013 [facility] Ur Microalbumin 5.0 mg/ dL N <30 [address] (mg/L) [place] [address] [phone] Urine Creatinine 99.55 mg/dL N Urine Microalbumin/Creatinine 5.0 N Less Than 31 Laboratory test 04/11/2013 [facility] Cytology RUN DATE: [address] 04/11/ <[place] [address] NOTE> [phone] GC/Chlamydia 04/11/2013 [facility] GC/Chlamydia Rna (SEE NOTE) 73 Amplified Rna [address] [place] [address] [phone] Human Papilloma 04/11/2013 [facility] Human See Comment [address] [place] [address] Source [phone] Human Papillomavirus High Risk Negative Negative 75 Laboratory test 04/11/2013 [facility] Hemoglobin A1c 7.0 5-7 finding Laboratory test 12/31/2012 [facility] Hemoglobin A1c 6.7 5-7 finding Laboratory test 07/06/2012 [facility] Hemoglobin A1c 7.8 % High Less than [address] 6.0 [place] [address] [phone] Glucose 204 mg/dL High 70-100 77 Lipid Profile 07/06/2012 [facility] Triglycerides 108 mg/dL 40-200 (Trig/Chol/HDL) [address] [place], [place] [address] [phone] Cholesterol 76 mg/dL Low Less than 200 HDL Cholesterol 29 mg/dL Low 40-60 78 Cholesterol/HDL Ratio 2.6 Average 1-4.44 LDL Cholesterol 25.4 mg/dL Less Than 100 79 Urine Microalbumin 07/06/2012 [facility] Ur Microalbumin 4.0 mg/ L [address] (Mg/L) [place] [address] [phone] Urine Creatinine 107.0 mg/dL Urine Microalbumin/Creatinine 3.7 ug/mg Less Than 31 Laboratory test 03/22/2012 [facility] Hemoglobin A1c 8.4 High 5-7 finding Laboratory test 12/22/2011 [facility] Hemoglobin A1c 6.8 5-7 finding Laboratory test 09/14/2011 [facility] Lactic Acid 1.1 mmol/L 0.5-1.[address] [place] [address] [phone] Laboratory test 09/14/2011 [facility] (HCG) NEGATIVE Negative [address] [place] [address] [phone] Blood Culture 09/14/2011 [facility] M [address] ---- <[place] [address] NOTE> [phone] Manual 09/14/2011 [facility] Polysegmented 72 % 38-83 Differential 101 [place] [address] [phone] Band Neutrophil 3 % 0-8 Lymphocyte 17 % Low 25-47 Monocyte 6 % 0-13 Eosinophil 2 % 0-6 RBC Morphology NORMAL CBC Auto Diff 09/14/2011 [facility] White Blood 15.1 CUMM High 4.8-10.[address] [place] [address] [phone] Red Cell Count 4.42 CUMM 4.2-5.4 Hemoglobin 13.7 g/dL 12.0-16.0 Hematocrit 40 % 35-47 Mean Corpuscular Volume 91 um3 79-97 Mean Corpuscular Hemoglob 31 pg 27-31 Mean Corpuscular HGB Cone 34 g/dL 32-36 Redcell Distribution WDTH 13 % 10.5-15 Platelet Count 182 CUMM 150-450 Mean Platelet Volume 10.0 um3 7.4-10.4 Absolute Neutrophil Count 10.3 High 1.5-7.7 83 Comp Metabolic Panel 09/14/2011 [facility] Sodium 132 mmol/L Low 135-[address] [place] [address] [phone] Potassium 4.1 mmol/L 3.5-5.0 Chloride 102 mmol/L 101-111 Co2 (Carbon Dioxide) 22.0 mmol/L 22-32 Anion Gap 8.0 mmol/L 2-11 84 Glucose 190 mg/dL High 70-100 BUN 10 mg/dL 6-24 Creatinine 0.9 mg/dL 0.50-1.40 One Over Creatinine 1.11 BUN/Creatinine Ratio 11.1 8-20 Calcium 9.1 mg/dL 8.1-9.9 Total Protein 6.7 GM/DL 6.2-8.1 Albumin 3.8 GM/DL 3.6-5.4 Globulin 2.9 GM/DL 2-4 Albumin/Globulin Ratio 1.3 1-3 Bilirubin Total 0.6 mg/dL 0.4-1.5 85 Alkaline Phosphatase 34 U/L 30-110 Alt (SGPT) 21 U/L 14-54 Ast (Sgot) 20 U/L 12-42 eGFR Non- 73.0 > 60 eGFR 93.9 > 60 86 Laboratory test 09/10/2011 [facility] Hemoglobin A1c 7.5 High 5-7 finding Testosterone Free 06/10/2011 [facility] Free Testosterone 0.4 ng /dL 0.3-1.9 87 & Total [address] [place] [address] [phone] Total Testosterone 13 ng/dL 8-60 88 Laboratory test 06/10/2011 [facility] Dhea Sulfate 136 g/dL 31-228 [address] [place] [address] [phone] Urine 06/10/2011 [facility] Microalbumin 10.0 mg/L Microalbumin [address] (MG/L) [place] [address] [phone] Urine Creatinine 135.7 mg/dL Raheem Alb/Creatinine Ratio 7.4 UG/MG Less Than 30 90 Lipid Profile 06/10/2011 [facility] Triglyceride 103 mg/dL 40 -200 (Trig/Chol/HDL) [address] [place] [address] [phone] Cholesterol 69 mg/dL Low Less Than 200 91 High Density Lipoprotein 25 mg/dL Low 40-60 92 Cholesterol/HDL Ratio 2.76 AVERAGE 1-4.44 Low Density Lipoprotein 23 mg/dL Less Than 100 93 Comp Metabolic Panel 06/10/2011 [facility] Sodium 135 mmol/L 135-145 [address] [place] [address] [phone] Potassium 4.4 mmol/L 3.5-5.0 Chloride 101 mmol/L 101-111 Co2 (Carbon Dioxide) 24.0 mmol/L 22-32 Anion Gap 10.0 mmol/L 2-11 94 Glucose 201 mg/dL High 70-100 BUN 11 mg/dL 6-24 Creatinine 0.9 mg/dL 0.50-1.40 One Over Creatinine 1.11 BUN/Creatinine Ratio 12.2 8-20 Calcium 9.6 mg/dL 8.1-9.9 Total Protein 7.5 GM/DL 6.2-8.1 Albumin 4.5 GM/DL 3.6-5.4 Globulin 3.0 GM/DL 2-4 Albumin/Globulin Ratio 1.5 1-3 Bilirubin Total 0.8 mg/dL 0.4-1.5 95 Alkaline Phosphatase 48 U/L 30-110 Alt (SGPT) 33 U/L 14-54 Ast (Sgot) 26 U/L 12-42 eGFR Non- 73.0 > 60 eGFR 93.9 > 60 96 Lipid Panel - JFM 06/10/2011 [facility] CPK (Creatine 54 U/L 0-[address] Kin[place]) [place] [address] [phone] Laboratory test 06/06/2011 [facility] Hemoglobin A1c 10.7 High 5-7 finding 1 Critical Result LACT:4.3 Called to [id number] at: 08:37:36 by:[id number] Read back by:ARLETTE POWELL Severe Sepsis and Septic Shock Management Bundle Measure requires all lactic acids initially measuring >2.0 mmol/L be repeated. 2 <5.0 Negative 5.0 - 25.0 Indeterminate (Repeat testing recommended after 72 hours) >25.0 Positive Perimenopausal women can display HCG levels of up to 20 mIU/mL 3 Because ethnic data is not always [...] 5 Kidney failure <15 (or dialysis) 4 SEE RESULT BELOW Name: DORA PATRICIO : [address]: Jean Claude Mancilla MD Acct: [id number] Unit: [id number] AGE: 38 Location: ED Re05/20/18 SEX: F Status: REG ER SPEC: [id number] FALGUNI: 05/20/[address]: Marlin NGUYEN REQ: [id number] RECD: 05/20/18 STATUS: QUENTIN GIANG DR: Jean Claude Plata MD _ SOURCE: NASAL SPDESC: ORDERED: Flu A B Request Procedure Result Reported Site Rapid Influenza A B Request Final 05/20/18- 08 ML Specimen received for Influenza A/B Molecular testing * ML - Main Lab . END OF REPORT DEPARTMENT OF PATHOLOGY, [address] [place] [address] Palmer Victoria M.D. Director [facility] # [id number] 5 Metalsmith Helper: [id number] [facility] Severe Sepsis and Septic Shock Management Bundle Measure requires all lactic acids initially measuring >2.0 mmol/L be repeated. 7 Desirable: <150 Borderline High: 150-199 High: 200-499 Very High: >500 8 Desirable: <200 Borderline High: 200-239 High: >239 9 Low: <40 Desirable: 40-60 High: >60 10 Desirable: <100 Near Optimal: 100-129 Borderline High: 130-159 High: 160-189 Very High: >189 11 Unable to calculate due to low microalbumin 12 Because ethnic data is not always [...] 5 Kidney failure <15 (or dialysis) 13 [id number] 14 SEE RESULT BELOW Name: SINTIADORA M : [address]: Clementine Plata MD Acct: [id number] Unit: [id number] AGE: 38 Location: [facility] Re04/22/18 SEX: F Status: REG REF SPEC: [id number] FALGUNI: 04/22/18-[address] [facility] [address]: Clemenitne Plata MD REQ: [id number] RECD: 04/22/18 STATUS: COMP _ SOURCE: URINE SPDESC: ORDERED: Urine Culture COMMENTS: [id number] Urine Source: Random Procedure Result Reported Site Urine Culture Final 04/23/18- 1609 ML No Growth (<1,000 CFU/mL) * ML - Main Lab . END OF REPORT DEPARTMENT OF PATHOLOGY, [address] [place] [address] Palmer Victoria M.D. Director [facility] # [id number] 15 Because ethnic data is not always readily [...] 15-29 5 Kidney failure <15 (or dialysis) 16 Absolute neutrophilia and lymphocytosis, favor reactive. Reviewed by Jessica Null MD 17 Metalsmith Helper: [id number] 18 SEE RESULT BELOW Name: DORA PATRICIO : [address]: Edie Jameson MD Acct: [id number] Unit: [id number] AGE: 38 Location: [place] [address]-02 Re04/19/18 Dis: 04/20/18 SEX: F Status: DIS Adiel SPEC: [id number] FALGUNI: 04/19/18-[address] [facility] [address]: Abhishek Mireles MD REQ: [id number] RECD: 04/19/181250 STATUS: QUENTIN GIANG DR: Abhishek Mratin III, MD _ SOURCE: URINE SPDESC: ORDERED: Urine Culture Procedure Result Reported Site Urine Culture Final 04/20/18- 1249 ML No growth of clinically significant organisms * ML - Main Lab . END OF REPORT DEPARTMENT OF PATHOLOGY, [address] [place] [address] Palmer Victoria M.D. Director [facility] # [id number] 19 <5.0 Negative 5.0 - 25.0 Indeterminate (Repeat testing recommended after 72 hours) >25.0 Positive Perimenopausal women can display HCG levels of up to 20 mIU/mL 20 Therapeutic target for the treatment of diabetes mellitus patients is <7% HBA1C, and in selective patients <6.0%. Please refer to [place] [employer] diabetic care guidelines for further information. 21 [facility] Severe Sepsis and Septic Shock Management Bundle Measure requires all lactic acids initially measuring >2.0 mmol/L be repeated. 22 Metalsmith Helper: [id number] 23 Reference ranges based on room air. 24 Critical Result LACT:3.0 Called to [id number] at: 10:56:58 by:[id number] Read back by:[id number] [facility] Severe Sepsis and Septic Shock Management Bundle Measure requires all lactic acids initially measuring >2.0 mmol/L be repeated. 25 Because ethnic data is not always readily [...] 15-29 5 Kidney failure <15 (or dialysis) 26 Troponin-I testing on Plasma Separator Tubes (PST) has a known false positive rate of 0.20-0.40%. All positive troponins reflex immediate secondary confirmatory testing. 27 [facility] Severe Sepsis and Septic Shock Management Bundle Measure requires all lactic acids initially measuring >2.0 mmol/L be repeated. 28 Critical Result LACT:4.0 Called to [id number] at: 20:41:22 by:[id number] Read back by:[id number] [facility] Severe Sepsis and Septic Shock Management Bundle Measure requires all lactic acids initially measuring >2.0 mmol/L be repeated. 29 <5.0 Negative 5.0 - 25.0 Indeterminate (Repeat testing recommended after 72 hours) >25.0 Positive Perimenopausal women can display HCG levels of up to 20 mIU/mL 30 Because ethnic data is not always [...] 5 Kidney failure <15 (or dialysis) 31 Metalsmith Helper: [id number] 32 Metalsmith Helper: [id number] 33 Metalsmith Helper: [id number] 34 Troponin-I testing on Plasma Separator Tubes (PST) has a known false positive rate of 0.20-0.40%. All positive troponins reflex immediate secondary confirmatory testing. 35 Because ethnic data is not always [...] 5 Kidney failure <15 (or dialysis) 36 <5.0 Negative 5.0 - 25.0 Indeterminate (Repeat testing recommended after 72 hours) >25.0 Positive Perimenopausal women can display HCG levels of up to 20 mIU/mL 37 Critical Result LACT:3.2 Called to [id number] at: 12:34:53 by:[id number] Read back by:[address] Severe Sepsis and Septic Shock Management Bundle Measure requires all lactic acids initially measuring >2.0 mmol/L be repeated. 38 SEE RESULT BELOW Name: DORA PATRICIO : [address]: Alba Sesay Acct: [id number] Unit: [id number] AGE: 37 Location: [facility] Re12/15/17 SEX: F Status: REG REF SPEC: [id number] FALGUNI: 12/15/[address]: Alba Sesay REQ: [id number] RECD: 12/16/17 STATUS: CARMELO GIANG DR: Abhishek Martin III, MD _ ORDERED: TP IMAGE ANALYS, WIG MAKER PHYS INTERP, HPV/Thin Prep COMMENTS: [id number] EPITHELIAL CELL ABNORMALITIES Low grade squamous intraepithelial [...] was evaluated with the assistance of the TherativePrep Test Imaging System. Due to cytologic findings at the drapery estimator microscope, comprehensive manual rescreening by a Veneer Jointer Operator may be required. The Pap Smear is [...] years. END OF REPORT DEPARTMENT OF PATHOLOGY, [address] [place] [address] Palmer Victoria M.D. Director [facility] # [id number] 39 Metalsmith Helper: [id number] If is still suspected, please repeat test after 48 to 72 hours. 40 SEE RESULT BELOW Name: DORA PATRICIO : [address]: Lincoln Mariano MD Acct: [id number] Unit: [id number] AGE: 35 Location: ED Re03/02/16 SEX: F Status: REG ER SPEC: [id number] FALGUNI: 03/02/[address]: Lincoln Mariano MD REQ: [id number] RECD: 03/02/16 STATUS: RES RAHAT DR: Sai Patricio MD _ [facility]: Culture Stain Procedure Result Reported Site Wound/Misc Gram Stain Final 03/02/16- 1701 ML 2+ Epithelial Cells 4+ Neutrophils 4+ Gram Positive Bacilli 3+ Gram Positive Cocci Wound/Misc Culture PENDING * ML - MAIN LAB ([facility]) . END OF REPORT * ML=Testing performed at Main Lab DEPARTMENT OF PATHOLOGY, [address] [place] [address] Palmer Victoria M.D. Director [facility] # [id number] 41 SEE RESULT BELOW Name: DORA PATRICIO : [address]: Lincoln Mariano MD Acct: [id number] Unit: [id number] AGE: 35 Location: ED Re03/02/16 SEX: F Status: DEP ER SPEC: [id number] FALGUNI: 03/02/[address] [facility] [address]: Lincoln Mariano MD REQ: [id number] RECD: 03/02/16 STATUS: QUENTIN GIANG DR: Sai [...] performed at Main Lab DEPARTMENT OF PATHOLOGY, [address] [place] [address] Palmer Victoria M.D. Director [facility] # [id number] Patient: DORA PATRICIO [id number] (Continued) Specimen: [id number] Collected: 03/02/16 Received: 03/02/16 (Continued) Procedure Result Reported Site Wound/Misc Culture Final (continued) 03/05/16922 1. ENTEROCOCCUS FAECALIS (continued) M.I.C. RX --------- ------ * Streptomycin High Level S Tetracycline >=16 R Tigecycline <=0.12 S Vancomycin 1 S Imipenem-Deduced S * Ampicillin/Sulbactam-Deduced S * These antibiotics are not available in the [facility] Formulary Contact the Microbiology Department for any additional antibiotic reporting. * ML - MAIN LAB ([facility]) . END OF REPORT * ML=Testing performed at Main Lab DEPARTMENT OF PATHOLOGY, [address] [place] [address] Palmer Victoria M.D. Director [facility] # [id number] 42 Because ethnic data is not always [...] (or dialysis) 43 Acute inflammation: >10.[address] [facility] Severe Sepsis and Septic Shock Management Bundle Measure requires all lactic acids initially measuring >2.0 mmol/L be repeated. 45 Acute inflammation: >10.00 46 Because ethnic data is not always [...] 5 Kidney failure <15 (or dialysis) 47 Because ethnic data is not always readily [...] 15-29 5 Kidney failure <15 (or dialysis) 48 Acute inflammation: >10.00 49 Because ethnic data is not always [...] (or dialysis) 50 Acute inflammation: >10.00 51 Because ethnic data is not always readily [...] 15-29 5 Kidney failure <15 (or dialysis) 52 Acute inflammation: >10.00 53 Because ethnic data is not always [...] (or dialysis) 54 Acute inflammation: >10.00 55 Because ethnic data is not always [...] 5 Kidney failure <15 (or dialysis) 56 Acute inflammation: >10.00 57 Because ethnic data is not always readily [...] 15-29 5 Kidney failure <15 (or dialysis) 58 Acute inflammation: >10.00 59 Metalsmith Helper: [id number] ELI COSTA 60 Metalsmith Helper: [id number] FAZAL MILLAN 61 Because ethnic data is not always readily [...] 15-29 5 Kidney failure <15 (or dialysis) 62 <5.0 Negative 5.0 - 25.0 Indeterminate (Repeat testing recommended after 72 hours) >25.0 Positive Perimenopausal women can display HCG levels of up to 20 mIU/mL 63 LEFT FOOT 64 SEE RESULT BELOW Name: DORA PATRICIO : [address]: Reina NGUYEN Acct: [id number] Unit: [id number] AGE: 35 Location: [facility] Re08/28/15 SEX: F Status: REG REF SPEC: [id number] FALGUNI: 08/27/15-[address] [facility] [address]: Reina NGUYEN REQ: [id number] RECD: 08/28/15 STATUS: COMP _ SOURCE: MISC SOURC SPDESC: ORDERED: Culture Stain COMMENTS: LEFT FOOT Procedure Result Reported Site Wound/Misc Gram Stain Final 08/29/15- 0752 ML 2+ Neutrophils 4+ Gram Positive Cocci Wound/Misc Culture Final 08/31/15- 18 ML Organism 1 STREP AGALACTIAE - (GROUP [...] performed at Main Lab DEPARTMENT OF PATHOLOGY, [address] [place] [address] Palmer Victoria M.D. Director [facility] # [id number] Patient: DORA PATRICIO [id number] (Continued) Specimen: [id number] Collected: 08/27/15 Received: 08/28/15 (Continued) Procedure Result [...] These antibiotics are not available in the [facility] Formulary Contact the Microbiology Department for any additional antibiotic reporting. * ML - MAIN LAB ([facility]) . END OF REPORT * ML=Testing performed at Main Lab DEPARTMENT OF PATHOLOGY, [address] [place] [address] Palmer Victoria M.D. Director [facility] # [id number] 65 Because ethnic data is not always readily [...] 15-29 5 Kidney failure <15 (or dialysis) 66 Acute inflammation: >10.[address] [facility] Severe Sepsis and Septic Shock Management Bundle Measure requires all lactic acids initially measuring >2.0 mmol/L be repeated. 68 <5.0 Negative 5.0 - 25.0 Indeterminate (Repeat testing recommended after 72 hours) >25.0 Positive Perimenopausal women can display HCG levels of up to 20 mIU/mL 69 Consistent with previous results on 05/25/15. 70 Because ethnic data is not always [...] 5 Kidney failure <15 (or dialysis) 71 Microalbuminuria in a random sample is defined as: Microalbumin/Creatinine ratio of 30-299 ug/mg. 72 RUN DATE: 04/11/13 [facility] LAB LIVE PAGE 1 RUN TIME: 9566 [address] [place], [place] [address] Specimen Inquiry Name: DORA PATRICIO : [address]: Priya Lora MD Acct: [id number] Unit: [id number] AGE: 33 Location: [facility] Re04/11/13 SEX: F Status: REG REF SPEC: [id number] FALGUNI: 04/11/13-[address]: Priya Lora MD REQ: [id number] RECD: 04/11/13 STATUS: SOUT _ ORDERED: IMAGE ANALYSIS, HPV/Thin Prep, HPV 16/18 GENE FINAL DIAGNOSIS Negative for Intraepithelial lesion or Malignancy COMMENTS: Specimen sent to [facility] in [place], [place] on 04/11/13 by [id number] at 1509. Results will be reported separately. [...] was evaluated with the assistance of the TherativePrep Test Imaging System. Due to cytologic findings at the drapery estimator microscope, comprehensive manual rescreening by a Veneer Jointer Operator may be required. The Pap Smear is [...] performed at Main Lab DEPARTMENT OF PATHOLOGY, [facility] [address] [place], [place] [address] Palmer Victoria M.D. Director [facility] Permit #[id number] RUN DATE: 04/12/13 [facility] LAB LIVE PAGE 1 RUN TIME: 1343 [facility] [employer] [place], [place] [address] Specimen Inquiry Name: DORA PATRICIO : [address]: Priya Lora MD Acct: [id number] Unit: [id number] AGE: 33 Location: [facility] Re04/11/13 SEX: F Status: REG REF SPEC: [id number] FALGUNI: 04/11/1341 ROBERTO RUSH: Priya Lora MD REQ: [id number] RECD: 04/11/13 STATUS: COMP _ SOURCE: [facility]: ORDERED: GC/Chlam RNA QUERIES: Medent Number [id number] Procedure Result Verified Site Chlamydia Trachomatis RNA [...] result may have adverse psychosocial impact, the [facility] recommends retesting by a method using an [...] performed at Main Lab DEPARTMENT OF PATHOLOGY, [facility] [address] [place], [place] [address] Palmer Victoria M.D. Director [facility] Permit #[id number] RUN DATE: 04/12/13 [facility] LAB LIVE PAGE 2 RUN TIME: 1349 [facility] [employer] [place], [place] [address] Specimen Inquiry Patient: DORA PATRICIO [id number] (Continued) Specimen: [id number] Collected: 04/11/13 Received: 04/11/13 (Continued) Procedure Result [...] performed at Main Lab DEPARTMENT OF PATHOLOGY, [address] [place] [address] Palmer Victoria M.D. Director [facility] Permit #[id number] 74 RESULT: Ectocervical/Endocervical 75 For types 16, 18, 31, 33, 35, 39, 45, 51, 52, 56, 58, 59 and 68. Test Performed by: [place] [id number] Salesperson Burial Plots: Ramon Campos III, M.D. 76 Therapeutic target for the treatment of diabetes Mellitus patients is <7% HBA1C, and in selective patients <6.0%.Please refer to [place] [employer] Diabetic care guidelines for further information. 77 PT IS FASTING 78 HDL Interpretation: Undesirable: High Risk: Less than 40 MG/DL Desirable: Low Risk: Greater than 60 MG/DL 79 LDL Interpretation: Low Risk Optimal Level: LDL Less than 100 MG/DL Near or Above Optimal: LDL 100-129 MG/DL Borderline High Risk: LDL 130-159 MG/DL High Risk: LDL 160-189 MG/DL Very High Risk: LDL Greater than 189 MG/DL 80 Microalbuminuria in a random sample is defined as: Microalbumin/Creatinine ratio of 30-299 ug/mg. 81 If is still suspected, please repeat test after 48 to 72 hours. . This test detects intact HCG only and is indicated for the early detection of . 82 RUN DATE: 09/19/11 [facility] NMI LIVE PAGE 1 RUN TIME: 1834 Specimen Inquiry RUN USER: INTERFACE Name: DORA PATRICIO Status: DIS IN Re09/14/11 Age/Sex: 31/ Unit#: [id number] Location: [address] [place] [address]. : [birth year] SPEC #: [id number] FALGUNI: 09/14/11 STATUS: QUENTIN REQ #: [id number] RECD: 09/14/11-[address]: Raquel MORTON, Citlalli Holcomb SOURCE: BLOOD ENTR: 09/14/11-[address]: Guido MORTON,[facility]riya [facility] ORDERED: BLOOD CULTURE ACT WKST: BC 09/15/11 #1 Procedure Result Verified Site > AEROBIC CULTURE BOTTLE Final 09/19/11- 1835 ML NO GROWTH AFTER 5 DAYS > ANAEROBIC CULTURE BOTTLE Final 09/19/11- 1835 ML NO GROWTH AFTER 5 DAYS - [facility] Permit #[id number] [facility] [employer] [place] [address] DEPARTMENT OF PATHOLOGY, [facility] [address] [place], [place] [address] [facility] Permit #[id number] Palmer Victoria M.D. Director Vicki Brown M.D. Hospital Medicine Director [address] 1 84 Anion gap measurement may be of limited value in the presence of any alkalosis, especially in a combined acid base disorder. . 85 A metabolite of Naproxen, O-desmethylnaproxen, has been shown to interfere with the Jendrassik-Modjeska method for measuring total bilirubin. Samples from patients who have taken Naproxen have shown spurious elevation in total bilirubin levels. 86 Because ethnic data is not always readily [...] 15-29 5 Kidney failure <15 (or dialysis) 87 Test Performed by: [facility] Dpt of Lab Med and Pathology [address] [place] [address] Salesperson Burial Plots: Ramon Campos III, M.D. 88 Test Performed by: [facility] Dpt of Lab Med and Pathology [address] [place] [address] Salesperson Burial Plots: Ramon Campos III, M.D. 89 Test Performed by: [facility] Dpt of Lab Med and Pathology [address] [place] [address] Salesperson Burial Plots: Ramon Campos III, M.D. 90 MICROALBUMINURIA IN A RANDOM SAMPLE IS DEFINED : MICROALBUMIN/CREATININE RATIO OF 30-299 ug/mg. . 91 CHOLESTEROL INTERPRETATION: Desirable: Less than 200 MG/DL Borderline-High Risk: 200-239 MG/DL High-Risk: 240 MG/DL and over 92 HDL INTERPRETATION: Undesirable: High Risk: Less than 40 MG/DL Desirable: Low Risk: Greater than 60 MG/DL 93 LDL INTERPRETATION: Low Risk Optimal Level: LDL Less than 100 MG/DL Near or Above Optimal: LDL 100-129 MG/DL Borderline High Risk: LDL 130-159 MG/DL High Risk: LDL 160-189 MG/DL Very High Risk: LDL Greater than 189 MG/DL 94 Anion gap measurement may be of limited value in the presence of any alkalosis, especially in a combined acid base disorder. . 95 A metabolite of Naproxen, O-desmethylnaproxen, has been shown to interfere with the Jendrassik-Modjeska method for measuring total bilirubin. Samples from patients who have taken Naproxen have shown spurious elevation in total bilirubin levels. 96 Because ethnic data is not always readily [...] (or dialysis) Procedures Date Code Description Status 11/05/2017 04789 Inject/Drain Joint/Bursa Major W/O US Completed 12/04/2015 30576 Debridement Skin,& sq Tissue Completed 11/13/2015 03901 Debridement Skin,& sq Tissue Completed 11/06/2015 97843 Debridement Skin,& sq Tissue Completed 10/30/2015 59160 Debridement Skin,& sq Tissue Completed 10/23/2015 73140 Debridement Skin,& sq Tissue Completed 08/29/2015 86976 Arthrotomy Metatarsophalangeal JT Completed 08/29/2015 93716 Arthrotomy Metatarsophalangeal JT Completed 07/27/2015 97410 Arthrotomy Metatarsophalangeal JT Completed 08/13/2012 378025994 Diabetic Retinal Eye Exam Completed 07/28/2011 478780074 Diabetic Foot Exam Completed 06/27/2011 076285038 Diabetic Retinal Eye Exam Completed Encounters Type Date Location Provider Dx Diagnosis Office Visit 05/03/2018 [facility] Clementine Plata MD I10 Essential ( primary) 10:20a Medicine - hypertension [place] E11.9 Type 2 diabetes mellitus without complications D72.829 Elevated white blood cell count, unspecified L65.9 Nonscarring hair loss, unspecified Office Visit 04/22/2018 10:20a [facility] Clementine Plata, R11.2 Nausea with Medicine - vomiting, [place] unspecified E11.9 Type 2 diabetes mellitus without complications Office Visit 04/21/2018 2:40p [facility] Clementine Plata, I10 Essential ( primary) Medicine - MD hypertension [place] E11.65 Type 2 diabetes mellitus with hyperglycemia R11.2 Nausea with vomiting, unspecified Office Visit 04/20/2018 10:38a [facility] Edie Dill, R11.2 Nausea with zoltan Escamilla MD vomiting, Hospitalists unspecified E11.65 Type 2 diabetes mellitus with hyperglycemia I10 Essential (primary) hypertension Office Visit 04/19/2018 [facility] Chandni R11.10 Vomiting, 10:38a zoltan Escamilla PA unspecified Hospitalists E11.69 Type 2 diabetes mellitus with other specified complication E87.6 Hypokalemia E87.2 Acidosis R82.90 Unspecified abnormal findings in urine Office Visit 11/05/2017 2:15p Orthopedic Kit Gutierrez, S42.254D Nondisp fx of Services Of Pita Wiseman C.M.A. M75.41 Impingement syndrome of right shoulder Office Visit 07/16/2017 11:30a Eliezer Gutierrez S42.254D Nondisp fx of Services Of Pita Wiseman C.M.A. Office Visit 06/04/2017 1:30p Orthopedic Kit Gutierrez, [...] right shoulder, subs S46.101A Unsp injury of musc/fasc/tend long hd bicep, right arm, init S46.111A Strain of musc/fasc/tend long hd bicep, right arm, init Office Visit 02/24/2016 [facility] E11.9 Type 2 diabetes 3:54p Assoczoltan M.D. mellitus without Hospitalists complications Z79.4 assisted (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 Office Visit 02/05/2016 8:29a Wound Care Edson Garcia M86.172 Other acute Center AT [facility] Sheri Fulton osteomyelitis, left ankle and foot E11.621 Type 2 diabetes mellitus with foot ulcer Office Visit 01/17/2016 2:21p Wound Care Edson Garcia E11.621 Type 2 diabetes Center AT [facility] Sheri Fulton mellitus with foot ulcer M86.172 Other acute osteomyelitis, left ankle and foot L97.521 Non-prs chronic ulcer oth prt l foot limited to brkdwn skin Office Visit 01/08/2016 11:22a Wound Care Edson Garcia E11.621 Type 2 diabetes Center AT [facility] Sheri Fulton mellitus with foot ulcer M86.172 Other acute osteomyelitis, left ankle and foot L97.521 Non-prs chronic ulcer oth prt l foot limited to brkdwn skin Office Visit 12/27/2015 1:01p Wound Care Edson Garcia E11.621 Type 2 diabetes Center AT [facility] Sheri Fulton mellitus with foot ulcer M86.172 Other acute osteomyelitis, left ankle and foot L97.521 Non-prs chronic ulcer oth prt l foot limited to brkdwn skin Office Visit 12/13/2015 9:22a Wound Care Edson Garcia E11.621 Type 2 diabetes Center AT [facility] Sheri Fulton mellitus with foot ulcer M86.172 Other acute osteomyelitis, left ankle and foot Office Visit 11/29/2015 10:31a Wound Care Edson Garcia E11.621 Type 2 diabetes Center AT [facility] Sheri Fulton mellitus with foot ulcer M86.172 Other acute osteomyelitis, left ankle and foot L97.521 Non-prs chronic ulcer oth prt l foot limited to brkdwn skin Office Visit 11/20/2015 4:44p Wound Care Edson Garcia L97.521 Non-prs chronic Center AT [facility] Sheri Fulton ulcer oth prt l foot limited to brkdwn skin E11.621 Type 2 diabetes mellitus with foot ulcer M86.172 Other acute osteomyelitis, left ankle and foot Office Visit 10/29/2015 [facility] Jani Galindo M86.172 Other acute 3:00p For Infectious Sheri Hirsch osteomyelitis, left Diseases ankle and foot E11.621 Type 2 diabetes mellitus with foot ulcer B95.61 Methicillin suscep staph infct causing dis classd elswhr Z33.1 state, incidental Office Visit 10/23/2015 1:03p Wound Care Edson Garcia M86.172 Other acute Center AT [facility] Sheri Fulton osteomyelitis, left ankle and foot E11.621 Type 2 diabetes mellitus with foot ulcer Office Visit 10/11/2015 [facility] Jani Galindo M86.172 Other acute 4:00p For Infectious Sheri Hirsch osteomyelitis, left Diseases ankle and foot B95.1 Streptococcus, group B, causing diseases classd elswhr B95.61 Methicillin suscep staph infct causing dis classd elswhr Z33.1 state, incidental Office Visit 09/20/2015 [facility] Jani Galindo M86.172 Other acute 4:00p For Infectious Makenna Hirsch. osteomyelitis, left Diseases ankle and foot E11.621 Type 2 diabetes mellitus with foot ulcer B95.1 Streptococcus, group B, causing diseases classd elswhr B95.61 Methicillin suscep staph infct causing dis classd elswhr Z33.1 state, incidental Office Visit 08/31/2015 3:25p [facility] Emelyn Rojas, E11.621 Type 2 Assoczoltan M.D. diabetes Hospitalists mellitus with foot ulcer I10 Essential (primary) hypertension E11.65 Type 2 diabetes mellitus with hyperglycemia L02.612 Cutaneous abscess of left foot Office Visit 08/30/2015 [facility] Jani Galindo E11.69 Type 2 diabetes 12:04p [...] Z33.1 state, incidental Office Visit 08/30/2015 3:25p [facility] Sai E11.621 Type 2 Assoczoltan M.D. diabetes Hospitalists mellitus with foot ulcer I10 Essential (primary) hypertension E11.65 Type 2 diabetes mellitus with hyperglycemia L02.612 Cutaneous abscess of left foot Office Visit 08/29/2015 3:23p [facility] Sai I10 Essential Assoczoltan M.D. (primary) Hospitalists hypertension E11.621 Type 2 diabetes mellitus with foot ulcer E11.65 Type 2 diabetes mellitus with hyperglycemia L02.612 Cutaneous abscess of left foot Office Visit 08/08/2015 4:20p [facility] Jonathan Galindo L02.612 Cutaneous Infectious Joycelyn MTamikaD. abscess of left Diseases foot Z33.1 state, incidental B95.61 Methicillin suscep staph infct causing dis classd elswhr Office Visit 07/30/2015 9:25a [facility] Augusto Galindo L02.612 Cutaneous Infectious [place]en, M.D. abscess of left Diseases foot E11.40 Type 2 diabetes mellitus with diabetic neuropathy, unsp Z33.1 state, incidental B95.61 Methicillin suscep staph infct causing dis classd elswhr Office Visit 07/29/2015 1:09p [facility] Sai E11.621 Type 2 Assoc,zoltan Patricio M.D. diabetes Hospitalists mellitus with foot ulcer Z3A.01 Less than 8 weeks gestation of I10 Essential (primary) hypertension Z72.0 Tobacco use Office Visit 07/28/2015 1:09p [facility] Sai E11.621 Type 2 Assoc,zoltan Patricio M.D. diabetes Hospitalists mellitus with foot ulcer Z3A.01 Less than 8 weeks gestation of I10 Essential (primary) hypertension Z72.0 Tobacco use Office Visit 07/27/2015 12:47p [facility] Mark Anthony E11.621 Type 2 Assoc,zoltan James, N.P. diabetes Hospitalists mellitus with foot ulcer I10 Essential (primary) hypertension Z3A.01 Less than 8 weeks gestation of Office Visit 07/27/2015 11:20a Eliezer Gibbs L03.116 Cellulitis of Services Of Sheri Elizondo left lower limb C.M.A. S91.332A Puncture wound without foreign body, left foot, init encntr Office Visit 07/26/2015 1:20p [facility] Jani Galindo L03.116 Cellulitis of For Infectious Sheri Hirsch left lower limb Diseases G62.9 Polyneuropathy, unspecified [...] left foot, init encntr Office Visit 05/25/2015 [facility] Sai E11.9 Type 2 diabetes 8:00a Medicine Sheri Patricio mellitus without [place] complications I10 Essential (primary) hypertension D64.9 Anemia, unspecified F17.200 Nicotine dependence, unspecified, uncomplicated Office Visit 05/20/2015 [facility] R73.9 Hyperglycemia, 10:41a Asszoltan claudio M.D. unspecified Hospitalists I10 Essential (primary) hypertension E11.9 Type 2 diabetes mellitus without complications Office Visit 08/02/2013 8:40a [facility] Priya Lora, 250.90 Diabetes W / Medicine - M.D. Unspec Compl Type [place] II Or Unspec Controlled 305.1 Tobacco Use Disorder 401.9 Hypertension Unspec 704.9 Hair & Hair Follicle Diseases Unspec Office Visit 04/11/2013 8:40a [facility] Priya Lora, 250.90 Diabetes W / Medicine - M.D. Unspec Compl Type [place] II Or Unspec Controlled 401.9 Hypertension Unspec 305.1 Tobacco Use Disorder V72.31 Routine Pack Changer Examination V74.5 Screening Examination Venereal Disease V76.2 Screening Malignant Neoplasm Cervix 250.02 Diabetes Mellitus W/O Compl Type II Or Unspec Type Uncontrol Office Visit 12/31/2012 8:40a [facility] Priya Lora, 250.02 Diabetes Medicine - M.D. Mellitus W/O [place] Compl Type II Or Unspec Type Uncontrol 305.1 Tobacco Use Disorder Office Visit 07/07/2012 9:40a [facility] Priya Lora, 250.02 Diabetes Medicine - M.D. Mellitus W/O [place] Compl Type II Or Unspec Type Uncontrol 695.3 Rosacea 305.1 Tobacco Use Disorder Office Visit 03/22/2012 8:40a [facility] Samuel Lora, 250.02 Diabetes Medicine - M.D. Mellitus W/O [place] Compl Type II Or Unspec Type Uncontrol 305.1 Tobacco Use Disorder Office Visit 12/22/2011 10:40a [facility] Priya Lora, 250.02 Diabetes Mellitus Medicine - M.D. W/O Compl Type II [place] Or Unspec Type Uncontrol Office Visit 10/03/2011 10:40a [facility] Nurse Visit A 682.6 Cellulitis & Medicine - Abscess Leg [place] Except Foot 686.8 Local Infection Skin & Subcutaneous Tissue Other Spec Office Visit 09/29/2011 10:40a [facility] Nurse Visit A 682.6 Cellulitis & Medicine - Abscess Leg Except [place] Foot 686.8 Local Infection Skin & Subcutaneous Tissue Other Spec Office Visit 09/26/2011 10:40a [facility] Priya Lora, 682.6 Cellulitis & Medicine - M.D. Abscess Leg [place] Except Foot Office Visit 09/24/2011 10:40a [facility] Nurse Visit A 682.6 Cellulitis & Medicine - Abscess Leg [place] Except Foot 686.8 Local Infection Skin & Subcutaneous Tissue Other Spec Office Visit 09/22/2011 10:40a [facility] Nurse Visit A 682.6 Cellulitis & Medicine - Abscess Leg Except [place] Foot 686.8 Local Infection Skin & Subcutaneous Tissue Other Spec Office Visit 09/19/2011 1:40p [facility] Priya Lora, 682.6 Cellulitis & Medicine - M.D. Abscess Leg [place] Except Foot 686.8 Local Infection Skin & Subcutaneous Tissue Other Spec 250.90 Diabetes W/ Unspec Compl Type II Or Unspec Controlled Office Visit 09/17/2011 1:40p [facility] Nai Thompson, 686.8 Local Infection Medicine - N.P. Skin & [place] Subcutaneous Tissue Other Spec Office Visit 09/10/2011 11:40a [facility] Priya Lora, 250.02 Diabetes Mellitus Medicine - M.D. W/O Compl Type II [place] Or Unspec Type Uncontrol 305.1 Tobacco Use Disorder Office Visit 08/08/2011 10:40a [facility] Priya Lora, 250.02 Diabetes Medicine - M.D. Mellitus W/O [place] Compl Type II Or Unspec Type Uncontrol 305.1 Tobacco Use Disorder Office Visit 07/21/2011 10:00a [facility] Nai Thompson, 566 Abscess Of Anal Medicine - N.P. & Rectal Regions [place] Office Visit 07/04/2011 11:20a [facility] Priya Lora, 250.02 Diabetes Medicine - M.D. Mellitus W/O [place] Compl Type II Or Unspec Type Uncontrol 305.1 Tobacco Use Disorder Office Visit 06/20/2011 11:00a [facility] Priya Lora, 250.02 Diabetes Medicine - M.D. Mellitus W/O [place] Compl Type II Or Unspec Type Uncontrol 401.9 Hypertension Unspec 305.1 Tobacco Use Disorder Office Visit 06/06/2011 2:20p [facility] Samuel Lora, 250.02 Diabetes Medicine - M.D. Mellitus W/O [place] Compl Type II Or Unspec Type Uncontrol 401.9 Hypertension Unspec 704.1 Hirsutism 305.1 Tobacco Use Disorder Plan of Treatment Future Appointment(s):06/04/2018 2:00 pm - Clementine Plata MD at [facility] Medicine - Ahuxrjiqn88/29/2019 9:40 am - Clementine Plata MD at [facility] - Ohykgdyvq99/15/2019 - Clementine Plata, MDD72.829 Elevated white blood cell count, unspecifiedReferral:Coco Monreal M.D., Hematology & OncologyFollow up:Repeat labs next weekR11.2 Nausea with vomiting, unspecifiedReferral:Sebastien Potter MD, EgnxxuqqybtwgyonO15.9 Type 2 diabetes mellitus without complicationsNew Medication:Lantus Solostar 100 Unit/ML - Take 14 U at nightHumulin R 100 Unit/ML - Take 2 units before mealsBD Pen Needle/Mini /Ultra-Fine/31G X 5mm 31 G X 5 mm - use with the penComments:Stop metforminStop glipizideStart lantus; keep record of blood sugarsFollow up:2 grmsiS85 Essential (primary) hypertensionComments:Losartan was refilled
[2018-05-23] MEDS ORDERED: Metoclopramide IV* 5 MG/ML 2 ML VIAL IV ONE (11:31)
[2018-05-23] MEDS ORDERED: NS 0.9% 1000 ML** 1,000 ML IV ONE ×2 (11:31→12:30)
--- NOTE | 2018-05-23 11:56 | ED ---
GI/ HPI - HPI Summary HPI Summary: This patient is a 38 year old female presenting to [facility] with a CC of persistent vomiting that began 5 days ago. She had a similar episode a month ago. The patient has been vomiting for the last 5 days and now feels shaky and dizzy. She states she is unable to tolerate any PO intake. Pt also c/o pf nausea and epigastric cramping. She rates the pain 7/10 in severity. Pt also has chills w/o fever. She has hx of DM and usually has BG of 140-180. Pt was seen by PCP 4 days ago and referred to GI and hematology, she has not made an appointment with them. She has chronic elevated WBC and was given Zofran and Compazine by PCP. No hx of gastroparesis. Pt smokes marijuana around BID and states they informed her this could be causing her vomiting when she was seen one month ago. She states that she does not believe this is the case as she stopped for about one day and did not feel better. - History of Current Complaint Chief Complaint: EDAbdPain Time Seen by Provider: 05/23/18 11:28 Stated Complaint: VOMITING/DIZZY Hx Obtained From: Patient Hx Last Menstrual Period: 03/19/18 Onset/Duration: Started Days Ago, Still Present Timing: Constant Severity: Moderate Current Severity: Moderate Pain Intensity: 7 Location of Pain: Epigastric Pain Characteristics: Cramping Associated Signs and Symptoms: Positive: Nausea, Vomiting - Additional Pertinent History Primary Care Physician: RACHEL - Allergy/Home Medications Allergies/Adverse Reactions: Allergies Allergy/AdvReac Type Severity Reaction Status Date / Time No Known Allergies Allergy Verified 05/23/18 11:05 PMH/Surg Hx/FS Hx/Imm Hx Endocrine/Hematology History: Reports: Hx Diabetes - type 2 dm, Hx Anemia Denies: Hx Thyroid Disease Cardiovascular History: Reports: Hx Hypertension Denies: Hx Hypercholesterolemia, Hx Pacemaker/ICD, Hx Rheumatic Fever Respiratory History: Denies: Hx Asthma, Hx Chronic Obstructive Pulmonary Disease (COPD) GI History: Denies: Hx Gastroesophageal Reflux Disease, Hx Ulcer History: Denies: Hx Renal Disease Sensory History: Reports: Hx Contacts or Glasses - reading once in a while Denies: Hx Hearing Aid Opthamlomology History: Reports: Hx Contacts or Glasses - reading once in a while Psychiatric History: Denies: Hx Panic Disorder - Surgical History Surgery Procedure, Year, and Place: Csection Xs 2. left foot surgery x 2 - I & D-TWICE. Leep procedure. Cervix tear repair Hx Anesthesia Reactions: No - Immunization History Date of Tetanus Vaccine: unk Date of Influenza Vaccine: unk Infectious Disease History: No Infectious Disease History: Reports: Hx of Known/Suspected MRSA Denies: Hx Clostridium Difficile, Hx Hepatitis, Hx Human Immunodeficiency Virus (HIV), Hx Shingles, Hx Tuberculosis, Hx Known/Suspected VRE, Hx Known/ Suspected VRSA, History Other Infectious Disease, Traveled Outside the [place] in Last 30 Days - Family History Known Family History: Negative: Cardiac Disease, Hypertension, Diabetes - Social History Alcohol Use: Rare Hx Substance Use: Yes Substance Use Type: Reports: Marijuana Substance Use Comment - Amount & Last Used: weekly Hx Tobacco Use: Yes Smoking Status (MU): Heavy Every Day Tobacco Smoker Type: Cigarettes Amount Used/How Often: 1/2 pdd Length of Time of Smoking/Using Tobacco: 15+ years Have You Smoked in the Last Year: Yes Review of Systems Positive: Chills. Negative: Fever Positive: Abdominal Pain, Vomiting, Nausea All Other Systems Reviewed And Are Negative: Yes Physical Exam - Summary Physical Exam Summary: GENERAL: Patient is a well-developed and nourished F who is lying comfortable in the stretcher. Patient is not in any acute respiratory distress. HEAD AND FACE: Normocephalic EYES: PERRLA, EOMI x 2. EARS: Hearing grossly intact. MOUTH: Oropharynx within normal limits. NECK: Supple, trachea is midline, no adenopathy, no JVD, no carotid bruit. CHEST: Symmetric, no tenderness at palpation LUNGS: Clear to auscultation bilaterally. No wheezing or crackles. CVS: Regular rate and rhythm, S1 and S2 present, no murmurs or gallops appreciated. ABDOMEN: Soft, non-tender. Bowel sounds are normal. No abdominal abnormal pulsations. EXTREMITIES: Full ROM in all major joints, no edema, no cyanosis or clubbing. NEURO: Alert and oriented x 3. No acute neurological deficits. Speech is normal and follows commands. SKIN: Dry and warm Triage Information Reviewed: Yes Vital Signs On Initial Exam: Initial Vitals Temp Pulse Resp BP Pulse Ox 98.3 F 107 18 171/103 100 05/23/18 11:01 05/23/18 11:01 05/23/18 11:01 05/23/18 11:01 05/23/18 11:01 Vital Signs Reviewed: Yes Diagnostics - Vital Signs Vital Signs Temp Pulse Resp BP Pulse Ox 05/23/18 11:01 98.3 F 107 18 171/103 100 - Laboratory Lab Results: Lab Results 05/23/18 Range/Units 11:32 POC Glucose (mg/dL) 362 H (70-100) mg/dL Result Diagrams: 05/23/18 11:48 05/23/18 11:48 Lab Statement: Any lab studies that have been ordered have been reviewed, and results considered in the medical decision making process. Re-Evaluation - Re-Evaluation First Eval Re-Evaluation Time: 15:00 Change: Improved Comment: The patient is tolerating PO intake and is feeling better. Her accu- chek BG is 232. GIGU Course/Dx - Course Assessment/Plan: This patient is a 38 year old female presenting to [facility] with a CC of persistent vomiting that began 5 days ago. She had a similar episode a month ago. In the ED course the patient was given Reglan, potassium, and IV fluids. Labs did show an elevated WBC and nuets, which is chronic. Blood gas obtained. Chemistry showed potassium of 2.9, chloride of 94, glucose of 341, lipase of 205, and lactic acid of 3.3. She was negative for flu and mono. UA was negative for uti. She also was positive for cannabinoids. The patient did improve with medications. After IV fluids the patient had a lactic acid of 1.7. I discussed results with patient and she reports feeling better. She is hemodynamically stable and safe for discharge. Strict return precautions given and she will otherwise follow up with her PCP. - Diagnoses Provider Diagnoses: Nausea and vomiting Discharge - Sign-Out/Discharge Documenting (check all that apply): Patient Departure Patient Received Moderate/Deep Sedation with Procedure: No - Discharge Plan Condition: Stable Disposition: HOME Patient Education Materials: Acute Nausea and Vomiting (ED) Referrals: Clementine Plata MD [Primary Care Provider] - Additional Instructions: Follow up with your primary care physician in 1-3 days. RETURN TO THE EMERGENCY DEPARTMENT FOR CHANGING OR WORSENING SYMPTOMS. - Billing Disposition and Condition Condition: STABLE Disposition: Home - Attestation Statements Document Initiated by Scribe: Yes Documenting Scribe: Deion Saunders Provider For Whom Jesusibe is Documenting (Include Credential): Mayra Patterson MD Scribe Attestation: I, Deion Saunders , scribed for Mayra Patterson MD on 05/24/18 at 1727. Scribe Documentation Reviewed: Yes Provider Attestation: The documentation as recorded by the scribeDeion accurately reflects the service I personally performed and the decisions made by me, Mayra Patterson MD Status of Scribe Document: Viewed
[2018-05-23 11:59] LABS: ABS Basophils 0.1 10^3/ul (0-0.2); ABS Eosinophils 0 10^3/ul (0-0.6); ABS Lymphocytes 2.7 10^3/ul (1.0-4.8); ABS Monocytes 0.6 10^3/ul (0-0.8); ABS Neutrophils 9.9 10^3/ul (1.5-7.7); ABS Nucleated RBC 0 10^3/ul; Eosinophil % 0.3 %; Hematocrit 46 % (35-47); Hemoglobin 15.5 g/dl (12.0-16.0); Lymphocyte % 20.2 %; Mean Corpuscular HGB Conc 34 g/dl (31-36); Mean Corpuscular Hemoglobin 30 pg (27-31); Mean Corpuscular Volume 87 fL (80-97); Mean Platelet Volume 8.6 fL (7.4-10.4); Nucleated Red Blood Cells % 0; Platelet Count 267 10^3/ul (150-450); Red Blood Count 5.23 10^6/ul (4.00-5.40); Red Cell Distribution Width 15 % (10.5-15); White Blood Count 13.3 10^3/ul (3.5-10.8)
[2018-05-23 12:16] LABS: ALT 21 U/L (7-52); AST 16 U/L (13-39); Albumin 4.5 g/dL (3.2-5.2); Albumin/Globulin Ratio 1.6 (1-3); Alkaline Phosphatase 47 U/L (34-104); Amylase 100 U/L (29-103); Anion Gap 15 mmol/L (2-11); BUN/Creatinine Ratio 11.7 (8-20); Blood Urea Nitrogen 9 mg/dL (6-24); C Reactive Protein 3.37 mg/L (<8.01); CO2 Carbon Dioxide 26 mmol/L (22-32); Calcium 9.6 mg/dL (8.6-10.3); Chloride 94 mmol/L (101-111); EGFR African American 101.5 (>60); EGFR Non-African American 83.9 (>60); Globulin 2.8 g/dL (2-4); Glucose 341 mg/dL (70-100); Potassium 2.9 mmol/L (3.5-5.0); Sodium 135 mmol/L (135-145); Total Protein 7.3 g/dL (6.4-8.9)
[2018-05-23 12:23] LABS: HCG Pregnancy < 0.60 mIU/mL
[2018-05-23] MEDS ORDERED: Potassium Chlor TAB* 20 MEQ TAB.ER PO ONE (12:30)
[2018-05-23] MEDS ORDERED: KCL 10 MEQ/50 ML IVPREMIX* 10 MEQ/50 ML BAG IV ONE (12:32)
[2018-05-23 12:36] LABS: Influenza A Molecular NEGATIVE (Negative); Influenza B Molecular NEGATIVE (Negative)
[2018-05-23 13:49] LABS: Urine Appearance Cloudy; Urine Bacteria Absent (Absent); Urine Bilirubin Negative (Negative); Urine Blood 3+ (Negative); Urine Color Yellow; Urine Glucose 3+(>=500 mg/dL) (Negative); Urine Ketones 1+ (Negative); Urine Nitrite Negative (Negative); Urine Protein 1+(30 mg/dL) (Negative); Urine Red Blood Cell 3+(>10/hpf) (Absent); Urine Specific Gravity 1.017 (1.010-1.030); Urine Squamous Epithelial Cell Present (Absent); Urine Urobilinogen Negative (Negative); Urine White Blood Cell Trace(0-5/hpf) (Absent)
[2018-05-23 13:59] LABS: Barbiturates Urine Screen None Detected (None Detect); Benzodiazepine Urine Screen None Detected (None Detect); Urine Cannabinoids Screen Presumptive Positive (None Detect)
[2018-05-23 16:44] VITALS: BP 151/90
== END 2018-05-23 16:44 | disposition home or self-care (01) ==
LOC: ED 10:57
DX: R11.2 Nausea with vomiting, unspecified (principal); F17.210 Nicotine dependence, cigarettes, uncomplicated; E11.9 Type 2 diabetes mellitus without complications; D64.9 Anemia, unspecified; I10 Essential (primary) hypertension
CPT/HCPCS: 36415; 80053; 80307; 81003; 81015; 82140; 82150; 82803; 83605; 83690; 84702; 85025; 86140; 86308; 87086; 96361; 96374; 96375; 99283; A9270-GY; J2765; J3480

== ENCOUNTER 2018-05-25 10:30 | Observation (INO) | payer OTHER ==
[2018-05-25] MEDS ORDERED: Haloperidol INJ IV/IM* 5 MG/ML AMP IV SLOW PU ONE (10:53)
[2018-05-25] MEDS ORDERED: NS 0.9% 1000 ML** 1,000 ML IV ONE (10:53)
[2018-05-25] MEDS ORDERED: DiMENhydriNATE IV* 50 MG/ML VIAL IV PUSH ONE (10:53)
[2018-05-25] MEDS ORDERED: Pantoprazole IV* 40 MG IV ONE (11:06)
[2018-05-25] MEDS ORDERED: Famotidine TAB* 20 MG PO ONE (11:06)
--- NOTE | 2018-05-25 11:09 | ED ---
GI/ HPI - HPI Summary HPI Summary: Pt is a 38 y/o female who presents to the ED c/o N/V. Her symptoms acute began 1 week ago, but she has had intermittent issues with N/V over the past month. She has been here twice within the past week for the same sx. Pt c/o worsening N /V and cramping epigastric abdominal pain, as she is unable to tolerate PO intake. Today she had a syncopal episode. Pt also notes that she has lost 45 lbs within the past 6 months. She denies any urinary symptoms. The pain is currently rated a 9/10 in severity. Pt has taken Zofran and Compazine suppository without relief. She tried to follow up with GI, but was not able to get an appointment until two weeks from now. Pt smokes marijuana daily, but hasn t in the past week due to her illness. She states her sx are better when taking hot showers. PSHx . LNMP currently. FHx diverticulitis. - History of Current Complaint Chief Complaint: EDNauseaVomitDiarrh Time Seen by Provider: 05/25/18 10:54 Stated Complaint: VOMITING/SYNCOPE Hx Obtained From: Patient Hx Last Menstrual Period: 03/19/18 Onset/Duration: Started Weeks Ago - 1, Worse Since Timing: Constant Current Severity: Severe Pain Intensity: 9 Location of Pain: Epigastric Pain Characteristics: Cramping Associated Signs and Symptoms: Positive: Syncope, Nausea, Vomiting Aggravating Factor(s): Nothing - Additional Pertinent History Primary Care Physician: RACHEL - Allergy/Home Medications Allergies/Adverse Reactions: Allergies Allergy/AdvReac Type Severity Reaction Status Date / Time No Known Allergies Allergy Verified 05/25/18 10:37 PMH/Surg Hx/FS Hx/Imm Hx Endocrine/Hematology History: Reports: Hx Diabetes - type 2 dm, Hx Anemia Denies: Hx Thyroid Disease Cardiovascular History: Reports: Hx Hypertension Denies: Hx Hypercholesterolemia, Hx Pacemaker/ICD, Hx Rheumatic Fever Respiratory History: Denies: Hx Asthma, Hx Chronic Obstructive Pulmonary Disease (COPD) GI History: Denies: Hx Gastroesophageal Reflux Disease, Hx Ulcer History: Denies: Hx Renal Disease Sensory History: Reports: Hx Contacts or Glasses - reading once in a while Denies: Hx Hearing Aid Opthamlomology History: Reports: Hx Contacts or Glasses - reading once in a while Psychiatric History: Denies: Hx Panic Disorder - Surgical History Surgery Procedure, Year, and Place: Csection Xs 2. left foot surgery x 2 - I & D-TWICE. Leep procedure. Cervix tear repair Hx Anesthesia Reactions: No - Immunization History Date of Tetanus Vaccine: unk Date of Influenza Vaccine: unk Infectious Disease History: Yes Infectious Disease History: Reports: Hx of Known/Suspected MRSA Denies: Hx Clostridium Difficile, Hx Hepatitis, Hx Human Immunodeficiency Virus (HIV), Hx Shingles, Hx Tuberculosis, Hx Known/Suspected VRE, Hx Known/ Suspected VRSA, History Other Infectious Disease, Traveled Outside the [place] in Last 30 Days - Family History Known Family History: Positive: Other - diverticulitis Negative: Cardiac Disease, Hypertension, Diabetes - Social History Alcohol Use: Rare Hx Substance Use: Yes Substance Use Type: Reports: Marijuana Substance Use Comment - Amount & Last Used: weekly Hx Tobacco Use: Yes Smoking Status (MU): Heavy Every Day Tobacco Smoker Type: Cigarettes Amount Used/How Often: 1/2 pdd Length of Time of Smoking/Using Tobacco: 15+ years Have You Smoked in the Last Year: Yes Review of Systems Positive: Other - Weight loss Positive: Abdominal Pain, Vomiting, Nausea Genitourinary: Negative Positive: Syncope All Other Systems Reviewed And Are Negative: Yes Physical Exam - Summary Physical Exam Summary: Appearance: Well appearing, no pain distress Skin: warm, dry, reflects adequate perfusion Head/face: normal Eyes: EOMI, AZAEL ENT: mucous membranes moist Neck: supple, non-tender Respiratory: CTA, breath sounds present Cardiovascular: tachycardic but regular rhythm, pulses symmetrical Abdomen: soft, mild epigastric and RUQ tenderness Bowel Sounds: present Musculoskeletal: normal, strength/ROM intact Neuro: normal, sensory motor intact, A&Ox3 Triage Information Reviewed: Yes Vital Signs On Initial Exam: Initial Vitals Temp Pulse Resp BP Pulse Ox 97.5 F 99 18 172/107 100 05/25/18 10:33 05/25/18 10:33 05/25/18 10:33 05/25/18 10:33 05/25/18 10:33 Vital Signs Reviewed: Yes Diagnostics - Vital Signs Vital Signs Temp Pulse Resp BP Pulse Ox 05/25/18 10:33 97.5 F 99 18 172/107 100 - Laboratory Result Diagrams: 05/25/18 11:12 05/25/18 11:12 Lab Statement: Any lab studies that have been ordered have been reviewed, and results considered in the medical decision making process. - Ultrasound No standard instances Ultrasound Interpretation Completed By: Radiologist Summary of Ultrasound Findings: Gallbladder US: Hepatosteatosis. Negative for gallbladder pathology. ED physician reviewed radiology report. GIGU Course/Dx - Course Course Of Treatment: Nurse's notes reviewed. Patient with recurring nausea vomiting and history of diabetes. She also smokes marijuana daily which could be contributing. Never had a GI workup done. Gallbladder ultrasound is negative. She is alkalotic and hyperglycemic. Improving with Haldol, Dramamine and fluids. Admit to hospitalist service for further at the request of her primary care physician. - Diagnoses Differential Diagnoses - Female: Other - GI motility issue including gastroparesis or tenderness-induced hyperemesis syndrome, gallbladder disease, pancreatitis Provider Diagnoses: Hyperglycemia due to type 2 diabetes mellitus, Intractable nausea and vomiting - Physician Notifications Discussed Care Of Patient With: Clementine Plata Time Discussed With Above Provider: 11:05 Instructed by Provider To: Other - Spoke to the pt's PCP, who requests admission for the pt. At 11:27 Dr. Patricio accepts for admission. Discharge - Sign-Out/Discharge Documenting (check all that apply): Patient Departure - Admit Patient Received Moderate/Deep Sedation with Procedure: No - Discharge Plan Condition: Fair Disposition: ADMITTED TO [facility] Referrals: Clementine Plata MD [Primary Care Provider] - - Billing Disposition and Condition Condition: FAIR Disposition: Admitted to [facility] - Attestation Statements Document Initiated by Luther: Yes Documenting Scribe: Rhea Aguilar Provider For Whom Luther is Documenting (Include Credential): Donato Alba MD Scribe Attestation: Rhea Page, scribed for Donato Alba MD on 05/25/18 at 1254. Scribe Documentation Reviewed: Yes Provider Attestation: The documentation as recorded by the Rhea stark accurately reflects the service I personally performed and the decisions made by me, Donato Alba MD Status of Scribe Document: Viewed
[2018-05-25 11:20] LABS: ABS Basophils 0.1 10^3/ul (0-0.2); ABS Eosinophils 0 10^3/ul (0-0.6); ABS Monocytes 0.6 10^3/ul (0-0.8); ABS Neutrophils 11.5 10^3/ul (1.5-7.7); ABS Nucleated RBC 0 10^3/ul; Eosinophil % 0.2 %; Hematocrit 46 % (35-47); Hemoglobin 15.6 g/dl (12.0-16.0); Lymphocyte % 19.7 %; Mean Corpuscular HGB Conc 34 g/dl (31-36); Mean Corpuscular Hemoglobin 30 pg (27-31); Mean Corpuscular Volume 88 fL (80-97); Mean Platelet Volume 8.7 fL (7.4-10.4); Nucleated Red Blood Cells % 0.1; Platelet Count 296 10^3/ul (150-450); Red Blood Count 5.24 10^6/ul (4.00-5.40); Red Cell Distribution Width 15 % (10.5-15); White Blood Count 15.1 10^3/ul (3.5-10.8)
[2018-05-25 11:41] LABS: Albumin 4.8 g/dL (3.2-5.2); Albumin/Globulin Ratio 1.8 (1-3); BUN/Creatinine Ratio 12.8 (8-20); Calcium 9.5 mg/dL (8.6-10.3); EGFR Non-African American 82.7 (>60); Globulin 2.7 g/dL (2-4); Potassium 3.4 mmol/L (3.5-5.0); Total Bilirubin 0.9 mg/dL (0.2-1.0); Total Protein 7.5 g/dL (6.4-8.9)
[2018-05-25] MEDS ORDERED: Famotidine TAB* 20 MG ONE (11:59)
[2018-05-25] MEDS ORDERED: Ondansetron INJ* 2 MG/ML VIAL IV PRN (12:45)
[2018-05-25] MEDS ORDERED: Acetaminophen TAB* 325 MG PO PRN (12:45)
[2018-05-25] MEDS ORDERED: Dextrose 50% Syringe 50 ML* 25 GM/50 ML SYRINGE IV PUSH PRN (12:45)
--- NOTE | 2018-05-25 15:02 | HP ---
ADMISSION HISTORY AND PHYSICAL: DATE OF ADMISSION: 05/25/18 PRIMARY CARE PROVIDER: Dr. Plata. HEALTH CARE PROXY: Her mother. CODE STATUS: Full. SOURCE OF INFORMATION: History obtained from interview with patient and review of past medical records. RELIABILITY: Good. CHIEF COMPLAINT: Nausea and vomiting. HISTORY OF PRESENT ILLNESS: This is a 38-year-old female who has fairly uncontrolled diabetes, had been in her usual state of health in April until she developed sudden onset of nausea and vomiting which persisted for about a week before she was hospitalized overnight at [facility], treated with capsaicin cream to her chest, Compazine, fluids, metoclopramide, and Benadryl with rapid improvement and was tolerating regular diet upon discharge. Since that time, for the last month, she has been well, feeling herself. No nausea or vomiting, tolerating regular fluid. No fevers, chills, night sweats. 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 However, approximately 1 week prior to presentation on last Thursday, she woke up and developed nausea and vomiting associated with cold sweats. She felt the nausea and vomiting increased in crescendo from Thursday to , became worse. She presented to the emergency room, where she was noted to have hypokalemia at 2.9, received fluid as well as electrolyte replacement and discharged home. She continued to have nausea, vomiting up to 5 or 6 times per day, for which she returned to the emergency room. She notes the emesis is triggered by eating either solids or liquids, usually has emesis several minutes after ingesting any of the food. She notes no other triggers and has rare emesis without food. She has some epigastric pain, "like twisting a knife," after emesis or after eating food. She notes that taking a hot shower helps her nausea. She also notes that the emesis and nausea tend to be worse between the hours of 3:00 a.m. and 3:00 p.m. She has been a lifelong daily marijuana smoker, approximately 2 joints per day, as well as half a pack per day of tobacco for the last 20 years. She drinks rarely, approximately 2 drinks per month. She notes approximately 25- pound weight loss over the last month and approximately 40-pound weight loss over the last year. In the emergency room, she felt well. She has not had emesis for the last hour , is drinking water, and tolerating it well. Last bowel movement was 2 days prior and has regular flatus. No bright red blood per rectum or melena. PAST MEDICAL HISTORY: Includes anxiety, GERD, type 2 diabetes diagnosed at age 13, hypertension, history of two C-sections, left foot surgery x2, I and D x2, LEEP procedure, cervical tear repair. MEDICATIONS: 1. Metformin 1000 mg 3 times a day. 2. Glipizide 10 mg in the morning, recently switched to insulin while she was not tolerating p.o. 3. Losartan 25 mg daily. ALLERGIES: No known drug allergies. FAMILY HISTORY: Diverticulitis and CAD in her maternal grandmother. SOCIAL HISTORY: Daily marijuana for 20 years of approximately 2 joints per day , kpl-nlpq-webs-per-day tobacco for 20 years, 2 drinks of alcohol per month. 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 REVIEW OF SYSTEMS: As per HPI; otherwise, all other systems negative. PHYSICAL EXAMINATION GENERAL: Sitting up in bed, drinking cold water, in no apparent distress. VITAL SIGNS: In the emergency room, 151/92, heart rate 65, respiratory rate is 19, 98% on room air, 97.5 T-max. HEENT: Oropharynx is clear. She has moist mucous membranes. Sclerae are anicteric. LUNGS: Clear. HEART: Regular rate and rhythm. ABDOMEN: Soft, nondistended. Mild tenderness in the epigastrium. No rebound or guarding. EXTREMITIES: Warm and well perfused. No clubbing, cyanosis, or edema. NEUROLOGIC: She is alert and oriented x3. PSYCHIATRIC: No apparent anxiety, agitation, or depression. DIAGNOSTIC STUDIES/LAB DATA: Labs reviewed, notable for white blood cell count of 15.1, potassium 3.4, glucose 365, creatinine 0.78. Data: Gallbladder ultrasound, hepatosteatosis. Negative for gallbladder pathology. ASSESSMENT AND PLAN: This is a 38-year-old female with past medical history of longstanding type 2 diabetes, hypertension, 2 episodes now of intractable nausea and vomiting after eating. 1. Intractable nausea and vomiting. There has been concern for cyclic vomiting syndrome in the past given her daily marijuana and symptom improvement with shower. At this time, I would pursue a gastric emptying study given its proximity to food as well as recurrent nature and late onset in her life. I will also consult gastroenterology for further assistance. Clear liquid diet, n.p.o. after midnight for gastric emptying study. Start with Zofran, can increase to include metoclopramide as well as Benadryl and capsaicin cream, which worked well in previous hospital stay. 2. Hypertension, continue losartan. 3. Diabetes, metformin 1000 mg twice daily, insulin sliding scale with meals. 4. Leukocytosis has been present in the past, in the setting of weight loss over the last year is concerning. Would recommend followup with hematology as an outpatient for further evaluation. 5. DVT prophylaxis, low risk, ambulate 4 times daily. [id number]/[facility] #: [id number] [facility]
[2018-05-25] MEDS: metFORMIN* 1,000 MG TAB PO SCH (17:17)
[2018-05-25] MEDS: Insulin LISPRO* 1 UNITS UNIT SUBCUT SCH ×2 (17:18→20:51)
[2018-05-26 05:28] LABS: Hematocrit 42 % (35-47); Hemoglobin 14.5 g/dl (12.0-16.0); Mean Corpuscular HGB Conc 34 g/dl (31-36); Mean Corpuscular Hemoglobin 30 pg (27-31); Mean Corpuscular Volume 88 fL (80-97); Mean Platelet Volume 8.4 fL (7.4-10.4); Platelet Count 255 10^3/ul (150-450); Red Blood Count 4.81 10^6/ul (4.00-5.40); Red Cell Distribution Width 15 % (10.5-15); White Blood Count 15.9 10^3/ul (3.5-10.8)
[2018-05-26 05:34] LABS: ABS Basophils 0.1 10^3/ul (0-0.2); ABS Eosinophils 0.1 10^3/ul (0-0.6); ABS Lymphocytes 4.6 10^3/ul (1.0-4.8); ABS Monocytes 0.6 10^3/ul (0-0.8); ABS Neutrophils 10.3 10^3/ul (1.5-7.7); ABS Nucleated RBC 0 10^3/ul; Eosinophil % 0.4 %; Lymphocyte % 29.6 %; Nucleated Red Blood Cells % 0.2
[2018-05-26 05:44] LABS: BUN/Creatinine Ratio 10.2 (8-20); Calcium 8.9 mg/dL (8.6-10.3); EGFR Non-African American 114.1 (>60); Potassium 3.4 mmol/L (3.5-5.0)
[2018-05-26] MEDS ORDERED: Potassium Chlor TAB* 20 MEQ TAB.ER PO ONE (07:14)
[2018-05-26] MEDS ORDERED: Losartan TAB* 25 MG PO SCH (09:00)
[2018-05-26] MEDS: Insulin LISPRO* 1 UNITS UNIT SUBCUT SCH ×2 (09:50→11:46)
[2018-05-26] MEDS: metFORMIN* 1,000 MG TAB PO SCH (09:50)
[2018-05-26 11:54] VITALS: BP 155/84
--- NOTE | 2018-05-26 16:08 | DS ---
CC: Dr. Plata; Che OrtegabrookTAMIKA, [facility] * DISCHARGE SUMMARY: DATE OF ADMISSION: 05/25/18 DATE OF DISCHARGE: 05/26/18 PRIMARY CARE PROVIDER: [facility]. PRIMARY DIAGNOSES: Include: 1. Gastroparesis. 2. Uncontrolled type 2 diabetes. 3. Current tobacco abuse. 4. Anxiety. 5. Hypertension. MEDICATIONS AT DISCHARGE: Include: 1. Glipizide 10 mg daily. 2. Metformin 1000 mg twice daily. 3. Zofran 4 mg every 6 hours as needed for nausea. 4. Nicotine gum 4 mg every 6 hours as needed. 5. Compazine suppository 25 mg twice daily as needed. 6. Losartan 25 mg daily. PERTINENT PROCEDURES AND IMAGING: Gastric emptying study, impression: Gastric emptying time is equal to 126 minutes, normal is less than 90 minutes. Impression is gastroparesis. PERTINENT LABORATORY DATA: Hemoglobin A1c is 9.1%. White blood cell count is 15.9 on discharge. She has 65% neutrophils, 29% lymphocytes, 3.7% monos, 0.4% eosinophils, and 0.6% basophils. HISTORY OF PRESENT ILLNESS AND HOSPITAL COURSE: A 38-year-old female with past medical history as outlined in the history of present illness who on the day of admission is presenting with a second presentation for uncontrolled nausea, vomiting since April. She previously was given the diagnosis of cyclic vomiting syndrome in the setting of daily marijuana use. However, she has not used marijuana in over a week in the setting of her persistent nausea and vomiting. She was admitted to the hospital, given normal saline as well as Zofran, kept n.p.o., and her nausea improved. She was hydrated. She was gradually started on a clear liquid diet, advanced to full liquid and finally low-fat diet with mechanical ground texture prior to discharge, she was tolerating well with no additional nausea or vomiting. Gastric emptying study with results as indicated above with gastroparesis, which is consistent with uncontrolled diabetes. The patient has been lost to care for some time, recently reestablished with Dr. Plata. She was transitioned to insulin last week while she was unable to tolerate p.o. medications. I have put her back on metformin and glipizide and asked her to discuss further with Dr. Plata. I have also referred her to [facility] for further discussion about optimal diet in the setting of her diabetes as well as gastroparesis. We did discuss at length frequent low-fat meals, chewing thoroughly and consistencies that will inhibit gastric transit. She understands that if this is unsuccessful, she may benefit from medication intervention in the future. The patient additionally expressed interest in smoking cessation, not currently ready to start Chantix, but is open to further discussion with Dr. Plata. No complications during the course of this hospital stay. While we have not ruled out cyclic vomiting syndrome, it does seem more likely her nausea and vomiting is in the setting of gastroparesis previously untreated. At followup, please: 1. Evaluate for followup with [facility]. 2. Evaluate diabetic control as I am sure you will. 3. Consider trial of Chantix for smoking cessation. The patient has tried 3 times in the past for smoking cessation, which is below the average, never needed to succeed. 4. The patient was encouraged to maintain her hematology followup as an outpatient for her persistent leukocytosis. Reasons to return to the hospital included, but not limited to, recurrent or worsening symptoms including uncontrolled nausea, vomiting, lightheadedness, loss of consciousness, bleeding from any source, chest pain, shortness of breath , inability to obtain or tolerate medications were discussed with the patient and she acknowledged understanding. TIME SPENT: Greater than 60 minutes was spent on the discharge of this patient , greater than half was spent [id number] with the patient. [id number]/[facility] #: [id number] [facility]
== END 2018-05-26 14:25 | disposition home or self-care (01) ==
LOC: ED 10:30 → MEDTELE 12:45
PROVIDERS: ADMIT Internal Medicine; ATTEND Internal Medicine
DX: K31.84 Gastroparesis (principal); E11.65 Type 2 diabetes mellitus with hyperglycemia; F17.210 Nicotine dependence, cigarettes, uncomplicated; I10 Essential (primary) hypertension; F41.9 Anxiety disorder, unspecified; R55 Syncope and collapse; R11.2 Nausea with vomiting, unspecified
CPT/HCPCS: 36415; 76705; 78264; 80048; 80053; 82803; 83036; 83690; 85025; 87641; 96374; 96375; 99284; A9270-GY; A9541; G0378; J1240; J1630; J2405

== ENCOUNTER 2019-02-02 13:16 | Emergency (ER) | payer OTHER ==
[2019-02-02] MEDS ORDERED: NS 0.9% 1000 ML** 1,000 ML IV ONE ×2 (13:35→14:30)
--- NOTE | 2019-02-02 14:10 | ED ---
Abdominal Pain/Female - HPI Summary HPI Summary: Patient is a 38 y/o F presenting to the ED via EMS for a chief complaint of nausea and vomiting that began at 23:00 on 02/01/19. At that time, patient took a dose of Droperidol without relief. Pt took a second dose at 11am. Pt has a h/ o gastroparesis and has frequent vomiting. Patient was given Zofran by EMS without relief and vomited after being given the Zofran. Patient also admits non -radiating diffuse abdominal pain States this pain in typical for her. . Patient denies fever, myalgia, or headache. Patient denies any aggravating or alleviating factors. Patient states that she typically has relief when taking Domperidone for a history of diabetic gastroparesis. Patient was prescribed Domperidone in October 2018. Patient last had similar symptoms in June 2018 and patient had a prior admission to [facility] in the past. Patient sees WENDY Mark at [facility]. Patient reports that her glucose level was 304 on 02/02/19, but was within normal limits on 02/01/19. Allergies noted. Patients medications reviewed this visit. Pt followed by GI - History of Current Complaint Chief Complaint: EDNauseaVomitDiarrh Stated Complaint: VOMITING PER EMS Time Seen by Provider: 02/02/19 13:34 Hx Obtained From: Patient Hx Last Menstrual Period: 03/19/18 ?: No Onset/Duration: Sudden Onset, Lasting Hours - Since 23:00 on 02/01/19, Still Present Timing: Hours - Since 23:00 on 02/01/19 Severity Initially: Moderate Severity Currently: Moderate Pain Intensity: 6 Pain Scale Used: 0-10 Numeric Location: Diffuse Radiates: No Aggravating Factor(s): Nothing Alleviating Factor(s): Nothing Associated Signs and Symptoms: Positive: Nausea, Vomiting Allergies/Adverse Reactions: Allergies Allergy/AdvReac Type Severity Reaction Status Date / Time No Known Allergies Allergy Verified 05/25/18 10:37 PMH/Surg Hx/FS Hx/Imm Hx Previously Healthy: Yes Endocrine/Hematology History: Reports: Hx Diabetes - type 2 dm, Hx Anemia Denies: Hx Thyroid Disease Cardiovascular History: Reports: Hx Hypertension Denies: Hx Hypercholesterolemia, Hx Pacemaker/ICD, Hx Rheumatic Fever Respiratory History: Denies: Hx Asthma, Hx Chronic Obstructive Pulmonary Disease (COPD) GI History: Denies: Hx Gastroesophageal Reflux Disease, Hx Ulcer History: Reports: Other Problems/Disorders - gastroparesis Denies: Hx Renal Disease Sensory History: Denies: Hx Contacts or Glasses, Hx Legally Blind, Hx Deafness, Hx Hearing Aid Opthamlomology History: Denies: Hx Contacts or Glasses, Hx Legally Blind EENT History: Denies: Hx Deafness Psychiatric History: Denies: Hx Panic Disorder - Surgical History Surgical History: Yes Surgery Procedure, Year, and Place: Csection Xs 2. left foot surgery x 2 - I & D-TWICE. Leep procedure. Cervix tear repair Hx Anesthesia Reactions: No - Immunization History Date of Tetanus Vaccine: unk Date of Influenza Vaccine: unk Immunizations Up to Date: Yes Infectious Disease History: No Infectious Disease History: Reports: Hx of Known/Suspected MRSA Denies: Hx Clostridium Difficile, Hx Hepatitis, Hx Human Immunodeficiency Virus (HIV), Hx Shingles, Hx Tuberculosis, Hx Known/Suspected VRE, Hx Known/ Suspected VRSA, History Other Infectious Disease, Traveled Outside the [place] in Last 30 Days - Family History Known Family History: Positive: Other - diverticulitis, Non-Contributory Negative: Cardiac Disease, Hypertension, Diabetes - Social History Occupation: Unemployed Lives: With Family Alcohol Use: Rare Hx Substance Use: Yes Substance Use Type: Reports: Marijuana Substance Use Comment - Amount & Last Used: weekly Hx Tobacco Use: Yes Smoking Status (MU): Light Every Day Tobacco Smoker Type: Cigarettes Amount Used/How Often: 1/2 pdd Length of Time of Smoking/Using Tobacco: 15+ years Have You Smoked in the Last Year: Yes Review of Systems Negative: Fever Positive: Abdominal Pain - Diffuse and non-radiating, Vomiting, Nausea Negative: Myalgia Negative: Headache All Other Systems Reviewed And Are Negative: Yes Physical Exam - Summary Physical Exam Summary: Vital Signs Reviewed: Yes A+Ox3, vomiting, tired appearing Eyes: Conjunctiva Clear, AZAEL. 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 Skin: Positive: no rash, no ecchymosis Triage Information Reviewed: Yes Vital Signs On Initial Exam: Initial Vitals Temp Pulse Resp BP Pulse Ox 97.1 F 100 22 178/105 100 02/02/19 13:24 02/02/19 13:24 02/02/19 13:24 02/02/19 13:24 02/02/19 13:24 Vital Signs Reviewed: Yes Procedures - Sedation Patient Received Moderate/Deep Sedation with Procedure: No Diagnostics - Vital Signs Vital Signs Temp Pulse Resp BP Pulse Ox 02/02/19 13:24 97.1 F 100 22 178/105 100 - Laboratory Result Diagrams: 02/02/19 14:04 02/02/19 14:04 Lab Statement: Any lab studies that have been ordered have been reviewed, and results considered in the medical decision making process. - EKG 14:11 Cardiac Rate: NL - 78 BPM EKG Rhythm: Sinus Rhythm ST Segment: Normal Ectopy: None Summary of EKG Findings: EKG at 14:11 reveals 78 BPM with normal sinus rhythm, no STEMI, long QTC. Reviewed and interpreted by ED physician. Re-Evaluation - Re-Evaluation First Re-Evaluation Time: 14:38 Change: Unchanged Comment: At 14:38, patient updated and will do Benadryl, Toradol, and magnesium , no antiemetics. Patient was told she might feel drowsy, patient was agreeable. Second Re-Evaluation Time: 15:33 Change: Unchanged Comment: At 15:33, patient is sleeping. no further vomiting,vss Third Re-Evaluation Time: 16:41 Change: Improved Comment: At 16:41, patient had an ice popsicle. Pt is feeling much better. Pt will urinate and then be discharged. Abdominal Pain Fem Course/Dx - Course Course Of Treatment: Pt present with recurrent vomiting- history of gastroparesis, no improvement with home droperidol. Pt with diffuse abd pain. no fever, chills. VSS. Pt with active vomiting, appears uncomfortable, mm dry. abd diffusely tender, no guarding. spoke with pharmacy - Qtc 490. Pt given zofran by EMS. after dsicussion and review with pharmacist - will give benadryl (sedation), toradol and Magnesium. d/w pt i comfort and agreement - aware will be drowsy - Diagnoses Provider Diagnoses: Nausea and vomiting, Dehydration Discharge ED - Sign-Out/Discharge Documenting (check all that apply): Patient Departure - Discharge - Discharge Plan Condition: Stable Disposition: HOME Patient Education Materials: Acute Nausea and Vomiting (ED) Referrals: Clementine Plata MD [Primary Care Provider] - Additional Instructions: - - Stay well hydrated - frequent sips of fluids are important - water, juice, gatorade, pedialyte, popsicle - Avoid excess caffeine and all alcohol until you are feeling better - Eat small, frequent amounts of bland food (crackers, dry toast, scrambled eggs , applesauce) - avoid spicy foods, acidic foods, tomato based foods, citric foods, fried foods, fatty foods - Contact your doctor to arrange a follow-up appointment later this week. Contact your doctor or return with questions or concerns - Billing Disposition and Condition Condition: STABLE Disposition: Home - Attestation Statements Document Initiated by Jesusibe: Yes Documenting Scribe: Belen Edouard Provider For Whom Jesusibe is Documenting (Include Credential): Korin Vazquez MD Scribe Attestation: IBelen, scribed for Korin Vazquez MD on 02/03/19 at 2009. Scribe Documentation Reviewed: Yes Provider Attestation: The documentation as recorded by the Belen stark accurately reflects the service I personally performed and the decisions made by me, Korin Vazquez MD Status of Scribe Document: Viewed
[2019-02-02 14:17] LABS: ABS Basophils 0.1 10^3/ul (0-0.2); ABS Lymphocytes 3.3 10^3/ul (1.0-4.8); ABS Monocytes 0.6 10^3/ul (0-0.8); ABS Neutrophils 8.1 10^3/ul (1.5-7.7); Eosinophil % 0.4 %; Hematocrit 48 % (35-47); Hemoglobin 16.2 g/dL (12.0-16.0); Lymphocyte % 27.4 %; Mean Corpuscular HGB Conc 34 g/dL (31-36); Mean Corpuscular Hemoglobin 29 pg (27-31); Mean Corpuscular Volume 85 fL (80-97); Mean Platelet Volume 8.7 fL (7.4-10.4); Nucleated Red Blood Cells % 0.1; Platelet Count 222 10^3/uL (150-450); Red Blood Count 5.59 10^6 /uL (3.70-4.87); Red Cell Distribution Width 15 % (10-15); White Blood Count 12.1 10^3/uL (3.5-10.8)
[2019-02-02 14:38] LABS: ALT 11 U/L (7-52); AST 13 U/L (13-39); Albumin 4.7 g/dL (3.2-5.2); Albumin/Globulin Ratio 1.5 (1-3); Alkaline Phosphatase 44 U/L (34-104); Anion Gap 15 mmol/L (2-11); BUN/Creatinine Ratio 14.1 (8-20); Blood Urea Nitrogen 11 mg/dL (6-24); CO2 Carbon Dioxide 24 mmol/L (22-32); Calcium 10.2 mg/dL (8.6-10.3); Chloride 101 mmol/L (101-111); Creatine Kinase 26 U/L (10-223); EGFR Non-African American 82.7 (>60); Globulin 3.1 g/dL (2-4); Glucose 235 mg/dL (70-100); Magnesium 1.6 mg/dL (1.9-2.7); Potassium 3.4 mmol/L (3.5-5.0); Sodium 140 mmol/L (135-145); Total Protein 7.8 g/dL (6.4-8.9)
[2019-02-02] MEDS ORDERED: Magnesium Sulfate 2 GM IV* 2 GM/50 ML BAG IVPB ONE (14:40)
[2019-02-02] MEDS ORDERED: Ketorolac INJ* 30 MG/ML 1 ML VIAL IV PUSH ONE (14:40)
[2019-02-02] MEDS ORDERED: diPHENhydraMINE IV* 50 MG/ML 1 ml VIAL (BENADRYL) IV ONE (14:40)
[2019-02-02 14:41] LABS: HCG Pregnancy < 0.60 mIU/mL
--- OUTSIDE RECORDS SUMMARY | 2019-02-02 14:45 | XMS REPORT | Continuity of Care Document ---
:1980 External Reference #:[id number] Author Name Josey Guajardo, ADMISSIONS EVALUATOR-Cde (transmitted by agent of provider Makenna Barnett) Address [address] [place] [address] Care Team Providers Name Role Phone Wing Ritchie MD - Ophthalmology Care Team Information Produce Inspector Maia Cash MD - Internal Care Team Information Produce Inspector Medicine Clementine Plata MD - Internal Medicine Care Team Information Produce Inspector Problems Active Problems Provider Date Tobacco user Priya Lora M.D. Onset: 06/20/2011 Hirsutism Priya Lora M.D. Onset: 06/20/2011 Diabetes mellitus Priya Lora M.D. Onset: 04/11/2013 Essential hypertension Sai Patricio M.D. Onset: 05/25/2015 Injury of shoulder region Kit Gutierrez MD Onset: 05/14/2017 Strain of muscle(s) and tendon(s) of the Kit Gutierrez MD Onset: 05/14/2017 rotator cuff of right shoulder, subsequent encounter Sprain of shoulder and upper arm Kit Gutierrez MD Onset: 05/28/2017 Closed fracture proximal humerus, greater iKt Gutierrez MD Onset: 06/04/2017 tuberosity Disorder of shoulder Kit Gutierrez MD Onset: 11/05/2017 Social History Type Date Description Comments Sex Unknown 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 smoker, smokes every day Been smoking for 12 yrs. Tobacco Use Start: Unknown End: Patient is a former Pt quit 5 weeks Unknown smoker ago. Smoking Status Reviewed: 11/08/18 Patient is a former Pt quit 5 weeks smoker ago. Exercise Exercises regularly Type/Frequency Allergies, Adverse Reactions, Alerts Description No Known Drug Allergies Medications Active Medications SIG Qnty Indications Ordering Date Provider Metformin HCL 1 by mouth in the 90tabs E11.9 Josey Guajardo, 01/11/2019 500mg morning, 2 by ADMISSIONS EVALUATOR-Cde Tablets mouth every pm Steglatro 1 by mouth every 30tabs E11.9 Epi Mclaughiln MD 11/02/2018 5mg Tablets day in the morning Pioglitazone HCL take 15mg once 30tabs E11.9 Epi Mclaughlin MD 11/02/2018 15mg daily Tablets Freestyle Use To Test Blood 100units Clementine Plata MD 07/29/2018 STRP Test Glucose AT [facility] STRP Three Times A Day Initially BD Insulin Syringe use 3 times a day 100units Clementine Plata MD 06/04/2018 Ultra-Fine/0.3ML/31G and as needed dx X 8mm e11.9 ov 06-04-2018 31G X 5/16" 0.3 ML Misc BD Pen use with the pen 100units E11.9 Clementine Plata MD 05/21/2018 Needle/Mini/Ultra-Fi ne/31G X 5mm 31G X 5 mm Misc Basaglar Kwikpen take 20 units at 15ml Epi Mclaughlin MD 05/21/2018 night or as 100Unit/ML Solution directed, MDD 50 Pen-Inject Lifestyle Lite 3 times daily or 100units E11.69 Clementine Plata MD 04/22/2018 Lancets as needed dx e11.65 Lifestyle Lite Test for use with 100unchadd Plata MD 04/22/2018 Strips glucometer. test 3 times a day initially. Blood Glucose use as directed 1units E11.69 Clementine Plata MD 04/21/2018 Monitoring System W/Device Kit Losartan Potassium 1 by mouth every 90tabs Clementien Plata MD day 25mg Tablets Domperidone 10 MG 1 tablet 3 times Unknown daily 30 minutes prior to meals History Medications Metformin HCL ER 2 tablets by 60tabs E11.9 Epi Mclaughlin MD 11/02/2018 - mouth every day 01/11/2019 750mg Tablets ER at bedtime 24HR Medications Administered in Office Medication SIG Qnty Indications Ordering Provider Date Records Fee Sai Elizondo M.D. 12/31/2018 Injection Triamcinolone (Kenalog) Kit Gutierrez MD 11/05/2017 Injection Immunizations Description No Information Available Vital Signs Date Vital Result Comment 01/11/2019 9:32am Height 67 inches 5'7" Weight 147.00 lb BP Systolic 137 mmHg BP Diastolic 85 mmHg BMI (Body Mass Index) 23.0 kg/m2 11/02/2018 11:03am Height 67 inches 5'7" Weight 145.00 lb w/ shoes Heart Rate 97 /min BP Systolic Sitting 135 mmHg BP Diastolic Sitting 95 mmHg BMI (Body Mass Index) 22.7 kg/m2 Results Test Date Facility Test Result H/L Range Note Laboratory test 11/02/2018 [facility] [facility] Hemoglobin A1c 10.6 % High 4.0-5.[address] (Glyco HGB) [place] [address] [phone] C-Peptide 2.1 ng/mL 1.1 - 4.4 2 Glucose 175 mg/dL High 70-100 Laboratory test 08/31/2018 [facility] Clotest SEE RESULT [address] [place] [address] [phone] Laboratory test 08/31/2018 [facility] Surgical SEE RESULT [address] [place] [address] [phone] Laboratory test 08/02/2018 [facility] House Hemoglobin A1c 9.4 High 5-7 finding 1 Therapeutic target for the treatment of diabetes mellitus patients is <7% HBA1C, and in selective patients <6.0%. Please refer to [place] [employer] diabetic care guidelines for further information. 2 Test Performed by: [facility] - [address], [place] [address] 3 SEE RESULT BELOW Name: DORA PATRICIO : [address]: Aravind Infante DO Acct: [id number] Unit: [id number] AGE: 38 Location: ENDOCEC Re08/31/18 SEX: F Status: DEP REF SPEC: [id number] FALGUNI: 08/31/[address] [facility] [address]: Aravind Infante DO REQ: [id number] RECD: 08/31/18 STATUS: COMP OTHR DR: Clementine Plata MD _ SOURCE: GAS ANTRUM SPDESC: ORDERED: Clotest Procedure Result Reported Site Clotest Final 09/01/18- 0755 ML Clotest Negative * - Main Lab . END OF REPORT DEPARTMENT OF PATHOLOGY, [address] [place] [address] Palmer Victoria M.D. Director [facility] # [id number] 4 SEE RESULT BELOW Name: DORA PATRICIO : [address]: Aravind Infante DO Acct: [id number] Unit: [id number] AGE: 38 Location: ENDOCEC Re08/31/18 SEX: F Status: DEP REF SPEC: [id number] FALGUNI: 08/31/[address] [facility] [address]: Aravind Infante DO REQ: [id number] RECD: 08/31/181220 STATUS: CARMELO GIANG DR: Clementine Plata MD _ ORDERED: LEVEL 4/3 FINAL DIAGNOSIS 1. Small intestine, biopsy: -- Benign small intestinal mucosa with no significant pathologic abnormalities. -- No evidence of villous blunting or increased intraepithelial lymphocytes. 2. Stomach, antrum, biopsy: -- Antral and body-type gastric mucosa with mild chronic gastritis. -- No evidence of Helicobacter organisms. 3. Esophagus, distal, biopsy: -- Benign squamous and columnar-type mucosa with chronic inflammation. -- Intestinal metaplasia is absent. -- Dysplasia is absent. CLINICAL HISTORY Nausea POST-OPERATIVE DIAGNOSIS Colonoscopy: esophagus - mild reflux esophagitis, biopsy; gastric - cavernous retained scab; gastritis with erosions antrum biopsy; duodenum - mild duodenitis biopsy; no outlet obstruction CONTINUED ON NEXT PAGE DEPARTMENT OF PATHOLOGY, [address] [place] [address] Palmer Victoria M.D. Director MAE # [id number] RUN DATE: 09/01/18 [facility] LAB LIVE PAGE 2 Patient: SINTIADORA Cleary [id number] (Continued) GROSS DESCRIPTION (Continued) GROSS DESCRIPTION 1. The specimen is received in formalin labeled, Small Bowel Biopsy, and consists of a 0.3 x 0.3 x 0.2 cm chapin-pink irregular soft tissue fragment which is submitted entirely in one cassette. 2. The specimen is received in formalin labeled, Gastritis Antrum Biopsy, and consists of two chapin irregular soft tissue fragments measuring 0.3 x 0.2 x 0.1 cm and 0.5 x 0.3 x 0.1 cm which are submitted entirely in one cassette. 3. The specimen is received in formalin labeled, Distal Esophagus Biopsy, and consists of a 0.5 x 0.2 by up to 0.2 cm chapin-white to pink irregular soft tissue fragment which is submitted entirely in one cassette. Signed by and Reported on: Jessica Null MD 09/01/18 1322 END OF REPORT DEPARTMENT OF PATHOLOGY, [address] [place] [address] Palmer Victoria M.D. Director [facility] # [id number] Procedures Date Code Description Status 10/05/2018 45480 EKG Tracing & Interpretation Completed 07/12/2018 255921360 Diabetic Retinal Eye Exam Completed 08/13/2012 [id number] Diabetic Retinal Eye Exam Completed 07/28/2011 760632789 Diabetic Foot Exam Completed 06/27/2011 [id number] Diabetic Retinal Eye Exam Completed Medical Devices Description No Information Available Encounters Type Date Location Provider Dx Diagnosis Office Visit 11/02/2018 [facility] Mclaughlin MD E11.65 Type 2 diabetes 11:00a [facility] mellitus with hyperglycemia E11.40 Type 2 diabetes mellitus with diabetic neuropathy, unsp Z79.4 long term (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 E11.43 Type 2 diabetes w diabetic autonomic (poly)neuropathy Office Visit 10/05/2018 4:00p [facility] Samuel Plata MD K31.84 [facility] Type 2 diabetes mellitus without complications R00.0 Tachycardia, unspecified Office Visit 09/14/2018 5:00p [facility] Samuel Plata K31.84 Gastroparesis Medicine - [facility] Office Visit 08/02/2018 1:00p [facility] Internal Clementine Plata, I10 Essential ( primary) Medicine - [facility] Type 2 diabetes mellitus without complications K31.84 Gastroparesis Assessments Date Code Description Provider 01/11/2019 E11.65 Type 2 diabetes mellitus with hyperglycemia Regina Garcia 01/11/2019 E11.43 Type 2 diabetes mellitus with diabetic AUGUSTIN Garcia autonomic (poly)neuropathy 01/11/2019 Z79.4 halfway (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 Regina Garcia 12/31/2018 I10 Essential (primary) hypertension Sai Elizondo M.D. 12/31/2018 Z72.0 Tobacco use Sai Elizondo M.D. 11/02/2018 E11.65 Type 2 diabetes mellitus with hyperglycemia Epi Mclaughlin MD 11/02/2018 E11.40 Type 2 diabetes mellitus with yanet Mclaughlin MD neuropathy, unspecified 11/02/2018 Z79.4 long term (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 Epi Mclaughlin MD 11/02/2018 E11.43 Type 2 diabetes mellitus with diabetic Epi Mclaughlin MD autonomic (poly)neuropathy 10/05/2018 K31.84 Gastroparesis Clementine Plata MD 10/05/2018 E11.9 Type 2 diabetes mellitus without Clementine Plata MD complications 10/05/2018 R00.0 Tachycardia, unspecified Clementine Plata MD 09/14/2018 K31.84 Gastroparesis Clementine Plata MD 08/02/2018 I10 Essential (primary) hypertension Clementine Plata MD 08/02/2018 E11.9 Type 2 diabetes mellitus without Clementine Plata MD complications 08/02/2018 K31.84 Gastroparesis Clementine Plata MD Plan of Treatment Future Appointment(s):02/02/2019 9:20 am - Epi Mclaughlin MD at [facility]01[facility]11[facility] Type 2 diabetes mellitus with ogxhluctznceyZ59.43 Type 2 diabetes w diabetic autonomic (poly)ssdihwiwirI38.4 halfway (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Comments:1. Discontinue Meformin 750 mg extended release. 2. Restart the Metformin 500 mg. Take 1 in the morning and 2 at night 3. Get your HgbA1C measured prior to your appointment with Dr Mclaughlin Functional Status Description No Information Available Mental Status Description No Information Available Referrals Refer to Reason for Referral Status Appt Date Epi Mclaughlin MD Patient Notified 11/02/[address] [place] [address] [phone]
--- OUTSIDE RECORDS SUMMARY | 2019-02-02 14:45 | XMS REPORT | Continuity of Care Document ---
:1980 External Reference #:[id number] Author Name Marla Arriola PA-C Address [address] [place] [address] Care Team Providers Name Role Phone Clementine Plata M.D. Care Team Information Bankruptcy Law Specialist [phone] Problems Active Problems Provider Date Essential hypertension Marla Arriola PA-C Onset: 06/13/2018 Flatulence, eructation and gas pain Marla Arriola PA-C Onset: 2018 Gastroparesis syndrome Marla Arriola PA-C Onset: 06/04/2018 Social History Type Date Description Comments Sex Unknown Tobacco Use Start: Unknown Light tobacco smoker (10 or fewer cigarettes/day) Smoking Status Reviewed: 01/03/19 Light tobacco smoker (10 or fewer cigarettes/day) Allergies, Adverse Reactions, Alerts Description No Known Drug Allergies Medications Active Medications SIG Qnty Indications Ordering Provider Date Domperidone 10MG 1 tab po tid 90units Aravind Infante DO 08/05/2018 Tablets Basaglar Kwikpen take 14 units at 15units Clementine Plata M.D. 05/21/2018 night 100Unit/ML Solution Pen-Inject Metformin HCL take 1 tablet by 90tabs E11.9 Clementine Plata M.D. 05/03/2018 500mg mouth three Tablets times a day Losartan Potassium 1 by mouth every 90tabs Clementine Plata M.D. 25mg day Tablets History Medications Omeprazole 1 tablet by mouth 30caps Aravind Infante DO 08/31/2018 - 40mg daily in Am 30 01/03/[address] mins before meals. Immunizations Description No Information Available Vital Signs Date Vital Result Comment 01/03/2019 9:40am Height 67 inches 5'7" Weight 148.00 lb BP Systolic 139 mmHg BP Diastolic 83 mmHg Heart Rate 97 /min BMI (Body Mass Index) 23.2 kg/m2 11/01/2018 10:18am Height 67 inches 5'7" BP Systolic 114 mmHg BP Diastolic 74 mmHg Heart Rate 102 /min Results Test Date Facility Test Result H/L Range Note Laboratory test 08/31/2018 [facility] [place] SEE RESULT 1 finding BELOW Laboratory test 08/31/2018 [facility] [place] Surgical SEE RESULT 2 finding Interface Order BELOW 1 SEE RESULT BELOW Name: DORA PATRICIO : [address]: Aravind Infante DO Acct: [id number] Unit: [id number] AGE: 38 Location: [facility] Re08/31/18 SEX: F Status: DEP REF SPEC: [id number] FALGUNI: 08/31/[address] [facility] [address]: Aravind Infante DO REQ: [id number] RECD: 08/31/181 STATUS: QUENTIN GIANG DR: Clementine Plata MD _ SOURCE: [facility]: ORDERED: Clotest Procedure Result Reported Site Clotest Final 09/01/18- 0755 ML Clotest Negative * ML - Main Lab . END OF REPORT DEPARTMENT OF PATHOLOGY, [address] [place] [address] Palmer Victoria M.D. Director [facility] # [id number] SEE RESULT BELOW Name: DORA PATRICIO : [address]: Aravind Infante DO Acct: [id number] Unit: [id number] AGE: 38 Location: [facility] Re08/31/18 SEX: F Status: DEP REF SPEC: [id number] FALGUNI: 08/31/[address] [facility] [address]: Aravind Infante DO REQ: [id number] RECD: 08/31/18 STATUS: QUENTIN GIANG DR: Celmentine Plata MD _ SOURCE: [facility]: ORDERED: Clotest Procedure Result Reported Site Clotest Final 09/01/18- 3952 ML Clotest Negative * ML - Main Lab . END OF REPORT DEPARTMENT OF PATHOLOGY, [address] [place] [address] Palmer Victoria M.D. Director [facility] # [id number] SEE RESULT BELOW Name: DORA PATRICIO : [address]: Aravind Infante DO Acct: [id number] Unit: [id number] AGE: 38 Location: [facility] Re08/31/18 SEX: F Status: DEP REF SPEC: [id number] FALGUNI: 08/31/[address]: Aravind Infante DO REQ: [id number] RECD: 08/31/18 STATUS: CARMELO GIANG DR: Clementine Plata MD [...] CONTINUED ON NEXT PAGE DEPARTMENT OF PATHOLOGY, [address] [place] [address] Palmer Victoria M.D. Director [facility] # [id number] RUN DATE: 09/01/18 [facility] LAB LIVE PAGE 2 Patient: DORA PATRICIO [id number] (Continued) GROSS DESCRIPTION (Continued) GROSS DESCRIPTION 1. [...] and Reported on: Jessica Null MD 09/01/18 2976 END OF REPORT DEPARTMENT OF PATHOLOGY, [address] [place] [address] Palmer Victoria M.D. Director [facility] # [id number] SEE RESULT BELOW Name: DORA PATRICIO : [address]: Aravind Infante DO Acct: [id number] Unit: [id number] AGE: 38 Location: [facility] Re08/31/18 SEX: F Status: DEP REF SPEC: [id number] FALGUNI: 08/31/[address]: Aravind Infante DO REQ: [id number] RECD: 08/31/18 STATUS: CARMELO GIANG DR: Clementine Plata MD [...] CONTINUED ON NEXT PAGE DEPARTMENT OF PATHOLOGY, [address] [place] [address] Palmer Victoria M.D. Director [facility] # [id number] RUN DATE: 09/01/18 [facility] LAB LIVE PAGE 2 Patient: DORA PATRICIO Madiha [id number] (Continued) GROSS DESCRIPTION (Continued) GROSS DESCRIPTION 1. [...] 1322 END OF REPORT DEPARTMENT OF PATHOLOGY, [address] [place] [address] Palmer Victoria M.D. Director [facility] # [id number] Procedures Date Code Description Status 08/31/2018 22653 Moderate Sedation Services; Same Phys Intl 15 Mins; PT >= Completed 5 Years 08/31/2018 31650 EGD+Biopsy Single Or Multiple Completed Medical Devices Description No Information Available Encounters Type Date Location Provider Dx Diagnosis Office Visit 11/01/2018 [facility]1.84 Gastroparesis 10:30a Tushar Arriola PA-C Office Visit 09/21/2018 [facility] Flores1.84 Gastroparesis 11:00a Tushar Arriola PA-C Office Visit 08/05/2018 [facility]ita Gastroparesis 2:00p Tushar Arriola PA-C Assessments Date Code Description Provider 01/03/2019 K31.84 Gastroparesis Marla Arriloa PA-C 01/03/2019 R14.2 Eructation Marla Arriola PA-C 11/01/2018 K31.84 Gastroparesis Marla Arriola PA-C 09/21/2018 K31.84 Gastroparesis Marla Arriola PA-C 08/31/2018 K31.84 Gastroparesis Aravind Infante, DO 08/31/2018 K21.0 Gastro-esophageal reflux disease with Aravind Burgessrdan, DO esophagitis 08/05/2018 K31.84 Gastroparesis Marla Arriola PA-C Plan of Treatment Future Appointment(s):04/04/2019 9:00 am - Marla Arriola PA-C at [facility]01/03/2019 - SHIRLEY Medina CK31.84 [id number] Eructation Functional Status Description No Information Available Mental Status Description No Information Available Referrals Description No Information Available
[2019-02-02 17:19] LABS: Urine Appearance Cloudy; Urine Bacteria Absent (Absent); Urine Bilirubin Negative (Negative); Urine Blood Negative (Negative); Urine Color Yellow; Urine Glucose 2+(150 mg/dL) (Negative); Urine Ketones 2+ (Negative); Urine Nitrite Negative (Negative); Urine Protein 2+(100 mg/dL) (Negative); Urine Red Blood Cell Trace(0-2/hpf) (Absent); Urine Specific Gravity 1.024 (1.010-1.030); Urine Squamous Epithelial Cell Present (Absent); Urine Urobilinogen Negative (Negative); Urine White Blood Cell Trace(0-5/hpf) (Absent)
[2019-02-02 17:52] VITALS: BP 122/67
== END 2019-02-02 17:50 | disposition home or self-care (01) ==
LOC: ED 13:16
DX: R11.2 Nausea with vomiting, unspecified (principal); E11.9 Type 2 diabetes mellitus without complications; D64.9 Anemia, unspecified; I10 Essential (primary) hypertension; F17.210 Nicotine dependence, cigarettes, uncomplicated
CPT/HCPCS: 36415; 80053; 81003; 81015; 82550; 83605; 83735; 84702; 85025; 87086; 93005; 96361; 96374; 96375; 99283; J1200; J1885; J3475

== ENCOUNTER 2019-03-14 07:08 | Day surgery (SDC) | payer OTHER ==
[~2019-03-14 07:08] MED LIST: Acetaminophen TAB* 325 MG PO ONE; Buffered Lidocaine 1% SYRIN* 1 ML/SYRINGE INTRADERM ONE; Famotidine IV* 10 MG/ML 2 ML (20 mg) IV ONE; Lactated Ringers 1000 ML Bag* 1,000 ML IV SCH
[2019-03-14] MEDS ORDERED: Acetaminophen TAB* 325 MG ONE (08:02)
[2019-03-14] MEDS ORDERED: Buffered Lidocaine 1% SYRIN* 1 ML/SYRINGE INTRADERM ONE (08:03)
[2019-03-14] MEDS ORDERED: Famotidine IV* 10 MG/ML 2 ML (20 mg) ONE (08:03)
[2019-03-14] MEDS ORDERED: ceFAZolin 2 GM PREMIX in ORs 2 GM/50 ML BAG ONE (08:03)
[2019-03-14] MEDS ORDERED: Midazolam* 1 MG/ML 2 ML VIAL (2 MG) ONE (08:44)
[2019-03-14] MEDS ORDERED: Insulin LISPRO* 1 UNITS UNIT SUBCUT ONE (08:44)
[2019-03-14] MEDS ORDERED: Bupivacaine 0.5% W/EPI SDV* 30 ML VIAL ONE (09:16)
[2019-03-14] MEDS ORDERED: oxyCODONE TAB* 5 MG TAB PO PRN (09:19)
[2019-03-14] MEDS ORDERED: Naloxone* 0.4 MG/ML 1 ML VIAL IV PRN (09:19)
[2019-03-14] MEDS ORDERED: Ondansetron INJ* 2 MG/ML VIAL IV PRN (09:19)
[2019-03-14] MEDS ORDERED: PROCHLORPERAZINE INJ 5 MG/ML 2 ML VIAL IV PRN (09:19)
[2019-03-14] MEDS ORDERED: HYDROmorphone INJ1* 1 MG/ML SYRINGE IV PRN (09:19)
[2019-03-14] MEDS ORDERED: diPHENhydraMINE IV* 50 MG/ML 1 ml VIAL (BENADRYL) IV PRN (09:19)
[2019-03-14] MEDS ORDERED: Bupivacaine 0.5%* 50 ML MDV VIAL ONE (09:42)
[2019-03-14] MEDS ORDERED: Lidocaine 2% PF* 10 ML AMP ONE (10:04)
[2019-03-14] MEDS ORDERED: fentaNYL* 50 MCG/ML 2 ML VIAL (100 MCG VIAL) ONE ×2 (10:10→12:10)
[2019-03-14] MEDS ORDERED: Propofol* 500 MG/50 ML BTL ONE (11:36)
[2019-03-14 12:03] VITALS: BP 138/67
--- NOTE | 2019-03-14 20:40 | OP ---
DATE OF OPERATION: 03/14/[address] [facility] DATE OF : [birth year] ATTENDING SURGEON: Sai Elizondo MD. EDGER MACHINE HELPER: Reina Palmer PA-C. PRE-OP DIAGNOSES: Severe hallux valgus, extensor contracture, and extensor hallucis longus contracture. POST-OP DIAGNOSES: Severe hallux valgus, extensor contracture, and extensor hallucis longus contracture. OPERATIVE PROCEDURE: First metatarsophalangeal joint fusion, left foot with extensor hallucis longus rerouting distally to the medial metatarsal shaft. DESCRIPTION OF PROCEDURE: The patient was taken to the operating room. We opened up longitudinally along the medial previous incision. Full-thickness flap was raised dorsally. The EHL tendon was exposed. It was quite attenuated , but a Z- lengthening was attempted. At the end of the Z-lengthening, it appeared that the distal half was more robust than the proximal half. We created an end-to-end anastomosis with some 2-0 Vicryl. We then used the ball and cup reamers of the Arthrex kit with 60 mm diameter. We then opposed the joint in interposition and pinned this obliquely with a 34- mm, 3.5 cancellous screw. The left first MTP joint fusion plate was placed over the dorsum and fixed with a combination of cortical nonlocking and locking screws. We then reexamined the anastomosis of the EHL tendon before closure and realized that this had disrupted. Rather than attempting a secondary repair , I transferred the distal stump to the medial metatarsal shaft, thus holding the IP joint in neutral position. I placed a small drill hole through the medial cortex, passed a 2-0 Vicryl suture and tacked the tendon down to this area. We then irrigated, closing with 2-0 Monocryl and nylon for the skin and a compression dressing applied. [id number]/[facility] #: [id number] [facility] CENTERLillie
== END 2019-03-14 12:07 | disposition home or self-care (01) ==
LOC: OR 07:08
PROVIDERS: ATTEND Orthopaedic Surgery
DX: M20.12 Hallux valgus (acquired), left foot (principal); M62.472 Contracture of muscle, left ankle and foot; F17.210 Nicotine dependence, cigarettes, uncomplicated; I10 Essential (primary) hypertension; E11.43 Type 2 diabetes mellitus with diabetic autonomic (poly)neuropathy; K31.84 Gastroparesis; Z79.84 Long term (current) use of oral hypoglycemic drugs
CPT/HCPCS: 76000; 81025; A9270-GY; C1713; J0690; J1815; J2001; J2250; J2704; J3010; J3490

== ENCOUNTER 2019-03-23 11:15 | Emergency (ER) | payer OTHER ==
[2019-03-23] MEDS ORDERED: NS 0.9% 1000 ML** 1,000 ML IV ONE ×2 (11:19→12:21)
[2019-03-23 12:02] LABS: ABS Basophils 0.1 10^3/ul (0-0.2); ABS Monocytes 0.3 10^3/ul (0-0.8); ABS Neutrophils 10.5 10^3/ul (1.5-7.7); Eosinophil % 0.1 %; Hematocrit 45 % (35-47); Hemoglobin 15.8 g/dL (12.0-16.0); Lymphocyte % 21.5 %; Mean Corpuscular HGB Conc 35 g/dL (31-36); Mean Corpuscular Hemoglobin 30 pg (27-31); Mean Corpuscular Volume 86 fL (80-97); Mean Platelet Volume 8.9 fL (7.4-10.4); Platelet Count 319 10^3/uL (150-450); Red Cell Distribution Width 14 % (10-15); White Blood Count 13.8 10^3/uL (3.5-10.8)
[2019-03-23] MEDS ORDERED: Magnesium Sulfate 2 GM IV* 2 GM/50 ML BAG IVPB ONE (12:17)
[2019-03-23] MEDS ORDERED: Ketorolac INJ* 30 MG/ML 1 ML VIAL IV PUSH ONE (12:17)
[2019-03-23 12:18] LABS: ALT 12 U/L (7-52); AST 14 U/L (13-39); Albumin 4.5 g/dL (3.2-5.2); Albumin/Globulin Ratio 1.3 (1-3); Alkaline Phosphatase 52 U/L (34-104); Anion Gap 17 mmol/L (2-11); BUN/Creatinine Ratio 20.2 (8-20); Blood Urea Nitrogen 17 mg/dL (6-24); CO2 Carbon Dioxide 21 mmol/L (22-32); Calcium 10.2 mg/dL (8.6-10.3); Chloride 99 mmol/L (101-111); EGFR African American 91.8 (>60); EGFR Non-African American 75.9 (>60); Globulin 3.6 g/dL (2-4); Glucose 264 mg/dL (70-100); Magnesium 1.8 mg/dL (1.9-2.7); Potassium 3.8 mmol/L (3.5-5.0); Sodium 137 mmol/L (135-145); Total Protein 8.1 g/dL (6.4-8.9)
[2019-03-23 12:24] LABS: HCG Pregnancy < 0.60 mIU/mL
[2019-03-23] MEDS ORDERED: diPHENhydraMINE IV* 50 MG/ML 1 ml VIAL (BENADRYL) IV ONE (12:40)
--- NOTE | 2019-03-23 12:41 | ED ---
GI/ HPI - HPI Summary HPI Summary: Pt is a 38 y/o F presenting to the ED brought in by EMS for GI issues. Pt has hx of cycling vomiting syndrome. She has her current typical symptoms, including nausea and vomiting onset around 0230 this date as well as abd pain across the epigastric region. She took Domperidone twice today, the last time at 0930. She denies fever. No diarrhea. States her sx are typical - feels she is getting dehydrated She is diabetic, and uses Vaglar pen at night. She smokes tobacco a few times a week, and smokes weed a few times a day. No sick contact. Medications reviewed this visit - History of Current Complaint Chief Complaint: EDNauseaVomitDiarrh Time Seen by Provider: 03/23/19 11:18 Stated Complaint: VOMITING Hx Obtained From: Patient Hx Last Menstrual Period: 03/19/18 Onset/Duration: Started Hours Ago, Still Present Timing: Constant, Lasting Hours Severity: Moderate Current Severity: Moderate Pain Intensity: 7 Location of Pain: Epigastric Associated Signs and Symptoms: Positive: Nausea, Vomiting, Abdominal Pain. Negative: Fever Aggravating Factor(s): Nothing Alleviating Factor(s): Nothing - Additional Pertinent History Primary Care Physician: [id number] - Allergy/Home Medications Allergies/Adverse Reactions: Allergies Allergy/AdvReac Type Severity Reaction Status Date / Time No Known Allergies Allergy Verified 03/14/19 08:15 Home Medications: Home Medications metFORMIN* [Glucophage 500 MG TAB *] 1,000 mg PO QPM 03/23/19 [History Confirmed 03/23/19] metFORMIN* [Glucophage 500 MG TAB *] 500 mg PO QAM 03/23/19 [History Confirmed 03/23/19] oxyCODONE TAB* [Roxycodone TAB 5 mg*] 5 mg PO .Q4-6H PRN 03/23/19 [History Confirmed 03/23/19] PMH/Surg Hx/FS Hx/Imm Hx Previously Healthy: Yes Endocrine/Hematology History: Reports: Hx Diabetes - type 2 dm FS TID Denies: Hx Thyroid Disease, Hx Anemia Cardiovascular History: Reports: Hx Hypertension Denies: Hx Hypercholesterolemia, Hx Pacemaker/ICD, Hx Rheumatic Fever Respiratory History: Denies: Hx Asthma, Hx Chronic Obstructive Pulmonary Disease (COPD) GI History: Reports: Hx Gastroesophageal Reflux Disease - GASTROPARESIS Denies: Hx Ulcer History: Denies: Hx Renal Disease, Other Problems/Disorders Musculoskeletal History: Reports: Other Musculoskeletal History - LEFT GREAT TOE Sensory History: Denies: Hx Contacts or Glasses, Hx Legally Blind, Hx Deafness, Hx Hearing Aid Opthamlomology History: Denies: Hx Contacts or Glasses, Hx Legally Blind Psychiatric History: Denies: Hx Panic Disorder - Surgical History Surgery Procedure, Year, and Place: Csection Xs 2. left foot surgery x 2 - I & D-TWICE. Leep procedure. Cervix tear repair Hx Anesthesia Reactions: No - Immunization History Date of Tetanus Vaccine: unk Date of Influenza Vaccine: unk Infectious Disease History: No Infectious Disease History: Reports: Hx of Known/Suspected MRSA Denies: Hx Clostridium Difficile, Hx Hepatitis, Hx Human Immunodeficiency Virus (HIV), Hx Shingles, Hx Tuberculosis, Hx Known/Suspected VRE, Hx Known/ Suspected VRSA, History Other Infectious Disease, Traveled Outside the [place] in Last 30 Days - Family History Known Family History: Positive: Other - diverticulitis Negative: Cardiac Disease, Hypertension, Diabetes - Social History Alcohol Use: None Hx Substance Use: Yes Substance Use Type: Reports: Marijuana Substance Use Comment - Amount & Last Used: weekly Hx Tobacco Use: Yes Smoking Status (MU): Light Every Day Tobacco Smoker Type: Cigarettes Amount Used/How Often: 1/2 pdd Length of Time of Smoking/Using Tobacco: 15+ years Have You Smoked in the Last Year: Yes Review of Systems Negative: Fever Positive: Abdominal Pain, Vomiting, Nausea All Other Systems Reviewed And Are Negative: Yes Physical Exam - Summary Physical Exam Summary: Vital Signs Reviewed: Yes A+Ox3, retching, tired appearing Eyes: Conjunctiva Clear, AZAEL. 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 Skin: Positive: no rash, no ecchymosis Triage Information Reviewed: Yes Vital Signs On Initial Exam: Initial Vitals Temp Pulse Resp BP Pulse Ox 96.8 F 92 16 158/103 100 03/23/19 11:21 03/23/19 11:21 03/23/19 11:21 03/23/19 11:21 03/23/19 11:21 Vital Signs Reviewed: Yes Procedures - Sedation Patient Received Moderate/Deep Sedation with Procedure: No Diagnostics - Vital Signs Vital Signs Temp Pulse Resp BP Pulse Ox 03/23/19 12:00 78 22 92 03/23/19 11:51 92 21 129/84 100 03/23/19 11:22 96 100 03/23/19 11:21 96.8 F 85 16 158/103 100 - Laboratory Lab Results: Lab Results 03/23/19 03/23/19 03/23/19 Range/Units 11:42 11:42 11:42 WBC 13.8 H (3.5-10.8) 10^3/uL RBC 5.30 H (3.70-4.87) 10^6 /uL Hgb 15.8 (12.0-16.0) g/dL Hct 45 (35-47) % MCV 86 (80-97) fL MCH 30 (27-31) pg MCHC 35 (31-36) g/dL RDW 14 (10-15) % Plt Count 319 (150-450) 10^3/uL MPV 8.9 (7.4-10.4) fL Neut % (Auto) 76.0 % Lymph % (Auto) 21.5 % Dickens % (Auto) 1.9 % Eos % (Auto) 0.1 % Baso % (Auto) 0.5 % Absolute Neuts (auto) 10.5 H (1.5-7.7) 10^3/ul Absolute Lymphs (auto) 3.0 (1.0-4.8) 10^3/ul Absolute Monos (auto) 0.3 (0-0.8) 10^3/ul Absolute Eos (auto) 0.0 (0-0.6) 10^3/ul Absolute Basos (auto) 0.1 (0-0.2) 10^3/ul Absolute Nucleated RBC 0.0 10^3/ul Nucleated RBC % 0.0 Sodium 137 (135-145) mmol/L Potassium 3.8 (3.5-5.0) mmol/L Chloride 99 L (101-111) mmol/L Carbon Dioxide 21 L (22-32) mmol/L Anion Gap 17 H (2-11) mmol/L BUN 17 (6-24) mg/dL Creatinine 0.84 (0.51-0.95) mg/dL Est GFR ( Amer) 91.8 (>60) Est GFR (Non-Af Amer) 75.9 (>60) BUN/Creatinine Ratio 20.2 H (8-20) Glucose 264 H (70-100) mg/dL Lactic Acid 2.7 H* (0.5-2.0) mmol/L Calcium 10.2 (8.6-10.3) mg/dL Magnesium 1.8 L (1.9-2.7) mg/dL Total Bilirubin 0.70 (0.2-1.0) mg/dL AST 14 (13-39) U/L ALT 12 (7-52) U/L Alkaline Phosphatase 52 (34-104) U/L Total Protein 8.1 (6.4-8.9) g/dL Albumin 4.5 (3.2-5.2) g/dL Globulin 3.6 (2-4) g/dL Albumin/Globulin Ratio 1.3 (1-3) Beta HCG, Quant < 0.60 mIU/mL Result Diagrams: 03/23/19 11:42 03/23/19 11:42 Lab Statement: Any lab studies that have been ordered have been reviewed, and results considered in the medical decision making process. - EKG 1229 Cardiac Rate: NL - 73bpm EKG Rhythm: Sinus Rhythm ST Segment: Normal Ectopy: None Summary of EKG Findings: EKG at 1229 shows NSR at 73bpm with QTc of 502. No ST/T -wave changes. Dr. Vazquez has reviewed and interpreted this EKG. GIGU Course/Dx - Course Course Of Treatment: Pt presents to ED by EMS with vomiting and abd cramping since early this am. Pt with history of similar. Pt denies fever, chills. History of cyclic vomiting -states this feels similar. On exam, VSS. pt with active retching. pt on Domperidone - QTc upper limit of normal. will give toradol, magnesium, and benadryl - reviewed with hospital pharmicist. will give IVF. check labs. pt will be signed out Dr. Miller 1300. agreementw ith plan - Diagnoses Provider Diagnoses: Vomiting Discharge ED - Sign-Out/Discharge Documenting (check all that apply): Sign-Out Patient Signing out patient TO: Fina Miller - Discharge Plan Condition: Stable Disposition: HOME Patient Education Materials: Acute Nausea and Vomiting (ED) Referrals: Clementine Plata MD [Primary Care Provider] - Additional Instructions: You were seen in the emergency department for from vomiting. we gave you Benadryl and Toradol as well as magnesium. If any studies were not completed at the time of discharge you will be called with the relevant results. Please follow up with your primary care doctor in next 2-3 days and return to emergency department for worsening vomiting, abdominal pain, or concerning symptoms. It was a pleasure taking care of you today. - Billing Disposition and Condition Condition: STABLE Disposition: Home - Attestation Statements Document Initiated by Scribe: Yes Documenting Scribe: Dora Wills Provider For Whom Luther is Documenting (Include Credential): Korin Vazquez MD. Scribe Attestation: IDora, scribed for Korin Vazquez MD. on 03/30/19 at 1220. Scribe Documentation Reviewed: Yes Provider Attestation: The documentation as recorded by the scribeDora accurately reflects the service I personally performed and the decisions made by me, Korin Vazquez MD. Status of Scribe Document: Viewed Consult Consult: 1237 - Spoke with pharmacy who states it's okay to give the pt Benadryl even with her QTc.
--- NOTE | 2019-03-23 13:14 | ED ---
Progress - Progress Note Progress Note: Pt is a signout from Dr. Vazquez at 1300 pending re-eval after IV fluids, electrolyte repletion, repeat lactic acid. Re-Evaluation - Re-Evaluation 15:20 Re-Evaluation Time: 15:20 Change: Improved - lactic acid decreased, patient feeling well and tolerating by mouth. Course/Dx - Diagnoses Provider Diagnoses: Vomiting Discharge ED - Sign-Out/Discharge Documenting (check all that apply): Patient Departure, Receiving Sign-Out Receiving patient FROM: Korin Vazquez - Discharge Plan Condition: Stable Disposition: HOME Patient Education Materials: Acute Nausea and Vomiting (ED) Referrals: Clementine Plata MD [Primary Care Provider] - Additional Instructions: You were seen in the emergency department for from vomiting. we gave you Benadryl and Toradol as well as magnesium. If any studies were not completed at the time of discharge you will be called with the relevant results. Please follow up with your primary care doctor in next 2-3 days and return to emergency department for worsening vomiting, abdominal pain, or concerning symptoms. It was a pleasure taking care of you today. - Billing Disposition and Condition Condition: STABLE Disposition: Home - Attestation Statements Document Initiated by Scribe: Yes Documenting Scribe: Dora Wills Provider For Whom Luther is Documenting (Include Credential): Fina Miller MD. Scribe Attestation: Dora Page, scribed for Fina Miller MD. on 03/23/19 at 1534. Scribe Documentation Reviewed: Yes Provider Attestation: The documentation as recorded by the scribeDora accurately reflects the service I personally performed and the decisions made by , Fina Miller MD. Status of Scribe Document: Viewed
[2019-03-23 14:40] LABS: Urine Appearance Cloudy; Urine Bilirubin Negative (Negative); Urine Blood 3+ (Negative); Urine Color Amber; Urine Glucose 3+(>=500 mg/dL) (Negative); Urine Ketones 2+ (Negative); Urine Nitrite Negative (Negative); Urine Protein 2+(100 mg/dL) (Negative); Urine Specific Gravity 1.032 (1.010-1.030); Urine Urobilinogen Negative (Negative)
[2019-03-23 14:43] LABS: Urine Bacteria Absent (Absent); Urine Red Blood Cell 3+(>10/hpf) (Absent); Urine Squamous Epithelial Cell Present (Absent); Urine White Blood Cell Absent (Absent)
[2019-03-23 15:28] VITALS: BP 131/71
[2019-03-23] MEDS ORDERED: Calcium Carbonate CHEW TAB* 500 MG (TUMS) PO ONE (15:34)
== END 2019-03-23 15:25 | disposition home or self-care (01) ==
LOC: ED 11:15
DX: R11.10 Vomiting, unspecified (principal); E11.9 Type 2 diabetes mellitus without complications; I10 Essential (primary) hypertension; K21.9 Gastro-esophageal reflux disease without esophagitis; F17.210 Nicotine dependence, cigarettes, uncomplicated; Z79.84 Long term (current) use of oral hypoglycemic drugs; Z79.899 Other long term (current) drug therapy
CPT/HCPCS: 36415; 80053; 81003; 81015; 83605; 83735; 84702; 85025; 93005; 96361; 96365; 96375; 99283; J1200; J1885; J3475

== ENCOUNTER 2019-04-05 14:10 | Emergency (ER) | payer OTHER ==
[2019-04-05] MEDS ORDERED: NS 0.9% 1000 ML** 1,000 ML IV ONE ×2 (14:37→16:37)
[2019-04-05] MEDS ORDERED: Metoclopramide IV* 5 MG/ML 2 ML VIAL IV ONE ×2 (14:37→16:37)
--- OUTSIDE RECORDS SUMMARY | 2019-04-05 15:09 | XMS REPORT | Continuity of Care Document ---
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 Installer Helper [phone] Maia Cash MD - Internal Care Team Information Solar Energy System Installer Helper Medicine Clementine Plata MD - Internal Medicine Care Team Information Solar Energy System Installer Helper [phone] Problems Active Problems Provider Date Tobacco user [...] Onset: 05/28/2017 Closed fracture proximal humerus, greater Kit Gutierrez MD Onset: 06/04/2017 tuberosity Disorder of shoulder Kit Gutierrez MD Onset: 11/05/2017 Social History Type Date Description Comments Sex Unknown 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 smoker, smokes every day Been smoking for 12 yrs. Smoking Status Reviewed: 02/23/19 Patient is a current Smokes 1/2 pk a day. smoker, smokes every day Been smoking for 12 yrs. Exercise Exercises regularly Type/Frequency Allergies, Adverse Reactions, Alerts Description No Known Drug Allergies Medications Active Medications SIG Qnty Indications Ordering Date Provider Metformin HCL 1 by mouth in the 90tabs E11.9 Josey Guajardo, 01/11/2019 500mg morning, 2 by PRIMER CHARGING TOOL SETTER-Cde Tablets mouth every pm Steglatro 1 by mouth every 30tabs E11.9 Epi Mclaughlin MD 11/02/2018 5mg Tablets day in the morning Pioglitazone HCL take 15mg once 30tabs E11.9 Epi Mclaughlin MD 11/02/2018 15mg daily Tablets Freestyle Use To Test Blood 100units Clementine Plata MD 07/29/2018 STRP Test Glucose AT Least STRP Three Times A Day Initially BD Pen use with the pen 100units [...] e11.65 Lifestyle Lite Test for use with 100units Clementine Plata MD 04/22/2018 Strips glucometer. test 3 times a day initially. Blood Glucose use as directed 1units E11.69 Clementine Plata MD 04/21/2018 Monitoring System W/Device Kit Losartan Potassium 1 by mouth every 90tabs Clementine Plata MD day 25mg Tablets Domperidone 10 [...] Available Vital Signs Date Vital Result Comment 02/23/2019 9:13am Height 67 inches 5'7" Weight 146.00 lb Heart Rate 103 /min BP Systolic Sitting 122 mmHg BP Diastolic Sitting 79 mmHg Body Temperature 98.1 F O2 % BldC Oximetry 99 % BMI (Body Mass Index) 22.9 kg/m2 02/17/2019 9:04am Height 67 inches 5'7" Weight 146.00 lb Heart Rate 108 /min BP Systolic 128 mmHg BP Diastolic 88 mmHg Body Temperature 97.5 F Pain Level 2 BMI (Body Mass Index) 22.9 kg/m2 Results Test Acquired Date Facility Test Result H/L Range Note Laboratory test 02/23/2019 [employer] Super[employer] In House Hemoglobin A1c 8.6 High 5-7 finding Urinalysis 02/02/2019 [facility] Urine Color Yellow Profile [address] [place] [address] [phone] Urine Appearance Cloudy Urine Specific [place] 1.024 Normal 1.010-1.030 Urine pH 9.0 Normal 5-9 Urine Urobilinogen Negative Negative Urine Ketones 2+ Abnormal Negative Urine Protein 2+(100 mg/dL) Abnormal Negative Urine Leukocytes Negative Negative Urine Blood Negative Negative Urine Nitrite Negative Negative Urine Bilirubin Negative Negative Urine Glucose 2+(150 mg/dL) Abnormal Negative Urine White Blood Cell Trace(0-5/hpf) Absent Urine Red Blood Cell Trace(0-2/hpf) Absent Urine Bacteria Absent Absent Urine Squamous Epithelial Cell Present Abnormal Absent Urine Culture And 02/02/2019 [facility] Urine SEE RESULT [address] [place] [address] [phone] Laboratory test 02/02/2019 [facility] Lactic Acid 3.3 mmol/L Critical 0.5- [address] high 2.0 [place] [address] [phone] CBC Auto Diff 02/02/2019 [facility] White Blood 12.1 High 3.5 - [address] Count 10^3/uL 10.8 [place] [address] [phone] Red Blood Count 5.59 10^6/uL High 3.70-4.87 Hemoglobin 16.2 g/dL High 12.0-16.0 Hematocrit 48 % High 35-47 Mean Corpuscular Volume 85 fL Normal 80-97 Mean Corpuscular Hemoglobin 29 pg Normal 27-31 Mean Corpuscular HGB Conc 34 g/dL Normal 31-36 Red Cell Distribution Width 15 % Normal 10-15 Platelet Count 222 10^3/uL Normal 150-450 Mean Platelet Volume 8.7 fL Normal 7.4-10.4 Abs Neutrophils 8.1 10^3/uL High 1.5-7.7 Abs Lymphocytes 3.3 10^3/uL Normal 1.0-4.8 Abs Monocytes 0.6 10^3/uL Normal 0-0.8 Abs Eosinophils 0.0 10^3/uL Normal 0-0.6 Abs Basophils 0.1 10^3/uL Normal 0-0.2 Abs Nucleated RBC 0.0 10^3/uL Granulocyte % 67.1 % Lymphocyte % 27.4 % Monocyte % 4.6 % Eosinophil % 0.4 % Basophil % 0.5 % Nucleated Red Blood Cells % 0.1 Comp Metabolic 02/02/2019 [facility] Sodium 140 mmol/L Normal 135-[address] [place] [address] [phone] Potassium 3.4 mmol/L Low 3.5-5.0 Chloride 101 mmol/L Normal 101-111 Co2 Carbon Dioxide 24 mmol/L Normal 22-32 Anion Gap 15 mmol/L High 2-11 Glucose 235 mg/dL High 70-100 Blood Urea Nitrogen 11 mg/dL Normal 6-24 Creatinine 0.78 mg/dL Normal 0.51-0.95 BUN/Creatinine Ratio 14.1 Normal 8-20 Calcium 10.2 mg/dL Normal 8.6-10.3 Total Protein 7.8 g/dL Normal 6.4-8.9 Albumin 4.7 g/dL Normal 3.2-5.2 Globulin 3.1 g/dL Normal 2-4 Albumin/Globulin Ratio 1.5 Normal 1-3 Total Bilirubin 1.00 mg/dL Normal 0.2-1.0 Alkaline Phosphatase 44 U/L Normal 34-104 Alt 11 U/L Normal 7-52 Ast 13 U/L Normal 13-39 Egfr Non- 82.7 >60 Egfr 100.0 >60 3 Laboratory test 02/02/2019 [facility] Magnesium 1.6 mg/dL Low 1.9-2.[address] [place] [address] [phone] Creatine Kinase(CK) 26 U/L Normal 10-223 HCG < 0.60 mIU/mL 4 Laboratory test 11/02/2018 [facility] Hemoglobin A1c 10.6 % High 4.0-5.[address] (Glyco HGB) [place] [address] [phone] C-Peptide 2.1 ng/mL 1.1 - 4.4 6 Glucose 175 mg/dL High 70-100 Laboratory test 08/31/2018 [facility] Clotest SEE RESULT [address] [place] [address] [phone] Laboratory test 08/31/2018 [facility] Surgical SEE RESULT [address] Interface [place] [address] [phone] 1 SEE RESULT BELOW Name: DORA PATRICIO : [address]: Korin Vazquez MD Acct: [id number] Unit: [id number] AGE: 38 Location: ED Re02/02/19 SEX: F Status: DEP ER SPEC: [id number] FALGUNI: 02/02/19 [facility] DR: Korin Vazquez MD REQ: [id number] RECD: 02/02/19 STATUS: QUENTIN GIANG DR: Clementine Plata MD _ SOURCE: URINE SPDESC: ORDERED: Urine Culture Procedure Result Reported Site Urine Culture Final 02/03/19- 1607 ML No growth of clinically significant organisms * ML - Main Lab . END OF REPORT DEPARTMENT OF PATHOLOGY, [address] [place] [address] Palmer Victoria M.D. Director [facility] # [id number] 2 Critical Result LACT:3.3 Called to [id number] at: 14:36:20 by:[id number] Read back by:[id number] [facility] Severe Sepsis and Septic Shock Management Bundle Measure requires all lactic acids initially measuring >2.0 mmol/L be repeated. 3 Because ethnic data is not always [...] 5 Kidney failure <15 (or dialysis) 4 <5.0 Negative 5.0 - 25.0 Indeterminate (Repeat testing recommended after 72 hours) >25.0 Positive Perimenopausal women can display HCG levels of up to 20 mIU/mL 5 Therapeutic target for the treatment of diabetes mellitus patients is <7% HBA1C, and in selective patients <6.0%. Please refer to [place] [employer] diabetic care guidelines for further information. 6 Test Performed by: [facility] [address] [place] [address] 7 SEE RESULT BELOW Name: DORA PATRICIO : [address]: Aravind Infante DO Acct: [id number] Unit: [id number] AGE: 38 Location: ENDOCEC Re08/31/18 SEX: F Status: DEP REF SPEC: [id number] FALGUNI: 08/31/18-832 [facility] [address]: Aravind Infante DO REQ: [id number] RECD: 08/31/18 STATUS: QUENTIN GIANG DR: Clementine Plata MD _ SOURCE: PATTI [facility]: ORDERED: Clotest Procedure Result Reported Site Clotest Final 09/01/18- 0755 ML Clotest Negative * ML - Main Lab . END OF REPORT DEPARTMENT OF PATHOLOGY, [address] [place] [address] Palmer Victoria M.D. Director [facility] # [id number] 8 SEE RESULT BELOW Name: DORA PATRICIO : [address]: Aravind Infante DO Acct: [id number] Unit: [id number] AGE: 38 Location: ENDOCEC Re08/31/18 SEX: F Status: DEP REF SPEC: [id number] FALGUNI: 08/31/[address]: Aravind Infante DO REQ: [id number] RECD: 08/31/18 STATUS: CARMELO GIANG DR: Clementine [...] ON NEXT PAGE DEPARTMENT OF PATHOLOGY, [address] [place] [address] Palmer Victoria M.D. Director [facility] # [id number] RUN DATE: 09/01/18 [facility] LAB LIVE PAGE 2 Patient: DORA PATRICIO [id number] (Continued) GROSS DESCRIPTION (Continued) GROSS DESCRIPTION 1. [...] END OF REPORT DEPARTMENT OF PATHOLOGY, [address] [place] [address] Palmer Victoria M.D. Director [facility] # [id number] Procedures Date Code Description Status 02/23/2019 05352 EKG Tracing & Interpretation Completed 02/08/2019 10541 EKG Tracing & Interpretation Completed 10/05/2018 44170 EKG Tracing & Interpretation Completed 07/12/2018 [id number] Diabetic Retinal Eye Exam Completed 08/13/2012 [id number] Diabetic Retinal Eye Exam Completed 07/28/2011 [id number] Diabetic Foot Exam Completed 06/27/2011 [id number] Diabetic Retinal Eye Exam Completed Medical Devices Description No Information Available Encounters Type Date Location Provider Dx Diagnosis Office Visit 02/23/2019 [facility] Internal Ling Garrido, Z01.818 Encounter for other 9:00a Medicine - Ccmclaudia Wade, FACP preprocedural examination M20.12 Hallux valgus (acquired), left foot E11.43 Type 2 diabetes w diabetic autonomic (poly)neuropathy I10 Essential (primary) hypertension Z72.0 Tobacco use Office Visit 02/08/2019 8:00a [facility] Samuel Plata E11.43 Type 2 diabetes w Medicine - diabetic autonomic Ccmob (poly)neuropathy I10 Essential (primary) hypertension Z72.0 Tobacco use K31.84 Gastroparesis Office Visit 01/11/2019 [facility] Teresa and Josey E11.65 Type 2 diabetes 9:30a [facility] mellitus with [facility] PRIMER CHARGING TOOL SETTER-Cde hyperglycemia Z79.4 alf (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 Office Visit 11/02/2018 [facility] Diabetes and Epi Mclaughlin E11.65 Type 2 diabetes 11:00a Endocrinology of mellitus with [facility] hyperglycemia E11.40 Type 2 diabetes mellitus with diabetic neuropathy, unsp 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 termite helper (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 E11.43 Type 2 diabetes w diabetic autonomic (poly)neuropathy Office Visit 10/05/2018 4:00p [facility] Samuel Plata MD K31.84 Gastroparesis Medicine - Ccmob E11.9 Type 2 diabetes mellitus without complications R00.0 Tachycardia, unspecified Office Visit 09/14/2018 5:00p [facility] Samuel Plata MD K31.84 Gastroparesis Medicine - Ccmob Assessments Date Code Description Provider 02/23/2019 Z01.818 Encounter for other preprocedural Ling Garrido M.D., FACP examination 02/23/2019 M20.12 Hallux valgus (acquired), left foot Ling Garrido M.D., FACP 02/23/2019 E11.43 Type 2 diabetes mellitus with diabetic Ling Garrido M.D., FACP autonomic (poly)neuropathy 02/23/2019 I10 Essential (primary) hypertension [facility] 02/23/2019 Z72.0 Tobacco use Ling Garrido M.D., [facility] 02/17/2019 M20.12 Hallux valgus (acquired), left foot Sai Elizondo M.D. 02/08/2019 E11.43 Type 2 diabetes mellitus with diabetic Clementine Plata MD autonomic (poly)neuropathy 02/08/2019 I10 Essential (primary) hypertension Clementine Plata MD 02/08/2019 Z72.0 Tobacco use Clementine Plata MD 02/08/2019 K31.84 Gastroparesis Clementine Plata MD 01/11/2019 E11.65 Type 2 [facility] 01/11/2019 Z79.4 termite helper (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 12/31/2018 I10 Essential (primary) hypertension Sai Elizondo M.D. 12/31/2018 Z72.0 Tobacco use Sai Elizondo M.D. 11/02/2018 E11.65 Type 2 diabetes mellitus with Epi Mclaughlin MD hyperglycemia 11/02/2018 E11.40 Type 2 diabetes mellitus with diabetic Epi Mclaughlin MD neuropathy, unspecified 11/02/2018 Z79.4 alf (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 Epi Mclaughlin MD 11/02/2018 E11.43 Type 2 diabetes mellitus with diabetic Epi Mclaughlin MD autonomic (poly)neuropathy 10/05/2018 K31.84 Gastroparesis Clementine Plata MD 10/05/2018 E11.9 Type 2 diabetes mellitus without Clementine Plata MD complications 10/05/2018 R00.0 Tachycardia, unspecified Clementine Plata MD 09/14/2018 K31.84 Gastroparesis Clementine Plata MD Plan of Treatment Future Appointment(s):03/14/2019 11:30 am - Sai Elizondo M.D. at [facility]03/24/2019 8:15 am - Sai Elizondo M.D. at [facility] Functional Status Description No Information Available Mental Status Description No Information Available Referrals Refer to Dr Reason for Referral Status Appt Date Epi Mclaughlin MD Patient Notified 11/02/[address] [place] [address] [phone]
--- OUTSIDE RECORDS SUMMARY | 2019-04-05 15:09 | XMS REPORT | Continuity of Care Document ---
:1980 External Reference #:[id number] Author Name Marla Arriola PA-C Address [address] [place] [address] Care Team Providers Name Role Phone Clementine Plata M.D. Care Team Information Software Design Engineer [phone] Problems Active Problems Provider Date Essential hypertension Marla Arriola PA-C Onset: 06/13/2018 Flatulence, eructation and gas pain Marla Arriola PA-C Onset: 2018 Gastroparesis syndrome Marla Arriola PA-C Onset: 06/04/2018 Social History Type Date Description Comments Sex Unknown Tobacco Use Start: Unknown Light tobacco smoker (10 or fewer cigarettes/day) Smoking Status Reviewed: 02/24/19 Light tobacco smoker (10 or fewer cigarettes/day) Allergies, Adverse Reactions, Alerts Description No Known Drug Allergies Medications Active Medications SIG Qnty Indications Ordering Provider Date Domperidone 10MG 1 tab po tid 90units Aravind Infante DO 08/05/2018 Tablets Basaglar Kwikpen take 14 units 15units Clementine Plata M.D. 05/21/2018 at night 100Unit/ML Solution Pen-Inject Metformin HCL take 1 tablet 90tabs E11.9 Clementine Plata M.D. 05/03/2018 500mg by mouth three Tablets times a day Losartan Potassium 1 by mouth 90tabs Clementine Plata M.D. 25mg every day Tablets Steglatro Epi Mclaughlin MD 5mg Tablets Pioglitazone HCL Epi Mclaughlin MD 15mg Tablets Immunizations Description No Information Available Vital Signs Date Vital Result Comment 02/24/2019 9:21am Height 67 inches 5'7" Weight 146.00 lb BP Systolic 127 mmHg BP Diastolic 88 mmHg Heart Rate 109 /min BMI (Body Mass Index) 22.9 kg/m2 01/03/2019 9:40am Height 67 inches 5'7" Weight 148.00 lb BP Systolic 139 mmHg BP Diastolic 83 mmHg Heart Rate 97 /min BMI (Body Mass Index) 23.2 kg/m2 Results Test Acquired Date Facility Test Result H/L Range Note Ua Microscopic(!) 02/02/2019 [facility]a WBC <pending> Ua RBC <pending> Ua Epithelial Cells <pending> Ua Crystals <pending> Ua Bacteria <pending> Ua Mucous <pending> Ua Amorphous <pending> Ua Yeast <pending> Ua Casts <pending> Laboratory test 02/02/2019 [facility] Lactic Acid <pending> finding Ser/Plas Mass/Vol CMP, Magnesium, 02/02/2019 [facility] Magnesium <pending> Phosphorus Ser/Plasma Mass/Vol Phosphorus <pending> CMP(!) 02/02/2019 [facility] Sodium(!) <pending> Potassium(!) <pending> Chloride Serum/Plasma(!) <pending> Carbon Dioxide Ser/Plasm(!) <pending> BUN - Urea Nitrogen(!) <pending> Calcium Ser/Plasma Mass/Vol(!) <pending> Creatinine Serum Mass/Vol(!) <pending> Glucose Serum(!) <pending> BUN/Creatinine Ratio(!) <pending> Albumin Serum/Plasma(!) <pending> Alkaline Phosphatase(!) <pending> Bilirubin Total Mass/Vol(!) <pending> Ast - Sgot <pending> Alt - SGPT <pending> Protein Total <pending> Laboratory test 02/02/2019 [facility] CPK-Creatinine <pending> finding Kinase(!) CBC W/Auto 02/02/2019 [facility] White Blood Count Ser <pending> Differential(!) Auto CNT RBC Red Blood Count <pending> Hemoglobin Blood <pending> Hematocrit <pending> MCV (Corpuscular Volume) <pending> MCH (Corpuscular Hemoglobin) <pending> MCHC (Corpuscular Hemog Conc) <pending> RDW <pending> Platelet Count Blood Auto CNT <pending> MPV <pending> Lymph% <pending> [place]% <pending> Neutrophil % <pending> Absolute Lymphocytes <pending> Absolute Monocytes <pending> Absolute Neutrophils <pending> Procedures Description No Information Available Medical Devices Description No Information Available Encounters Type Date Location Provider Dx Diagnosis Office Visit 01/03/2019 [facility] Marla Holcomb K31.84 Gastroparesis 9:30a [facility] R14.2 Eructation Office Visit 11/01/2018 Gastroenterology Marla Holcomb K31.84 Gastroparesis 10:30a [facility] Office Visit 09/21/2018 [facility]astroenter[facility] Marla Flores1.84 Gastroparesis 11:00a [facility] Assessments Date Code Description Provider 02/24/2019 K31.84 Gastroparesis Marla Arriola PA-C 01/03/2019 K31.84 Gastroparesis Marla Arriola PA-C 01/03/2019 R14.2 Eructation Marla Arriola PA-C 11/01/2018 K31.84 Gastroparesis Marla Arriola PA-C 09/21/2018 K31.84 Gastroparesis Marla Arriola PA-C Plan of Treatment Future Appointment(s):05/27/2019 8:30 am - Mar[facility]-C [facility]02/24/2019 - [facility]IRLEY Median31.84 Gastroparesis Functional Status Description No Information Available Mental Status Description No Information Available Referrals Description No Information Available
--- OUTSIDE RECORDS SUMMARY | 2019-04-05 15:09 | XMS REPORT | Continuity of Care Document ---
:1980 External Reference #:[id number] Author Name Sai Elizondo M.D. (transmitted by agent of provider Sabrina Boggs) Address [address] [facility] [place] [address] Care Team Providers Name Role Phone Wing Ritchie MD - Ophthalmology Care Team Information Machine Bunch Maker Maia Cash MD - Internal Care Team Information Machine Bunch Maker Medicine Clementine Plata MD - Internal Medicine Care Team Information Machine Bunch Maker Problems Active Problems Provider Date Tobacco user [...] weeks Unknown smoker ago. Smoking Status Reviewed: 02/17/19 Patient is a former Pt quit 5 weeks smoker ago. Exercise Exercises regularly Type/Frequency Allergies, Adverse Reactions, Alerts Description No Known Drug Allergies Medications Active Medications SIG Qnty Indications Ordering Date Provider Metformin HCL 1 by mouth in the 90tabs E11.9 Josey Guajardo, 01/11/2019 500mg morning, 2 by SPECIAL SERVICES SUPERVISOR-Cde Tablets mouth every pm Steglatro 1 by [...] Available Vital Signs Date Vital Result Comment 02/17/2019 9:04am Height 67 inches 5'7" Weight 146.00 lb Heart Rate 108 /min BP Systolic 128 mmHg BP Diastolic 88 mmHg Body Temperature 97.5 F Pain Level 2 BMI (Body Mass Index) 22.9 kg/m2 02/08/2019 8:06am Height 67 inches 5'7" Weight 149.25 lb Heart Rate 75 /min BP Systolic 134 mmHg BP Diastolic 85 mmHg Body Temperature 97.9 F O2 % BldC Oximetry 98 % BMI (Body Mass Index) 23.4 kg/m2 Results Test Acquired Date Facility Test Result H/L Range Note Urinalysis Profile 02/02/2019 [facility] Urine Color Yellow [address] [place] [address] [phone] Urine Appearance Cloudy Urine Specific [place] 1.024 Normal 1.010-1.030 Urine pH 9.0 Normal [...] Present Abnormal Absent Urine Culture And 02/02/2019 [facility] Urine SEE RESULT [address] Culture BELOW [place], [place] [id number] [phone] Laboratory test 02/02/2019 [facility] Lactic Acid 3.3 mmol/L Critical 0.5- [address] high 2.0 [place], [place] [address] [phone] CBC Auto Diff 02/02/2019 [facility] White Blood 12.1 High 3.5 - [address] Count 10^3/uL 10.8 [place], [place] [address] [phone] Red Blood Count 5.59 10^6/uL High 3.70-4.87 [...] Blood Cells % 0.1 Comp Metabolic 02/02/2019 [facility] Sodium 140 mmol/L Normal 135-145 Panel [address] [place] [address] [phone] Potassium 3.4 mmol/L Low 3.5-5.0 Chloride 101 [...] Egfr 100.0 >60 3 Laboratory test 02/02/2019 [facility] Magnesium 1.6 mg/dL Low 1.9-2.[address] [place] [address] [phone] Creatine Kinase(CK) 26 U/L Normal 10-223 HCG < 0.60 mIU/mL 4 Laboratory test 11/02/2018 [facility] Hemoglobin A1c 10.6 % High 4.0-5.[address] (Glyco HGB) [place] [address] [phone] C-Peptide 2.1 ng/mL 1.1 - 4.4 6 Glucose 175 mg/dL High 70-100 Laboratory test 08/31/2018 [facility] Clotest SEE RESULT [address] [place] [address] [phone] Laboratory test 08/31/2018 [facility] Surgical SEE RESULT [address] [place] [address] [phone] 1 SEE RESULT BELOW Name: DORA PATRICIO : [address]: Korin Vazquez MD Acct: [id number] Unit: [id number] AGE: 38 Location: ED Re02/02/19 SEX: F Status: DEP ER SPEC: [id number] FALGUNI: 02/02/[address]: Korin Vazquez MD REQ: [id number] RECD: 02/02/19 STATUS: QUENTIN GIANG DR: Clementine Plata MD _ SOURCE: URINE SPDESC: ORDERED: Urine Culture Procedure Result Reported Site Urine Culture Final 02/03/19- 1607 ML No growth of clinically significant organisms * ML - Main Lab . END OF REPORT DEPARTMENT OF PATHOLOGY, [address] [place] [address] Palmer Victoria M.D. Director [facility] # [id number] 2 Critical Result LACT:3.3 Called to [id number] at: 14:36:20 by:[id number] Read back by:[id number] [facility] Severe Sepsis and Septic Shock [...] in selective patients <6.0%. Please refer to [place] [employer] diabetic care guidelines for further information. 6 Test Performed by: [facility] [address] [facility] [facility], [place] [address] 7 SEE RESULT BELOW Name: DORA PATRICIO : [address]: Aravind Infante DO Acct: [id number] Unit: [id number] AGE: 38 Location: ENDOCEC Re08/31/18 SEX: F Status: DEP REF SPEC: [id number] FALGUNI: 08/31/18[address] [facility] [address]: Aravind Infante DO REQ: [id number] RECD: 08/31/18 STATUS: QUENTIN GIANG DR: Clementine Plata MD _ SOURCE: GAS ANTRUM SPDESC: ORDERED: Clotest Procedure Result Reported Site Clotest Final 09/01/18- 0755 ML Clotest Negative * ML - Main Lab . END OF REPORT DEPARTMENT OF PATHOLOGY, [address] [place] [address] Palmer Victoria M.D. Director [facility] # [id number] 8 SEE RESULT BELOW Name: DORA PATRICIO : [address]: Aravind Infante DO Acct: [id number] Unit: [id number] AGE: 38 Location: ENDOCEC Re08/31/18 SEX: F Status: DEP REF SPEC: [id number] FALGUNI: 08/31/18 [facility] [address]: Aravind Infante DO REQ: [id number] RECD: 08/31/180 STATUS: CARMELO GIANG DR: Clementine Plata MD [...] CONTINUED ON NEXT PAGE DEPARTMENT OF PATHOLOGY, [address] [place] [address] Palmer Victoria M.D. Director [facility] # [id number] RUN DATE: 09/01/18 [facility] LAB LIVE PAGE 2 Patient: DORA PATRICIO [id number] (Continued) GROSS DESCRIPTION (Continued) GROSS DESCRIPTION 1. [...] 1322 END OF REPORT DEPARTMENT OF PATHOLOGY, [address] [place] [address] Palmer Victoria M.D. Director [facility] # [id number] Procedures Date Code Description Status 02/08/2019 42310 EKG Tracing & Interpretation Completed 10/05/2018 86906 EKG Tracing & Interpretation Completed 07/12/2018 510772412 Diabetic Retinal Eye Exam Completed 08/13/2012 257429888 Diabetic Retinal Eye Exam Completed 07/28/2011 557109789 Diabetic Foot Exam Completed 06/27/2011 519815100 Diabetic Retinal Eye Exam Completed Medical Devices Description No Information Available Encounters Type Date Location Provider Dx Diagnosis Office Visit 02/08/2019 [facility] Internal Clementine Plata MD E11.43 Type 2 diabetes w 8:00a Medicine - [facility] diabetic autonomic (poly)neuropathy I10 Essential (primary) hypertension Z72.0 Tobacco use K31.84 Gastroparesis Office Visit 11/02/2018 [facility]claughlin E11.65 Type 2 diabetes 11:00a Endocrinology of MD mellitus with [facility] hyperglycemia E11.40 Type 2 diabetes mellitus with diabetic neuropathy, unsp Z79.4 senior living (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 E11.43 Type 2 diabetes w diabetic autonomic (poly)neuropathy Office Visit 10/05/2018 4:00p [facility] Internal Clementine Plata MD K31.84 [facility] Type 2 diabetes mellitus without complications R00.0 Tachycardia, unspecified Office Visit 09/14/2018 5:00p [facility] Internal Clementine Plata MD K31.84 [facility] Ass[facility] Date Code Description Provider 02/17/2019 M20.12 Hallux valgus (acquired), left foot Sai Elizondo M.D. 02/08/2019 E11.43 Type 2 diabetes mellitus with diabetic Clementine Plata MD autonomic (poly)neuropathy 02/08/2019 I10 Essential (primary) hypertension Clementine Plata MD 02/08/2019 Z72.0 Tobacco use Clementine Plata MD 02/08/2019 K31.84 Gastroparesis Clementine Plata MD 01/11/2019 E11.65 Type 2 diabetes mellitus with hyperglycemia ARIANNA Garcia-Aleshia 01/11/2019 Z79.4 senior living (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 ARIANNA Garcia-Aleshia 12/31/2018 I10 Essential (primary) hypertension Sai Elizondo M.D. 12/31/2018 Z72.0 Tobacco use Sai Elizondo M.D. 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 at [facility] at [id number]/17/2019 - Sai Elizondo M.D.M20.12 Hallux valgus ( acquired), left footFollow up:Follow up: 10-14 days postop Functional Status Description No Information Available Mental Status Description No Information Available Referrals Refer to Dr Reason for Referral Status Appt Date Epi Mclaughlin MD Patient Notified 11/02/[address] [place] [address] [phone]
--- OUTSIDE RECORDS SUMMARY | 2019-04-05 15:09 | XMS REPORT | Continuity of Care Document ---
:1980 External Reference #:[id number] Author Name Epi Mclaughlin MD (transmitted by agent of provider Ashlie Carreon) Address [address] [place] [address] Care Team Providers Name Role Phone Wing Ritchie MD - Ophthalmology Care Team Information Networking Administrator Maia Cash MD - Internal Care Team Information Networking Administrator Medicine Clementine Plata MD - Internal Medicine Care Team Information Networking Administrator [phone] Problems Active Problems Provider Date Tobacco user [...] every Been smoking for 12 day yrs. Recreational Drug Use Regularly uses 2 times per day for Marijuana relief of gastroparesis Smoking Status Reviewed: 02/23/19 Patient is a current Smokes 1/2 pk a day. smoker, smokes every Been smoking for 12 day yrs. Exercise Type/Frequency Exercises regularly Allergies, Adverse Reactions, Alerts Description No Known Drug Allergies Medications Active Medications SIG Qnty Indications Ordering Date Provider Steglatro take 1 tablet 30tabs E11.9 Epi Mclaughlin MD 02/23/2019 15mg once daily in the Tablets morning Metformin HCL 1 by mouth in the 90tabs E11.9 Josey Guajardo, 01/11/2019 500mg morning, 2 by DIRECTOR PRODUCT SAFETY-Cde Tablets mouth every pm Pioglitazone HCL take 15mg once 30tabs E11.9 Epi Mclaughlin MD 11/02/2018 15mg daily Tablets Freestyle Use To Test Blood 100units Clementine Plata MD 07/29/2018 STRP Test Glucose AT Least STRP Three Times A Day Initially BD Pen use with the pen 100units E11.9 Clementine Plata MD 05/21/2018 Needle/Mini/Ultra-Fi ne/31G X 5mm 31G X 5 mm [facility] Basaglar Kwikpen take 30 units at 15ml Epi Mclaughlin MD 05/21/2018 [...] 30 minutes prior to meals History Medications Steglatro 1 by mouth every 30tabs E11.Prosper Mclaughlin MD 11/02/2018 - 5mg day in the 02/23/2019 Tablets morning Metformin HCL ER 2 tablets by 60tabs E11Dieter Mclaughlin MD 11/02/2018 - mouth every day 01/11/2019 750mg Tablets ER at bedtime 24HR Medications Administered in Office Medication SIG Qnty Indications Ordering Provider Date Records Fee Sai Elizondo M.D. 12/31/2018 Injection Triamcinolone (Kenalog) Kit Gutierrez MD 11/05/2017 Injection Immunizations Description No Information Available Vital Signs Date Vital Result Comment 02/23/2019 3:19pm Height 67 inches 5'7" Weight 147.00 lb w/ shoes Heart Rate 92 /min BP Systolic Sitting 139 mmHg BP Diastolic Sitting 90 mmHg BMI (Body Mass Index) 23.0 kg/m2 02/23/2019 9:13am Height 67 inches 5'7" Weight 146.00 lb Heart Rate 103 /min BP Systolic Sitting 122 mmHg BP Diastolic Sitting 79 mmHg Body Temperature 98.1 F O2 % BldC Oximetry 99 % BMI (Body Mass Index) 22.9 kg/m2 Results Test Acquired Date Facility Test Result H/L Range Note Laboratory test 02/23/2019 [facility] Hemoglobin A1c 8.6 High 5-7 finding Urinalysis 02/02/2019 [facility] Urine Color Yellow Profile [address] [place] [address] [phone] Urine Appearance Cloudy Urine Specific [place] 1.024 Normal 1.010-1.030 Urine pH 9.0 Normal [...] Present Abnormal Absent Urine Culture And 02/02/2019 [facility] Urine SEE RESULT [address] [place] [address] [phone] Laboratory test 02/02/2019 [facility] Lactic Acid 3.3 mmol/L Critical 0.5- [address] high 2.0 [place] [address] [phone] CBC Auto Diff 02/02/2019 [facility] White Blood 12.1 High 3.5 - [address] Count 10^3/uL 10.8 [place] [address] [phone] Red Blood Count 5.59 10^6/uL High 3.70-4.87 [...] Blood Cells % 0.1 Comp Metabolic 02/02/2019 [facility] Sodium 140 mmol/L Normal 135-[address] [place] [address] [phone] Potassium 3.4 mmol/L Low 3.5-5.0 Chloride 101 [...] Egfr 100.0 >60 3 Laboratory test 02/02/2019 [facility] Magnesium 1.6 mg/dL Low 1.9-2.[address] [place] [address] [phone] Creatine Kinase(CK) 26 U/L Normal 10-223 HCG < 0.60 mIU/mL 4 Laboratory test 11/02/2018 [facility] Hemoglobin A1c 10.6 % High 4.0-5.6 [address] (Glyco HGB) [place] [address] [phone] C-Peptide 2.1 ng/mL 1.1 - 4.4 6 Glucose 175 mg/dL High 70-100 Laboratory test 08/31/2018 [facility] Clotest SEE RESULT [address] [place] [address] [phone] Laboratory test 08/31/2018 [facility] Surgical SEE RESULT [address] [place] [address] [phone] 1 SEE RESULT BELOW Name: DORA PATRICIO : [address]: Korin Vazquez MD Acct: [id number] Unit: [id number] AGE: 38 Location: ED Re02/02/19 SEX: F Status: DEP ER SPEC: [id number] FALGUNI: 02/02/[address] [facility] [address]: Korin Vazquez MD REQ: [id number] RECD: 02/02/19 STATUS: QUENTIN GIANG DR: Clementine Plata MD _ S[facility]: [facility] ORDERED: Urine Culture Procedure Result Reported Site Urine Culture Final 02/03/19- 1607 ML No growth of clinically significant organisms * ML - Main Lab . END OF REPORT DEPARTMENT OF PATHOLOGY, [address] [place] [address] Palmer Victoria M.D. Director [facility] # [id number] 2 Critical Result LACT:3.3 Called to [id number] at: 14:36:20 by:[id number] Read back by:[id number] [facility] Severe Sepsis and Septic Shock Management [...] in selective patients <6.0%. Please refer to [place] [employer] diabetic care guidelines for further information. 6 Test Performed by: [facility] [address] [place] [address] 7 SEE RESULT BELOW Name: DORA PATRICIO : [address]: Aravind Infante DO Acct: [id number] Unit: [id number] AGE: 38 Location: [facility] Re08/31/18 SEX: F Status: DEP REF SPEC: [id number] FALGUNI: 08/31/[address] [facility] [address]: Aravind Infante DO REQ: [id number] RECD: 08/31/18 STATUS: QUENTIN GIANG DR: Clementine Plata MD _ SOURCE: GAS ANTRUM SPDESC: ORDERED: Clotest Procedure Result Reported Site Clotest Final 09/01/18- 0755 ML Clotest Negative * ML - Main Lab . END OF REPORT DEPARTMENT OF PATHOLOGY, [address] [place] [address] Palmer Victoria M.D. Director [facility] # [id number] 8 SEE RESULT BELOW Name: DORA PATRICIO : [address]: Aravind Infante DO Acct: [id number] Unit: [id number] AGE: 38 Location: [facility]OCEC Re08/31/18 SEX: F Status: DEP REF SPEC: [id number] FALGUNI: 08/31/[address] [facility] [address]: Aravind Infante DO REQ: [id number] RECD: 08/31/18 STATUS: CARMELO GIANG DR: Clementine [...] CONTINUED ON NEXT PAGE DEPARTMENT OF PATHOLOGY, [address] [place] [address] Palmer Victoria M.D. Director [facility] # [id number] RUN DATE: 09/01/18 [facility] LAB LIVE PAGE 2 Patient: DORA PATRICIO [id number] (Continued) GROSS DESCRIPTION (Continued) GROSS DESCRIPTION 1. [...] 1322 END OF REPORT DEPARTMENT OF PATHOLOGY, [address] [place] [address] Palmer Victoria M.D. Director [facility] # [id number] Procedures Date Code Description Status 02/23/2019 99759 EKG Tracing & Interpretation Completed 02/08/2019 87941 EKG Tracing & Interpretation Completed 10/05/2018 89811 EKG Tracing & Interpretation Completed 07/12/2018 [id number] Diabetic Retinal Eye Exam Completed 08/13/2012 830549374 Diabetic Retinal Eye Exam Completed 07/28/2011 716639527 Diabetic Foot Exam Completed 06/27/2011 436478905 Diabetic Retinal Eye Exam Completed Medical Devices Description No Information Available Encounters Type Date Location Provider Dx Diagnosis Office Visit 02/08/2019 [facility] Internal Clementine Plata MD E11.43 Type 2 diabetes w 8:00a Medicine - [facility] diabetic autonomic (poly)neuropathy I10 Essential (primary) hypertension Z72.0 Tobacco use K31.84 Gastroparesis Office Visit 01/11/2019 [facility] E11.65 Type 2 diabetes 9:30a [facility]ocrin[facility] of [place] mellitus with [facility] DIRECTOR PRODUCT SAFETY-Cde hyperglycemia Z79.4 custodial (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 Office Visit 11/02/2018 [facility] Epi Mclaughlin E11.65 Type 2 diabetes 11:00a Endocrinology of mellitus with [facility] hyperglycemia E11.40 Type 2 diabetes mellitus with diabetic neuropathy, unsp Z79.4 intermediate manager (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 E11.43 Type 2 diabetes w diabetic autonomic (poly)neuropathy Office Visit 10/05/2018 4:00p [facility] Samuel Plata MD K31.84 Gastroparesis Medicine - [facility] E11.9 Type 2 diabetes mellitus without complications R00.0 Tachycardia, unspecified Office Visit 09/14/2018 5:00p [facility] Samuel Plata MD K31.84 Gastroparesis Medicine - [facility] Assessments Date Code Description Provider 02/23/2019 E11.65 Type 2 diabetes mellitus with Epi Mclaughlin MD hyperglycemia 02/23/2019 Z01.818 Encounter for other preprocedural Ling Garrido M.D., FACP examination 02/23/2019 M20.12 Hallux valgus (acquired), left foot Ling Garrido M.D., FACP 02/23/2019 E11.43 Type 2 diabetes mellitus with diabetic Ling Garrido M.D., FACP autonomic (poly)neuropathy 02/23/2019 I10 Essential (primary) hypertension [facility]., [facility] 02/23/2019 Z72.0 Tobacco use Ling Garrido M.D., FACP 02/17/2019 M20.12 Hallux valgus (acquired), left foot Sai Elizondo M.D. 02/08/2019 E11.43 Type 2 diabetes mellitus with diabetic Clementine Plata MD autonomic (poly)neuropathy 02/08/2019 I10 Essential (primary) hypertension Clementine Plata MD 02/08/2019 Z72.0 Tobacco use Clementine Plata MD 02/08/2019 K31.84 Gastroparesis Clementine Plata MD 01/11/2019 E11.65 Type 2 diabetes mellitus with [facility] 01/11/2019 Z79.4 intermediate manager (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 [facility] 12/31/2018 I10 Essential (primary) hypertension Sai Elizondo M.D. 12/31/2018 Z72.0 Tobacco use Sai Elizondo M.D. 11/02/2018 E11.65 Type 2 diabetes mellitus with Epi Mclaughlin MD hyperglycemia 11/02/2018 E11.40 Type 2 diabetes mellitus with yanet Mclaughlin MD neuropathy, unspecified 11/02/2018 Z79.4 custodial (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 Epi Mclaughlin MD 11/02/2018 E11.43 Type 2 diabetes mellitus with diabetic Epi Mclaughlin MD autonomic (poly)neuropathy 10/05/2018 K31.84 Gastroyoselin Plata MD 10/05/2018 E11.9 Type 2 diabetes mellitus without Clementine Plata MD complications 10/05/2018 R00.0 Tachycardia, unspecified Clementine Plata MD 09/14/2018 K31.84 Gastroparesis Clementine Plata MD Plan of Treatment Future Appointment(s):05/26/2019 1:20 pm - Epi Mclaughlin MD at [facility]03/14/2019 11:30 am - Sai Elizondo M.D. at [facility] at [id number]/24/2019 8:15 am - Sai Elizondo M.D. at [facility] at [id number]/23/2019 - Epi Mclaughlin MDE11.65 Type 2 diabetes mellitus with hyperglycemiaFollow up:3 months or sooner as needed.Recommendations:1. Start taking 15 mg of steglatro daily. 2. Take Insulin Basiglar 30 U/day with maximum daily dose of 50 U/day. 3. Target fasting blood glucose is <130. 4. If you experience hypoglycemia; BG<70 then take 15g of carbohydrate. Functional Status Description No Information Available Mental Status Description No Information Available Referrals Refer to Reason for Referral Status Appt Date Epi Mclaughlin MD Patient Notified 11/02/[address] [place] [address] [phone]
--- OUTSIDE RECORDS SUMMARY | 2019-04-05 15:09 | XMS REPORT | Continuity of Care Document ---
:1980 External Reference #:[id number] Author Name Sai Elizondo M.D. (transmitted by agent of provider Marian Ojeda) Address [address] [place] [id number] Care Team Providers Name Role Phone Wing Ritchie MD - Ophthalmology Care Team Information Mechatronics Technologist [phone] Maia Cash MD - Internal Care Team Information Mechatronics Technologist Medicine Clementine Plata MD - Internal Medicine Care Team Information Mechatronics Technologist [phone] Problems Active Problems Provider Date Tobacco user [...] Marijuana relief of gastroparesis Smoking Status Reviewed: 03/22/19 Patient is a current Smokes 1/2 pk a day. smoker, smokes every Been smoking for 12 day yrs. Exercise Type/Frequency Exercises regularly Allergies, Adverse Reactions, Alerts Description No Known Drug Allergies Medications Active Medications SIG Qnty Indications Ordering Date Provider Oxycodone HCL 1 tabs by mouth 24tabs Sai Mikhail, 03/14/2019 5mg every 4-6 hours M.D. Tablets as needed Steglatro take 1 tablet 30tabs E11.9 Epi Mclaughlin MD 02/23/2019 15mg once daily in the Tablets morning Metformin HCL 1 by mouth in the 90tabs E11.9 Josey Guajardo, 01/11/2019 500mg morning, 2 by GAS ENGINEER-Cde Tablets mouth every pm Pioglitazone HCL take 15mg once 30tabs E11.9 Epi Mclaughlin MD 11/02/2018 15mg daily Tablets Freestyle Use To Test Blood 100units Clementine Plata MD 07/29/2018 STRP Test Glucose AT [facility]ast STRP Three Times A Day Initially BD Pen use with the pen 100units E11.9 Clementine Plata MD 05/21/2018 Needle/Mini/Ultra-Fi ne/31G X 5mm 31G X 5 mm Misc Basaglar Kwikpen take 30 units at 15ml [...] Glucose use as directed 1units E11.69 Clementine lPata MD 04/21/2018 Monitoring System W/Device Kit Losartan Potassium 1 by mouth every 90tabs Clementine Plata MD day 25mg Tablets Domperidone 10 MG 1 tablet 3 times Unknown daily 30 minutes prior to meals History Medications Steglatro 1 by mouth every 30tabs E11.9 Epi Mclaughlin MD 11/02/2018 - 5mg day in the 02/23/2019 Tablets morning Metformin HCL ER 2 tablets by 60tabs E11.Prosper Mclaughlin MD 11/02/2018 - mouth every day 01/11/2019 750mg Tablets ER at bedtime 24HR Medications Administered in Office Medication SIG Qnty Indications Ordering Provider Date Records Fee Sai Elizondo M.D. 12/31/2018 Injection Triamcinolone (Kenalog) Kit Gutierrez MD 11/05/2017 Injection Immunizations Description No Information Available Vital Signs Date Vital Result Comment 03/22/2019 8:43am Height 67 inches 5'7" Weight 147.00 lb Heart Rate 125 /min BP Systolic 124 mmHg BP Diastolic 82 mmHg Body Temperature 97.0 F Pain Level 0 BMI (Body Mass Index) 23.0 kg/m2 02/23/2019 3:19pm Height 67 inches 5'7" Weight 147.00 lb w/ shoes Heart Rate 92 /min BP Systolic Sitting 139 mmHg BP Diastolic Sitting 90 mmHg BMI (Body Mass Index) 23.0 kg/m2 Results Test Acquired Date Facility Test Result H/L Range Note Laboratory test 03/14/[facility] 147 mg/dL High 70-100 1 finding [address] [place] [address] [phone] Laboratory test 03/14/2019 [facility] 173 mg/dL High 70-100 2 finding 101 [facility] [place] [address] [phone] Laboratory test 03/14/2019 [facility] 357 mg/dL High 70-100 3 finding [address] [place] [address] [phone] Laboratory test 02/23/2019 [facility] In House Hemoglobin A1c 8.6 High 5-7 finding Urinalysis 02/02/2019 [facility] Urine Color Yellow Profile [address] [place] [address] [phone] Urine Appearance Cloudy Urine Specific [place] 1.024 Normal 1.010-1.030 Urine pH 9.0 Normal [...] Present Abnormal Absent Urine Culture And 02/02/2019 [facility] Urine SEE RESULT [address] [place] [place] [address] [phone] Laboratory test 02/02/2019 [facility] Lactic Acid 3.3 mmol/L Critical 0.5- [address] high 2.0 [place] [address] [phone] CBC Auto Diff 02/02/2019 [facility] White Blood 12.1 High 3.5 - [address] Count 10^3/uL 10.8 [place], [place] [address] [phone] Red Blood Count 5.59 10^6/uL High 3.70-4.87 [...] Blood Cells % 0.1 Comp Metabolic 02/02/2019 [facility] Sodium 140 mmol/L Normal 135-[address] [place] [address] [phone] Potassium 3.4 mmol/L Low 3.5-5.0 Chloride 101 [...] Egfr Non- 82.7 >60 Egfr 100.0 >60 6 Laboratory test 02/02/2019 [facility] Magnesium 1.6 mg/dL Low 1.9-2.[address] [place] [address] [phone] Creatine Kinase(CK) 26 U/L Normal 10-223 HCG < 0.60 mIU/mL 7 Laboratory test 11/02/2018 [facility] Hemoglobin A1c 10.6 % High 4.0-5.[address] (Glyco HGB) [place] [address] [phone] C-Peptide 2.1 ng/mL 1.1 - 4.4 9 Glucose 175 mg/dL High 70-100 1 Book Salesman: [id number] 2 Book Salesman: [id number] 3 Book Salesman: [id number] 4 SEE RESULT BELOW Name: DORA PATRICIO : [address]: Korin Vazquez MD Acct: [id number] Unit: [id number] AGE: 38 Location: ED Re02/02/19 SEX: F Status: DEP ER SPEC: [id number] FALGUNI: 02/02/19-[address]: Korin Vazquez MD REQ: [id number] RECD: 02/02/19 STATUS: QUENTIN GIANG DR: Clementine Plata MD _ SOURCE: URINE [facility]: ORDERED: Urine Culture Procedure Result Reported Site Urine Culture Final 02/03/19- 1607 ML No growth of clinically significant organisms * ML - Main Lab . END OF REPORT DEPARTMENT OF PATHOLOGY, [address] [place] [address] Palmer Victoria M.D. Director [facility] # [id number] 5 Critical Result LACT:3.3 Called to MAYA at: 14:36:20 by:[id number] Read back by:MAYA [facility] Severe Sepsis and Septic Shock Management [...] 5 Kidney failure <15 (or dialysis) 7 <5.0 Negative 5.0 - 25.0 Indeterminate (Repeat testing recommended after 72 hours) >25.0 Positive Perimenopausal women can display HCG levels of up to 20 mIU/mL 8 Therapeutic target for the treatment of diabetes mellitus patients is <7% HBA1C, and in selective patients <6.0%. Please refer to [place] [employer] diabetic care guidelines for further information. 9 Test Performed by: [facility] [place] [facility] [place] [address] [place] [address] Procedures Date Code Description Status 03/22/2019 15273 Short Leg Cast Completed 02/23/2019 40392 EKG Tracing & Interpretation Completed 02/08/2019 17410 EKG Tracing & Interpretation Completed 10/05/2018 41983 EKG Tracing & Interpretation Completed 07/12/2018 307731180 Diabetic Retinal Eye Exam Completed 08/13/2012 125608449 Diabetic Retinal Eye Exam Completed 07/28/2011 549623015 Diabetic Foot Exam Completed 06/27/2011 [id number] Diabetic Retinal Eye Exam Completed Medical Devices Description No Information Available Encounters Type Date Location Provider Dx Diagnosis Office Visit 02/23/2019 [facility] Ling Garrido, Z01.818 Encounter for other 9:00a Medicine - Rajeev Wade, FACP preprocedural examination M20.12 Hallux valgus (acquired), left foot E11.43 Type 2 diabetes w diabetic autonomic (poly)neuropathy I10 Essential (primary) hypertension Z72.0 Tobacco use Office Visit 02/23/2019 [facility] Epi Mclaughlin, E11.65 Type 2 diabetes 3:20p Endocrinology of [place] mellitus with [facility] hyperglycemia E11.40 Type 2 diabetes mellitus with diabetic neuropathy, unsp K31.84 Gastroparesis Z79.4 longterm (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 Office Visit 02/17/2019 9:00a [facility] Sai M20.12 Hallux valgus at Izzy Elizondo M.D. (acquired), left foot Office Visit 02/08/2019 8:00a [facility] Internal Clementine Plata, E11.43 Type 2 [facility] I10 Essential (primary) hypertension Z72.0 Tobacco use K31.84 Gastroparesis Office Visit 01/11/2019 [facility] Josey E11.65 Type 2 diabetes 9:30a [facility] of [facility], mellitus with [facility] GAS ENGINEER-Cde hyperglycemia Z79.4 longterm (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 Office Visit 11/02/2018 [facility], E11.65 Type 2 diabetes 11:00a Endocrinology of mellitus with [facility] hyperglycemia E11.40 Type 2 diabetes mellitus with diabetic neuropathy, unsp Z79.4 longterm (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 E11.43 Type 2 diabetes w diabetic autonomic (poly)neuropathy Office Visit 10/05/2018 4:00p [facility] Internal Clementine Plata MD K31.84 [facility] E[facility]9 Type 2 diabetes mellitus without complications R00.0 Tachycardia, unspecified Assessments Date Code Description Provider 03/22/2019 M20.12 Hallux valgus (acquired), left foot Sai Elizondo M.D. 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 02/08/2019 E11.43 Type 2 diabetes mellitus with diabetic Clementine Plata MD autonomic (poly)neuropathy 02/08/2019 I10 Essential (primary) hypertension Clementine Plata MD 02/08/2019 Z72.0 Tobacco use Clementine Plata MD 02/08/2019 K31.84 Gastroparesis Clementine Plata MD 01/11/2019 E11.65 Type 2 diabetes mellitus [facility] 01/11/2019 Z79.4 longterm (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 [facility] 12/31/2018 I10 Essential (primary) hypertension Sai Elizondo M.D. 12/31/2018 Z72.0 Tobacco use Sai Elizondo M.D. 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 at [facility] at [id number]/26/2019 1:20 pm - Epi Mclaughlin MD at [facility]03/22/2019 - Sai Elizondo M.D.M20.12 Hallux valgus ( acquired), left footFollow up:2 weeks Functional Status Description No Information Available Mental Status Description No Information Available Referrals Description No Information Available
--- OUTSIDE RECORDS SUMMARY | 2019-04-05 15:10 | XMS REPORT | Continuity of Care Document ---
:1980 External Reference #:[id number] Author Name Clementine Plata MD (transmitted by agent of provider Meenakshi Delgado) Address [address], [place] [address] Care Team Providers Name Role Phone Wing Ritchie MD - Ophthalmology Care Team Information Assistant Shift Supervisor Maia Cash MD - Internal Care Team Information Assistant Shift Supervisor [phone] Medicine Clementine Plata MD - Internal Medicine Care Team Information Assistant Shift Supervisor [phone] Problems Active Problems Provider Date Tobacco user [...] weeks Unknown smoker ago. Smoking Status Reviewed: 02/08/19 Patient is a former Pt quit 5 weeks smoker ago. Exercise Exercises regularly Type/Frequency Allergies, Adverse Reactions, Alerts Description No Known Drug Allergies Medications Active Medications SIG Qnty Indications Ordering Date Provider Metformin HCL 1 by mouth in the 90tabs E11.9 Josey Gujaardo, 01/11/2019 500mg morning, 2 by TUB WASH OPERATOR-Cde Tablets mouth every pm Steglatro 1 by [...] Kwikpen take 20 units at 15ml Epi Mclauhglin MD 05/21/2018 night or as 100Unit/ML Solution [...] Available Vital Signs Date Vital Result Comment 02/08/2019 8:06am Height 67 inches 5'7" Weight 149.25 lb Heart Rate 75 /min BP Systolic 134 mmHg BP Diastolic 85 mmHg Body Temperature 97.9 F O2 % BldC Oximetry 98 % BMI (Body Mass Index) 23.4 kg/m2 01/11/2019 9:32am Height 67 inches 5'7" Weight 147.00 lb BP Systolic 137 mmHg BP Diastolic 85 mmHg BMI (Body Mass Index) 23.0 kg/m2 Results Test Acquired Date Facility Test Result H/L Range Note Order 02/08/2019 [facility] In-House EKG <pending> Urinalysis Profile 02/02/2019 [facility] Urine Color Yellow [address] [place] [address] [phone] Urine Appearance Cloudy Urine Specific [place] 1.024 Normal 1.010-1.030 Urine pH 9.0 Normal [...] Present Abnormal Absent Urine Culture And 02/02/2019 [facility] Urine SEE RESULT [address] Culture BELOW [place], [place] [address] [phone] Laboratory test 02/02/2019 [facility] Lactic Acid 3.3 mmol/L Critical 0.5- [address] high 2.0 [place], [place] [address] [phone] CBC Auto Diff 02/02/2019 [facility] White Blood 12.1 High 3.5 - [address] Count 10^3/uL 10.8 [place], [place] [address] [phone] Red Blood Count 5.59 10^6/uL High 3.70-4.87 [...] Blood Cells % 0.1 Comp Metabolic 02/02/2019 [facility] Sodium 140 mmol/L Normal 135-145 Panel [address] [place] [address] [phone] Potassium 3.4 mmol/L Low 3.5-5.0 Chloride 101 [...] Egfr 100.0 >60 3 Laboratory test 02/02/2019 [facility] Magnesium 1.6 mg/dL Low 1.9-2.[address] [place] [address] [phone] Creatine Kinase(CK) 26 U/L Normal 10-223 HCG < 0.60 mIU/mL 4 Laboratory test 11/02/2018 [facility] Hemoglobin A1c 10.6 % High 4.0-5.6 [address] (Glyco HGB) [place] [address] [phone] C-Peptide 2.1 ng/mL 1.1 - 4.4 6 Glucose 175 mg/dL High 70-100 Laboratory test 08/31/2018 [facility] Clotest SEE RESULT [address] [place] [address] [phone] Laboratory test 08/31/2018 [facility] Surgical SEE RESULT [address] [place] [address] [phone] 1 SEE RESULT BELOW Name: DORA PATRICIO : [address]: Korin Vazquez MD Acct: [id number] Unit: [id number] AGE: 38 Location: ED Re02/02/19 SEX: F Status: DEP ER SPEC: [id number] FALGUNI: 02/02/[address]: Korin Vazquez MD REQ: [id number] RECD: 02/02/19 STATUS: QUENTIN GIANG DR: Clementine Plata MD _ SOURCE: URINE SPDESC: ORDERED: Urine Culture Procedure Result Reported Site Urine Culture Final 02/03/19- 1607 ML No growth of clinically significant organisms * ML - Main Lab . END OF REPORT DEPARTMENT OF PATHOLOGY, [address] [place] [address] Palmer Victoria M.D. Director [facility] # [id number] 2 Critical Result LACT:3.3 Called to [id number] at: 14:36:20 by:[id number] Read back by:[id number] [facility] Severe Sepsis and Septic Shock Management [...] in selective patients <6.0%. Please refer to [place] [employer] diabetic care guidelines for further information. 6 Test Performed by: [facility] [address] [facility], [place] [address] 7 SEE RESULT BELOW Name: DORA PATRICIO : [address]: Aravind Infante DO Acct: [id number] Unit: [id number] AGE: 38 Location: ENDOCEC Re08/31/18 SEX: F Status: DEP REF SPEC: [id number] FALGUNI: 08/31/18 [facility] DR: Aravind Infante DO REQ: [id number] RECD: 08/31/18 STATUS: QUENTIN GIANG DR: Clementine Plata MD _ SOURCE: GAS ANTRUM SPDESC: ORDERED: Clotest Procedure Result Reported Site Clotest Final 09/01/18- 0755 ML Clotest Negative * ML - Main Lab . END OF REPORT DEPARTMENT OF PATHOLOGY, [address] [place] [address] Palmer Victoria M.D. Director [facility] # [id number] 8 SEE RESULT BELOW Name: DORA PATRICIO : [address]: Aravind Infante DO Acct: [id number] Unit: [id number] AGE: 38 Location: ENDOCEC Re08/31/18 SEX: F Status: DEP REF SPEC: [id number] FALGUNI: 08/31/18 [facility] DR: Aravind Infante DO REQ: [id number] RECD: 08/31/18 STATUS: CARMELO GIANG DR: Clementine [...] CONTINUED ON NEXT PAGE DEPARTMENT OF PATHOLOGY, [address] [place] [address] Palmer Victoria M.D. Director [facility] # [id number] RUN DATE: 09/01/18 [facility] LAB LIVE PAGE 2 Patient: DORA PATRICIO [id number] (Continued) GROSS DESCRIPTION (Continued) GROSS DESCRIPTION 1. [...] 1322 END OF REPORT DEPARTMENT OF PATHOLOGY, [address] [place] [address] Palmer Victoria M.D. Director [facility] # [id number] Procedures Date Code Description Status 02/08/2019 41881 EKG Tracing & Interpretation Completed 10/05/2018 10587 EKG Tracing & Interpretation Completed 07/12/2018 012312245 Diabetic Retinal Eye Exam Completed 08/13/2012 [id number] Diabetic Retinal Eye Exam Completed 07/28/2011 471983197 Diabetic Foot Exam Completed 06/27/2011 593913554 Diabetic Retinal Eye Exam Completed Medical Devices Description No Information Available Encounters Type Date Location Provider Dx Diagnosis Office Visit 11/02/2018 [place] [facility] Epi Mclaughlin MD E11.65 Type 2 diabetes 11:00a [facility] of [facility] mellitus with hyperglycemia E11.40 Type 2 diabetes mellitus with diabetic neuropathy, unsp Z79.4 jail (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 E11.43 Type 2 diabetes w diabetic autonomic (poly)neuropathy Office Visit 10/05/2018 4:00p [facility] Internal Clementine Plata MD K31.84 Gastroparesis Medicine - [facility] E11.9 Type 2 diabetes mellitus without complications R00.0 Tachycardia, unspecified Office Visit 09/14/2018 5:00p [facility] Internal Clementine Plata MD K31.84 Gastroparesis Medicine - [facility] Assessments Date Code Description Provider 02/08/2019 E11.40 Type 2 diabetes mellitus with diabetic Clementine Plata MD neuropathy, unspecified 02/08/2019 I10 Essential (primary) hypertension Clementine Plata MD 02/08/2019 Z72.0 Tobacco use Clementine Plata MD 02/08/2019 K31.84 Gastroparesis Clementine Plata MD 01/11/2019 E11.65 Type 2 diabetes mellitus with hyperglycemia AUGUSTIN Garciacandace 01/11/2019 Z79.4 jail (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 AUGUSTIN Garciacandace 12/31/2018 I10 Essential (primary) hypertension Sai Elizondo M.D. 12/31/2018 Z72.0 Tobacco use Sai Elizondo M.D. 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 Epi Mclaughlin MD 11/02/2018 E11.43 Type 2 diabetes mellitus with diabetic Epi Mclaughlin MD autonomic (poly)neuropathy 10/05/2018 K31.84 Gastroparmichelle Plata MD 10/05/2018 E11.9 Type 2 diabetes mellitus without Clementine Plata MD complications 10/05/2018 R00.0 Tachycardia, unspecified Clementine Plata MD 09/14/2018 K31.84 Gastroparesis Clementine Plata MD Plan of Treatment 02/08/2019 - Clementine Plata MDE11.40 Type 2 diabetes mellitus with diabetic neuropathy, unspecifiedNew Labs:Hemoglobin A1c (Glyco HGB), Ordered: I10 Essential (primary) hypertensionComments:Continue current cyhddwqX98.0 Tobacco useK31.84 Gastroparesis Functional Status Description No Information Available Mental Status Description No Information Available Referrals Refer to Reason for Referral Status Appt Date Epi Mclaughlin MD Patient Notified 11/02/[address] [place] [address] [phone]
--- NOTE | 2019-04-05 17:21 | ED ---
Nausea/Vomiting/Diarrhea HPI - HPI Summary HPI Summary: This pt is a 39yo F iwth a history of diabetic gastroparesis presenting to the ED by EMS for nausea/vomiting since 3am this date. Patient is followed by WENDY Mark at [facility]. She takes Domperidone twice daily since 2018. Pt has had admissions in the past for uncontrolled n/v despite medications. Pt endorses mild diffuse abd pain most notably to the upper bilateral quadrants from retching. She was given 50mg IV benadryl by EMS en route which improved her symptoms somewhat, however continues to be nauseous and had 1 episode vomiting immediately on arrival. States she feels dehydrated. She states she is unable to take any antiemetics d/ t the QTC prolongation with domperidone. Denies fevers, myalgias, diarrhea, constipation. Pt admits to smoking cigarettes and weed a few times per day. Continues to take Vaglar at night for her diabetes. - History of Current Complaint Chief Complaint: EDNauseaVomitDiarrh Stated Complaint: NAUSEA ,VOMITING PER EMS Time Seen by Provider: 04/05/19 14:16 Hx Obtained From: Patient Hx Last Menstrual Period: 03/19/18 ?: No Onset/Duration: Sudden Onset Timing: Constant Severity Initially: Moderate Severity Currently: Moderate Pain Intensity: 9 Pain Scale Used: 0-10 Numeric Aggravating Factor(s): Nothing Alleviating Factor(s): Nothing Vomiting Frequency: Every 15-60 minutes Nausea/Vomiting Duration: 0-12 hours Vomiting Characteristics: Retching Diarrhea Presence: No - Risk Factors Influenza Risk Factors: Negative Surgical Obstruction Risk Factor(s): Negative - Allergies/Home Medications Allergies/Adverse Reactions: Allergies Allergy/AdvReac Type Severity Reaction Status Date / Time antiemetics Allergy Unknown Uncoded 04/05/19 14:19 Reaction Details PMH/Surg Hx/FS Hx/Imm Hx Previously Healthy: Yes Endocrine/Hematology History: Reports: Hx Diabetes - type 2 dm FS TID Denies: Hx Thyroid Disease, Hx Anemia Cardiovascular History: Reports: Hx Hypertension Denies: Hx Hypercholesterolemia, Hx Pacemaker/ICD, Hx Rheumatic Fever Respiratory History: Denies: Hx Asthma, Hx Chronic Obstructive Pulmonary Disease (COPD) GI History: Reports: Hx Gastroesophageal Reflux Disease - GASTROPARESIS Denies: Hx Ulcer History: Denies: Hx Renal Disease, Other Problems/Disorders Musculoskeletal History: Reports: Other Musculoskeletal History - LEFT GREAT TOE Sensory History: Denies: Hx Contacts or Glasses, Hx Legally Blind, Hx Deafness, Hx Hearing Aid Opthamlomology History: Denies: Hx Contacts or Glasses, Hx Legally Blind Psychiatric History: Denies: Hx Panic Disorder - Surgical History Surgery Procedure, Year, and Place: Csection Xs 2. left foot surgery x 2 - [facility]-TWICE. Leep procedure. Cervix tear repair Hx Anesthesia Reactions: No - Immunization History Date of Tetanus Vaccine: unk Date of Influenza Vaccine: unk Hx Pertussis Vaccination: No Immunizations Up to Date: Yes Infectious Disease History: No Infectious Disease History: Reports: Hx of Known/Suspected MRSA Denies: Hx Clostridium Difficile, Hx Hepatitis, Hx Human Immunodeficiency Virus (HIV), Hx Shingles, Hx Tuberculosis, Hx Known/Suspected VRE, Hx Known/ Suspected VRSA, History Other Infectious Disease, Traveled Outside the [place] in Last 30 Days - Family History Known Family History: Positive: Other - diverticulitis Negative: Cardiac Disease, Hypertension, Diabetes - Social History Occupation: Unemployed Lives: Alone Alcohol Use: None Hx Substance Use: Yes Substance Use Type: Reports: Marijuana Substance Use Comment - Amount & Last Used: "couple times a day" Hx Tobacco Use: Yes Smoking Status (MU): Light Every Day Tobacco Smoker Type: Cigarettes Amount Used/How Often: 1/2 pdd Length of Time of Smoking/Using Tobacco: 15+ years Have You Smoked in the Last Year: Yes Review of Systems Negative: Fever, Chills, Fatigue, Skin Diaphoresis Negative: Palpitations, Chest Pain Positive: Abdominal Pain, Vomiting, Nausea Genitourinary: Negative Positive: no symptoms reported, see HPI Negative: Arthralgia, Myalgia Skin: Negative All Other Systems Reviewed And Are Negative: Yes Physical Exam Triage Information Reviewed: Yes Vital Signs On Initial Exam: Initial Vitals Temp Pulse Resp BP Pulse Ox 97.8 F 109 18 166/93 100 04/05/19 14:14 04/05/19 14:14 04/05/19 14:14 04/05/19 14:14 04/05/19 14:14 Vital Signs Reviewed: Yes Appearance: Positive: Well-Appearing, Well-Nourished Skin: Positive: Warm, Skin Color Reflects Adequate Perfusion Head/Face: Positive: Normal Head/Face Inspection Eyes: Positive: EOMI, AZAEL, Conjunctiva Clear Neck: Positive: Supple, No Lymphadenopathy Respiratory/Lung Sounds: Positive: Clear to Auscultation, Breath Sounds Present Cardiovascular: Positive: RRR, Pulses are Symmetrical in both Upper and Lower Extremities Bowel Sounds: Positive: Present Neurological: Positive: Sensory/Motor Intact Psychiatric: Positive: Affect/Mood Appropriate Procedures - Sedation Patient Received Moderate/Deep Sedation with Procedure: No Diagnostics - Vital Signs Vital Signs Temp Pulse Resp BP Pulse Ox 04/05/19 15:10 83 142/66 94 04/05/19 15:00 69 17 92 04/05/19 14:39 62 100 04/05/19 14:14 97.8 F 109 18 166/93 100 - Laboratory Lab Statement: Any lab studies that have been ordered have been reviewed, and results considered in the medical decision making process. Naus/Vom/Diarrhea Course/Dx - Course Course Of Treatment: This patient arrives to the ED appearing ill and retching with diaphoresis. Patient states she has had off and on nausea and vomiting since 3 AM. She did take her domperidone twice today with no relief. EMS was able to give her IV Benadryl causes her to be drowsy, and improve her symptoms somewhat, however she continues to vomit. EKG obtained on arrival which is the QTC at 441, just slightly above the normal limit. Typically patient is between 450 and 550. She has not been taking any other antiemetics at home. She was told to not take any antiemetics due to QTC prolongation. According to the drug interactions using UTD lexicomp reglan and domperidone have no interactions. The risk of grade A level or more is not identified. Although there is still risk of QTC prolongation with any antiemetic, it appears less than other antiemetics. After trying Benadryl, pt was given reglan with good effect. Pt given 2L NS. She was kept on cardiopulm monitor. Pt improved and is OK for DC at this time. - Differential Dx/Diagnosis Differential Diagnoses - Female: Other - Cyclic vomiting syndrome, diabetic gastroparesis Provider Diagnosis: Nausea & vomiting Condition At Discharge: Stable Discharge ED - Sign-Out/Discharge Documenting (check all that apply): Patient Departure - Discharge Plan Condition: Stable Disposition: HOME Referrals: Clementine Plata MD [Primary Care Provider] - Additional Instructions: Eat small amounts at a time Please return to the ED for worsening symptoms - Billing Disposition and Condition Condition: STABLE Disposition: Home
[2019-04-05 17:49] VITALS: BP 142/74
== END 2019-04-05 17:49 | disposition home or self-care (01) ==
LOC: ED 14:10
DX: R11.2 Nausea with vomiting, unspecified (principal); E11.9 Type 2 diabetes mellitus without complications; I10 Essential (primary) hypertension; K21.9 Gastro-esophageal reflux disease without esophagitis; F17.210 Nicotine dependence, cigarettes, uncomplicated; Z88.8 Allergy status to other drugs, medicaments and biological substances
CPT/HCPCS: 93005; 96361; 96374; 96376; 99283; J2765

== ENCOUNTER 2019-07-21 12:16 | Day surgery (SDC) | payer OTHER ==
[~2019-07-21 12:16] MED LIST changes: -Acetaminophen TAB* 325 MG PO ONE; -Famotidine IV* 10 MG/ML 2 ML (20 mg) IV ONE
[2019-07-21] MEDS ORDERED: Buffered Lidocaine 1% SYRIN* 1 ML/SYRINGE INTRADERM ONE (12:34)
[2019-07-21] MEDS ORDERED: ceFAZolin 2 GM PREMIX in ORs 2 GM/50 ML BAG ONE (12:34)
[2019-07-21] MEDS ORDERED: Acetaminophen TAB* 325 MG PO PRN (12:51)
[2019-07-21] MEDS ORDERED: Ketorolac INJ* 30 MG/ML 1 ML VIAL IV PRN (12:51)
[2019-07-21] MEDS ORDERED: Naloxone* 0.4 MG/ML 1 ML VIAL IV PRN (12:51)
[2019-07-21] MEDS ORDERED: oxyCODONE TAB* 5 MG TAB PO PRN (12:51)
[2019-07-21] MEDS ORDERED: Ondansetron INJ* 2 MG/ML VIAL IV PRN (12:51)
[2019-07-21] MEDS ORDERED: fentaNYL* 50 MCG/ML 2 ML VIAL (100 MCG VIAL) IV PRN (12:51)
[2019-07-21] MEDS ORDERED: Insulin REGULAR(*) 1 UNITS UNIT ONE (13:15)
[2019-07-21] MEDS ORDERED: Midazolam* 1 MG/ML 2 ML VIAL (2 MG) ONE (13:28)
[2019-07-21] MEDS ORDERED: Propofol* 10 MG/ML 20 ML BTL ONE (14:23)
[2019-07-21] MEDS ORDERED: Propofol* 500 MG/50 ML BTL ONE (14:23)
[2019-07-21] MEDS ORDERED: Lidocaine 2% PF * 5 ML VIAL ONE (14:23)
[2019-07-21 15:48] VITALS: BP 134/73
--- NOTE | 2019-07-21 18:19 | OP ---
OPERATIVE REPORT: DATE OF OPERATION: 07/21/19 - MERGED WITH [facility] DATE OF : 80 ATTENDING SURGEON: Sai Elizondo MD. INSTALLER INSPECTOR FINAL: Adiel Hollis PA-C. PRE-OP DIAGNOSIS: Left first metatarsophalangeal joint fusion hardware with local infection. POST-OP DIAGNOSIS: Left first metatarsophalangeal joint fusion hardware with local infection. OPERATIVE PROCEDURE: Irrigation and debridement, left great toe with hardware removal. DESCRIPTION OF PROCEDURE: The patient was taken to the operating room where sharp dissection through the previous wound with dorsal flap elevated. There was some purulent material over the dorsum of the plate, but the fusion appeared solid. We removed the plate with appropriate screwdrivers and irrigated thoroughly curetting the dorsal aspect of the first MTP fusion. Cultures were sent. We then closed with Monocryl subcu sutures, interrupted 3- 0 nylon for the skin and a compression dressing applied. [id number] #: [id number] MTDD
== END 2019-07-21 15:45 | disposition home or self-care (01) ==
LOC: OR 12:16
PROVIDERS: ATTEND Orthopaedic Surgery
DX: T84.69XA Infection and inflammatory reaction due to internal fixation device of other site, initial encounter (principal); Y83.1 Surgical operation with implant of artificial internal device as the cause of abnormal reaction of the patient, or of later complication, without mention of misadventure at the time of the procedure; I10 Essential (primary) hypertension; E11.621 Type 2 diabetes mellitus with foot ulcer; Z79.4 Long term (current) use of insulin; F17.210 Nicotine dependence, cigarettes, uncomplicated; E11.43 Type 2 diabetes mellitus with diabetic autonomic (poly)neuropathy; K31.84 Gastroparesis
CPT/HCPCS: 81025; 87070; 87073; 87077; 87186; 87205; 88300; J0690; J2250; J2704

== ENCOUNTER 2020-07-16 07:46 | Inpatient (IN) ==
[2020-07-16] MEDS ORDERED: Ondansetron 4 mg VIAL 2 MG/ML 2 ml VIAL IV ONE (07:53)
[2020-07-16] MEDS ORDERED: NS 0.9% 1000 ml BAG 1,000 ML IV ONE ×3 (08:01→09:53)
[2020-07-16 09:12] LABS: ABS Basophils 0.1 10^3/ul (0-0.2); ABS Eosinophils 0.1 10^3/ul (0-0.6); ABS Lymphocytes 3.7 10^3/ul (1.0-4.8); ABS Monocytes 0.5 10^3/ul (0-0.8); ABS Neutrophils 8.7 10^3/ul (1.5-7.7); Eosinophil % 0.4 %; Hematocrit 50 % (35-47); Hemoglobin 16.8 g/dL (12.0-16.0); Lymphocyte % 28.7 %; Mean Corpuscular HGB Conc 34 g/dL (31-36); Mean Corpuscular Hemoglobin 30 pg (27-31); Mean Corpuscular Volume 89 fL (80-97); Mean Platelet Volume 9.3 fL (7.4-10.4); Platelet Count 259 10^3/uL (150-450); Red Cell Distribution Width 14 % (10-15); White Blood Count 13.1 10^3/uL (3.5-10.8)
[2020-07-16 09:28] LABS: Albumin 5.1 g/dL (3.2-5.2); Albumin/Globulin Ratio 1.5 (1-3); BUN/Creatinine Ratio 12.5 (8-20); C Reactive Protein 1.49 mg/L (<8.01); Calcium 10.7 mg/dL (8.6-10.3); EGFR African American 77.9 (>60); EGFR Non-African American 64.4 (>60); Globulin 3.4 g/dL (2-4); Potassium 3.8 mmol/L (3.5-5.0); Total Bilirubin 0.9 mg/dL (0.2-1.0); Total Protein 8.5 g/dL (6.4-8.9)
[2020-07-16] MEDS ORDERED: Iodixanol (CONTRAST) 320 MG/ML 100 ML SDV IV ONE (10:02)
[2020-07-16 11:37] LABS: Urine Appearance Clear; Urine Bilirubin Negative (Negative); Urine Blood 1+ (Negative); Urine Color Yellow; Urine Glucose 3+(>=500 mg/dL) (Negative); Urine Ketones 1+ (Negative); Urine Nitrite Negative (Negative); Urine Protein Negative (Negative); Urine Specific Gravity 1.051 (1.002-1.030); Urine Urobilinogen Negative (Negative)
[2020-07-16 11:50] LABS: Urine Bacteria Absent (Absent); Urine Red Blood Cell Trace(0-2/hpf) (Absent); Urine Squamous Epithelial Cell Present (Absent); Urine White Blood Cell Absent (Absent)
[2020-07-16] MEDS ORDERED: Dextrose 50% Syringe 50 ml 25 GM/50 ML SYRINGE IV PUSH PRN (14:50)
[2020-07-16] MEDS: Ondansetron 4 mg VIAL 2 MG/ML 2 ml VIAL IV PRN ×2 (15:06→19:50)
[2020-07-16] MEDS: Morphine 2 MG/ML SYRINGE IV PRN ×2 (19:47→23:34)
[2020-07-17] MEDS: Ondansetron 4 mg VIAL 2 MG/ML 2 ml VIAL IV PRN ×3 (02:03→11:41)
[2020-07-17] MEDS: Morphine 2 MG/ML SYRINGE IV PRN ×3 (04:45→12:42)
[2020-07-17 05:24] LABS: ABS Eosinophils 0.1 10^3/ul (0-0.6); ABS Lymphocytes 3.8 10^3/ul (1.0-4.8); ABS Monocytes 0.6 10^3/ul (0-0.8); Eosinophil % 1.2 %; Hematocrit 42 % (35-47); Lymphocyte % 39.9 %; Mean Corpuscular HGB Conc 34 g/dL (31-36); Mean Corpuscular Hemoglobin 30 pg (27-31); Mean Corpuscular Volume 89 fL (80-97); Mean Platelet Volume 9.3 fL (7.4-10.4); Platelet Count 218 10^3/uL (150-450); Red Blood Count 4.67 10^6 /uL (3.70-4.87); Red Cell Distribution Width 14 % (10-15); White Blood Count 9.6 10^3/uL (3.5-10.8)
[2020-07-17 05:49] LABS: Albumin 4.1 g/dL (3.2-5.2); Albumin/Globulin Ratio 1.6 (1-3); BUN/Creatinine Ratio 14.8 (8-20); Calcium 8.9 mg/dL (8.6-10.3); EGFR African American 86.1 (>60); EGFR Non-African American 71.2 (>60); Globulin 2.6 g/dL (2-4); Potassium 3.7 mmol/L (3.5-5.0); Total Bilirubin 0.6 mg/dL (0.2-1.0); Total Protein 6.7 g/dL (6.4-8.9)
[2020-07-17] MEDS ORDERED: Insulin GLARGINE 100 un/ml 10 ml VIAL SUBCUT SCH (09:00)
[2020-07-17] MEDS ORDERED: Nicotine GUM 4MG FRUIT FLAVOR PO PRN (09:47)
[2020-07-17] MEDS ORDERED: Nicotine GUM 4MG FRUIT FLAVOR PO ONE (09:59)
[2020-07-17] MEDS ORDERED: diPHENhydraMINE IV 50 MG/ML 1 ml VIAL (BENADRYL) ONE (13:10)
[2020-07-17] MEDS ORDERED: Midazolam 10 mg/10 ml VIAL 1 mg/ml 10 ml VIAL (10 mg) ONE (13:10)
[2020-07-17] MEDS ORDERED: fentaNYL 100 mcg/2 ml 50 MCG/ML VIAL ONE (13:10)
[2020-07-17] MEDS ORDERED: Ondansetron 4 mg VIAL 2 MG/ML 2 ml VIAL ONE (13:31)
[2020-07-17 15:39] VITALS: BP 113/72
== END 2020-07-17 18:40 | disposition home or self-care (01) | DRG 251 ==
LOC: ED 07:46 → SSU 13:42
PROVIDERS: ADMIT Internal Medicine; ATTEND Internal Medicine